=== PATIENT | female | born 1940 | race Caucasian/White ===

== ENCOUNTER → 2016-07-05 | Outpatient (CLI) | payer MEDICARE, BC ==
--- NOTE | 2016-07-05 22:22 | US ---
EXAMINATION TYPE: US thyroid st tissue head/neck DATE OF EXAM: 07/05/2016 3:34 PM COMPARISON: US 2016 CLINICAL HISTORY: 76-year-old female E04.1 Thyroid Nodule. TECHNIQUE: Multiple sonographic images of the thyroid gland are obtained. FINDINGS: Right Lobe: 4.2 x 1.3 x 1.7 cm Left Lobe: 4.2 x 1.4 x 1.7 cm Isthmus Thickness: 0.3 cm There is homogeneous glandular parenchyma. In the left lobe, there is a mixed nodule with well-defined margins in the lower pole measuring 11 x 6 x 6 mm. This previously measured 12 x 7 x 9 mm. In addition, a couple tiny 1 to 2 mm colloid cysts are noted in the left lobe. No additional nodules. Bilateral neck scanned, no evidence of lymphadenopathy. IMPRESSION: Redemonstrated mixed nodule in the left lower pole. This measures 11 x 6 mm versus 12 x 9 mm, previou sly, not significantly changed to slightly smaller.
== END | disposition home or self-care (01) ==
LOC: RADUSWWP 14:58
PROVIDERS: ATTEND Family Medicine
DX: E04.1 Nontoxic single thyroid nodule (principal)
CPT/HCPCS: 76536

== ENCOUNTER → 2017-01-07 | Outpatient (CLI) | payer MEDICARE, BC ==
--- NOTE | 2017-01-07 14:15 | US ---
EXAMINATION TYPE: US kidneys/renal and bladder DATE OF EXAM: 01/07/2017 COMPARISON: NONE CLINICAL HISTORY: [id number] HEMATURIA; Microscopic hematuria per patient. EXAM MEASUREMENTS: Right Kidney: 9.9 x 4.5 x 3.9 cm Left Kidney: 9.4 x 5.0 x 4.9 cm Post Void Residual Volume: 13.0 mL Right Kidney: No hydronephrosis or masses seen Left Kidney: No hydronephrosis or masses seen Bladder: wnl Bilateral Jets seen: Yes Normal Post Void Residual: Yes There is no evidence for hydronephrosis at this point in time. No nephrolithiasis is seen. No natalia s are identified. The urinary bladder is anechoic. Bilateral ureteral jets are seen. IMPRESSION: Negative study.
--- NOTE | 2017-01-07 16:07 | US ---
EXAMINATION TYPE: US thyroid st tissue head/neck DATE OF EXAM: 01/07/2017 COMPARISON: 07/05/2016 CLINICAL HISTORY: 76-year-old female E04.1 SINGLE THYROID NODULE. TECHNIQUE: Multiple sonographic images of the thyroid gland are obtained. FINDINGS: GLAND SIZE: Right Lobe: 4.5 x 1.5 x 1.5 cm Overall Parenchyma: homogenous Left Lobe: 4.0 x 1.5 x 1.7 cm Overall Parenchyma: homogeneous Isthmus Thickness: 0.2 cm NODULES RIGHT: # of nodules measured on right: 1 1. 0.2 X 0.1 x 0.1 cm nodule that is too small to characterize but with the punctate calcification at the lower pole. There is no intranodular vascularity. Not previously seen. LEFT: # of nodules measured on left: 2 1. 1.1 X 0.6 x 0.7 cm hypoechoic mixed nodule at the lower pole with well-defined margins. This no dule is taller than wide and shows no intranodular vascularity. Prior size: 1.1 x 0.6 x 0.6 cm 2. 0.2 X 0.2 x 0.1 cm hypoechoic solid nodule at the upper pole with margins. This nodule is wider than tall and shows no intranodular vascularity. Prior size: approximately .01 to 0.2cm ISTHMUS: # of nodules measured in the isthmus: 0 Bilateral neck scanned, no evidence of lymphadenopathy. IMPRESSION: Essentially stable 1.1 x 0.7 cm mixed nodule in the left lower pole (versus 1.1 x 0.6 cm, previously) .
== END | disposition home or self-care (01) ==
LOC: RADUSWWP 12:27
PROVIDERS: ATTEND Family Medicine
DX: E04.1 Nontoxic single thyroid nodule (principal); R31.21 Asymptomatic microscopic hematuria
CPT/HCPCS: 76536; 76770

== ENCOUNTER 2017-06-03 08:35 | Inpatient (IN) | payer MEDICARE, BC ==
[2017-06-03] MEDS ORDERED: IPRATROPIUM 0.5 MG/2.5 ML NEBU INHALATION STA (08:59)
[2017-06-03] MEDS ORDERED: ALBUTEROL NEBULIZED 2.5 MG/3 ML INHALATION STA ×2 (08:59→11:24)
[2017-06-03] MEDS ORDERED: DEXAMETHASONE SOD PHOSPHATE 10 MG/ML 1 ML VIAL IV STA (08:59)
--- NOTE | 2017-06-03 09:02 | ED ---
General Adult HPI - General Chief complaint: Upper Respiratory Infection Stated complaint: lethargic Time Seen by Provider: 06/03/17 08:47 Source: patient, RN notes reviewed Mode of arrival: wheelchair Limitations: no limitations - History of Present Illness Initial comments: 77 yo female presenting with cough, rhinorrhea, fever and lethargy. Patient states she has had these symptoms for approximately 4-5 days. Denies significant dyspnea, denies chest pain. Patient does have a remote history of tobacco use, no formal diagnosis of asthma or COPD. She's had some nausea, no significant vomiting or diarrhea. No abdominal pain. She does complain of myalgias. - Related Data Home Medications Medication Instructions Recorded Confirmed Ca/D3/Mag/Zinc/Jayesh/David/Mgbor 1 tab PO DAILY 10/15/14 06/03/17 [Caltrate 600+D3+Min Chew Tab] Aspirin 81 mg PO DAILY 06/03/17 06/03/17 Lisinopril [Zestril] 20 mg PO DAILY 06/03/17 06/03/17 Multivit-Min/Iron/Folic/Lutein 1 tab PO DAILY 06/03/17 06/03/17 [Centrum Silver Women Tablet] Allergies Allergy/AdvReac Type Severity Reaction Status Date / Time No Known Allergies Allergy Verified 06/03/17 09:12 Review of Systems ROS Statement: Those systems with pertinent positive or pertinent negative responses have been documented in the HPI. ROS Other: All systems not noted in ROS Statement are negative. Past Medical History Past Medical History: Hypertension History of Any Multi-Drug Resistant Organisms: None Reported Past Surgical History: Hernia Repair Past Anesthesia/Blood Transfusion Reactions: No Reported Reaction Past Psychological History: No Psychological Hx Reported Smoking Status: Former smoker Past Alcohol Use History: None Reported Past Drug Use History: None Reported - Past Family History Sister(s) Family Medical History: Thyroid Disorder Additional Family Medical History / Comment(s): hypothyroidism General Exam Limitations: no limitations General appearance: alert, in no apparent distress Head exam: Present: atraumatic, normocephalic Eye exam: Present: normal appearance, PERRL Neck exam: Present: normal inspection, full ROM. Absent: tenderness, meningismus Respiratory exam: Present: respiratory distress, wheezes, accessory muscle use, decreased breath sounds, prolonged expiratory Cardiovascular Exam: Present: regular rate, normal rhythm GI/Abdominal exam: Present: soft. Absent: distended, tenderness Extremities exam: Present: normal inspection, normal capillary refill. Absent: pedal edema Neurological exam: Present: alert, oriented X3, CN II-XII intact. Absent: motor sensory deficit Psychiatric exam: Present: normal affect, normal mood Skin exam: Present: warm, dry, intact. Absent: cyanosis, diaphoretic Course Vital Signs 06/03/17 06/03/17 06/03/17 08:36 09:29 09:44 Temperature 100.2 F H Pulse Rate 99 92 90 Respiratory 20 18 26 H Rate Blood Pressure 148/68 153/68 O2 Sat by Pulse 95 99 Oximetry 06/03/17 06/03/17 06/03/17 09:45 09:56 11:22 Temperature 100.6 F H Pulse Rate 100 87 Respiratory 24 24 Rate Blood Pressure 121/53 O2 Sat by Pulse 89 L Oximetry EKG Findings - EKG Comments: EKG Findings:: EKG, normal sinus rhythm, right atrial enlargement, left bundle branch block, ventricular rate 93, TX interval 142, QRS duration 134, QTC 455. No old for comparison Medical Decision Making - Medical Decision Making 77 yofemale presenting with dyspnea and flulike symptoms. Patient is influenza positive. Chest x-ray shows hyperinflation, possible right upper lobe mass and patchy atelectasis. Blood cell count, stable hemoglobin, CO2 is 34 which is consistent with chronic CO2 retention. Troponin 0.026. EKG is left bundle with no old for comparison. Patient does not have any chest pain. She was given aspirin in the emergency department and troponin level will be trended. Presentation is consistent with COPD exacerbation. Patient will be admitted for further treatment. She is started on Tamiflu as well. Case discussed with Dr. Peck who will accept admission. - Lab Data Result diagrams: 06/03/17 09:00 06/03/17 09:00 Lab Results 06/03/17 06/03/17 06/03/17 Range/Units 09:00 09:00 09:00 WBC 7.6 (3.8-10.6) k/uL RBC 4.39 (3.80-5.40) m/uL Hgb 13.2 (11.4-16.0) gm/dL Hct 38.8 (34.0-46.0) % MCV 88.2 (80.0-100.0) fL MCH 29.9 (25.0-35.0) pg MCHC 33.9 (31.0-37.0) g/dL RDW 13.1 (11.5-15.5) % Plt Count 231 (150-450) k/uL Neutrophils % 84 % Lymphocytes % 8 % Monocytes % 7 % Eosinophils % 0 % Basophils % 0 % Neutrophils # 6.4 (1.3-7.7) k/uL Lymphocytes # 0.6 L (1.0-4.8) k/uL Monocytes # 0.5 (0-1.0) k/uL Eosinophils # 0.0 (0-0.7) k/uL Basophils # 0.0 (0-0.2) k/uL PT (9.0-12.0) sec INR (<1.2) APTT (22.0-30.0) sec Sodium 137 (137-145) mmol/L Potassium 4.3 (3.5-5.1) mmol/L Chloride 94 L (98-107) mmol/L Carbon Dioxide 34 H (22-30) mmol/L Anion Gap 9 mmol/L BUN 24 H (7-17) mg/dL Creatinine 0.69 (0.52-1.04) mg/dL Est GFR (CKD-EPI)AfAm >90 (>60 ml/min/1.73 sqM) Est GFR (CKD-EPI)NonAf 85 (>60 ml/min/1.73 sqM) Glucose 112 H (74-99) mg/dL Plasma Lactic Acid Daniel (0.7-2.0) mmol/L Calcium 9.1 (8.4-10.2) mg/dL Magnesium 1.7 (1.6-2.3) mg/dL Total Bilirubin 0.3 (0.2-1.3) mg/dL AST 34 (14-36) U/L ALT 38 (9-52) U/L Alkaline Phosphatase 69 (38-126) U/L Total Creatine Kinase 83 (30-135) U/L CK-MB (CK-2) 1.9 (0.0-2.4) ng/mL CK-MB (CK-2) Rel Index 2.3 Troponin I 0.026 (0.000-0.034) ng/mL NT-Pro-B Natriuret Pep pg/mL Total Protein 6.3 (6.3-8.2) g/dL Albumin 3.3 L (3.5-5.0) g/dL Influenza Type A RNA (Not Detectd) Influenza Type B (PCR) (Not Detectd) 06/03/17 06/03/17 06/03/17 Range/Units 09:00 09:00 09:00 WBC (3.8-10.6) k/uL RBC (3.80-5.40) m/uL Hgb (11.4-16.0) gm/dL Hct (34.0-46.0) % MCV (80.0-100.0) fL MCH (25.0-35.0) pg MCHC (31.0-37.0) g/dL RDW (11.5-15.5) % Plt Count (150-450) k/uL Neutrophils % % Lymphocytes % % Monocytes % % Eosinophils % % Basophils % % Neutrophils # (1.3-7.7) k/uL Lymphocytes # (1.0-4.8) k/uL Monocytes # (0-1.0) k/uL Eosinophils # (0-0.7) k/uL Basophils # (0-0.2) k/uL PT (9.0-12.0) sec INR (<1.2) APTT (22.0-30.0) sec Sodium (137-145) mmol/L Potassium (3.5-5.1) mmol/L Chloride (98-107) mmol/L Carbon Dioxide (22-30) mmol/L Anion Gap mmol/L BUN (7-17) mg/dL Creatinine (0.52-1.04) mg/dL Est GFR (CKD-EPI)AfAm (>60 ml/min/1.73 sqM) Est GFR (CKD-EPI)NonAf (>60 ml/min/1.73 sqM) Glucose (74-99) mg/dL Plasma Lactic Acid Daniel 1.1 (0.7-2.0) mmol/L Calcium (8.4-10.2) mg/dL Magnesium (1.6-2.3) mg/dL Total Bilirubin (0.2-1.3) mg/dL AST (14-36) U/L ALT (9-52) U/L Alkaline Phosphatase (38-126) U/L Total Creatine Kinase (30-135) U/L CK-MB (CK-2) (0.0-2.4) ng/mL CK-MB (CK-2) Rel Index Troponin I (0.000-0.034) ng/mL NT-Pro-B Natriuret Pep 525 pg/mL Total Protein (6.3-8.2) g/dL Albumin (3.5-5.0) g/dL Influenza Type A RNA Not Detected (Not Detectd) Influenza Type B (PCR) Detected H (Not Detectd) 06/03/17 Range/Units 09:00 WBC (3.8-10.6) k/uL RBC (3.80-5.40) m/uL Hgb (11.4-16.0) gm/dL Hct (34.0-46.0) % MCV (80.0-100.0) fL MCH (25.0-35.0) pg MCHC (31.0-37.0) g/dL RDW (11.5-15.5) % Plt Count (150-450) k/uL Neutrophils % % Lymphocytes % % Monocytes % % Eosinophils % % Basophils % % Neutrophils # (1.3-7.7) k/uL Lymphocytes # (1.0-4.8) k/uL Monocytes # (0-1.0) k/uL Eosinophils # (0-0.7) k/uL Basophils # (0-0.2) k/uL PT 10.0 (9.0-12.0) sec INR 1.0 (<1.2) APTT 24.3 (22.0-30.0) sec Sodium (137-145) mmol/L Potassium (3.5-5.1) mmol/L Chloride (98-107) mmol/L Carbon Dioxide (22-30) mmol/L Anion Gap mmol/L BUN (7-17) mg/dL Creatinine (0.52-1.04) mg/dL Est GFR (CKD-EPI)AfAm (>60 ml/min/1.73 sqM) Est GFR (CKD-EPI)NonAf (>60 ml/min/1.73 sqM) Glucose (74-99) mg/dL Plasma Lactic Acid Daniel (0.7-2.0) mmol/L Calcium (8.4-10.2) mg/dL Magnesium (1.6-2.3) mg/dL Total Bilirubin (0.2-1.3) mg/dL AST (14-36) U/L ALT (9-52) U/L Alkaline Phosphatase (38-126) U/L Total Creatine Kinase (30-135) U/L CK-MB (CK-2) (0.0-2.4) ng/mL CK-MB (CK-2) Rel Index Troponin I (0.000-0.034) ng/mL NT-Pro-B Natriuret Pep pg/mL Total Protein (6.3-8.2) g/dL Albumin (3.5-5.0) g/dL Influenza Type A RNA (Not Detectd) Influenza Type B (PCR) (Not Detectd) Critical Care Time Critical Care Time: Yes Total Critical Care Time: 35 Disposition Clinical Impression: COPD exacerbation Disposition: ADMITTED IP TO THIS [facility] Condition: Stable Is patient prescribed a controlled substance at discharge?: No Referrals: Tiago Rojo DO [Primary Care Provider] - 1-2 days Decision to Admit Reason: Admit from EC Decision Date: 06/03/17 Decision Time: 11:32
[2017-06-03 09:31] LABS: Basophils % (A) 0 %; Eosinophils % (A) 0 %; HCT 38.8 % (34.0-46.0); HGB 13.2 gm/dL (11.4-16.0); Lymphocytes # (A) 0.6 k/uL (1.0-4.8); Lymphocytes % (A) 8 %; MCH 29.9 pg (25.0-35.0); MCHC 33.9 g/dL (31.0-37.0); MCV 88.2 fL (80.0-100.0); Mean Platelet Volume 6.8; Monocytes # (A) 0.5 k/uL (0-1.0); Monocytes % (A) 7 %; Neutrophils # (A) 6.4 k/uL (1.3-7.7); Neutrophils % (A) 84 %; Platelet Count 231 k/uL (150-450); RBC 4.39 m/uL (3.80-5.40); RDW 13.1 % (11.5-15.5); WBC 7.6 k/uL (3.8-10.6)
[2017-06-03 09:43] LABS: ALT 38 U/L (9-52); AST 34 U/L (14-36); Albumin 3.3 g/dL (3.5-5.0); Alkaline Phosphatase 69 U/L (38-126); Anion Gap 9 mmol/L; Blood Urea Nitrogen 24 mg/dL (7-17); Calcium 9.1 mg/dL (8.4-10.2); Carbon Dioxide 34 mmol/L (22-30); Chloride 94 mmol/L (98-107); Glucose 112 mg/dL (74-99); Magnesium 1.7 mg/dL (1.6-2.3); Partial Thromboplastin Time 24.3 sec (22.0-30.0); Potassium 4.3 mmol/L (3.5-5.1); Sodium 137 mmol/L (137-145); Total Bilirubin 0.3 mg/dL (0.2-1.3); Total Protein 6.3 g/dL (6.3-8.2)
--- NOTE | 2017-06-03 09:48 | XR ---
EXAMINATION TYPE: XR chest 2V DATE OF EXAM: 06/03/2017 COMPARISON: None HISTORY: 77-year-old female cough, difficulty breathing TECHNIQUE: AP and lateral views FINDINGS: Heart upper limits of normal in size. There is atherosclerotic arch calcifications. Large appearance to the main right and left pulmonary arteries on the lateral view. Hyperinflation. No focal density in the right upper lobe possibly posteriorly on the lateral view. Some patchy posterior basilar densi ty also seen on the lateral view. IMPRESSION: 1. COPD. Pulmonary arterial hypertension. 2. Possible mass in the right upper lobe. Further cross-sectional evaluation recommended. 3. Patchy posterior basilar atelectasis or infiltrate seen on the lateral view.
[2017-06-03 09:59] LABS: Creatine Kinase MB 1.9 ng/mL (0.0-2.4); Troponin I 0.026 ng/mL (0.000-0.034)
[2017-06-03] MEDS ORDERED: OSELTAMIVIR 75 MG CAP PO STA (11:21)
[2017-06-03] MEDS ORDERED: IPRATROPIUM-ALBUTEROL 3 ML NEB INHALATION PRN (11:23)
[2017-06-03] MEDS ORDERED: ALBUTEROL NEBULIZED 2.5 MG/3 ML INHALATION PRN (11:24)
[2017-06-03] MEDS ORDERED: ASPIRIN 325 MG TAB PO STA (11:25)
[2017-06-03] MEDS ORDERED: IPRATROPIUM-ALBUTEROL 3 ML NEB INHALATION SCH (12:00)
[2017-06-03] MEDS ORDERED: TEMAZEPAM 15 MG CAP PO PRN (12:28)
[2017-06-03] MEDS ORDERED: ONDANSETRON 4 MG/2 ML VIAL IVP PRN (12:28)
[2017-06-03] MEDS ORDERED: MELATONIN 3 MG TABLET PO PRN (12:28)
[2017-06-03] MEDS ORDERED: ACETAMINOPHEN TAB 325 MG TAB PO PRN (12:28)
[2017-06-03] MEDS ORDERED: ALPRAZolam 0.25 MG TAB PO PRN (12:28)
[2017-06-03] MEDS ORDERED: CALCIUM CARBONATE 500 MG CHEWABLE PO PRN (12:28)
[2017-06-03] MEDS ORDERED: NALOXONE 0.4 MG/ML 1 ML VIAL IV PRN (12:28)
[2017-06-03] MEDS ORDERED: methylPREDNISolone SOD SUCCI 125 MG/2 ML VIAL IV SCH (13:00)
[2017-06-03] MEDS: LEVOFLOXACIN 500 MG TAB PO SCH (14:03)
[2017-06-03] MEDS: ENOXAPARIN 40 MG/0.4 ML SYRINGE SQ SCH (14:03)
[2017-06-03] MEDS: IPRATROPIUM-ALBUTEROL 3 ML NEB INHALATION SCH ×3 (16:06→20:20)
[2017-06-03 16:07] LABS: Creatine Kinase MB 2.1 ng/mL (0.0-2.4); Troponin I 0.014 ng/mL (0.000-0.034)
[2017-06-03] MEDS: methylPREDNISolone SOD SUCCI 40 MG/ML 1 ML VIAL IV SCH (16:34)
[2017-06-03 17:05] LABS: Glucose,Whole Blood 173 mg/dL (75-99)
[2017-06-03 20:39] LABS: Glucose,Whole Blood 130 mg/dL (75-99)
[2017-06-03] MEDS: INSULIN ASPART 100 UNIT/ML 1 ML 10 ML VIAL SQ SCH (20:46)
[2017-06-03] MEDS: OSELTAMIVIR 75 MG CAP PO SCH (22:02)
[2017-06-03 23:08] LABS: Creatine Kinase 64 U/L (30-135)
[2017-06-03 23:20] LABS: Creatine Kinase MB 1.9 ng/mL (0.0-2.4); Troponin I <0.012 ng/mL (0.000-0.034)
[2017-06-03] MEDS ORDERED: RX INFO: IV CONTRAST WAS GIVEN 1 EACH MISC MISCELLANE PRN (23:57)
--- NOTE | 2017-06-04 00:43 | HP ---
HISTORY AND PHYSICAL DATE OF SERVICE: 06/03/2017. PRESENT COMPLAINT: Short of breath, congested. HISTORY OF PRESENTING COMPLAINT: This is a 77-year-old patient I saw on the morning of 06/03/2017. The patient follows with Dr. Rojo. The patient is here with daughter who gives most of the history. For 4 days patient had been getting increasingly congested, cough, short of breath, not able to bring up much sputum, tired run down. Does not think she has a fever. Patient is slow to answer questions as he is feeling tired and run down. Decreased activity. The patient was found to have positive influenza A in the ER, being admitted for the same. REVIEW OF SYSTEMS: CONSTITUTIONAL: Weak and tired. HEENT: Decreased hearing. RESPIRATORY: Some wheezing and cough. CARDIOVASCULAR: None. GASTROINTESTINAL: Heartburn. GENITOURINARY: None. MUSCULOSKELETAL: None. DERMATOLOGIC: None. HEMATOLOGIC: None. LYMPHATIC: None. PSYCHIATRY: Slightly forgetful. NEUROLOGICAL: None. PAST MEDICAL HISTORY: Hypertension, thyroid nodule, GERD. PAST SURGICAL HISTORY: Bilateral inguinal hernia repair, colonoscopy. SOCIAL HISTORY: Lives alone. The patient smoked for 22 years, stopped in 1987. No alcohol. FAMILY HISTORY: Thyroid disorder, hypothyroidism. HOME MEDICATIONS: 1. Centrum Silver I tab p.o. daily. 2. Zestril 20 mg p.o. daily. 3. Calcium 600. 4. Vitamin D3, 1 tab p.o. daily. 5. Aspirin 81 mg p.o. daily. ALLERGIES: None. PHYSICAL EXAMINATION: Vital signs on presentation, temperature 100.9, pulse 83, respirations 16, blood pressure 102/54, pulse ox 95% on room air. GENERAL APPEARANCE: Thin built, sitting up, tired appearing. EYES: Pupils are equal. Conjunctivae normal. HEENT: External appearance of nose and ears normal. Oral cavity normal. NECK: JVD not raised. Mass not palpable. Respiratory effort increased. LUNGS: Diminished breath sounds. Minimal wheezing. CARDIOVASCULAR: 1st and 2nd heart sounds. No edema. ABDOMEN: Soft, nontender. Liver and spleen not palpable. LYMPHATIC: No lymph node palpable in neck or axillae. PSYCHIATRY: Alert, oriented x3. Mood and affect normal. NEUROLOGIC: Pupils equal. Cranial nerves grossly intact. Power and sensation grossly intact. MUSCULOSKELETAL: Evidence of osteoarthritis especially in the hands and knees. INVESTIGATIONS: White count 7.6, potassium 4.3, BUN 24, creatinine 0.69. Influenza B positive. EKG shows left bundle branch block, slight atrial enlargement. Chest x-ray shows hyperinflation, questionable mass in the right upper lobe, patchy infiltrate on the left side. ASSESSMENT: 1. Acute influenza B with pneumonitis. Doubt bacterial infection. 2. Acute chronic obstructive pulmonary disease exacerbation in an ex-smoker. 3. Prominent pulmonary arteries on the chest x-ray, suspect secondary pulmonary hypertension. 4. Possible mass in the right upper lobe. PLAN: Patient is started on Tamiflu, IV fluids, bronchodilators, IV Solu-Medrol. Will do CT scan with contrast in the morning. Care was discussed with the patient's daughter at the bedside. Questions were answered. MMODL / IJN: [id number] /
[2017-06-04] MEDS: methylPREDNISolone SOD SUCCI 40 MG/ML 1 ML VIAL IV SCH ×3 (01:20→16:50)
[2017-06-04] MEDS: LACTATED RINGERS 1,000 ML IV SCH ×2 (01:22→14:42)
[2017-06-04 07:25] LABS: Glucose,Whole Blood 114 mg/dL (75-99)
[2017-06-04] MEDS: BUDESONIDE 1 MG/2 ML NEBU INHALATION SCH ×2 (07:25→19:53)
[2017-06-04] MEDS: IPRATROPIUM-ALBUTEROL 3 ML NEB INHALATION SCH ×4 (07:25→19:53)
[2017-06-04] MEDS: INSULIN ASPART 100 UNIT/ML 1 ML 10 ML VIAL SQ SCH ×4 (07:26→20:33)
[2017-06-04] MEDS: LISINOPRIL 20 MG TAB PO SCH (08:14)
[2017-06-04] MEDS: ENOXAPARIN 40 MG/0.4 ML SYRINGE SQ SCH (08:14)
[2017-06-04] MEDS: ASPIRIN 81 MG PO SCH (08:14)
[2017-06-04] MEDS: OSELTAMIVIR 75 MG CAP PO SCH ×2 (08:14→21:36)
[2017-06-04] MEDS ORDERED: RX INFO: IV CONTRAST WAS GIVEN 1 EACH MISC MISCELLANE PRN (09:21)
[2017-06-04 12:22] LABS: Glucose,Whole Blood 120 mg/dL (75-99)
--- NOTE | 2017-06-04 12:39 | CT ---
EXAMINATION TYPE: CT chest w con DATE OF EXAM: 06/04/2017 COMPARISON: 06/03/2018 HISTORY: Abnormal CXR CT DLP: 122.6 mGycm. Automated Exposure Control for Dose Reduction was Utilized. TECHNIQUE: CT scan of the thorax is performed following with IV Contrast, patient injected with 100 mL of Isovue 300. FINDINGS: LUNGS: There is mild to moderate centrilobular pulmonary emphysema. Groundglass opacity within the ri ght lung apex on series 4 image 12 measures 1.6 x 1.7 cm. Corresponding to the finding on the chest r adiograph there is a multilobulated and peripherally spiculated centrally hypoattenuated heterogenous pulmonary nodule measuring 1.8 x 2.4 cm. This is seen in the superior segment of the right lower lob e with adjacent pleural thickening and series 3 image 22 and pleural tethering. Tiny satellite pulmon obdulia nodule on series 4 image 22 measures 5 mm. At the inferior aspect of this mass there is traction bronchiectasis. Mild cylindrical bronchiectasis is seen of the right middle lobe such as on series 4 image 43 and 44. Right middle lobe pleural-based nodule measures 1.0 cm. Within the left lower lobe there is a heterogenous consolidation with areas of decreased attenuation and decreased enhancement most compatible with pneumonia and surrounding atelectasis. MEDIASTINUM: Closely associated with the azygos vein there is a prominent 9 mm right paratracheal lym ph node and additional prominent right hilar 9 mm lymph node. Mild coronary artery calcifications are seen. [id number] atherosclerosis of the thoracic aorta is also present. No pericardial effusio n is seen. OTHER: There is a mid thoracic compression deformity at approximately T8. No retropulsion. Vertebral body height loss is approximately 50%. Multilevel mild degenerative changes of the thoracic spine are noted as well as an exaggerated thoracic kyphosis. IMPRESSION: 1. Highly suspicious right lower lobe superior segment pulmonary nodule measuring 1.8 x 2.4 cm with a djacent 4 mm satellite pulmonary nodule and additional right apical groundglass opacity measuring up to 1.7 cm. Findings are concerning for neoplasm. There is adjacent traction bronchiectasis. Further e valuation with bronchoscopy, percutaneous sampling, or PET/CT should be considered. 2. Two mediastinal lymph nodes are upper limits of normal size measuring 9 mm and could be further as sessed with PET CT. 3. Midthoracic age indeterminant compression deformity of T8. This does not appear pathologic. 4. Left lower lobe pneumonia and atelectasis. 5. Pleural-based 1.0 cm right middle lobe pulmonary nodule. 6. Mild to moderate background centrilobular pulmonary emphysema.
[2017-06-04 13:26] LABS: Hemoglobin A1C 5.7 % (4.0-6.0)
[2017-06-04 14:01] VITALS: BMI 18.9
[2017-06-04] MEDS: MULTIVITAMINS, THERA 1 EACH TAB PO SCH (14:42)
[2017-06-04] MEDS: LEVOFLOXACIN 500 MG TAB PO SCH (14:42)
--- NOTE | 2017-06-04 15:26 | PN ---
PROGRESS NOTE DATE OF SERVICE: 06/04/2017 PRESENTING COMPLAINT: Short of breath, congested. INTERVAL HISTORY: Patient admitted with acute pneumonitis from Tamiflu and COPD exacerbation. Breathing is better. Tolerating a diet. Daughter is at the bedside. CT scan of the chest was done because of abnormal chest x-ray for possible nodules. REVIEW OF SYSTEMS: Done for constitutional, cardiovascular, GI, pulmonary; relevant findings as above. CURRENT MEDICATIONS: Include DuoNeb, Solu-Medrol, Tamiflu, Levaquin. PHYSICAL EXAMINATION: Temperature 96.4, pulse 77, respirations 18, blood pressure 132/67, pulse ox 90% on 2 L. GENERAL APPEARANCE: Sitting up on a bed, more comfortable today. EYES: Pupil equal, conjunctivae normal. HEENT: External appearance of nose and ears normal, oral cavity normal. NECK: JVD not raised. Mass not palpable. Respiratory effort increased. LUNGS: Diminished breath sounds. Improved air entry. CARDIOVASCULAR: First and second sounds are normal. No edema. ABDOMEN: Soft, nontender. Liver and spleen not palpable. PSYCHIATRY: Alert and oriented x3. Mood and affect normal. INVESTIGATIONS: Accu-Cheks are noted. CT scan of the chest showing some nodules. ASSESSMENT: 1. Acute influenza B with pneumonitis, empirically being covered for any bacterial infection. Clinically doing better. 2. Acute chronic obstructive pulmonary disease exacerbation in an ex-smoker. 3. Prominent pulmonary arteries in the chest, suspect secondary pulmonary hypertension. 4. Abnormal CT scan showing nodules. PLAN: Care was discussed with the patient's daughter. Continue current medication and treatment plan. Await input from Pulmonary. Clinically patient is doing better. MMODL / IJN: [id number] /
[2017-06-04 17:17] LABS: Glucose,Whole Blood 144 mg/dL (75-99)
--- NOTE | 2017-06-04 18:36 | P.CNPUL ---
History of Present Illness Consult date: 06/04/17 Reason for consult: dyspnea, cough, pulmonary hypertension, lung mass Chief complaint: Cough shortness of breath and not feeling well for the last 1 week History of present illness: 77-year-old female who lives by herself family brought her into the hospital as she was not doing very well her symptoms started about a week ago with increased upper respiratory type of infectious process cough congestion shortness of breath and was very congested brought into the hospital for further evaluation and intervention and treatment as per son was present bedside patient is a long-standing history of the respiratory issues and get short of breath on activity and exertion. Patient however lives by herself take care of usual routines with family present around nearby. Further workup and evaluation revealed nasopharyngeal swab is positive for influenza B pneumonia, computed tomography scan of the chest abnormal with left lower lobe infiltrate suggestive of the secondary bacterial pneumonia. CAT scan also revealed extensive degree emphysema prominent pulmonary vasculature suggestive of pulmonary hypertension as well as multiple nodules on the right side the right upper lobe nodule is groundglass appearance right middle lobe nodule was close to thoracic wall a larger over 2 cm nodule is noted in the right lower lobe as well there are appearance overall suggestive of the neoplastic processes but however infectious process cannot be excluded Review of Systems All systems: negative Past Medical History Past Medical History: Hypertension, Thyroid Disorder Additional Past Medical History / Comment(s): Thyroid nodules being monitored. History of Any Multi-Drug Resistant Organisms: None Reported Past Surgical History: Hernia Repair Additional Past Surgical History / Comment(s): Bilateral inguinal hernia repairs , colonoscopies with benign polypectomies. Past Anesthesia/Blood Transfusion Reactions: No Reported Reaction Smoking Status: Former smoker - Past Family History Mother Family Medical History: Dementia Additional Family Medical History / Comment(s): Mother at age 83 yrs. Father Family Medical History: CVA/TIA Additional Family Medical History / Comment(s): Father had a CVA. He at the age of 83 yrs. Sister(s) Family Medical History: Thyroid Disorder Additional Family Medical History / Comment(s): hypothyroidism Medications and Allergies Home Medications Medication Instructions Recorded Confirmed Type Ca/D3/Mag/Zinc/Jayesh/David/Mgbor 1 tab PO DAILY 10/15/14 06/03/17 History [Caltrate 600+D3+Min Chew Tab] Aspirin 81 mg PO DAILY 06/03/17 06/03/17 History Lisinopril [Zestril] 20 mg PO DAILY 06/03/17 06/03/17 History Multivit-Min/Iron/Folic/Lutein 1 tab PO DAILY 06/03/17 06/03/17 History [Centrum Silver Women Tablet] Allergies Allergy/AdvReac Type Severity Reaction Status Date / Time No Known Allergies Allergy Verified 06/03/17 09:12 Physical Exam Vitals: Vital Signs Temp Pulse Pulse Resp BP Pulse Ox 06/04/17 16:30 82 06/04/17 16:20 80 06/04/17 15:00 97.1 F L 82 16 133/61 95 06/04/17 11:45 80 06/04/17 11:30 84 06/04/17 07:48 88 06/04/17 07:25 80 06/04/17 07:00 96.4 F L 77 18 132/67 90 L 06/03/17 23:00 97.4 F L 79 18 124/63 96 06/03/17 20:30 84 06/03/17 20:20 84 Intake and Output 06/04/17 06/04/17 06/04/17 06:59 14:59 22:59 Intake Total 525 600 Balance 525 600 Intake: Intake, IV Titration 525 600 Amount Lactated Ringers 1,000 ml 525 600 @ 75 mls/hr IV .[id number] [facility] Rx#:[id number] Other: Voiding Method Toilet Weight 48.534 kg Limitations: no limitations General appearance: alert, in mild respiratory distress Head exam: Present: atraumatic, normocephalic Eye exam: Present: normal appearance, PERRL Neck exam: Present: normal inspection, full ROM. Absent: tenderness, meningismus Respiratory exam: noted to have mild to moderate respiratory distress, wheezes , accessory muscle use, decreased breath sounds, prolonged expiratory effort Cardiovascular Exam: Present: regular rate, normal rhythm GI/Abdominal exam: Present: soft. Absent: distended, tenderness Extremities exam: Present: normal inspection, normal capillary refill. Absent: pedal edema Neurological exam: Present: alert, oriented X3, CN II-XII intact. Absent: motor sensory deficit Psychiatric exam: Present: normal affect, normal mood Skin exam: Present: warm, dry, intact. Absent: cyanosis, diaphoretic Results - Laboratory Findings CBC and BMP: 06/03/17 09:00 04/16/18 09:00 PT/INR, D-dimer PT 10.0 sec (9.0-12.0) 06/03/17 09:00 INR 1.0 (<1.2) 06/03/17 09:00 Abnormal lab findings: Abnormal Labs 06/03/17 06/03/17 06/03/17 09:00 09:00 09:00 Lymphocytes # 0.6 L Chloride 94 L Carbon Dioxide 34 H BUN 24 H Glucose 112 H POC Glucose (mg/dL) Albumin 3.3 L Influenza Type B (PCR) Detected H 06/03/17 06/03/17 06/04/17 16:57 20:35 07:18 Lymphocytes # Chloride Carbon Dioxide BUN Glucose POC Glucose (mg/dL) 173 H 130 H 114 H Albumin Influenza Type B (PCR) 06/04/17 06/04/17 11:55 17:15 Lymphocytes # Chloride Carbon Dioxide BUN Glucose POC Glucose (mg/dL) 120 H 144 H Albumin Influenza Type B (PCR) - Diagnostic Findings Chest x-ray: report reviewed, image reviewed CT scan - chest: report reviewed, image reviewed (Findings as noted above) Assessment and Plan Assessment: Left lower lobe secondary bacterial pneumonia Influenza B pneumonia Right-sided multiple pulmonary nodules suggestive of neoplastic process however associated infectious process cannot be excluded related to pneumonia Severe COPD emphysema Acute hypoxic respirator failure Pulmonary hypertension likely related to cor pulmonale and severe COPD Plan: Broad-spectrum antibiotics Breathing treatments and steroids Continue gentle hydration Optimize her respiratory therapy Would recommend a PET scan on outpatient basis Echocardiogram Patient however is that the risk of developing complications of biopsy including bleeding as well as pneumothorax as well as respiratory failure will hold on doing the biopsy for now, however once she stabilized scan be considered for outpatient setting after PET scan Time with Patient: Greater than 30
[2017-06-04 20:32] LABS: Glucose,Whole Blood 125 mg/dL (75-99)
[2017-06-05] MEDS ORDERED: methylPREDNISolone SOD SUCCI 40 MG/ML 1 ML VIAL ONE
[2017-06-05 07:16] LABS: Glucose,Whole Blood 134 mg/dL (75-99)
[2017-06-05] MEDS: methylPREDNISolone SOD SUCCI 40 MG/ML 1 ML VIAL IV SCH ×3 (08:30→17:40)
[2017-06-05] MEDS: LACTATED RINGERS 1,000 ML IV SCH ×2 (08:30→17:40)
[2017-06-05] MEDS: ENOXAPARIN 40 MG/0.4 ML SYRINGE SQ SCH (08:34)
[2017-06-05] MEDS: LISINOPRIL 20 MG TAB PO SCH (08:35)
[2017-06-05] MEDS: INSULIN ASPART 100 UNIT/ML 1 ML 10 ML VIAL SQ SCH ×4 (08:35→20:28)
[2017-06-05] MEDS: ASPIRIN 81 MG PO SCH (08:35)
[2017-06-05] MEDS: OSELTAMIVIR 75 MG CAP PO SCH ×2 (08:35→20:30)
[2017-06-05] MEDS: BUDESONIDE 1 MG/2 ML NEBU INHALATION SCH ×2 (09:00→19:42)
[2017-06-05] MEDS: IPRATROPIUM-ALBUTEROL 3 ML NEB INHALATION SCH ×4 (09:00→19:42)
[2017-06-05 11:54] LABS: Glucose,Whole Blood 100 mg/dL (75-99)
[2017-06-05] MEDS: MULTIVITAMINS, THERA 1 EACH TAB PO SCH (12:01)
[2017-06-05] MEDS: LEVOFLOXACIN 500 MG TAB PO SCH (12:02)
--- NOTE | 2017-06-05 12:30 | P.PN ---
Subjective Progress Note Date: 06/05/17 Principal diagnosis: Left lower lobe pneumonia, influenza B pneumonia, multiple lung nodules on the right side, acute on chronic hypoxic respiratory failure, severe COPD and emphysema, pulmonary hypertension likely cor pulmonale 06/05/2017, patient seen eval examined during the rounds from respiratory standpoint is still short of breath has cough is dry and nonproductive she gets short of breath on activity and exertion she remains on supplemental oxygen broad-spectrum antibiotics IV steroids computed tomography scan of the chest reviewed and findings discussed with the daughter present at bedside and patient at length, blood cultures no growth so far, laboratory data reviewed medications reviewed 77-year-old female who lives by herself family brought her into the hospital as she was not doing very well her symptoms started about a week ago with increased upper respiratory type of infectious process cough congestion shortness of breath and was very congested brought into the hospital for further evaluation and intervention and treatment as per son was present bedside patient is a long-standing history of the respiratory issues and get short of breath on activity and exertion. Patient however lives by herself take care of usual routines with family present around nearby. Further workup and evaluation revealed nasopharyngeal swab is positive for influenza B pneumonia, computed tomography scan of the chest abnormal with left lower lobe infiltrate suggestive of the secondary bacterial pneumonia. CAT scan also revealed extensive degree emphysema prominent pulmonary vasculature suggestive of pulmonary hypertension as well as multiple nodules on the right side the right upper lobe nodule is groundglass appearance right middle lobe nodule was close to thoracic wall a larger over 2 cm nodule is noted in the right lower lobe as well there are appearance overall suggestive of the neoplastic processes but however infectious process cannot be excluded Objective - Vital Signs Vital signs: Vital Signs Temp 97.1 F L 06/05/17 06:25 Pulse 76 06/05/17 12:17 Resp 12 06/05/17 06:25 BP 152/78 06/05/17 06:25 Pulse Ox 97 06/05/17 06:25 Intake & Output 06/04/17 06/05/17 06/05/17 18:59 06:59 18:59 Intake Total 600 600 Balance 600 600 Weight 48.534 kg Intake: Intake, IV Titration 600 600 Amount Lactated Ringers 1,000 ml 600 600 @ 75 mls/hr IV .[id number] [facility] Rx#:[id number] Other: Voiding Method Toilet # Voids 1 1 - Exam Limitations: no limitations General appearance: alert, in mild respiratory distress Head exam: Present: atraumatic, normocephalic Eye exam: Present: normal appearance, PERRL Neck exam: Present: normal inspection, full ROM. Absent: tenderness, meningismus Respiratory exam: noted to have mild to moderate respiratory distress, wheezes , accessory muscle use, decreased breath sounds, prolonged expiratory effort Cardiovascular Exam: Present: regular rate, normal rhythm GI/Abdominal exam: Present: soft. Absent: distended, tenderness Extremities exam: Present: normal inspection, normal capillary refill. Absent: pedal edema Neurological exam: Present: alert, oriented X3, CN II-XII intact. Absent: motor sensory deficit Psychiatric exam: Present: normal affect, normal mood Skin exam: Present: warm, dry, intact. Absent: cyanosis, diaphoretic - Labs CBC & Chem 7: 06/03/17 09:00 06/03/17 09:00 Labs: Abnormal Lab Results - Last 24 Hours (Table) 06/04/17 06/04/17 06/05/17 Range/Units 17:15 20:31 07:13 POC Glucose (mg/dL) 144 H 125 H 134 H (75-99) mg/dL 06/05/17 Range/Units 11:49 POC Glucose (mg/dL) 100 H (75-99) mg/dL Microbiology - Last 24 Hours (Table) 06/03/17 09:00 Blood Culture - Preliminary Blood No Growth after 48 hours Assessment and Plan Assessment: Left lower lobe secondary bacterial pneumonia Influenza B pneumonia Right-sided multiple pulmonary nodules suggestive of neoplastic process however associated infectious process cannot be excluded related to pneumonia Severe COPD emphysema Acute hypoxic respiratorY failure Pulmonary hypertension likely related to cor pulmonale and severe COPD Generalized weakness and medical debility Protein calorie malnourishment Plan: Broad-spectrum antibiotics Breathing treatments and steroids Continue gentle hydration Optimize her respiratory therapy Would recommend a PET scan on outpatient basis Echocardiogram Patient however is that the risk of developing complications of biopsy including bleeding as well as pneumothorax as well as respiratory failure will hold on doing the biopsy for now, however once she stabilized scan be considered for outpatient setting after PET scan Her plan discussed with the patient and daughter and son at length Time with Patient: Greater than 30
[2017-06-05 16:56] LABS: Glucose,Whole Blood 109 mg/dL (75-99)
[2017-06-05 20:18] LABS: Glucose,Whole Blood 123 mg/dL (75-99)
--- NOTE | 2017-06-05 20:30 | PN ---
PROGRESS NOTE DATE OF SERVICE: 06/05/17 PRESENTING COMPLAINT: Short of breath, congested. INTERVAL HISTORY: The patient presented with acute pneumonia and influenza B and COPD exacerbation. Breathing continues to improve. Diet is improving. The patient was out of bed. REVIEW OF SYSTEMS: Done for constitutional, cardiovascular, GI, pulmonary and relevant findings as above. CURRENT MEDICATIONS: Reviewed and include DuoNeb, Levaquin, IV Solu-Medrol, Tamiflu. PHYSICAL EXAMINATION: Temperature 97.1, pulse 54, respiratory 18, blood pressure 152/86, pulse ox 95% on 2 L. General appearance: Sitting up, more awake. Eyes pupils are equal. Conjunctivae normal. HEENT external appearance of nose and ears normal. Oral cavity normal. Neck JVD not raised. Mass not palpable. Respiratory effort increased. Lungs decreased breath sounds. Cardiovascular 1st and 2nd sounds normal. No edema. ABDOMEN: Soft, nontender. Liver and spleen not palpable. Psychiatry: Alert and oriented x3. Mood and affect normal. INVESTIGATIONS: Accu-Cheks are noted. ASSESSMENT: 1. Acute influenza B with pneumonitis. Empirically also be covered for bacterial infection. 2. Acute chronic obstructive pulmonary disease exacerbation in an ex-smoker improving. 3. Suspect secondary pulmonary hypertension. 4. Abnormal CT scan showing nodule. Further workup as an outpatient. PLAN: Care was discussed with the patient and daughter at the bedside. Continue current medication and treatment plan. Oral intake is improved. Will DC the IV fluids. MMJENNIFERL / ESCOBARN: [id number] /
[2017-06-06] MEDS: methylPREDNISolone SOD SUCCI 40 MG/ML 1 ML VIAL IV SCH ×3 (00:23→15:17)
[2017-06-06 07:27] LABS: Glucose,Whole Blood 107 mg/dL (75-99)
[2017-06-06] MEDS: IPRATROPIUM-ALBUTEROL 3 ML NEB INHALATION SCH ×4 (09:06→19:37)
[2017-06-06] MEDS: BUDESONIDE 1 MG/2 ML NEBU INHALATION SCH ×2 (09:06→19:37)
[2017-06-06] MEDS: INSULIN ASPART 100 UNIT/ML 1 ML 10 ML VIAL SQ SCH ×4 (09:16→21:38)
[2017-06-06] MEDS: LISINOPRIL 20 MG TAB PO SCH (09:16)
[2017-06-06] MEDS: ASPIRIN 81 MG PO SCH (09:16)
[2017-06-06] MEDS: OSELTAMIVIR 75 MG CAP PO SCH ×2 (09:16→21:39)
[2017-06-06] MEDS: ENOXAPARIN 40 MG/0.4 ML SYRINGE SQ SCH (09:16)
[2017-06-06 12:41] LABS: Glucose,Whole Blood 107 mg/dL (75-99)
[2017-06-06] MEDS: LEVOFLOXACIN 500 MG TAB PO SCH (13:21)
[2017-06-06] MEDS: MULTIVITAMINS, THERA 1 EACH TAB PO SCH (13:22)
[2017-06-06 15:56] VITALS: RESP 18
[2017-06-06 17:10] LABS: Glucose,Whole Blood 103 mg/dL (75-99)
[2017-06-06 21:31] LABS: Glucose,Whole Blood 109 mg/dL (75-99)
--- NOTE | 2017-06-06 23:04 | PN ---
PROGRESS NOTE DATE OF SERVICE: 06/06/2017 PRESENTING COMPLAINT: Short of breath. INTERVAL HISTORY: Patient admitted with pneumonia, influenza B and COPD exacerbation. Continues to get better. Diet is improving. Overall feeling better. Patient will have a further workup as an outpatient for abnormalities on CT scan. Daughter at the bedside. REVIEW OF SYSTEMS: Done for constitutional, cardiovascular, GI, pulmonary; relevant findings as above. CURRENT MEDICATIONS: Reviewed. They include: 1. DuoNeb. 2. Levaquin. 3. Solu-Medrol. 4. Tamiflu. PHYSICAL EXAMINATION: Temperature 97.6, pulse 84, respiration 16, blood pressure 148/76, pulse ox 92% on room air. GENERAL APPEARANCE: Sitting up in the bed. Awake. EYES: Pupils equal. Conjunctivae normal. HEENT: External appearance of nose and ears normal. Oral cavity normal. NECK: JVD not raised. Mass not palpable. RESPIRATORY: Effort increased. LUNGS: Decreased breath sounds. CARDIOVASCULAR: First and second sounds normal. No edema. ABDOMEN: Soft, nontender. Liver and spleen not palpable. PSYCHIATRY: Alert and oriented x3. Mood and affect normal. INVESTIGATIONS: Accu-Cheks are noted. ASSESSMENT: 1. Acute influenza B with pneumonitis with empirical coverage also for bacterial component. 2. Acute chronic obstructive pulmonary disease exacerbation in an ex-smoker, improving. 3. Suspect secondary pulmonary hypertension. 4. Abnormal CT scan showing nodule, for further outpatient workup. PLAN: Care was discussed with the patient. Overall doing much better. Switch to p.o. prednisone in the morning. Hopefully can be discharged tomorrow. MMODL / IJN: [id number] /
[2017-06-07 07:13] LABS: Glucose,Whole Blood 77 mg/dL (75-99)
[2017-06-07] MEDS: BUDESONIDE 1 MG/2 ML NEBU INHALATION SCH (07:13)
[2017-06-07] MEDS: IPRATROPIUM-ALBUTEROL 3 ML NEB INHALATION SCH ×2 (07:13→10:56)
[2017-06-07 07:50] VITALS: BP 169/78; TEMP 97.5
[2017-06-07] MEDS: INSULIN ASPART 100 UNIT/ML 1 ML 10 ML VIAL SQ SCH ×2 (08:50→12:52)
[2017-06-07] MEDS ORDERED: predniSONE 20 MG TAB PO SCH (09:00)
[2017-06-07] MEDS: LISINOPRIL 20 MG TAB PO SCH (09:08)
[2017-06-07] MEDS: ASPIRIN 81 MG PO SCH (09:09)
[2017-06-07] MEDS: OSELTAMIVIR 75 MG CAP PO SCH (09:09)
[2017-06-07] MEDS: ENOXAPARIN 40 MG/0.4 ML SYRINGE SQ SCH (09:09)
[2017-06-07 11:06] VITALS: PULSE 84
[2017-06-07 12:28] LABS: Glucose,Whole Blood 89 mg/dL (75-99)
[2017-06-07] MEDS: MULTIVITAMINS, THERA 1 EACH TAB PO SCH (12:53)
[2017-06-07] MEDS: LEVOFLOXACIN 500 MG TAB PO SCH (12:53)
--- NOTE | 2017-06-07 13:49 | P.PN ---
Subjective Progress Note Date: 06/07/17 Principal diagnosis: Left lower lobe pneumonia, influenza B pneumonia, multiple lung nodules on the right side, acute on chronic hypoxic respiratory failure, severe COPD and emphysema, pulmonary hypertension likely cor pulmonale 06/07/2017, patient seen nabeel examined during the rounds she is sitting upright on the bed sinus present bedside patient has been on supplemental oxygen labs reviewed medications reviewed, blood cultures no growth so far my patient is off of IV steroids has been oral antibiotics and breathing treatments I have discussed with staff would recommend to check room air oxygen saturation overall if the continued do well can be discharged home on oral antibiotics, breathing treatments and tapering steroids with follow-up on outpatient setting 06/06/2017, patient seen nabeel examined during the rounds she is still short of breath however severity of breathing difficulty has improved she denies any cough or sputum production denies any chest pain she patient remains on antibiotics breathing treatments laboratory data radiographic studies reviewed medications reviewed 06/05/2017, patient seen nabeel examined during the rounds from respiratory standpoint is still short of breath has cough is dry and nonproductive she gets short of breath on activity and exertion she remains on supplemental oxygen broad-spectrum antibiotics IV steroids computed tomography scan of the chest reviewed and findings discussed with the daughter present at bedside and patient at length, blood cultures no growth so far, laboratory data reviewed medications reviewed 77-year-old female who lives by herself family brought her into the hospital as she was not doing very well her symptoms started about a week ago with increased upper respiratory type of infectious process cough congestion shortness of breath and was very congested brought into the hospital for further evaluation and intervention and treatment as per son was present bedside patient is a long-standing history of the respiratory issues and get short of breath on activity and exertion. Patient however lives by herself take care of usual routines with family present around nearby. Further workup and evaluation revealed nasopharyngeal swab is positive for influenza B pneumonia, computed tomography scan of the chest abnormal with left lower lobe infiltrate suggestive of the secondary bacterial pneumonia. CAT scan also revealed extensive degree emphysema prominent pulmonary vasculature suggestive of pulmonary hypertension as well as multiple nodules on the right side the right upper lobe nodule is groundglass appearance right middle lobe nodule was close to thoracic wall a larger over 2 cm nodule is noted in the right lower lobe as well there are appearance overall suggestive of the neoplastic processes but however infectious process cannot be excluded Objective - Vital Signs Vital signs: Vital Signs Temp 97.5 F L 04/20/18 07:00 Pulse 84 06/07/17 11:06 Resp 18 06/07/17 11:06 BP 169/78 06/07/17 07:00 Pulse Ox 92 L 06/07/17 09:33 Intake & Output 06/06/17 06/07/17 06/07/17 18:59 06:59 18:59 Intake Total 1200 Balance 1200 Intake: Oral 1200 Other: # Voids 3 3 - Exam Limitations: no limitations General appearance: alert, in mild respiratory distress Head exam: Present: atraumatic, normocephalic Eye exam: Present: normal appearance, PERRL Neck exam: Present: normal inspection, full ROM. Absent: tenderness, meningismus Respiratory exam: noted to have mild to moderate respiratory distress, wheezes , accessory muscle use, decreased breath sounds, prolonged expiratory effort Cardiovascular Exam: Present: regular rate, normal rhythm GI/Abdominal exam: Present: soft. Absent: distended, tenderness Extremities exam: Present: normal inspection, normal capillary refill. Absent: pedal edema Neurological exam: Present: alert, oriented X3, CN II-XII intact. Absent: motor sensory deficit Psychiatric exam: Present: normal affect, normal mood Skin exam: Present: warm, dry, intact. Absent: cyanosis, diaphoretic - Labs CBC & Chem 7: 06/03/17 09:00 06/03/17 09:00 Labs: Abnormal Lab Results - Last 24 Hours (Table) 06/06/17 06/06/17 Range/Units 17:06 21:17 POC Glucose (mg/dL) 103 H 109 H (75-99) mg/dL Microbiology - Last 24 Hours (Table) 06/03/17 09:00 Blood Culture - Preliminary Blood No Growth after 96 hours Assessment and Plan Assessment: Left lower lobe secondary bacterial pneumonia Influenza B pneumonia Right-sided multiple pulmonary nodules suggestive of neoplastic process however associated infectious process cannot be excluded related to pneumonia Severe COPD emphysema Acute hypoxic respiratorY failure Pulmonary hypertension likely related to cor pulmonale and severe COPD Generalized weakness and medical debility Protein calorie malnourishment Plan: Broad-spectrum antibiotics Breathing treatments and steroids Continue gentle hydration Optimize her respiratory therapy Would recommend a PET scan on outpatient basis Echocardiogram Patient however is that the risk of developing complications of biopsy including bleeding as well as pneumothorax as well as respiratory failure will hold on doing the biopsy for now, however once she stabilized scan be considered for outpatient setting after PET scan Her plan discussed with the patient and daughter and son at length, will follow Time with Patient: Greater than 30
--- NOTE | 2017-06-07 20:53 | DS ---
DISCHARGE SUMMARY DATE OF ADMISSION: 06/03/2017. DATE OF DISCHARGE: 06/07/2017 FINAL DIAGNOSES: 1. Acute influenza B with pneumonitis. 2. Acute chronic obstructive pulmonary disease exacerbation in an ex-smoker. 3. Possibly secondary pulmonary hypertension from chronic obstructive pulmonary disease. 4. Lung nodules, to be further worked up as an outpatient. 5. Acute hypoxic respiratory failure from pneumonia. HOSPITAL COURSE: This patient, an ex-smoker, presented very congested, not feeling well, felt to have acute influenza with pneumonitis; could be a bacterial component. Treated both with Levaquin and . Doing much better at the time of discharge. CT scan did show some lung shadows suspicious for malignancy. This will be further worked up as an outpatient. Patient will be requiring oxygen. She did drop down to 84% on room air. Doing better now. PHYSICAL EXAMINATION: LUNGS: Decreased breath sounds. CARDIOVASCULAR: First and second sounds normal. CONSULTATION: Dr. Roberto Garcia from Pulmonary. DISCHARGE MEDICATIONS: 1. Caltrate 600 with D3 one tablet p.o. daily. 2. Aspirin 81 mg p.o. daily. 3. Zestril 20 mg p.o. daily. 4. Centrum Silver 1 tablet p.o. daily. 5. DuoNeb q.i.d. 6. Levaquin 500 mg p.o. daily for 5 tablets. 7. Prednisone taper. 8. Home oxygen 2 L. FOLLOWUP: 1. Follow up with Dr. Rojo on July 18, 2017. 2. Follow up with Dr. Roberto Garcia on June 18, 2017. Discussion and discharge planning more than 35 minutes. Care was discussed with the patient's son at the bedside. MMODL / IJN: [id number] /
== END 2017-06-07 15:46 | disposition home or self-care (01) | DRG 193 ==
LOC: EC 08:35 → 4MS4W 11:23
PROVIDERS: ADMIT Hospitalist; ATTEND Hospitalist
DX: J10.08 Influenza due to other identified influenza virus with other specified pneumonia (principal); J96.21 Acute and chronic respiratory failure with hypoxia; E46 Unspecified protein-calorie malnutrition; E87.2 Acidosis; Z68.1 Body mass index [BMI] 19.9 or less, adult; I27.81 Cor pulmonale (chronic); J43.9 Emphysema, unspecified; J15.9 Unspecified bacterial pneumonia; K21.9 Gastro-esophageal reflux disease without esophagitis; E04.2 Nontoxic multinodular goiter; I27.29 Other secondary pulmonary hypertension; J10.01 Influenza due to other identified influenza virus with the same other identified influenza virus pneumonia; M79.1 Myalgia; I44.7 Left bundle-branch block, unspecified; I10 Essential (primary) hypertension; M19.042 Primary osteoarthritis, left hand; M19.041 Primary osteoarthritis, right hand; M17.0 Bilateral primary osteoarthritis of knee; R91.8 Other nonspecific abnormal finding of lung field; Z79.82 Long term (current) use of aspirin; Z79.899 Other long term (current) drug therapy; Z87.891 Personal history of nicotine dependence; Z83.49 Family history of other endocrine, nutritional and metabolic diseases; Z82.3 Family history of stroke
CPT/HCPCS: 36415; 71046; 71260; 80053; 82550; 82553; 83036; 83605; 83735; 83880; 84484; 85025; 85610; 85730; 87040; 87502; 93005; 94640; 94760; 96374; 99285

== ENCOUNTER → 2017-07-04 | Outpatient (CLI) | payer MEDICARE, BC ==
--- NOTE | 2017-07-04 16:13 | US ---
EXAMINATION TYPE: US thyroid st tissue head/neck DATE OF EXAM: 07/04/2017 COMPARISON: US CLINICAL HISTORY: E04.1 Nontoxic single thyroid nodule. F/U GLAND SIZE: Right Lobe: 3.7 x 1.7 x 1.6 cm Overall Parenchyma: homogenous Left Lobe: 3.8 x 1.8 x 1.2 cm Overall Parenchyma: homogeneous Isthmus Thickness: 0.3 cm NODULES LEFT: # of nodules measured on left: 1 1. 0.9 X 0.7 x 0.7 cm hypoechoic mixed nodule at the lower pole with well-defined margins; This no dule is wider than tall and shows intranodular vascularity. Prior size: 1.1 x 0.6 x 0.7 cm Bilateral neck scanned, no evidence of lymphadenopathy. Stable left thyroid nodule. IMPRESSION: Similar size of the solitary left thyroid nodule in comparison to the prior ultrasounds dated 017 and 07/05/2016.
== END | disposition home or self-care (01) ==
LOC: RADUSWWP 15:25
PROVIDERS: ATTEND Family Medicine
DX: E04.1 Nontoxic single thyroid nodule (principal)
CPT/HCPCS: 76536

== ENCOUNTER → 2017-07-13 | Outpatient (CLI) | payer MEDICARE, BC ==
--- NOTE | 2017-07-15 09:49 | PE ---
EXAMINATION TYPE: PET CT fusion skull to thigh DATE OF EXAM: 07/13/2017 COMPARISON: 06/04/2017 HISTORY: Right lower lobe superior segment pulmonary nodule. Initial staging. TECHNIQUE: Following the intravenous administration of 12.8 mCi of F-18 FDG, whole body images are p erformed from the skull base to the midthigh. Images are reviewed on the computer in the coronal, ax ial, and sagittal planes. Reconstructed rotating images are created on independent workstation and r eviewed on the computer. A localization and attenuation correction CT is performed in conjunction w ith the PET scan. SCAN: Initial FINDINGS: Mediastinal background: 1.6. Abdominal background: 2.22. SKULL BASE AND NECK: Multiple small right supraclavicular lymph nodes on series 3 image 50 are diffi cult to measure as they are intimately associated but appears subcentimeter and do not demonstrate hy permetabolic activity with a maximum SUV of 1.17. CHEST, MEDIASTINUM, AND HILAR REGION: Lungs: The highly suspicious superior segment right lower lobe spiculated pulmonary nodule retracting the fissure with surrounding traction bronchiectasis measures approximately 1.8 x 2.9 cm (previously 1.8 x 2.4) on series 3 image 65 and is hypermetabolic demonstrating maximum SUV of 6.2 compatible wi th neoplasm. Adjacent 5 mm solid pulmonary nodules below the threshold of CT. Groundglass opacity within the right lung apex on series 3 image 53 demonstrates a maximum SUV of 1.2 1 and is equivocal. This could relate to pneumonitis or early metastasis. Right middle lobe 1.0 cm pleural-based nodule appears to be is focal pleural thickening and is not hy permetabolic measuring a maximum SUV of 0.62. This is seen on series 3 image 111 and is unchanged in size. Lymph Nodes: There is a pretracheal lymph node on series 3 image 59 measuring 8 mm in short axis with a maximum SUV of 1.87. There is a right paratracheal lymph node seen on series 3 image 67 measuring 1.0 cm in short axis with a maximum SUV of 5.14. There is a right perihilar lymph node on series 3 im age 73 measuring 1.1 cm in short axis with a maximum SUV of 5.29. No suspicious left hilar lymph node s are noted. ABDOMEN AND PELVIS: No suspicious hypermetabolic uptake. OSSEOUS STRUCTURES: Focal radiotracer uptake within the midthoracic vertebral body compression deform ity has a maximum SUV of 4.25 and is nonspecific in the likely acuity. Vertebral body height loss is again approximately 50%. Throughout the remainder of the osseous structures there is diffuse slight h ypermetabolic activity with a maximum SUV up to 2.29 and thoracic spine, 1.95 within the cervical spi ne, and 1.99 within the lumbar spine. This is only slightly above mediastinal background and below ab dominal background of the cervical and lumbar spine. OTHER CT: There is mild to moderate centrilobular pulmonary emphysema. The previously seen left lower lobe area of consolidation and atelectasis has resolved in the interim. Mild coronary artery calcif ications are again seen. No cardiomegaly or pericardial effusion. There is suboptimal evaluation the bowel due to lack of contrast and close apposition of bowel loops due to lack of intra-abdominal fat. The unenhanced liver, spleen, pancreas, and kidneys are grossly unremarkable in morphology. Severe c alcific atheromatous changes are seen of the abdominal aorta and its branches although the abdominal aorta is of normal course and caliber. Evaluation is limited of adenopathy within the abdomen and pel vis again due to lack of intra-abdominal fat and lack of oral contrast. No hypermetabolic lymph nodes are appreciated. IMPRESSION: Findings compatible with primary lung carcinoma and mediastinal metastasis. Percutaneous biopsy could be performed for tissue diagnosis. Findings currently relate to staging of [id number]. However, there i s diffuse mild uptake throughout the entirety of the spine and acute appearing compression deformity of approximately T8. MRI of the spine could be performed to evaluate for infiltrative bone marrow rep lacing process such as diffuse metastasis. No convincing lesion is seen on CT and therefore uptake co uld be degenerative. Lastly probable glass opacity in the right lung apex is equivocal for pneumoniti s versus early ipsilateral pulmonary metastasis.
== END | disposition home or self-care (01) ==
LOC: RADPETMAIN 07:45
PROVIDERS: ATTEND Internal Medicine Sleep Medicine
DX: M43.9 Deforming dorsopathy, unspecified (principal); R91.1 Solitary pulmonary nodule
CPT/HCPCS: 78815; A9552

== ENCOUNTER → 2017-07-25 | Day surgery (SDC) | payer MEDICARE, BC ==
[~2017-07-25] MED LIST: ALPRAZolam 0.25 MG TAB PO ONE; HYDROmorphone 2 MG TAB PO STA
[2017-07-25 10:29] LABS: Mean Platelet Volume 6.1; Platelet Count 345 k/uL (150-450)
[2017-07-25 10:34] VITALS: RESP 16
[2017-07-25 10:37] LABS: Prothrombin Time 9.8 sec (9.0-12.0)
--- NOTE | 2017-07-25 13:05 | XR ---
EXAMINATION TYPE: XR chest 1V portable DATE OF EXAM: 07/25/2017 COMPARISON: Prior chest x-ray 06/03/2017 HISTORY: Pneumothorax post lung biopsy TECHNIQUE: Single frontal view of the chest is obtained. FINDINGS: Small right apical pneumothorax is present. No pleural effusion. No significant interval c hange. IMPRESSION: Small right apical pneumothorax status post lung biopsy.
[2017-07-25 13:16] VITALS: TEMP 97.4
--- NOTE | 2017-07-25 13:16 | CT ---
EXAMINATION TYPE: CT core biopsy lung RT DATE OF EXAM: 07/25/2017 HISTORY: Right lung mass COMPARISON: NONE Maximal barrier technique was utilized. The skin overlying a suitable path to the lesion in the righ t lower lobe was localized using CT and the overlying skin was prepped and draped. Lidocaine used fo r local anesthesia. A skin jennifer made with a scalpel. Using CT guidance, access was gained to the le geronimo with [id number] guide needle, coaxial placement of an 18-gauge core needle performed. Core specim en submitted to cytology. 1 passes were performed in all. Following the procedure small pneumothora x was noted. The patient is discharged in stable condition for observation. Hemostasis achieved. IMPRESSION: SUCCESSFUL CT GUIDED CORE LUNG BIOPSY. PATHOLOGY PENDING. THIS PROCEDURE WAS PERFORMED BY THE UNDER SIGNED.
[2017-07-25 14:55] VITALS: BP 151/65; PULSE 81
--- NOTE | 2017-07-25 15:07 | XR ---
EXAMINATION TYPE: XR chest 1V portable DATE OF EXAM: 07/25/2017 COMPARISON: Prior chest x-ray same date earlier time HISTORY: Pneumothorax status post lung biopsy TECHNIQUE: Single frontal view of the chest is obtained. FINDINGS: Minimal right apical pneumothorax is suspected similar to prior exam. No evident effusion. IMPRESSION: Minimal apical right pneumothorax.
== END ==
LOC: RADPROMAIN 09:51
PROVIDERS: ATTEND Internal Medicine Sleep Medicine
DX: C34.11 Malignant neoplasm of upper lobe, right bronchus or lung (principal); J95.811 Postprocedural pneumothorax
CPT/HCPCS: 71045; 77012; 85049; 85610; 88305; 88341; 88342

== ENCOUNTER → 2017-07-26 | Outpatient (CLI) | payer MEDICARE, BC ==
--- NOTE | 2017-07-26 08:24 | XR ---
EXAMINATION TYPE: XR chest 2V DATE OF EXAM: 07/26/2017 COMPARISON: 07/25/2017 INDICATION: Pneumothorax TECHNIQUE: Frontal and lateral views of the chest are obtained. FINDINGS: The heart size is normal. The pulmonary vasculature is normal. There is a 2.5 cm nodule within the right suprahilar region. Minimal right apical pneumothorax remain s present estimated at less than 5%, similar to prior study.. IMPRESSION: 1. Minimal right apical pneumothorax, stable. 2. Right suprahilar lung nodule
== END | disposition home or self-care (01) ==
LOC: RADXRMAIN 07:53
PROVIDERS: ATTEND Radiology Diagnostic Radiology
DX: J93.9 Pneumothorax, unspecified (principal); R91.1 Solitary pulmonary nodule
CPT/HCPCS: 71046

== ENCOUNTER → 2017-08-09 | Outpatient (CLI) | payer MEDICARE, BC ==
--- NOTE | 2017-08-10 03:09 | MR ---
EXAMINATION TYPE: MR thoracic spine wo con DATE OF EXAM: 08/09/2017 COMPARISON: NONE HISTORY: Compression fx, recent diagnosis lung ca Standard multiplanar, multisequence MRI departmental protocol Multiplanar, multisequence images of the thoracic spine were acquired. FINDINGS: There is anterior wedging of T8 and T9 vertebra with up to 65% loss of height of T9 and 50% loss of height of T8. There is on the T1 images abnormal decreased signal in the T8 vertebral body t hat suggests some edema. This compression is fairly symmetric and I do not see asymmetric signal to s uggest metastatic disease. This more likely relates to insufficiency fracture at both T8 and T9. The thoracic spinal cord has normal signal pattern without evidence of edema. There is no spinal stenosis . There is slight decreased signal in the pedicles of T9 on the T1 images consistent with some reacti ve edema. There is no thoracic paraspinal mass. T8 vertebra has more normal signal pattern suggestive of an old fracture. IMPRESSION: There are compression fractures of T8 and T9. T8 appears old and unchanged compared to chest CT scan of 06/04/2017. T9 fracture appears acute and has signal pattern consistent with insufficiency fracture I do not suspect metastatic disease in the thoracic spine. No spinal stenosis.
== END | disposition home or self-care (01) ==
LOC: RADMRIMAIN 14:36
PROVIDERS: ATTEND Internal Medicine Sleep Medicine
DX: S22.069A Unspecified fracture of T7-T8 vertebra, initial encounter for closed fracture (principal); S22.079A Unspecified fracture of T9-T10 vertebra, initial encounter for closed fracture
CPT/HCPCS: 72146

== ENCOUNTER → 2017-08-15 | Outpatient (CLI) | payer MEDICARE, BC ==
--- NOTE | 2017-08-15 09:51 | CT ---
EXAMINATION TYPE: CT brain wo/w con DATE OF EXAM: 08/15/2017 COMPARISON: NONE HISTORY: Lung Cancer CT DLP: 2351mGycm CONTRAST: CT scan of the head is performed without and with IV Contrast, patient injected with 100 ml mL of Iso giovanni 300. Unenhanced followed by contrast enhanced CT of the brain is submitted for evaluation. The ventricles are midline. There is no evidence for intracranial hemorrhage or extra-axial collection. No mass e ffects are identified. Visualized bony calvarium is intact. Contrast is administered and no enhanci ng lesions are detected. No pathologic enhancement is identified. If symptoms persist consider MRI. IMPRESSION: 1. No enhancing lesion identified. Ventricles are midline.
== END | disposition home or self-care (01) ==
LOC: RADCTMAIN 08:27
PROVIDERS: ATTEND Internal Medicine Hematology & Oncology
DX: C34.31 Malignant neoplasm of lower lobe, right bronchus or lung (principal)
CPT/HCPCS: 70470; Q9967

== ENCOUNTER 2018-07-06 07:59 | Emergency (ER) | payer MEDICARE, BC ==
[2018-07-06 08:11] VITALS: TEMP 98.2
[2018-07-06] MEDS ORDERED: KETOROLAC 30 MG/ML 1 ML VIAL IVP STA (08:28)
--- NOTE | 2018-07-06 08:37 | ED ---
SOB HPI - General Chief Complaint: Shortness of Breath Stated Complaint: chest pain, abdominal bloating Time Seen by Provider: 07/06/18 08:10 Source: patient, family, RN notes reviewed Mode of arrival: ambulatory Limitations: no limitations - History of Present Illness Initial Comments: This is a 78-year-old female history of lung cancer who is had chemo and is currently on immunotherapy with the last therapy 3 days ago who presents with complaints of sharp left-sided chest pain below her left breast she states it gets worse with deep breathing and movements is currently 3/10 severity she has a cough that is chronic with clear phlegm no fevers chills sweats no overt trauma no other complaints at this time they were concerned because this is wher e her lung cancer who presented a year ago. MD Complaint: shortness of breath, chest pain - Related Data Home Medications Medication Instructions Recorded Confirmed Ca/D3/Mag/Zinc/Jayesh/David/Mgbor 1 tab PO DAILY 10/15/14 07/06/18 [Caltrate 600-D3-Min Chew Tab] Aspirin 81 mg PO DAILY 06/03/17 07/06/18 Lisinopril [Zestril] 20 mg PO DAILY 06/03/17 07/06/18 Multivit-Min/Iron/Folic/Lutein 1 tab PO DAILY 06/03/17 07/06/18 [Centrum Silver Women Tablet] Ipratropium-Albuterol Nebulize 3 ml INHALATION RT-QID 07/19/17 07/06/18 [Duoneb 0.5 mg-3 mg/3 ml Soln] Folic Acid 1 mg PO DAILY 07/06/18 07/06/18 Previous Rx's Medication Instructions Recorded Ketorolac [Toradol] 10 mg PO Q6HR #20 tab 07/06/18 Allergies Allergy/AdvReac Type Severity Reaction Status Date / Time No Known Allergies Allergy Verified 07/06/18 09:23 Review of Systems ROS Statement: Those systems with pertinent positive or pertinent negative responses have been documented in the HPI. ROS Other: All systems not noted in ROS Statement are negative. Past Medical History Past Medical History: Cancer, GERD/Reflux, Hypertension, Pneumonia, Thyroid Disorder Additional Past Medical History / Comment(s): Thyroid nodules being monitored. Emphysema History of Any Multi-Drug Resistant Organisms: None Reported Past Surgical History: Hernia Repair Additional Past Surgical History / Comment(s): Bilateral inguinal hernia repairs, colonoscopies with benign polypectomies. Past Anesthesia/Blood Transfusion Reactions: No Reported Reaction Past Psychological History: No Psychological Hx Reported Smoking Status: Former smoker Past Alcohol Use History: None Reported Past Drug Use History: None Reported - Past Family History Mother Family Medical History: Dementia Additional Family Medical History / Comment(s): Mother at age 83 yrs. Father Family Medical History: CVA/TIA Additional Family Medical History / Comment(s): Father had a CVA. He at the age of 83 yrs. Sister(s) Family Medical History: Thyroid Disorder Additional Family Medical History / Comment(s): hypothyroidism General Exam - General Exam Comments Initial Comments: This is a well-developed asthenic awake alert oriented 3 female Limitations: no limitations General appearance: alert, in no apparent distress Head exam: Present: atraumatic, normocephalic, normal inspection Eye exam: Present: normal appearance, PERRL, EOMI. Absent: scleral icterus, conjunctival injection, periorbital swelling ENT exam: Present: normal exam, mucous membranes moist Neck exam: Present: normal inspection, full ROM, other (No stridor JVD or bruits). Absent: tenderness, meningismus, lymphadenopathy Respiratory exam: Present: normal lung sounds bilaterally, chest wall tenderness (Reproducible tenderness palpation of left costochondral costal sternal margins no step-off or crepitation). Absent: respiratory distress, wheezes, rales, rhonchi, stridor Cardiovascular Exam: Present: regular rate, normal rhythm, normal heart sounds. Absent: systolic murmur, diastolic murmur, rubs, gallop, clicks GI/Abdominal exam: Present: soft, normal bowel sounds. Absent: distended, tenderness, guarding, rebound, rigid Extremities exam: Present: normal inspection, full ROM, normal capillary refill. Absent: tenderness, pedal edema, joint swelling, calf tenderness Back exam: Present: normal inspection Neurological exam: Present: alert, oriented X3, CN II-XII intact Psychiatric exam: Present: normal affect, normal mood Skin exam: Present: warm, dry, intact, normal color. Absent: rash Course Vital Signs 07/06/18 07/06/18 08:03 09:50 Temperature 98.2 F Pulse Rate 70 Respiratory 18 20 Rate Blood Pressure 180/65 O2 Sat by Pulse 97 Oximetry Medical Decision Making - Medical Decision Making Patient initially much improved this time no further workup is indicated lab work was reviewed with the patient as well as x-ray results. Also her daughter was present. Patient will be discharged presentation is consistent with chest wall pain she will follow-up with her doctor and return as needed - Lab Data Result diagrams: 07/06/18 09:40 07/06/18 09:40 Lab Results 07/06/18 07/06/18 07/06/18 Range/Units 09:40 09:40 09:40 WBC 4.4 (3.8-10.6) k/uL RBC 4.26 (3.80-5.40) m/uL Hgb 12.6 (11.4-16.0) gm/dL Hct 38.6 (34.0-46.0) % MCV 90.6 (80.0-100.0) fL MCH 29.6 (25.0-35.0) pg MCHC 32.6 (31.0-37.0) g/dL RDW 13.4 (11.5-15.5) % Plt Count 296 (150-450) k/uL Neutrophils % 77 % Lymphocytes % 12 % Monocytes % 7 % Eosinophils % 2 % Basophils % 1 % Neutrophils # 3.4 (1.3-7.7) k/uL Lymphocytes # 0.5 L (1.0-4.8) k/uL Monocytes # 0.3 (0-1.0) k/uL Eosinophils # 0.1 (0-0.7) k/uL Basophils # 0.0 (0-0.2) k/uL PT (9.0-12.0) sec INR (<1.2) APTT (22.0-30.0) sec Sodium 140 (137-145) mmol/L Potassium 4.2 (3.5-5.1) mmol/L Chloride 104 (98-107) mmol/L Carbon Dioxide 28 (22-30) mmol/L Anion Gap 8 mmol/L BUN 14 (7-17) mg/dL Creatinine 0.55 (0.52-1.04) mg/dL Est GFR (CKD-EPI)AfAm >90 (>60 ml/min/1.73 sqM) Est GFR (CKD-EPI)NonAf >90 (>60 ml/min/1.73 sqM) Glucose 89 (74-99) mg/dL Calcium 10.0 (8.4-10.2) mg/dL Magnesium 1.8 (1.6-2.3) mg/dL Total Bilirubin 0.4 (0.2-1.3) mg/dL AST 22 (14-36) U/L ALT 22 (9-52) U/L Alkaline Phosphatase 90 (38-126) U/L Troponin I (0.000-0.034) ng/mL NT-Pro-B Natriuret Pep 403 pg/mL Total Protein 6.9 (6.3-8.2) g/dL Albumin 4.2 (3.5-5.0) g/dL 07/06/18 07/06/18 Range/Units 09:40 09:40 WBC (3.8-10.6) k/uL RBC (3.80-5.40) m/uL Hgb (11.4-16.0) gm/dL Hct (34.0-46.0) % MCV (80.0-100.0) fL MCH (25.0-35.0) pg MCHC (31.0-37.0) g/dL RDW (11.5-15.5) % Plt Count (150-450) k/uL Neutrophils % % Lymphocytes % % Monocytes % % Eosinophils % % Basophils % % Neutrophils # (1.3-7.7) k/uL Lymphocytes # (1.0-4.8) k/uL Monocytes # (0-1.0) k/uL Eosinophils # (0-0.7) k/uL Basophils # (0-0.2) k/uL PT 9.9 (9.0-12.0) sec INR 0.9 (<1.2) APTT 22.9 (22.0-30.0) sec Sodium (137-145) mmol/L Potassium (3.5-5.1) mmol/L Chloride (98-107) mmol/L Carbon Dioxide (22-30) mmol/L Anion Gap mmol/L BUN (7-17) mg/dL Creatinine (0.52-1.04) mg/dL Est GFR (CKD-EPI)AfAm (>60 ml/min/1.73 sqM) Est GFR (CKD-EPI)NonAf (>60 ml/min/1.73 sqM) Glucose (74-99) mg/dL Calcium (8.4-10.2) mg/dL Magnesium (1.6-2.3) mg/dL Total Bilirubin (0.2-1.3) mg/dL AST (14-36) U/L ALT (9-52) U/L Alkaline Phosphatase (38-126) U/L Troponin I <0.012 (0.000-0.034) ng/mL NT-Pro-B Natriuret Pep pg/mL Total Protein (6.3-8.2) g/dL Albumin (3.5-5.0) g/dL - Radiology Data Radiology results: report reviewed (I did review the imaging and report no acute findings.), image reviewed Disposition Clinical Impression: Costochondritis, acute, Chest wall pain, History of lung cancer Disposition: HOME SELF-CARE Condition: Good Instructions (If sedation given, give patient instructions): Costochondritis (ED) Prescriptions: Ketorolac [Toradol] 10 mg PO Q6HR #20 tab Is patient prescribed a controlled substance at d/c from ED?: No Referrals: Tiago Rojo DO [Primary Care Provider] - 1-2 days
[2018-07-06 09:53] LABS: Basophils % (A) 1 %; Eosinophils # (A) 0.1 k/uL (0-0.7); Eosinophils % (A) 2 %; HCT 38.6 % (34.0-46.0); HGB 12.6 gm/dL (11.4-16.0); Lymphocytes # (A) 0.5 k/uL (1.0-4.8); Lymphocytes % (A) 12 %; MCH 29.6 pg (25.0-35.0); MCHC 32.6 g/dL (31.0-37.0); MCV 90.6 fL (80.0-100.0); Mean Platelet Volume 6.2; Monocytes # (A) 0.3 k/uL (0-1.0); Monocytes % (A) 7 %; Neutrophils # (A) 3.4 k/uL (1.3-7.7); Neutrophils % (A) 77 %; Platelet Count 296 k/uL (150-450); RBC 4.26 m/uL (3.80-5.40); RDW 13.4 % (11.5-15.5); WBC 4.4 k/uL (3.8-10.6)
--- NOTE | 2018-07-06 09:55 | XR ---
EXAMINATION TYPE: XR chest 2V DATE OF EXAM: 07/06/2018 HISTORY: difficulty breathing. REFERENCE: Previous study dated 07/26/2017. FINDINGS: The lungs are overinflated. The heart is mildly enlarged. The lungs are clear. Pleural spac es are clear. The pulmonary arteries are mildly prominent. Right suprahilar nodule is less clearly vi sualized on this examination. IMPRESSION: 1. COPD. 2. CARDIOMEGALY. 3. I'M SUSPICIOUS THAT THERE IS PULMONARY ARTERY HYPERTENSION. 4. RIGHT SUPRAHILAR NODULE IS NOT EXCLUDED VISUALIZED ON THIS EXAMINATION
[2018-07-06 10:01] LABS: INR 0.9 (<1.2); Partial Thromboplastin Time 22.9 sec (22.0-30.0); Prothrombin Time 9.9 sec (9.0-12.0)
[2018-07-06 10:03] LABS: ALT 22 U/L (9-52); AST 22 U/L (14-36); Albumin 4.2 g/dL (3.5-5.0); Alkaline Phosphatase 90 U/L (38-126); Anion Gap 8 mmol/L; Blood Urea Nitrogen 14 mg/dL (7-17); Carbon Dioxide 28 mmol/L (22-30); Chloride 104 mmol/L (98-107); Glucose 89 mg/dL (74-99); Magnesium 1.8 mg/dL (1.6-2.3); Potassium 4.2 mmol/L (3.5-5.1); Sodium 140 mmol/L (137-145); Total Bilirubin 0.4 mg/dL (0.2-1.3); Total Protein 6.9 g/dL (6.3-8.2)
[2018-07-06 10:40] VITALS: RESP 20
[2018-07-06 11:25] VITALS: BP 158/73; PULSE 74
== END 2018-07-06 11:30 | disposition home or self-care (01) ==
LOC: EC 07:59
DX: M94.0 Chondrocostal junction syndrome [Tietze] (principal); Z85.118 Personal history of other malignant neoplasm of bronchus and lung; R05 Cough; R06.02 Shortness of breath; I10 Essential (primary) hypertension; J43.9 Emphysema, unspecified; Z87.891 Personal history of nicotine dependence; Z79.82 Long term (current) use of aspirin; Z79.899 Other long term (current) drug therapy; Z87.01 Personal history of pneumonia (recurrent); Z92.21 Personal history of antineoplastic chemotherapy; Z92.25 Personal history of immunosuppression therapy
CPT/HCPCS: 36415; 93005; 83880; 80053; 83735; 84484; 85025; 85610; 85730; 71046; 99285; 96374; J1885

== ENCOUNTER → 2018-07-18 | Outpatient (CLI) | payer MEDICARE, BC ==
--- NOTE | 2018-07-18 15:35 | US ---
EXAMINATION TYPE: US thyroid st tissue head/neck DATE OF EXAM: 07/18/2018 COMPARISON: US 07/04/2018 CLINICAL HISTORY: E04.1 SINGLE THYROID NODULE. GLAND SIZE: Right Lobe: 3.9 x 1.4 x 1.5 cm Overall Parenchyma: homogenous Left Lobe: 3.6 x 1.9 x 1.3 cm Overall Parenchyma: homogeneous Isthmus Thickness: 0.3 cm NODULES RIGHT: # of nodules measured on right: 0 LEFT: # of nodules measured on left: 1 1. 0.7 X 0.5 x 0.7 cm hypoechoic mixed nodule at the lower pole with well-defined margins; . This nodule is wider than tall and shows intranodular vascularity. Prior size: 0.9 x 0.7 x 0.7 cm ISTHMUS: # of nodules measured in the isthmus: 0 Bilateral neck scanned, no evidence of lymphadenopathy. Homogeneous small-sized thyroid is redemonstrated with stable left-sided subcentimeter mixed nodule. No new nodules are evident. IMPRESSION: As above
== END | disposition home or self-care (01) ==
LOC: RADUSWWP 15:11
PROVIDERS: ATTEND Family Medicine
DX: E04.1 Nontoxic single thyroid nodule (principal)
CPT/HCPCS: 76536

== ENCOUNTER → 2018-09-11 | Outpatient (CLI) | payer MEDICARE, BC ==
--- NOTE | 2018-09-11 09:51 | BD ---
EXAMINATION TYPE: Axial Bone Density DATE OF EXAM: 09/11/2018 COMPARISON: NONE CLINICAL HISTORY: 78 YR OLD FEMALE...IN A WHEELCHAIR...ICD-10 CODE: M81.0 AGE RELATED OSTEOPOROSIS Height: 59 Weight: 100 FRAX RISK QUESTIONS: Family History (Parent hip fracture): YES Glucocorticoids (More than 3mos): YES (Ex: prednisone, prednisolone, methylprednisolone, dexamethasone, and hydrocortisone). History of Fracture in Adulthood: YES Secondary Osteoporosis: Current Tobacco Use: QUIT ABOUT 30 YRS AGO RISK FACTORS HISTORY OF: Hip Fracture RT HIP FX....JULY 2018 Spine Fracture: Surgery to RT HIP....REPLACEMENT AFTER FRACTURE Family History of Osteoporosis: YES, WITH HIP FXS Active: NO IN A WHEELCHAIR, CANNOT WALK Postmenopausal woman: AT 53 [place] Lost more than 2 inches in height since high school: YES, CURVED BACK Frequent falls: AT RISK FOR FALLS, UNSTEADY, HAS GAIT BELT ON Poor Health: FRAIL, USING O2 MEDICATIONS: Prednisone or other steroids: YES, FOR COPD AND EMPHYSEMA FOR MANY YRS Additional Medications: BP MEDS, SYMBACORT, BREATHING TREATMENTS, ALBUTEROL, LUNG CANCER RADIATION AN D CHEMO, MEDICATION FOR CANCER REMISSION, VITAMINS, CALCIUM AND VIT D, REFLUX MEDS PRN, Additional History: PT FRAIL, IN WHEELCHAIR WITH GAIT BELT AND O2, HX OF LUNG CANCER AND BROKEN RT HI P EXAM MEASUREMENTS: Bone mineral densitometry was performed using the frooly System. Bone mineral density as measured about the Lumbar spine is: ----- L1-L4(G/cm2): 0.650 T Score Values are as follows: ----- L1: -5.4 ----- L2: -4.7 ----- L3: -4.1 ----- L4: -3.8 ----- L1-L4: -4.4 Bone mineral density THIS IS HER FIRST DEXA SCAN, STATES PATIENT Bone mineral density about the L hip (g/cm2): 0.528 T Score values are as follows: -----L Neck: -3.5 -----L Total: -3.8 Bone mineral density FIRST DEXA SCAN FRAX%s: THERE IS 73.4% CHANCE FOR A MAJOR OSTEOPOROTIC FX AND A 66.5% FOR HIP....PROBABILITY FOR FX IN 10 YRS TIME IMPRESSION: Osteoporosis (T Score less than -2.5). There is increased fracture risk and therapy is usually indicated based on age. Re-Screen 1-2 years. NOTE: T-SCORE=SD OF THE YOUNG ADULT MEAN.
== END | disposition home or self-care (01) ==
LOC: RADBDWWP 08:28
PROVIDERS: ATTEND Internal Medicine Hematology & Oncology
DX: M81.0 Age-related osteoporosis without current pathological fracture (principal)
CPT/HCPCS: 77080

== ENCOUNTER 2018-10-05 05:08 | Inpatient (IN) | payer MEDICARE, BC ==
[2018-10-05] MEDS ORDERED: IPRATROPIUM-ALBUTEROL 3 ML NEB INHALATION STA (05:28)
[2018-10-05] MEDS ORDERED: methylPREDNISolone SOD SUCCI 125 MG/2 ML VIAL IV STA (05:32)
[2018-10-05] MEDS: SODIUM CHLORIDE 0.9% 500 ML 500 ML IV SCH ×2 (05:44→06:48)
[2018-10-05 05:50] LABS: Partial Thromboplastin Time 25.2 sec (22.0-30.0); Prothrombin Time 10.4 sec (9.0-12.0)
[2018-10-05 05:52] LABS: ALT 28 U/L (9-52); AST 30 U/L (14-36); African American GFR (CKD) >90 (>60 ml/min/1.73 sqM); Albumin 3.5 g/dL (3.5-5.0); Alkaline Phosphatase 95 U/L (38-126); Anion Gap 7 mmol/L; Blood Urea Nitrogen 13 mg/dL (7-17); Calcium 9.7 mg/dL (8.4-10.2); Carbon Dioxide 35 mmol/L (22-30); Chloride 99 mmol/L (98-107); Glucose 126 mg/dL (74-99); Potassium 4.1 mmol/L (3.5-5.1); Sodium 141 mmol/L (137-145); Total Bilirubin 0.4 mg/dL (0.2-1.3); Total Protein 6.1 g/dL (6.3-8.2)
[2018-10-05 05:53] LABS: Basophils % (A) 0 %; Eosinophils # (A) 0.1 k/uL (0-0.7); Eosinophils % (A) 2 %; HCT 33.6 % (34.0-46.0); HGB 10.9 gm/dL (11.4-16.0); Hypochromasia Slight; Lymphocytes # (A) 0.3 k/uL (1.0-4.8); Lymphocytes % (A) 5 %; MCH 28.9 pg (25.0-35.0); MCHC 32.4 g/dL (31.0-37.0); MCV 89.3 fL (80.0-100.0); Mean Platelet Volume 6.6; Monocytes # (A) 0.5 k/uL (0-1.0); Monocytes % (A) 8 %; Neutrophils # (A) 5.2 k/uL (1.3-7.7); Neutrophils % (A) 84 %; Platelet Count 343 k/uL (150-450); RBC 3.76 m/uL (3.80-5.40); RDW 15.4 % (11.5-15.5); WBC 6.2 k/uL (3.8-10.6)
[2018-10-05] MEDS ORDERED: guaiFENesin-Coden 100-10MG/5ML 10 ML CUP PO PRN (05:58)
--- NOTE | 2018-10-05 06:25 | ED ---
SOB HPI - General Chief Complaint: Shortness of Breath Stated Complaint: SOB Source: patient, family Mode of arrival: ambulatory Limitations: no limitations - History of Present Illness Initial Comments: Mary Jo is a pleasant 78-year-old female with a known history of COPD who presents the emergency department today for evaluation of shortness of breath consistent with previous COPD exacerbations or bronchitis. Patient reports that for the past few mornings she's felt more short of breath than usual, she's had a minimally productive cough no fever. She states that she woke this morning and despite wearing her oxygen overnight she felt very short of breath, her son checked on her and noted that she seemed to be working to breathe he used his portable pulse ox which noted her oxygen saturation was only in the 60s, he turned up her oxygen and transported her to the hospital for further evaluation. Upon arrival the hospital patient was noted to be tachycardic and tachypneic with an oxygen saturation in the low 80s despite using her supplemental oxygen. - Related Data Home Medications Medication Instructions Recorded Confirmed RX: Ca/D3/Mag/Zinc/Jayesh/David/Mgbor 1 tab PO DAILY 10/15/14 08/08/18 [Caltrate 600-D3-Min Chew Tab] RX: Lisinopril [Zestril] 20 mg PO DAILY 06/03/17 08/08/18 RX: Multivit-Min/Iron/Folic/Lutein 1 tab PO DAILY 06/03/17 08/08/18 [Centrum Silver Women Tablet] RX: Ipratropium-Albuterol Nebulize 3 ml INHALATION RT-QID 07/19/17 08/08/18 [Duoneb 0.5 mg-3 mg/3 ml Soln] RX: Folic Acid 1 mg PO DAILY 07/06/18 08/08/18 RX: Meloxicam [Mobic] 7.5 mg PO DAILY 08/08/18 08/08/18 Previous Rx's Medication Instructions Recorded HYDROcodone/APAP 5-325MG [[place] 5] 1 each PO Q6HR PRN #28 tab 08/12/18 RX: Aspirin 325 mg PO DAILY #30 tab 08/12/18 RX: Budesonide [Pulmicort] 1 mg INHALATION RT-BID nebu 08/12/18 RX: Doxycycline [Vibramycin] 100 mg PO BID #6 cap 06/25/19 RX: predniSONE 10 mg PO DAILY #30 tab 08/12/18 Allergies Allergy/AdvReac Type Severity Reaction Status Date / Time No Known Allergies Allergy Verified 10/05/18 05:23 Review of Systems ROS Statement: Those systems with pertinent positive or pertinent negative responses have been documented in the HPI. ROS Other: All systems not noted in ROS Statement are negative. Past Medical History Past Medical History: Cancer, GERD/Reflux, Hypertension, Pneumonia, Thyroid Disorder Additional Past Medical History / Comment(s): Thyroid nodules being monitored. Emphysema, lung cancer History of Any Multi-Drug Resistant Organisms: None Reported Past Surgical History: Hernia Repair, Tubal Ligation Additional Past Surgical History / Comment(s): Bilateral inguinal hernia repairs, colonoscopies with benign polypectomies. Past Anesthesia/Blood Transfusion Reactions: No Reported Reaction Past Psychological History: No Psychological Hx Reported Smoking Status: Former smoker Past Alcohol Use History: None Reported Past Drug Use History: None Reported - Past Family History Mother Family Medical History: Dementia Additional Family Medical History / Comment(s): Mother at age 83 yrs. Father Family Medical History: CVA/TIA Additional Family Medical History / Comment(s): Father had a CVA. He at the age of 83 yrs. Sister(s) Family Medical History: Thyroid Disorder Additional Family Medical History / Comment(s): hypothyroidism General Exam - General Exam Comments Initial Comments: Physical Exam GENERAL: Chronically ill-appearing, frail, underweight, moderate respiratory distress HENT: Normocephalic, Atraumatic. EYES: PERRL, EOMI PULMONARY: Tachypnea, wheezing in all lung olmos CARDIOVASCULAR: There is a regular rate and rhythm without any murmurs gallops or rubs. ABDOMEN: Soft and nontender with normal bowel sounds. SKIN: Skin is clear with no lesions or rashes and otherwise unremarkable. : Deferred NEUROLOGIC: Patient is alert and oriented x3. Moving all extremities spontaneously MUSCULOSKELETAL: Decreased strength in right lower extremity consistent with recent fracture and surgical repair PSYCHIATRIC: Normal psychiatric evaluation. Limitations: no limitations Course Vital Signs 10/05/18 10/05/18 10/05/18 05:20 05:29 05:31 Temperature 98.5 F Pulse Rate 103 H 97 Respiratory 28 H 28 H Rate Blood Pressure 145/74 O2 Sat by Pulse 82 L Oximetry 10/05/18 10/05/18 10/05/18 05:50 05:51 06:46 Temperature Pulse Rate 102 H 105 H 104 H Respiratory 24 24 Rate Blood Pressure 147/67 148/63 O2 Sat by Pulse 98 99 Oximetry Medical Decision Making - Medical Decision Making The patient was seen and evaluated immediately upon arrival to the emergency department Patient was started on additional supplemental oxygen and respiratory was consulted for treatment Labs and imaging were ordered Labs the patient's baseline Respiratory distress resolved after breathing treatments she is resting much more comfortably now, still mildly tachycardic but this is likely related to the multiple breathing treatments she received. No longer hypoxic on 2 L supplemental oxygen Given the patient's history and presentation with respiratory distress recommended admission to the hospital for [id number] breathing treatments and evaluation by pulmonology. Patient and son are agreeable to this. Patient admission orders were placed, consult pulmonology was placed. Patient sent confirm that the patient has previously made it clear that she would like to be DO NOT RESUSCITATE would not want any resuscitation efforts or intubation. DO NOT RESUSCITATE orders were placed. - Lab Data Result diagrams: 10/05/18 05:33 10/05/18 05:33 Lab Results 10/05/18 10/05/18 10/05/18 Range/Units 05:33 05:33 05:33 WBC 6.2 (3.8-10.6) k/uL RBC 3.76 L (3.80-5.40) m/uL Hgb 10.9 L (11.4-16.0) gm/dL Hct 33.6 L (34.0-46.0) % MCV 89.3 (80.0-100.0) fL MCH 28.9 (25.0-35.0) pg MCHC 32.4 (31.0-37.0) g/dL RDW 15.4 (11.5-15.5) % Plt Count 343 (150-450) k/uL Neutrophils % 84 % Lymphocytes % 5 % Monocytes % 8 % Eosinophils % 2 % Basophils % 0 % Neutrophils # 5.2 (1.3-7.7) k/uL Lymphocytes # 0.3 L (1.0-4.8) k/uL Monocytes # 0.5 (0-1.0) k/uL Eosinophils # 0.1 (0-0.7) k/uL Basophils # 0.0 (0-0.2) k/uL Hypochromasia Slight PT (9.0-12.0) sec INR (<1.2) APTT (22.0-30.0) sec Sodium 141 (137-145) mmol/L Potassium 4.1 (3.5-5.1) mmol/L Chloride 99 (98-107) mmol/L Carbon Dioxide 35 H (22-30) mmol/L Anion Gap 7 mmol/L BUN 13 (7-17) mg/dL Creatinine 0.38 L (0.52-1.04) mg/dL Est GFR (CKD-EPI)AfAm >90 (>60 ml/min/1.73 sqM) Est GFR (CKD-EPI)NonAf >90 (>60 ml/min/1.73 sqM) Glucose 126 H (74-99) mg/dL Plasma Lactic Acid Daniel 0.8 (0.7-2.0) mmol/L Calcium 9.7 (8.4-10.2) mg/dL Total Bilirubin 0.4 (0.2-1.3) mg/dL AST 30 (14-36) U/L ALT 28 (9-52) U/L Alkaline Phosphatase 95 (38-126) U/L Troponin I (0.000-0.034) ng/mL Total Protein 6.1 L (6.3-8.2) g/dL Albumin 3.5 (3.5-5.0) g/dL 10/05/18 10/05/18 Range/Units 05:33 05:33 WBC (3.8-10.6) k/uL RBC (3.80-5.40) m/uL Hgb (11.4-16.0) gm/dL Hct (34.0-46.0) % MCV (80.0-100.0) fL MCH (25.0-35.0) pg MCHC (31.0-37.0) g/dL RDW (11.5-15.5) % Plt Count (150-450) k/uL Neutrophils % % Lymphocytes % % Monocytes % % Eosinophils % % Basophils % % Neutrophils # (1.3-7.7) k/uL Lymphocytes # (1.0-4.8) k/uL Monocytes # (0-1.0) k/uL Eosinophils # (0-0.7) k/uL Basophils # (0-0.2) k/uL Hypochromasia PT 10.4 (9.0-12.0) sec INR 1.0 (<1.2) APTT 25.2 (22.0-30.0) sec Sodium (137-145) mmol/L Potassium (3.5-5.1) mmol/L Chloride (98-107) mmol/L Carbon Dioxide (22-30) mmol/L Anion Gap mmol/L BUN (7-17) mg/dL Creatinine (0.52-1.04) mg/dL Est GFR (CKD-EPI)AfAm (>60 ml/min/1.73 sqM) Est GFR (CKD-EPI)NonAf (>60 ml/min/1.73 sqM) Glucose (74-99) mg/dL Plasma Lactic Acid Daniel (0.7-2.0) mmol/L Calcium (8.4-10.2) mg/dL Total Bilirubin (0.2-1.3) mg/dL AST (14-36) U/L ALT (9-52) U/L Alkaline Phosphatase (38-126) U/L Troponin I <0.012 (0.000-0.034) ng/mL Total Protein (6.3-8.2) g/dL Albumin (3.5-5.0) g/dL Critical Care Time Critical Care Time: Yes Total Critical Care Time: 30 Disposition Clinical Impression: COPD exacerbation, Dyspnea Disposition: ADMITTED IP TO THIS [facility] Condition: Stable
--- NOTE | 2018-10-05 06:52 | XR ---
EXAM: XR Chest, 2 Views CLINICAL HISTORY: Fever TECHNIQUE: Frontal and lateral views of the chest. COMPARISON: 08/08/2018 FINDINGS: Lungs: Relative hyperexpansion with increase in the AP diameter and flattening of the hemidiaphragms remains. Stable irregular scarring involving the right upper lung zone and posteriorly in the right mid- upper lung zone remain. The hilar structures are stable in appearance from the previous examination. Mild interstitial prominence is slightly increased from the previous exam. Pleural space: Previously questioned right pleural effusion is not suggested on this exam. No pneumothorax. Heart: Unremarkable. No cardiomegaly. Mediastinum: Prominent hilar structures remain stable appearance. The trachea is midline. Bones/joints: No significant interval change. IMPRESSION: Subsegmental linear changes in the right upper lung zone are presumed atelectasis or scarring. Stable hyperexpansion suggesting COPD. Mild interstitial prominence may represent mild pulmonary vascular congestion or atypical interstitial infection. No lobar consolidation. No pleural effusion or pneumothorax identified.
[2018-10-05 08:42] VITALS: BMI 17.6
[2018-10-05] MEDS ORDERED: AZITHROMYCIN 500 MG TAB PO SCH (09:00)
[2018-10-05 11:09] LABS: Appearance,Urine Clear (Clear); Bilirubin,Urine Negative (Negative); Blood,Urine Negative (Negative); Color,Urine Yellow; Glucose,Urine (UA) Negative (Negative); Ketones,Urine Negative (Negative); Leukocyte Esterase,Urine Trace (Negative); Mucus,Urine Rare /hpf; Nitrite,Urine Negative (Negative); PH, Urine 6.5 (5.0-8.0); Protein,Urine Trace (Negative); RBC,Urine 1 /hpf (0-5); Specific Gravity,Urine 1.014 (1.001-1.035); Squamous Epithelial Cell,Urine <1 /hpf (0-4); Urobilinogen,Urine <2.0 mg/dL (<2.0); WBC,Urine 1 /hpf (0-5)
[2018-10-05] MEDS: methylPREDNISolone SOD SUCCI 125 MG/2 ML VIAL IV SCH ×3 (12:55→20:55)
[2018-10-05] MEDS ORDERED: HYDROcodone/APAP 5-325MG 1 EACH TAB PO PRN (14:41)
--- NOTE | 2018-10-05 15:31 | P.HPIM ---
History of Present Illness H&P Date: 10/05/18 Chief Complaint: Shortness of breath Ms. West is a 78-year-old female with a past medical history of lung cancer, GERD, hypertension, thyroid disorder, emphysema coming into the hospital with a chief complaint of difficulty in breathing. Patient has a known history of COPD and also lung cancer in remission. She follows with Dr. Petersen and Dr. Garcia. Her primary care physician is Dr. Rojo. Patient states that for the past couple of days she's more short of breath in usual. She only reports minimal coughing. Patient denies having any fevers chills or rigors. At baseline patient is on 2 L of home oxygen, in spite of keeping her oxygen she felt very short of breath. She lives with her son at home. Her son noticed that she was having difficulty in breathing and when her oxygen saturations were checked they were only in 60s and so the patient was brought into the hospital for further evaluation. In the emergency department patient was found to have tachycardia and tachypnea with low oxygen saturations in the low 80s and so she had a chest x-ray done showing stable hyperexpansion suggestive of COPD with subsegmental linear changes in the right upper lung zone. She was started on breathing treatments and IV steroids and admitted to the floor. Patient denies having any fevers chills or rigors. No sick contacts. Last admission was couple of months back for COPD exacerbation. Patient denies having any chest pain or palpitations. No abdominal pain, nausea vomiting or diarrhea. No dysuria or hematuria. No headaches blurring of vision or loss of consciousness. No weakness of her extremities. She complains of fatigue. No recent weight loss. Review of Systems Review of systems: GEN.: Tired EYES: None HEENT: None NECK: None RESPIRATORY: As above CARDIOVASCULAR: No chest pain or palpitations. GASTROINTESTINAL: Abdominal pain, nausea or vomiting. GENITOURINARY: No dysuria or hematuria. MUSCULOSKELETAL: Some pain in the joints LYMPHATICS: None HEMATOLOGICAL: None PSYCHIATRY: A bit forgetful NEUROLOGICAL: None All 13 review of systems systems are negative except for ones mentioned above. Past Medical History Past Medical History: Cancer, GERD/Reflux, Hypertension, Pneumonia, Thyroid Disorder Additional Past Medical History / Comment(s): Thyroid nodules being monitored. Emphysema, lung cancer History of Any Multi-Drug Resistant Organisms: None Reported Past Surgical History: Hernia Repair, Orthopedic Surgery, Tubal Ligation Additional Past Surgical History / Comment(s): Bilateral inguinal hernia repairs, colonoscopies with benign polypectomies, right hip sx after fallJuly 2018 Past Anesthesia/Blood Transfusion Reactions: No Reported Reaction Past Psychological History: No Psychological Hx Reported Additional Psychological History / Comment(s): Pt resides alone. She is indpendent. She drives. Smoking Status: Former smoker Past Alcohol Use History: None Reported Additional Past Alcohol Use History / Comment(s): Pt started smoking in 1961 and quit about 1987. Past Drug Use History: None Reported - Past Family History Mother Family Medical History: Dementia Additional Family Medical History / Comment(s): Mother at age 83 yrs. Father Family Medical History: CVA/TIA Additional Family Medical History / Comment(s): Father had a CVA. He at the age of 83 yrs. Sister(s) Family Medical History: Thyroid Disorder Additional Family Medical History / Comment(s): hypothyroidism Medications and Allergies Home Medications Medication Instructions Recorded Confirmed Type Ca/D3/Mag/Zinc/Jayesh/David/Mgbor 1 tab PO DAILY 10/15/14 10/05/18 History [Caltrate 600-D3-Min Chew Tab] Lisinopril [Zestril] 20 mg PO DAILY 06/03/17 10/05/18 History Multivit-Min/Iron/Folic/Lutein 1 tab PO DAILY 06/03/17 10/05/18 History [Centrum Silver Women Tablet] Ipratropium-Albuterol Nebulize 3 ml INHALATION RT-QID 07/19/17 10/05/18 History [Duoneb 0.5 mg-3 mg/3 ml Soln] Folic Acid 1 mg PO DAILY 07/06/18 10/05/18 History Aspirin 325 mg PO DAILY #30 tab 08/12/18 10/05/18 Rx Budesonide [Pulmicort] 1 mg INHALATION RT-BID nebu 08/12/18 10/05/18 Rx Docusate [Colace] 100 mg PO BID 10/05/18 10/05/18 History HYDROcodone/APAP 5-325MG [[place] 5] 1 tab PO BID PRN 10/05/18 10/05/18 History Polyethylene Glycol 3350 [Miralax] 17 gm PO DAILY 10/05/18 10/05/18 History guaiFENesin [Mucinex] 600 mg PO BID PRN 10/05/18 10/05/18 History Allergies Allergy/AdvReac Type Severity Reaction Status Date / Time No Known Allergies Allergy Verified 10/05/18 07:28 Physical Exam Vitals: Vital Signs Temp Pulse Pulse Resp BP BP Pulse Ox 10/05/18 11:46 98.1 F 85 20 142/73 94 L 10/05/18 08:23 97.8 F 105 H 22 166/83 93 L 10/05/18 08:22 98.5 F 104 H 24 148/63 94 L 10/05/18 08:00 102 H 22 10/05/18 06:46 104 H 24 148/63 99 10/05/18 05:51 105 H 10/05/18 05:50 102 H 24 147/67 98 10/05/18 05:31 97 10/05/18 05:29 28 H 10/05/18 05:20 98.5 F 103 H 28 H 145/74 82 L Intake and Output 10/04/18 10/05/18 10/05/18 22:59 06:59 14:59 Intake Total 150 Balance 150 Intake: Oral 150 Other: Voiding Method Bedside Commode Weight 45.359 kg 45.359 kg GENERAL: Mild shortness of breath. Emaciated EYES: Pupils equal. Conjunctiva normal. HEENT: External appearance of nose and ears normal, oral cavity grossly normal. NECK: JVD not raised; masses not palpable. HEART: First and second heart sounds are normal; mild edema. LUNGS: Barrel-shaped chest. Respiratory rate increased, decreased breath sounds prolonged expiration and wheezing. ABDOMEN: Soft, nontender, liver spleen not palpable, no masses palpable. PSYCH: Able to also questions, but takes some time. NEUROLOGICAL: Cranial nerves grossly intact; no facial asymmetry, power and sensation grossly intact MUSCULAR skeletal: Evidence of OA especially in the hands Results CBC & Chem 7: 10/05/18 05:33 10/05/18 05:33 Labs: Abnormal Lab Results - Last 24 Hours (Table) 10/05/18 10/05/18 10/05/18 Range/Units 05:33 05:33 10:50 RBC 3.76 L (3.80-5.40) m/uL Hgb 10.9 L (11.4-16.0) gm/dL Hct 33.6 L (34.0-46.0) % Lymphocytes # 0.3 L (1.0-4.8) k/uL Carbon Dioxide 35 H (22-30) mmol/L Creatinine 0.38 L (0.52-1.04) mg/dL Glucose 126 H (74-99) mg/dL Total Protein 6.1 L (6.3-8.2) g/dL Urine Protein Trace H (Negative) Ur Leukocyte Esterase Trace H (Negative) Urine Mucus Rare H (None) /hpf Thrombosis Risk Factor Assmnt - Choose All That Apply Any of the Below Risk Factors Present?: Yes Each Factor Represents 1 point: Abnormal pulmonary function (COPD) Each Risk Factor Represents 3 Points: Age 75 years or older Other congenital or acquired thrombophilia - If yes, enter type in comment: Yes Thrombosis Risk Factor Assessment Total Risk Factor Score: 4 Thrombosis Risk Factor Assessment Level: Moderate Risk Assessment and Plan Assessment: ASSESSMENT Acute on chronic hypoxic respiratory failure Acute COPD exacerbation Lung cancer status post chemo and radiation therapy - currently in remission- on immunotherapy Mild cognitive impairment Essential hypertension GERD Multiple joint osteoarthritis Low BMI and 17.7 PLAN: Patient is being treated for COPD exacerbation. She is on breathing treatments, azithromycin and Solu-Medrol. As the patient is tachycardic tachypneic and hypoxic with a known history of lung cancer, will get a CTA of the chest to rule out pulmonary embolism. Patient has been restarted on all her home medications. Overall prognosis is poor. Further recommendations to follow depending on the progress of the patient. Patient is a DO NOT RESUSCITATE.
--- NOTE | 2018-10-05 15:55 | CT ---
EXAMINATION TYPE: CT chest angio for PE DATE OF EXAM: 10/05/2018 COMPARISON: 07/13/2017 HISTORY: SOB. Pt hx emphysema, lung ca CT DLP: 123.20 mGycm Automated exposure control for dose reduction was used. CONTRAST: CT Chest for pulmonary embolism performed with with IV Contrast, patient injected with 100 mL of Isov ue 370. FINDINGS: There are 3-D post processed images. There are bilateral mild pleural effusions. There is pulmonary hyperinflation and flattening of the d iaphragm. There is 1.7 cm stellate infiltrate in the superior segment right lower lobe. There is a 2 cm irregular infiltrate in the subpleural lateral right upper lobe adjacent to the major fissure. Tho racic aorta is atheromatous. There are no hilar masses. I see no mediastinal adenopathy. Thoracic aor ta is atheromatous. There is no aneurysm or dissection. There is some patchy atelectasis and infiltrate at the left posterior lung base. There is normal contrast opacification of the pulmonary arteries. I see no filling defects. There is anterior wedging of multiple thoracic vertebra with kyphotic deformity. IMPRESSION: No evidence of pulmonary embolism. Right lower lobe mass unchanged compared to CT scan of 07/13/2017. There is a new infiltrate in the lateral right upper lobe compared to old exam. There are new bilateral pleural effusions. There is new infiltrate and atelectasis left posterior carlos g base.
[2018-10-05] MEDS: ASPIRIN 325 MG TAB PO SCH (15:57)
[2018-10-05] MEDS: FOLIC ACID 1 MG TAB PO SCH (15:58)
[2018-10-05] MEDS: LISINOPRIL 20 MG TAB PO SCH (15:58)
[2018-10-05] MEDS: DOCUSATE 100 MG CAP PO SCH (15:59)
[2018-10-05] MEDS: POLYETHYLENE GLYCOL 3350 17 GM POWD.PACK PO SCH (16:03)
[2018-10-05] MEDS: IPRATROPIUM-ALBUTEROL 3 ML NEB INHALATION PRN ×2 (16:09→20:22)
[2018-10-05] MEDS: guaiFENesin 600 MG TABLET.ER PO PRN (20:55)
[2018-10-05] MEDS: PIPERACILLIN-TAZOBACTAM 3.375 GM in SODIUM CHLORIDE 0.9% 100 ML IVPB SCH (23:02)
[2018-10-05] MEDS: ENOXAPARIN 40 MG/0.4 ML SYRINGE SQ SCH (23:03)
[2018-10-05] MEDS: LEVOFLOXACIN 750 MG TAB PO SCH (23:10)
[2018-10-06] MEDS: PIPERACILLIN-TAZOBACTAM 3.375 GM in SODIUM CHLORIDE 0.9% 100 ML IVPB SCH ×3 (05:46→21:46)
[2018-10-06] MEDS: methylPREDNISolone SOD SUCCI 125 MG/2 ML VIAL IV SCH ×4 (05:47→23:31)
[2018-10-06] MEDS: IPRATROPIUM-ALBUTEROL 3 ML NEB INHALATION SCH ×4 (07:49→18:57)
[2018-10-06 07:52] LABS: Basophils % (A) 0 %; Eosinophils % (A) 0 %; HGB 10.1 gm/dL (11.4-16.0); Hypochromasia Slight; Lymphocytes # (A) 0.3 k/uL (1.0-4.8); Lymphocytes % (A) 5 %; MCH 28.5 pg (25.0-35.0); MCHC 31.7 g/dL (31.0-37.0); MCV 89.9 fL (80.0-100.0); Mean Platelet Volume 6.5; Monocytes # (A) 0.3 k/uL (0-1.0); Monocytes % (A) 5 %; Neutrophils # (A) 5.1 k/uL (1.3-7.7); Neutrophils % (A) 89 %; Platelet Count 327 k/uL (150-450); RBC 3.56 m/uL (3.80-5.40); RDW 15.4 % (11.5-15.5); WBC 5.7 k/uL (3.8-10.6)
[2018-10-06 08:02] LABS: African American GFR (CKD) >90 (>60 ml/min/1.73 sqM); Anion Gap 4 mmol/L; Blood Urea Nitrogen 13 mg/dL (7-17); Calcium 9.5 mg/dL (8.4-10.2); Carbon Dioxide 35 mmol/L (22-30); Chloride 103 mmol/L (98-107); Glucose 103 mg/dL (74-99); Potassium 4.4 mmol/L (3.5-5.1); Sodium 142 mmol/L (137-145)
[2018-10-06] MEDS: ASPIRIN 325 MG TAB PO SCH (08:17)
[2018-10-06] MEDS: LISINOPRIL 20 MG TAB PO SCH (08:17)
[2018-10-06] MEDS: guaiFENesin 600 MG TABLET.ER PO PRN (08:17)
[2018-10-06] MEDS: DOCUSATE 100 MG CAP PO SCH ×2 (08:17→21:45)
[2018-10-06] MEDS: POLYETHYLENE GLYCOL 3350 17 GM POWD.PACK PO SCH (08:18)
[2018-10-06] MEDS: FOLIC ACID 1 MG TAB PO SCH (08:18)
[2018-10-06] MEDS: ENOXAPARIN 40 MG/0.4 ML SYRINGE SQ SCH (08:18)
--- NOTE | 2018-10-06 11:28 | P.PN ---
Subjective Progress Note Date: 10/06/18 Principal diagnosis: Acute on chronic hypoxic respiratory failure Ms. West is a 78-year-old female with a past medical history of lung cancer, GERD, hypertension, thyroid disorder, emphysema coming into the hospital with a chief complaint of difficulty in breathing. Patient has a known history of COPD and also lung cancer in remission. She follows with Dr. Petersen and Dr. Garcia. Her primary care physician is Dr. Rojo. Patient states that for the past couple of days she's more short of breath in usual. She only reports minimal coughing. Patient denies having any fevers chills or rigors. At baseline patient is on 2 L of home oxygen, in spite of keeping her oxygen she felt very short of breath. She lives with her son at home. Her son noticed that she was having difficulty in breathing and when her oxygen saturations were checked they were only in 60s and so the patient was brought into the hospital for further evaluation. In the emergency department patient was found to have tachycardia and tachypnea with low oxygen saturations in the low 80s and so she had a chest x-ray done showing stable hyperexpansion suggestive of COPD with subsegmental linear changes in the right upper lung zone. She was started on breathing treatments and IV steroids and admitted to the floor. On 10/06/2018 - patient had a CTA of the chest yesterday that was negative for PE. But there are bilateral mild pleural effusions along with right lower lobe mass that is unchanged, with a new infiltrate in the lateral right upper lobe. Depending upon the CAT scan findings patient's antibiotic have been changed from azithromycin to he Zosyn and Levaquin.She is still requiring 4 lt of oxygen and saturating around low 90s. She reports her breathing is much better compared to yesterday. Patient denies having any chest pain or palpitations. No abdominal pain nausea vomiting or diarrhea. No swelling of her lower extremities. She complains of generalized weakness. No weakness of her extremities. Active Medications Hydrocodone Bitart/Acetaminophen ([place] 5-325) 1 each PO BID PRN PRN Reason: Pain Albuterol/Ipratropium (Duoneb 0.5 Mg-3 Mg/3 Ml Soln) 3 ml INHALATION RT-Q4H PRN PRN Reason: Shortness Of Breath Or Wheezing Last Admin: 10/05/18 20:22 Dose: 3 ml Documented by: Albuterol/Ipratropium (Duoneb 0.5 Mg-3 Mg/3 Ml Soln) 3 ml INHALATION RT-QID [facility] Last Admin: 10/06/18 07:49 Dose: 3 ml Documented by: Aspirin (Aspirin) 325 mg PO DAILY [facility] Last Admin: 10/06/18 08:17 Dose: 325 mg Documented by: Docusate Sodium (Colace) 100 mg PO BID [facility] Last Admin: 10/06/18 08:17 Dose: 100 mg Documented by: Enoxaparin Sodium (Lovenox) 40 mg SQ DAILY [facility] Last Admin: 10/06/18 08:18 Dose: 40 mg Documented by: Folic Acid (Folic Acid) 1 mg PO DAILY [facility] Last Admin: 10/06/18 08:18 Dose: 1 mg Documented by: Guaifenesin (Mucinex) 600 mg PO BID PRN PRN Reason: Congestion Last Admin: 10/06/18 08:17 Dose: 600 mg Documented by: Guaifenesin/Codeine Phosphate (Robitussin Ac) 10 ml PO Q6H PRN PRN Reason: Cough Piperacillin Sod/Tazobactam (Sod 3.375 gm/ Sodium Chloride) 100 mls @ 25 mls/hr IVPB Q8H [facility] Last Admin: 10/06/18 05:46 Dose: 25 mls/hr Documented by: Levofloxacin (Levaquin) 750 mg PO Q24H [facility] Last Admin: 10/05/18 23:10 Dose: 750 mg Documented by: Lisinopril (Zestril) 20 mg PO DAILY [facility] Last Admin: 10/06/18 08:17 Dose: 20 mg Documented by: Methylprednisolone Sodium Succinate (Solu-Medrol) 60 mg IV Q6HR [facility] Last Admin: 10/06/18 05:47 Dose: 60 mg Documented by: Polyethylene Glycol (Miralax) 17 gm PO DAILY [facility] Last Admin: 10/06/18 08:18 Dose: Not Given Documented by: Objective - Vital Signs Vital signs: Vital Signs Temp 97.3 F L 10/06/18 05:00 Pulse 101 H 10/06/18 08:00 Resp 24 10/06/18 08:00 BP 129/73 10/06/18 05:00 Pulse Ox 98 10/06/18 05:00 Intake & Output 10/05/18 10/06/18 10/06/18 18:59 06:59 18:59 Intake Total 900 1180 Balance 900 1180 Weight 45.359 kg Intake: Oral 900 1180 Other: Voiding Method Bedside Commode Bedside Commode Bedside Commode # Voids 3 2 # Bowel Movements 1 - Exam GENERAL: Mild shortness of breath. Emaciated EYES: Pupils equal. Conjunctiva normal. HEENT: External appearance of nose and ears normal, oral cavity grossly normal. NECK: JVD not raised; masses not palpable. HEART: First and second heart sounds are normal; mild edema. LUNGS: Barrel-shaped chest. Respiratory rate increased, decreased breath sounds prolonged expiration and wheezing. ABDOMEN: Soft, nontender, liver spleen not palpable, no masses palpable. PSYCH: Able to also questions, but takes some time. NEUROLOGICAL: Cranial nerves grossly intact; no facial asymmetry, power and sensation grossly intact MUSCULAR skeletal: Evidence of OA especially in the hands - Labs CBC & Chem 7: 10/06/18 06:58 10/06/18 06:58 Labs: Abnormal Lab Results - Last 24 Hours (Table) 10/06/18 10/06/18 Range/Units 06:58 06:58 RBC 3.56 L (3.80-5.40) m/uL Hgb 10.1 L (11.4-16.0) gm/dL Hct 32.0 L (34.0-46.0) % Lymphocytes # 0.3 L (1.0-4.8) k/uL Carbon Dioxide 35 H (22-30) mmol/L Creatinine 0.45 L (0.52-1.04) mg/dL Glucose 103 H (74-99) mg/dL Microbiology - Last 24 Hours (Table) 10/05/18 05:41 Blood Culture - Preliminary Blood No Growth after 24 hours 10/05/18 10:50 Urine Culture - Preliminary Urine,Voided Assessment and Plan Assessment: ASSESSMENT Acute on chronic hypoxic respiratory failure Acute COPD exacerbation Lung cancer status post chemo and radiation therapy - currently in remission- on immunotherapy Mild cognitive impairment Essential hypertension GERD Multiple joint osteoarthritis Low BMI and 17.7 PLAN: Depending on the results of the CAT scan, the patient's antibiotic has been changed from Zithromax to levofloxacin and Zosyn. Patient is still requiring 4 L of oxygen and saturating in the low 90s. Continue with the rest of her current medication regimen. GI DVT prophylaxis. Overall prognosis is poor. Further recommendations to follow depending on the progress of the pa tient. Patient is a DO NOT RESUSCITATE.
--- NOTE | 2018-10-06 14:25 | P.CNPUL ---
History of Present Illness Consult date: 10/06/18 Chief complaint: Shortness of breath History of present illness: This is a 78-year-old female well-known to me from the office this patient is a home oxygen dependent and nebulizer dependent she uses 2 L nasal cannula 24 7 she has a history of lung cancer status post treatment with radiation and chemotherapy is in remission for the last 2 days has not been feeling well with increased shortness of breath on minimal activity and exertion on the day of admission she was noted to have oxygen saturation of 60% and was brought into emergency department was subsequently evaluated and admitted into the hospital she does have a possible developing early pneumonia and right upper lobe her saturation on arrival was 80%, she denies any fever or chills does have on his going shortness of breath and cough which is basically nonproductive Review of Systems All systems: negative Past Medical History Past Medical History: Cancer, GERD/Reflux, Hypertension, Pneumonia, Thyroid Disorder Additional Past Medical History / Comment(s): Thyroid nodules being monitored. Emphysema, lung cancer History of Any Multi-Drug Resistant Organisms: None Reported Past Surgical History: Hernia Repair, Orthopedic Surgery, Tubal Ligation Additional Past Surgical History / Comment(s): Bilateral inguinal hernia repairs, colonoscopies with benign polypectomies, right hip sx after fallJuly 2018 Past Anesthesia/Blood Transfusion Reactions: No Reported Reaction Past Psychological History: No Psychological Hx Reported Additional Psychological History / Comment(s): Pt resides alone. She is indpendent. She drives. Smoking Status: Former smoker Past Alcohol Use History: None Reported Additional Past Alcohol Use History / Comment(s): Pt started smoking in 3 and quit about 1987. Past Drug Use History: None Reported - Past Family History Mother Family Medical History: Dementia Additional Family Medical History / Comment(s): Mother at age 83 yrs. Father Family Medical History: CVA/TIA Additional Family Medical History / Comment(s): Father had a CVA. He at the age of 83 yrs. Sister(s) Family Medical History: Thyroid Disorder Additional Family Medical History / Comment(s): hypothyroidism Medications and Allergies Home Medications Medication Instructions Recorded Confirmed Type Ca/D3/Mag/Zinc/Jayesh/David/Mgbor 1 tab PO DAILY 10/15/14 10/05/18 History [Caltrate 600-D3-Min Chew Tab] Lisinopril [Zestril] 20 mg PO DAILY 06/03/17 10/05/18 History Multivit-Min/Iron/Folic/Lutein 1 tab PO DAILY 06/03/17 10/05/18 History [Centrum Silver Women Tablet] Ipratropium-Albuterol Nebulize 3 ml INHALATION RT-QID 07/19/17 10/05/18 History [Duoneb 0.5 mg-3 mg/3 ml Soln] Folic Acid 1 mg PO DAILY 07/06/18 10/05/18 History Aspirin 325 mg PO DAILY #30 tab 08/12/18 10/05/18 Rx Budesonide [Pulmicort] 1 mg INHALATION RT-BID nebu 08/12/18 10/05/18 Rx Docusate [Colace] 100 mg PO BID 10/05/18 10/05/18 History HYDROcodone/APAP 5-325MG [[place] 5] 1 tab PO BID PRN 10/05/18 10/05/18 History Polyethylene Glycol 3350 [Miralax] 17 gm PO DAILY 10/05/18 10/05/18 History guaiFENesin [Mucinex] 600 mg PO BID PRN 10/05/18 10/05/18 History Allergies Allergy/AdvReac Type Severity Reaction Status Date / Time No Known Allergies Allergy Verified 10/05/18 07:28 Physical Exam Vitals: Vital Signs Temp Pulse Pulse Resp BP Pulse Ox 10/06/18 12:29 97.8 F 89 20 150/72 100 10/06/18 11:52 84 10/06/18 11:39 79 10/06/18 08:00 101 H 24 10/06/18 07:59 78 10/06/18 07:49 76 10/06/18 05:00 97.3 F L 86 16 129/73 98 10/06/18 00:00 92 16 10/05/18 21:00 98.7 F 92 16 150/70 96 10/05/18 20:32 84 10/05/18 20:22 80 10/05/18 16:21 94 10/05/18 16:09 92 Intake and Output 10/05/18 10/06/18 10/06/18 22:59 06:59 14:59 Intake Total 944 926 2620 Balance 962 706 0405 Intake: Intake, IV Titration 100 Amount Piperacillin-Tazobactam 3 100 .375 gm In Sodium Chloride 0.9% 100 ml @ 25 mls/hr IVPB Q8H [facility] Rx#: [id number] Oral 440 [id number] Other: Voiding Method Bedside Commode Bedside Commode # Voids 1 2 3 # Bowel Movements 2 - Constitutional General appearance: average body habitus, disheveled, mild distress - EENT Eyes: EOMI, PERRLA, poor dentition, normal appearance ENT: normal oropharynx Ears: bilateral: normal - Neck Neck: normal ROM Carotids: bilateral: upstroke normal, bruit absent Thyroid: bilateral: normal size - Respiratory Respiratory: bilateral: diminished, wheezing (Fine expiratory), prolonged expiration, negative: dullness, rales, rhonchi - Cardiovascular Rhythm: regular Heart sounds: normal: S1, S2 - Gastrointestinal General gastrointestinal: normal bowel sounds, soft - Integumentary Integumentary: normal, normal turgor - Neurologic Neurologic: CNII-XII intact - Musculoskeletal Musculoskeletal: gait normal, generalized weakness, strength equal bilaterally - Psychiatric Psychiatric: A&O x's 3, appropriate affect, intact judgment & insight Results - Laboratory Findings CBC and BMP: 10/06/18 06:58 10/06/18 06:58 PT/INR, D-dimer PT 10.4 sec (9.0-12.0) 10/05/18 05:33 INR 1.0 (<1.2) 10/05/18 05:33 Abnormal lab findings: Abnormal Labs 10/05/18 10/05/18 10/05/18 05:33 05:33 10:50 RBC 3.76 L Hgb 10.9 L Hct 33.6 L Lymphocytes # 0.3 L Carbon Dioxide 35 H Creatinine 0.38 L Glucose 126 H Total Protein 6.1 L Urine Protein Trace H Ur Leukocyte Esterase Trace H Urine Mucus Rare H 10/06/18 10/06/18 06:58 06:58 RBC 3.56 L Hgb 10.1 L Hct 32.0 L Lymphocytes # 0.3 L Carbon Dioxide 35 H Creatinine 0.45 L Glucose 103 H Total Protein Urine Protein Ur Leukocyte Esterase Urine Mucus - Diagnostic Findings Chest x-ray: report reviewed, image reviewed (Finding as noted above) CT scan - chest: report reviewed, image reviewed (Computed tomography scan of the chest revealed small bilateral pleural effusion along with extensive emphysema there is 1.7 cm infiltrate in right lower lobe, 2 cm infiltrate in the right upper lobe, no hilar masses are seen) Assessment and Plan Assessment: Right upper lobe pneumonia and right lower lobe pneumonia Bilateral small pleural effusion History of lung cancer Compression fracture of thoracic vertebra Acute on chronic hypoxic respiratory failure 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
[2018-10-06] MEDS: LEVOFLOXACIN 750 MG TAB PO SCH (21:45)
[2018-10-07] MEDS: methylPREDNISolone SOD SUCCI 125 MG/2 ML VIAL IV SCH ×4 (05:34→23:38)
[2018-10-07] MEDS: PIPERACILLIN-TAZOBACTAM 3.375 GM in SODIUM CHLORIDE 0.9% 100 ML IVPB SCH ×3 (05:35→21:34)
[2018-10-07 07:38] LABS: Anisocytosis Slight; Basophils % (A) 0 %; Eosinophils % (A) 0 %; HCT 31.9 % (34.0-46.0); HGB 10.1 gm/dL (11.4-16.0); Hypochromasia Slight; Lymphocytes # (A) 0.2 k/uL (1.0-4.8); Lymphocytes % (A) 2 %; MCH 28.5 pg (25.0-35.0); MCHC 31.7 g/dL (31.0-37.0); MCV 90.1 fL (80.0-100.0); Mean Platelet Volume 6.8; Monocytes # (A) 0.2 k/uL (0-1.0); Monocytes % (A) 2 %; Neutrophils # (A) 7.7 k/uL (1.3-7.7); Neutrophils % (A) 95 %; Platelet Count 369 k/uL (150-450); RBC 3.54 m/uL (3.80-5.40); RDW 16.1 % (11.5-15.5); WBC 8.1 k/uL (3.8-10.6)
[2018-10-07] MEDS: IPRATROPIUM-ALBUTEROL 3 ML NEB INHALATION SCH ×4 (07:53→20:18)
[2018-10-07 07:55] LABS: African American GFR (CKD) >90 (>60 ml/min/1.73 sqM); Anion Gap 5 mmol/L; Blood Urea Nitrogen 16 mg/dL (7-17); Calcium 9.3 mg/dL (8.4-10.2); Carbon Dioxide 34 mmol/L (22-30); Chloride 101 mmol/L (98-107); Glucose 105 mg/dL (74-99); Potassium 4.5 mmol/L (3.5-5.1); Sodium 140 mmol/L (137-145)
[2018-10-07] MEDS: FOLIC ACID 1 MG TAB PO SCH (08:25)
[2018-10-07] MEDS: ENOXAPARIN 40 MG/0.4 ML SYRINGE SQ SCH (08:25)
[2018-10-07] MEDS: LISINOPRIL 20 MG TAB PO SCH (08:25)
[2018-10-07] MEDS: POLYETHYLENE GLYCOL 3350 17 GM POWD.PACK PO SCH (08:25)
[2018-10-07] MEDS: DOCUSATE 100 MG CAP PO SCH ×2 (08:25→21:34)
[2018-10-07] MEDS: ASPIRIN 325 MG TAB PO SCH (08:25)
--- NOTE | 2018-10-07 12:45 | P.PN ---
Subjective Progress Note Date: 10/07/18 Principal diagnosis: Acute on chronic hypoxic respiratory failure Ms. West is a 78-year-old female with a past medical history of lung cancer, GERD, hypertension, thyroid disorder, emphysema coming into the hospital with a chief complaint of difficulty in breathing. Patient has a known history of COPD and also lung cancer in remission. She follows with Dr. Petersen and Dr. Garcia. Her primary care physician is Dr. Rojo. Patient states that for the past couple of days she's more short of breath in usual. She only reports minimal coughing. Patient denies having any fevers chills or rigors. At baseline patient is on 2 L of home oxygen, in spite of keeping her oxygen she felt very short of breath. She lives with her son at home. Her son noticed that she was having difficulty in breathing and when her oxygen saturations were checked they were only in 60s and so the patient was brought into the hospital for further evaluation. In the emergency department patient was found to have tachycardia and tachypnea with low oxygen saturations in the low 80s and so she had a chest x-ray done showing stable hyperexpansion suggestive of COPD with subsegmental linear changes in the right upper lung zone. She was started on breathing treatments and IV steroids and admitted to the floor. On 10/06/2018 - patient had a CTA of the chest yesterday that was negative for PE. But there are bilateral mild pleural effusions along with right lower lobe mass that is unchanged, with a new infiltrate in the lateral right upper lobe. Depending upon the CAT scan findings patient's antibiotic have been changed from azithromycin to he Zosyn and Levaquin.She is still requiring 4 lt of oxygen and saturating around low 90s. She reports her breathing is much better compared to yesterday. Patient denies having any chest pain or palpitations. No abdominal pain nausea vomiting or diarrhea. No swelling of her lower extremities. She complains of generalized weakness. No weakness of her extremities. 10/07/2018 Patient is sitting up in bed just finishing breakfast in no acute distress. Patient is currently still on IV antibiotic therapy. Patient is currently still on 4 L of oxygen via nasal cannula. Discussed with the nursing staff about weaning the oxygen down to 2 L as she normally uses but per the nursing staff she becomes extremely winded with any type of exertion even sitting up at the site of the bed and standing up and has to be put on 4 L of oxygen. Will continue to monitor. Patient denies any chest pain or palpitations at this time. When conversing with the patient she becomes slightly winded and has to rest. Patient denies any nausea or vomiting at this time. Patient is afebrile. Guarded prognosis. Objective - Vital Signs Vital signs: Vital Signs Temp 98.1 F 10/07/18 05:00 Pulse 74 10/07/18 11:55 Resp 20 10/07/18 08:45 BP 147/75 10/07/18 05:00 Pulse Ox 99 10/07/18 05:00 Intake & Output 10/06/18 10/07/18 10/07/18 18:59 06:59 18:59 Intake Total 1250 100 Balance 1250 100 Intake: Intake, IV Titration 100 100 Amount Piperacillin-Tazobactam 3 100 100 .375 gm In Sodium Chloride 0.9% 100 ml @ 25 mls/hr IVPB Q8H [facility] Rx#: [id number] Oral 1150 Other: Voiding Method Bedside Commode Bedside Commode Bedside Commode # Voids 1 1 # Bowel Movements 1 - Exam Gen: This is a 78-year-old female sitting up in bed in no acute distress. Temp is 98.1F, blood pressure is 147/75, respirations are 20, pulse is 86, oxygen saturation is 99% on 4 L. HEENT: Head is atraumatic, normocephalic. Pupils equal, round. Sclerae is anicte gema. NECK: Supple. Mild JVD with no distention. No lymphadenopathy. No thyromegaly. LUNGS: Diminished breath sounds with expiratory wheezing noted. A few scattered rhonchi. No intercostal retractions. HEART: Regular rate and rhythm. No murmur. ABDOMEN: Soft. Bowel sounds are present. No masses. No tenderness. EXTREMITIES: No pedal edema. No calf tenderness. NEUROLOGICAL: Patient is awake, alert and oriented x3. Cranial nerves 2 through 12 are grossly intact. - Labs CBC & Chem 7: 10/07/18 07:10 10/07/18 07:10 Labs: Abnormal Lab Results - Last 24 Hours (Table) 10/07/18 10/07/18 Range/Units 07:10 07:10 RBC 3.54 L (3.80-5.40) m/uL Hgb 10.1 L (11.4-16.0) gm/dL Hct 31.9 L (34.0-46.0) % RDW 16.1 H (11.5-15.5) % Lymphocytes # 0.2 L (1.0-4.8) k/uL Carbon Dioxide 34 H (22-30) mmol/L Glucose 105 H (74-99) mg/dL Microbiology - Last 24 Hours (Table) 10/05/18 05:41 Blood Culture - Preliminary Blood No Growth after 48 hours 10/05/18 10:50 Urine Culture - Final Urine,Voided Assessment and Plan Assessment: Acute on chronic hypoxic respiratory failure Acute COPD exacerbation Lung cancer status post chemo and radiation therapy - currently in remission- on immunotherapy Mild cognitive impairment Essential hypertension GERD Multiple joint osteoarthritis Low BMI and 17.7 CODE STATUS: DO NOT RESUSCITATE Recommendations and discussion: Continue current medications, management, and symptomatically treatment. Continue with IV antibiotic therapy of Zosyn as well as oral Levaquin. Continue with bronchodilators as well as IV steroids. Pulmonary is following. Patient is normally on 2 L oxygen via nasal cannula at home and still requiring 4 L at this time. medical staff assistant is attempting to wean oxygen needs, the patient becomes extremely short of breath and desats into the low mid 80s. Will continue to monitor. Guarded prognosis. Further recommendations to follow.
--- NOTE | 2018-10-07 17:15 | P.PN ---
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 emphysema 10/07/2018, patient seen and evaluated examined during the rounds patient remains on supplemental oxygen with the regular bronchodilator therapy cough congestion is improved denies any sputum production labs reviewed medications reviewed care plan discussed with the patient and her daughter at length get short of breath on activity and exertion due to severe COPD patient continued to require IV antibiotics and IV steroids with continuation of supplemental oxygen This is a 78-year-old female well-known to me from the office this patient is a home oxygen dependent and nebulizer dependent she uses 2 L nasal cannula 24 7 she has a history of lung cancer status post treatment with radiation and chemotherapy is in remission for the last 2 days has not been feeling well with increased shortness of breath on minimal activity and exertion on the day of admission she was noted to have oxygen saturation of 60% and was brought into emergency department was subsequently evaluated and admitted into the hospital she does have a possible developing early pneumonia and right upper lobe her saturation on arrival was 80%, she denies any fever or chills does have on his going shortness of breath and cough which is basically nonproductive Objective - Vital Signs Vital signs: Vital Signs Temp 97.9 F 10/07/18 12:37 Pulse 88 10/07/18 16:07 Resp 20 10/07/18 14:42 BP 145/68 10/07/18 12:37 Pulse Ox 98 10/07/18 12:37 Intake & Output 10/06/18 10/07/18 10/07/18 18:59 06:59 18:59 Intake Total 1250 100 360 Balance 1250 100 360 Intake: Intake, IV Titration 100 100 Amount Piperacillin-Tazobactam 3 100 100 .375 gm In Sodium Chloride 0.9% 100 ml @ 25 mls/hr IVPB Q8H [facility] Rx#: [id number] Oral 1150 360 Other: Voiding Method Bedside Commode Bedside Commode Bedside Commode # Voids 1 1 1 # Bowel Movements 1 - Exam - Constitutional General appearance: average body habitus, disheveled, mild distress - EENT Eyes: EOMI, PERRLA, poor dentition, normal appearance ENT: normal oropharynx Ears: bilateral: normal - Neck Neck: normal ROM Carotids: bilateral: upstroke normal, bruit absent Thyroid: bilateral: normal size - Respiratory Respiratory: bilateral: diminished, wheezing (Fine expiratory), prolonged expiration, negative: dullness, rales, rhonchi - Cardiovascular Rhythm: regular Heart sounds: normal: S1, S2 - Gastrointestinal General gastrointestinal: normal bowel sounds, soft - Integumentary Integumentary: normal, normal turgor - Neurologic Neurologic: CNII-XII intact - Musculoskeletal Musculoskeletal: gait normal, generalized weakness, strength equal bilaterally - Psychiatric Psychiatric: A&O x's 3, appropriate affect, intact judgment & insight - Labs CBC & Chem 7: 10/07/18 07:10 10/07/18 07:10 Labs: Abnormal Lab Results - Last 24 Hours (Table) 10/07/18 10/07/18 Range/Units 07:10 07:10 RBC 3.54 L (3.80-5.40) m/uL Hgb 10.1 L (11.4-16.0) gm/dL Hct 31.9 L (34.0-46.0) % RDW 16.1 H (11.5-15.5) % Lymphocytes # 0.2 L (1.0-4.8) k/uL Carbon Dioxide 34 H (22-30) mmol/L Glucose 105 H (74-99) mg/dL Microbiology - Last 24 Hours (Table) 10/05/18 05:41 Blood Culture - Preliminary Blood No Growth after 48 hours Assessment and Plan Assessment: Right upper lobe pneumonia and right lower lobe pneumonia Bilateral small pleural effusion History of lung cancer Compression fracture of thoracic vertebra Right lower lobe lung mass remains unchanged from June 2017, status post radiation and chemotherapy Acute on chronic hypoxic respiratory failure 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
[2018-10-07] MEDS: LEVOFLOXACIN 750 MG TAB PO SCH (21:34)
[2018-10-08] MEDS: IPRATROPIUM-ALBUTEROL 3 ML NEB INHALATION PRN (00:09)
[2018-10-08] MEDS: methylPREDNISolone SOD SUCCI 125 MG/2 ML VIAL IV SCH (06:23)
[2018-10-08] MEDS: PIPERACILLIN-TAZOBACTAM 3.375 GM in SODIUM CHLORIDE 0.9% 100 ML IVPB SCH ×3 (06:24→21:44)
[2018-10-08] MEDS: ASPIRIN 325 MG TAB PO SCH (07:51)
[2018-10-08] MEDS: FOLIC ACID 1 MG TAB PO SCH (07:51)
[2018-10-08] MEDS: POLYETHYLENE GLYCOL 3350 17 GM POWD.PACK PO SCH (07:51)
[2018-10-08] MEDS: ENOXAPARIN 40 MG/0.4 ML SYRINGE SQ SCH (07:51)
[2018-10-08] MEDS: LISINOPRIL 20 MG TAB PO SCH (07:51)
[2018-10-08] MEDS: DOCUSATE 100 MG CAP PO SCH ×2 (07:51→21:44)
[2018-10-08] MEDS: IPRATROPIUM-ALBUTEROL 3 ML NEB INHALATION SCH ×4 (08:10→19:35)
--- NOTE | 2018-10-08 12:16 | CDI ---
Documentation Clarification Form Date: 10/08/2018 12:04:00 PM From: Sally ReevesAvilaPAUL mojica, CCDS Admit Date: 10/05/2018 5:58:00 AM Patient Name: Mary Jo West Visit Number: [id number] Discharge Date: ATTENTION: The Clinical Documentation Specialists (CDI) and [facility] Coding Staff appreciate your assistance in clarifying documentation. Please respond to the clarification below the line at the bottom and electronically sign. The CDI & [facility] Coding staff will review the response and follow-up if needed. Please note: Queries are made part of the Legal Health Record. If you have any questions, please contact the author of this message via ITS. Dr. Antonina Lowe: Per the ED note documentation: "Chronically ill-appearing, frail, underweight, moderate respiratory distress." History/Risk Factors: Lung CA in remission, Hypertension, Emphysema on home O2 2Lnc, GERD, Thyroid Nodules being monitored, Pneumonia & former smoker. Clinical Indicators: Presented with SOB, cough on home O2. PO low 80s & CXR: stable hyperexpansion suggestive of COPD with subsegmental linear changes in right upper long. Diagnosed with right upper & lower lobe pneumonia. Labs: Hgb 10.9*, Total Protein 6.1*, Albumin (3.5). Current BMI: 17.7* Nutritional Assessment: Poor nutritional intake, consumed 0 - 25% on regular diet, difficulty chewing, has dentures, poor appetite, on steroids (nutrition related), Glucose 126. Underweight. Added Ensure clear: Magic Cups TID. Acute severe malnutrition. 13% involuntary weight loss of UBW in 2 months. Visible fat & muscle loss: severe depletion of temporal muscle & buccal fat pads, protruding clavical. Treatment: Ensure TID, INH Albuterol, IV Solumedrol, IV fluid rate 1000, IV Zosyn. In your professional opinion, can you please clarify if these findings signify one of the following conditions? Mild Protein-Calorie Malnutrition Moderate Protein-Calorie Malnutrition Severe Protein-Calorie Malnutrition Other condition, please specify Unable to determine (Last Revision: August 2018) not by patient MTDD
[2018-10-08] MEDS: predniSONE 20 MG TAB PO SCH (12:36)
--- NOTE | 2018-10-08 16:42 | P.PN ---
Subjective Progress Note Date: 10/08/18 Principal diagnosis: Acute on chronic hypoxic respiratory failure Ms. West is a 78-year-old female with a past medical history of lung cancer, GERD, hypertension, thyroid disorder, emphysema coming into the hospital with a chief complaint of difficulty in breathing. Patient has a known history of COPD and also lung cancer in remission. She follows with Dr. Petersen and Dr. Garcia. Her primary care physician is Dr. Rojo. Patient states that for the past couple of days she's more short of breath in usual. She only reports minimal coughing. Patient denies having any fevers chills or rigors. At baseline patient is on 2 L of home oxygen, in spite of keeping her oxygen she felt very short of breath. She lives with her son at home. Her son noticed that she was having difficulty in breathing and when her oxygen saturations were checked they were only in 60s and so the patient was brought into the hospital for further evaluation. In the emergency department patient was found to have tachycardia and tachypnea with low oxygen saturations in the low 80s and so she had a chest x-ray done showing stable hyperexpansion suggestive of COPD with subsegmental linear changes in the right upper lung zone. She was started on breathing treatments and IV steroids and admitted to the floor. On 10/06/2018 - patient had a CTA of the chest yesterday that was negative for PE. But there are bilateral mild pleural effusions along with right lower lobe mass that is unchanged, with a new infiltrate in the lateral right upper lobe. Depending upon the CAT scan findings patient's antibiotic have been changed from azithromycin to he Zosyn and Levaquin.She is still requiring 4 lt of oxygen and saturating around low 90s. She reports her breathing is much better compared to yesterday. Patient denies having any chest pain or palpitations. No abdominal pain nausea vomiting or diarrhea. No swelling of her lower extremities. She complains of generalized weakness. No weakness of her extremities. 10/07/2018 Patient is sitting up in bed just finishing breakfast in no acute distress. Patient is currently still on IV antibiotic therapy. Patient is currently still on 4 L of oxygen via nasal cannula. Discussed with the nursing staff about weaning the oxygen down to 2 L as she normally uses but per the nursing staff she becomes extremely winded with any type of exertion even sitting up at the site of the bed and standing up and has to be put on 4 L of oxygen. Will continue to monitor. Patient denies any chest pain or palpitations at this time. When conversing with the patient she becomes slightly winded and has to rest. Patient denies any nausea or vomiting at this time. Patient is afebrile. Guarded prognosis. 10/08/2018 Patient is sitting up in the bed in no acute distress. Patient is currently on 3 L of oxygen via nasal cannula and nursing staff is slowly weaning patient back down as tolerated to her baseline of 2 L via nasal cannula 24 7 at home. Patient is still having some shortness of breath but states has improved from yesterday. Patient denies any chest pain or palpitations at this time. Patient is afebrile. Patient is able to get up to the side of the bed into the bedside commode and continue to talk without getting exerted. Patient was transitioned to oral steroids from IV. Will continue to monitor closely. Guarded prognosis. Objective - Vital Signs Vital signs: Vital Signs Temp 98.1 F 10/08/18 12:02 Pulse 89 10/08/18 15:52 Resp 17 10/08/18 15:52 BP 127/73 10/08/18 12:02 Pulse Ox 99 10/08/18 12:02 Intake & Output 10/07/18 10/08/18 10/08/18 18:59 06:59 18:59 Intake Total 360 75 360 Balance 360 75 360 Intake: Intake, IV Titration 75 Amount Piperacillin-Tazobactam 3 75 .375 gm In Sodium Chloride 0.9% 100 ml @ 25 mls/hr IVPB Q8H [facility] Rx#: [id number] Oral 360 360 Other: Voiding Method Bedside Commode Bedside Commode Bedside Commode # Voids 1 3 3 - Exam Gen: This is a 78-year-old female sitting up in bed in no acute distress. Temp is 98.1F, blood pressure is 127/73, respirations are 17, pulse is 89, oxygen saturation is 99% on 3 L via nasal cannula. HEENT: Head is atraumatic, normocephalic. Pupils equal, round. Sclerae is anicteric. NECK: Supple. Mild JVD with no distention. No lymphadenopathy. No thyromegaly. LUNGS: Diminished breath sounds with mild expiratory wheezing noted. A few scattered rhonchi. No intercostal retractions. HEART: Regular rate and rhythm. No murmur. ABDOMEN: Soft. Bowel sounds are present. No masses. No tenderness. EXTREMITIES: No pedal edema. No calf tenderness. NEUROLOGICAL: Patient is awake, alert and oriented x3. Cranial nerves 2 through 12 are grossly intact. - Labs CBC & Chem 7: 10/07/18 07:10 10/07/18 07:10 Labs: Microbiology - Last 24 Hours (Table) 10/05/18 05:41 Blood Culture - Preliminary Blood No Growth after 72 hours Assessment and Plan Assessment: Acute on chronic hypoxic respiratory failure Acute COPD exacerbation Lung cancer status post chemo and radiation therapy - currently in remission- on immunotherapy Mild cognitive impairment Essential hypertension GERD Multiple joint osteoarthritis Low BMI and 17.7 CODE STATUS: DO NOT RESUSCITATE Recommendations and discussion: Continue current medications, management, and symptomatically treatment. Continue with IV antibiotic therapy of Zosyn as well as oral Levaquin. Continue with bronchodilators and was transitioned to oral steroids today. Pulmonary is following. Patient is normally on 2 L oxygen via nasal cannula at home and still requiring 3 L at this time. staffing recruiter is attempting to wean oxygen needs. Will continue to monitor. Guarded prognosis. Further recommendations to follow. Probable discharge in 24 hours.
[2018-10-08] MEDS: LEVOFLOXACIN 750 MG TAB PO SCH (21:44)
[2018-10-09] MEDS: IPRATROPIUM-ALBUTEROL 3 ML NEB INHALATION PRN (02:12)
[2018-10-09] MEDS: PIPERACILLIN-TAZOBACTAM 3.375 GM in SODIUM CHLORIDE 0.9% 100 ML IVPB SCH (05:48)
[2018-10-09] MEDS: IPRATROPIUM-ALBUTEROL 3 ML NEB INHALATION SCH ×2 (07:08→11:09)
[2018-10-09] MEDS: ENOXAPARIN 40 MG/0.4 ML SYRINGE SQ SCH (07:54)
[2018-10-09] MEDS: DOCUSATE 100 MG CAP PO SCH (07:56)
[2018-10-09] MEDS: FOLIC ACID 1 MG TAB PO SCH (07:56)
[2018-10-09] MEDS: ASPIRIN 325 MG TAB PO SCH (07:56)
[2018-10-09] MEDS: LISINOPRIL 20 MG TAB PO SCH (07:56)
[2018-10-09] MEDS: predniSONE 20 MG TAB PO SCH (07:56)
[2018-10-09] MEDS: POLYETHYLENE GLYCOL 3350 17 GM POWD.PACK PO SCH (07:56)
--- NOTE | 2018-10-09 08:22 | CDI ---
Documentation Clarification Form Date: 10/08/2018 12:04:00 PM From: Sally Avila, PAUL, CCDS Admit Date: 10/05/2018 5:58:00 AM Patient Name: Mary Jo West Visit Number: [id number] Discharge Date: ATTENTION: The Clinical Documentation Specialists (CDI) and [facility] Coding Staff appreciate your assistance in clarifying documentation. Please respond to the clarification below the line at the bottom and electronically sign. The CDI & [facility] Coding staff will review the response and follow-up if needed. Please note: Queries are made part of the Legal Health Record. If you have any questions, please contact the author of this message via ITS. Dr. Fabricio Schneider: Per the ED note documentation: "Chronically ill-appearing, frail, underweight, moderate respiratory distress." History/Risk Factors: Lung CA in remission, Hypertension, Emphysema on home O2 2Lnc, GERD, Thyroid Nodules being monitored, Pneumonia & former smoker. Clinical Indicators: Presented with SOB, cough on home O2. PO low 80s & CXR: stable hyperexpansion suggestive of COPD with subsegmental linear changes in right upper long. Diagnosed with right upper & lower lobe pneumonia. Labs: Hgb 10.9*, Total Protein 6.1*, Albumin (3.5). Current BMI: 17.7* Nutritional Assessment: Poor nutritional intake, consumed 0 - 25% on regular diet, difficulty chewing, has dentures, poor appetite, on steroids (nutrition related), Glucose 126. Underweight. Added Ensure clear: Magic Cups TID. Acute severe malnutrition. 13% involuntary weight loss of UBW in 2 months. Visible fat & muscle loss: severe depletion of temporal muscle & buccal fat pads, protruding clavical. Treatment: Ensure TID, INH Albuterol, IV Solumedrol, IV fluid rate 1000, IV Zosyn. In your professional opinion, can you please clarify if these findings signify one of the following conditions? Mild Protein-Calorie Malnutrition Moderate Protein-Calorie Malnutrition Severe Protein-Calorie Malnutrition Other condition, please specify Unable to determine (Last Revision: August 2018) Mild Protein-Calorie Malnutrition MTDD
[2018-10-09 12:20] VITALS: BP 150/79; PULSE 97; RESP 17; TEMP 98
--- NOTE | 2018-10-10 14:20 | CDI ---
Documentation Clarification Form Date: 10/10/2018 2:17:00 PM From: Joan Winchester Phone: If questions call Luiza Elliott @ [phone], Hours-8:30 am & 5 pm M- Zhao Admit Date: 10/05/2018 5:58:00 AM Patient Name: Mary Jo West Visit Number: [id number] Discharge Date: 10/09/2018 3:51:00 PM ATTENTION: The Clinical Documentation Specialists (CDI) and [facility] Coding Staff appreciate your assistance in clarifying documentation. Please respond to the clarification below the line at the bottom and electronically sign. The CDI & [facility] Coding staff will review the response and follow-up if needed. Please note: Queries are made part of the Legal Health Record. If you have any questions, please contact the author of this message via ITS. Dr. Mike Schneider The diagnosis of lower lobe pneumonia was documented in the 10/[address] Mejia, but is not consistently noted in subsequent documentation. History/Risk Factors: acute/chronic hypoxic resp failure, emphysema/COPD Clinical Indicators: CT scan- new infiltrate in the lateral right upper lobe and new infiltrate and atelectasis left posterior lung base. Treatment: broad spectrum antibiotics, IV steroids Please clarify if the pneumonia was the cause of the acute on chronic hypoxic respiratory failure: Present/active/treated this admission Ruled out Other, please specify Clinically unable to determine Acute on chronic hypoxic respiratory failure likely due to pneumonia MTDD
--- NOTE | 2018-10-10 23:53 | P.DS ---
Providers Date of admission: 10/05/18 05:58 Expected date of discharge: 10/09/18 Attending physician: Chung Weiner Consults: 10/05/18 06:01 Consult Physician Stat Consulting Provider: Roberto Garcia Reason/Comments: COPD exacerbation Do you want consulting provider notified?: Yes, Notify in am [facility] care physician: [facility] Course: Final Diagnosis Acute on chronic hypoxic respiratory failure Acute COPD exacerbation Lung cancer status post chemo and radiation therapy Mild cognitive impairment GERD Multiple joint osteoarthritis low BMI of 17.7 Discharge disposition This patient is being discharged in a stable condition with guarded prognosis to home and will have home care visits. Patient is to follow up with pulmonary Dr. Garcia in one week in the outpatient setting. Patient will continue a course of antibiotics as well as an oral prednisone taper. History of present illness This is a 78 year old female that was recently admitted for COPD exacerbation and shortness of breath and was being monitored closely. Patient was receiving bronchodilator treatment with IV steroids and also antibiotics. Patient was quite winded requiring more oxygen than her normal 2 L via NC at home. Patient denies any chest pain, palpitations, and states that her breathing has slightly improved. Patient remains afebrile. Patient denies any nausea or vomiting and has been tolerating diet although her intake is relatively small. Patient was encouraged to drink ensure for protein. patient is currently stable with much improvement. On exam vital signs are stable. BP is 147/84, pulse is 89, temp is 98.1 F, resp are 20, and oxygen saturation is 95% on 2L. Cardio S1 and S2 are muffled. Respiratory system shows diminished in the bases bilaterally with mild expirat ory wheezing. Abdomen is thin, soft, and non-tender. Nervous system shows no focal deficits with mild weakness. Please refer to the medication reconciliation sheet for a list of medications. Patient Condition at Discharge: Stable Plan - Discharge Summary New Discharge Prescriptions: New Levofloxacin [Levaquin] 750 mg PO Q24H 5 Days tab predniSONE 10 mg PO DIRECTED #30 tab Continue Ca/D3/Mag/Zinc/Jayesh/David/Mgbor [Caltrate 600-D3-Min Chew Tab] 1 tab PO DAILY Lisinopril [Zestril] 20 mg PO DAILY Multivit-Min/Iron/Folic/Lutein [Centrum Silver Women Tablet] 1 tab PO DAILY Ipratropium-Albuterol Nebulize [Duoneb 0.5 mg-3 mg/3 ml Soln] 3 ml INHALATION RT-QID Folic Acid 1 mg PO DAILY Aspirin 325 mg PO DAILY #30 tab Budesonide [Pulmicort] 1 mg INHALATION RT-BID nebu HYDROcodone/APAP 5-325MG [Palmer 5-325] 1 tab PO BID PRN PRN Reason: Pain guaiFENesin [Mucinex] 600 mg PO BID PRN PRN Reason: Congestion Polyethylene Glycol 3350 [Miralax] 17 gm PO DAILY Docusate [Colace] 100 mg PO BID Discharge Medication List Ca/D3/Mag/Zinc/Jayesh/David/Mgbor [Caltrate 600-D3-Min Chew Tab] 1 tab PO DAILY 10/15/14 [History] Lisinopril [Zestril] 20 mg PO DAILY 06/03/17 [History] Multivit-Min/Iron/Folic/Lutein [Centrum Silver Women Tablet] 1 tab PO DAILY 06/03/17 [History] Ipratropium-Albuterol Nebulize [Duoneb 0.5 mg-3 mg/3 ml Soln] 3 ml INHALATION RT-QID 07/19/17 [History] Folic Acid 1 mg PO DAILY 07/06/18 [History] Aspirin 325 mg PO DAILY #30 tab 08/12/18 [Rx] Budesonide [Pulmicort] 1 mg INHALATION RT-BID nebu 08/12/18 [Rx] Docusate [Colace] 100 mg PO BID 10/05/18 [History] HYDROcodone/APAP 5-325MG [Palmer 5-325] 1 tab PO BID PRN 10/05/18 [History] Polyethylene Glycol 3350 [Miralax] 17 gm PO DAILY 10/05/18 [History] guaiFENesin [Mucinex] 600 mg PO BID PRN 10/05/18 [History] Levofloxacin [Levaquin] 750 mg PO Q24H 5 Days tab 10/09/18 [Rx] predniSONE 10 mg PO DIRECTED #30 tab 10/09/18 [Rx] Follow up Appointment(s)/Referral(s): Tiago Rojo DO [Primary Care Provider] - 10/15/18 4:[address] [facility], [NON-STAFF] - Roberto Garcia MD [STAFF PHYSICIAN] - 10/30/18 12:30 pm Patient Instructions/Handouts: Prednisone (By mouth), Levofloxacin (By mouth), COPD (Chronic Obstructive Pulmonary Disease) (DC), Dyspnea (DC) Activity/Diet/Wound Care/Special Instructions: Activity limited until follow-up continue current diet keep follow up appointments continue medications until complete. Discharge Disposition: HOME WITH HOME HEALTH SERVICES
== END 2018-10-09 15:51 | disposition home health service (06) | DRG 193 ==
LOC: EC 05:08 → 3NMEDONC 05:58
PROVIDERS: ADMIT Hospitalist; ATTEND Hospitalist
DX: J18.1 Lobar pneumonia, unspecified organism (principal); J96.21 Acute and chronic respiratory failure with hypoxia; C34.90 Malignant neoplasm of unspecified part of unspecified bronchus or lung; M48.54XA Collapsed vertebra, not elsewhere classified, thoracic region, initial encounter for fracture; J90 Pleural effusion, not elsewhere classified; E44.1 Mild protein-calorie malnutrition; Z68.1 Body mass index [BMI] 19.9 or less, adult; J43.9 Emphysema, unspecified; I44.7 Left bundle-branch block, unspecified; Z66 Do not resuscitate; I10 Essential (primary) hypertension; K21.9 Gastro-esophageal reflux disease without esophagitis; G31.84 Mild cognitive impairment of uncertain or unknown etiology; M19.90 Unspecified osteoarthritis, unspecified site; Z99.81 Dependence on supplemental oxygen; Z79.82 Long term (current) use of aspirin; Z79.51 Long term (current) use of inhaled steroids; Z79.899 Other long term (current) drug therapy; Z87.891 Personal history of nicotine dependence; Z87.01 Personal history of pneumonia (recurrent); Z98.890 Other specified postprocedural states; E04.2 Nontoxic multinodular goiter; Z98.51 Tubal ligation status; Z92.3 Personal history of irradiation; Z86.010 Personal history of colon polyps; Z87.81 Personal history of (healed) traumatic fracture; Z92.21 Personal history of antineoplastic chemotherapy; Z82.3 Family history of stroke; Z83.49 Family history of other endocrine, nutritional and metabolic diseases; Z81.8 Family history of other mental and behavioral disorders
CPT/HCPCS: 36415; 71046; 71275; 80048; 80053; 81001; 83605; 84484; 85025; 85610; 85730; 87040; 87086; 93005; 94640; 94760; 96361; 96374; 99291

== ENCOUNTER 2018-10-19 10:01 | Observation (INO) | payer MEDICARE, BC ==
[2018-10-19] MEDS ORDERED: methylPREDNISolone SOD SUCCI 125 MG/2 ML VIAL IV STA (10:21)
[2018-10-19] MEDS ORDERED: IPRATROPIUM-ALBUTEROL 3 ML NEB INHALATION STA (10:21)
--- NOTE | 2018-10-19 10:29 | ED ---
General Adult HPI - General Chief complaint: Shortness of Breath Stated complaint: low oxygen Time Seen by Provider: 10/19/18 10:04 Source: patient, family, RN notes reviewed, old records reviewed (Previous visit as well as computed tomography scan of the chest) Mode of arrival: wheelchair Limitations: no limitations - History of Present Illness Initial comments: Patient is a pleasant 78-year-old female presenting to the emergency Department with shortness of breath. Onset of symptoms was this morning. Patient does have history of similar symptoms previously associated with COPD. Patient was discharged from the hospital within the past week or so. Patient does have occasional cough. Oxygen was 88% while on 2 L still. Dyspnea does worsen with exertion. Patient does have some mild leg swelling however this is chronic and unchanged. No calf pain. - Related Data Home Medications Medication Instructions Recorded Confirmed Ca/D3/Mag/Zinc/Jayesh/David/Mgbor 1 tab PO DAILY 10/15/14 10/19/18 [Caltrate 600-D3-Min Chew Tab] Lisinopril [Zestril] 20 mg PO DAILY 06/03/17 10/19/18 Ipratropium-Albuterol Nebulize 3 ml INHALATION RT-QID 07/19/17 10/19/18 [Duoneb 0.5 mg-3 mg/3 ml Soln] Folic Acid 1 mg PO DAILY 07/06/18 10/19/18 Docusate [Colace] 100 mg PO BID 10/05/18 10/19/18 HYDROcodone/APAP 5-325MG [Milton 1 tab PO BID PRN 10/05/18 10/19/18 5-325] Polyethylene Glycol 3350 [Miralax] 17 gm PO DAILY 10/05/18 10/19/18 Previous Rx's Medication Instructions Recorded Aspirin 325 mg PO DAILY #30 tab 08/12/18 Budesonide [Pulmicort] 1 mg INHALATION RT-BID nebu 08/12/18 Allergies Allergy/AdvReac Type Severity Reaction Status Date / Time No Known Allergies Allergy Verified 10/19/18 10:16 Review of Systems ROS Statement: Those systems with pertinent positive or pertinent negative responses have been documented in the HPI. ROS Other: All systems not noted in ROS Statement are negative. Constitutional: Denies: fever Eyes: Denies: eye pain ENT: Denies: ear pain Respiratory: Reports: cough, dyspnea Cardiovascular: Denies: chest pain Endocrine: Reports: fatigue Gastrointestinal: Denies: abdominal pain Genitourinary: Denies: dysuria Musculoskeletal: Denies: back pain Skin: Denies: rash Neurological: Denies: weakness Past Medical History Past Medical History: Cancer, GERD/Reflux, Hypertension, Pneumonia, Thyroid Disorder Additional Past Medical History / Comment(s): Thyroid nodules being monitored. Emphysema, lung cancer History of Any Multi-Drug Resistant Organisms: None Reported Past Surgical History: Hernia Repair, Orthopedic Surgery, Tubal Ligation Additional Past Surgical History / Comment(s): Bilateral inguinal hernia repairs, colonoscopies with benign polypectomies, right hip sx after fallJuly 2018 Past Anesthesia/Blood Transfusion Reactions: No Reported Reaction Past Psychological History: No Psychological Hx Reported Smoking Status: Former smoker Past Alcohol Use History: None Reported Past Drug Use History: None Reported - Past Family History Mother Family Medical History: Dementia Additional Family Medical History / Comment(s): Mother at age 83 yrs. Father Family Medical History: CVA/TIA Additional Family Medical History / Comment(s): Father had a CVA. He at the age of 83 yrs. Sister(s) Family Medical History: Thyroid Disorder Additional Family Medical History / Comment(s): hypothyroidism General Exam Limitations: no limitations General appearance: alert Head exam: Present: atraumatic Eye exam: Present: normal appearance, PERRL ENT exam: Present: normal oropharynx Neck exam: Present: normal inspection Respiratory exam: Present: accessory muscle use, decreased breath sounds Cardiovascular Exam: Present: regular rate, normal rhythm GI/Abdominal exam: Present: soft. Absent: tenderness Extremities exam: Present: pedal edema (+1 bilateral). Absent: calf tenderness Neurological exam: Present: alert Psychiatric exam: Present: normal affect, normal mood Skin exam: Present: normal color Course Vital Signs 10/19/18 10/19/18 10/19/18 10:03 11:14 11:25 Temperature 98 F Pulse Rate 98 88 90 Respiratory 22 Rate Blood Pressure 127/77 O2 Sat by Pulse 71 L Oximetry EKG Findings - EKG Comments: EKG Findings:: Normal sinus rhythm 87. ND 140. QRS 140. QT 374. QTC 450. Normal axis. Left bundle branch block. ST changes consistent with branch block. Medical Decision Making - Medical Decision Making Patient reevaluated and somewhat improved. Patient still has some accessory muscle uses. Patient and family updated on results and plan. Case discussed with Dr. Peck, who will admit covering for Dr. Rojo. - Lab Data Result diagrams: 10/19/18 10:20 10/19/18 10:20 Lab Results 10/19/18 10/19/18 10/19/18 Range/Units 10:20 10:20 10:20 WBC 6.4 (3.8-10.6) k/uL RBC 4.12 (3.80-5.40) m/uL Hgb 11.7 (11.4-16.0) gm/dL Hct 36.7 (34.0-46.0) % MCV 89.0 (80.0-100.0) fL MCH 28.4 (25.0-35.0) pg MCHC 31.9 (31.0-37.0) g/dL RDW 16.1 H (11.5-15.5) % Plt Count 273 (150-450) k/uL Neutrophils % 89 % Lymphocytes % 4 % Monocytes % 5 % Eosinophils % 1 % Basophils % 0 % Neutrophils # 5.7 (1.3-7.7) k/uL Lymphocytes # 0.2 L (1.0-4.8) k/uL Monocytes # 0.3 (0-1.0) k/uL Eosinophils # 0.1 (0-0.7) k/uL Basophils # 0.0 (0-0.2) k/uL Hypochromasia Slight Anisocytosis Slight PT (9.0-12.0) sec INR (<1.2) APTT (22.0-30.0) sec Sodium 139 (137-145) mmol/L Potassium 3.9 (3.5-5.1) mmol/L Chloride 98 (98-107) mmol/L Carbon Dioxide 37 H (22-30) mmol/L Anion Gap 4 mmol/L BUN 14 (7-17) mg/dL Creatinine 0.47 L (0.52-1.04) mg/dL Est GFR (CKD-EPI)AfAm >90 (>60 ml/min/1.73 sqM) Est GFR (CKD-EPI)NonAf >90 (>60 ml/min/1.73 sqM) Glucose 116 H (74-99) mg/dL Calcium 9.7 (8.4-10.2) mg/dL Total Bilirubin 0.6 (0.2-1.3) mg/dL AST 36 (14-36) U/L ALT 33 (9-52) U/L Alkaline Phosphatase 74 (38-126) U/L Troponin I (0.000-0.034) ng/mL NT-Pro-B Natriuret Pep 851 pg/mL Total Protein 6.4 (6.3-8.2) g/dL Albumin 3.7 (3.5-5.0) g/dL 10/19/18 10/19/18 Range/Units 10:20 10:20 WBC (3.8-10.6) k/uL RBC (3.80-5.40) m/uL Hgb (11.4-16.0) gm/dL Hct (34.0-46.0) % MCV (80.0-100.0) fL MCH (25.0-35.0) pg MCHC (31.0-37.0) g/dL RDW (11.5-15.5) % Plt Count (150-450) k/uL Neutrophils % % Lymphocytes % % Monocytes % % Eosinophils % % Basophils % % Neutrophils # (1.3-7.7) k/uL Lymphocytes # (1.0-4.8) k/uL Monocytes # (0-1.0) k/uL Eosinophils # (0-0.7) k/uL Basophils # (0-0.2) k/uL Hypochromasia Anisocytosis PT 10.1 (9.0-12.0) sec INR 0.9 (<1.2) APTT 22.5 (22.0-30.0) sec Sodium (137-145) mmol/L Potassium (3.5-5.1) mmol/L Chloride (98-107) mmol/L Carbon Dioxide (22-30) mmol/L Anion Gap mmol/L BUN (7-17) mg/dL Creatinine (0.52-1.04) mg/dL Est GFR (CKD-EPI)AfAm (>60 ml/min/1.73 sqM) Est GFR (CKD-EPI)NonAf (>60 ml/min/1.73 sqM) Glucose (74-99) mg/dL Calcium (8.4-10.2) mg/dL Total Bilirubin (0.2-1.3) mg/dL AST (14-36) U/L ALT (9-52) U/L Alkaline Phosphatase (38-126) U/L Troponin I <0.012 (0.000-0.034) ng/mL NT-Pro-B Natriuret Pep pg/mL Total Protein (6.3-8.2) g/dL Albumin (3.5-5.0) g/dL - Radiology Data Radiology results: image reviewed (Chest x-ray shows atelectasis-like changes right upper lung. Emphysematous changes.) Disposition Clinical Impression: COPD exacerbation Disposition: ADMITTED IP TO THIS HOSP Is patient prescribed a controlled substance at d/c from ED?: No Referrals: Tiago Rojo DO [Primary Care Provider] - 1-2 days Decision Time: 12:06
[2018-10-19 11:13] LABS: Anisocytosis Slight; Basophils % (A) 0 %; Eosinophils # (A) 0.1 k/uL (0-0.7); Eosinophils % (A) 1 %; HCT 36.7 % (34.0-46.0); HGB 11.7 gm/dL (11.4-16.0); Hypochromasia Slight; Lymphocytes # (A) 0.2 k/uL (1.0-4.8); Lymphocytes % (A) 4 %; MCH 28.4 pg (25.0-35.0); MCHC 31.9 g/dL (31.0-37.0); Mean Platelet Volume 6.7; Monocytes # (A) 0.3 k/uL (0-1.0); Monocytes % (A) 5 %; Neutrophils # (A) 5.7 k/uL (1.3-7.7); Neutrophils % (A) 89 %; Platelet Count 273 k/uL (150-450); RBC 4.12 m/uL (3.80-5.40); RDW 16.1 % (11.5-15.5); WBC 6.4 k/uL (3.8-10.6)
[2018-10-19 11:21] LABS: ALT 33 U/L (9-52); AST 36 U/L (14-36); African American GFR (CKD) >90 (>60 ml/min/1.73 sqM); Albumin 3.7 g/dL (3.5-5.0); Alkaline Phosphatase 74 U/L (38-126); Anion Gap 4 mmol/L; Blood Urea Nitrogen 14 mg/dL (7-17); Calcium 9.7 mg/dL (8.4-10.2); Carbon Dioxide 37 mmol/L (22-30); Chloride 98 mmol/L (98-107); Glucose 116 mg/dL (74-99); INR 0.9 (<1.2); Partial Thromboplastin Time 22.5 sec (22.0-30.0); Potassium 3.9 mmol/L (3.5-5.1); Prothrombin Time 10.1 sec (9.0-12.0); Sodium 139 mmol/L (137-145); Total Bilirubin 0.6 mg/dL (0.2-1.3); Total Protein 6.4 g/dL (6.3-8.2)
--- NOTE | 2018-10-19 11:21 | XR ---
EXAMINATION TYPE: XR chest 2V DATE OF EXAM: 10/19/2018 COMPARISON: Chest radiograph 10/05/2018 HISTORY: Shortness of breath and hypoxemia. TECHNIQUE: Frontal and lateral views of the chest are obtained. FINDINGS: There is increased AP diameter of the chest with chronic interstitial prominence, likely on the basis of underlying emphysematous change. Cardiac silhouette is prominent in size, stable. Atherosclerotic calcifications of the aorta. More conspicuous right upper lung streak-like opacities. Right lower ania ng mass is not well demonstrated radiographically. Left lung is grossly clear. No pneumothorax. There is diffuse osseous demineralization. Exaggerated thoracic kyphosis with several wedge compressi on fractures of thoracic vertebral bodies similar in radiographic appearance from comparison study. IMPRESSION: 1. More conspicuous streak-like right upper lung opacity has the appearance of subsegmental atelectas is. 2. Hyperinflated lungs with emphysematous change.
[2018-10-19] MEDS ORDERED: IPRATROPIUM-ALBUTEROL 3 ML NEB INHALATION PRN (12:06)
[2018-10-19] MEDS ORDERED: HYDROcodone/APAP 5-325MG 1 EACH TAB PO PRN (14:53)
[2018-10-19] MEDS: IPRATROPIUM-ALBUTEROL 3 ML NEB INHALATION SCH ×3 (15:11→23:44)
[2018-10-19] MEDS ORDERED: IPRATROPIUM-ALBUTEROL 3 ML NEB INHALATION SCH (16:00)
[2018-10-19] MEDS: INSULIN ASPART (NovoLOG) 100 UNIT/ML VIAL SQ SCH ×2 (17:37→20:44)
[2018-10-19] MEDS: methylPREDNISolone SOD SUCCI 125 MG/2 ML VIAL IV SCH (17:38)
[2018-10-19 18:02] LABS: Glucose,Whole Blood 124 mg/dL (75-99)
[2018-10-19] MEDS: BUDESONIDE 1 MG/2 ML NEBU INHALATION SCH (19:55)
[2018-10-19 20:34] LABS: Glucose,Whole Blood 163 mg/dL (75-99)
--- NOTE | 2018-10-19 22:33 | P.HPIM ---
History of Present Illness H&P Date: 10/19/18 Chief Complaint: Short of breath History of presenting complaint: This is a pleasant 78-year-old patient who follows with Dr. Rojo. 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 Patient was diagnosed with lung cancer and was treated with chemotherapy and radiation treatment by Dr. Petersen. Patient presents with increased shortness of breath and wheezing for last few days. Slight cough. Minimal sputum. No fever no chills. Tired rundown. Appetite is gone down. Feels weak admitted for the same. Review of systems: GEN.: Tired EYES: None HEENT: None NECK: None RESPIRATORY: As above CARDIOVASCULAR: None GASTROINTESTINAL: None GENITOURINARY: None MUSCULOSKELETAL: Some pain in the joints] LYMPHATICS: None HEMATOLOGICAL: None PSYCHIATRY: A bit forgetful NEUROLOGICAL: None Past medical history: COPD, lung cancer, hypertension, GERD, thyroid nodule being followed, Social history: Lives with her daughter Smoked for 26 years stopped in 1987. No alcohol. Family history: Hypothyroidism Physical examination: VITAL SIGNS: 98.4, 80, 18, 163/68, 87% on 2 L GENERAL: Laying in bed, tired short of breath. EYES: Pupils equal. Conjunctiva pale. HEENT: External appearance of nose and ears normal, oral cavity grossly normal. NECK: JVD not raised; masses not palpable. HEART: First and second heart sounds are normal; mild edema. LUNGS: Respiratory rate increased, decreased breath sounds prolonged expiration and wheezing. ABDOMEN: Soft, nontender, liver spleen not palpable, no masses palpable. LYMPHATICS: No lymph nodes palpable in the axilla and neck. PSYCH: Able to answer questions slowly. NEUROLOGICAL: Cranial nerves grossly intact; no facial asymmetry, power and sensation grossly intact MUSCULAR skeletal: Evidence of OA especially in the hands Investigations reviewed in the clinical context: White count 6.4 hemoglobin 11.7 potassium 3.9 creatinine 0.47 EKG tracing personally reviewed by me-left bundle branch block, sinus rhythm -Chest x-ray film personally reviewed by me-shows hyperinflation and some stranding in the right upper lobe Assessment: -Acute severe COPD exacerbation in an ex-smoker probably from acute bronchitis -Lung cancer status post chemo and radiation treatment. In remission -Mild cognitive impairment -Essential hypertension -GERD -Primary osteoarthritis Plan: Patient is put on bronchodilators IV steroids. And inhaled steroids. Care was discussed the patient. Home medications resumed. Oxygen being supplemented. Dr. Garcia will be consulted. Past Medical History Past Medical History: Cancer, GERD/Reflux, Hypertension, Pneumonia, Thyroid Disorder Additional Past Medical History / Comment(s): Thyroid nodules being monitored. Emphysema, lung cancer History of Any Multi-Drug Resistant Organisms: None Reported Past Surgical History: Hernia Repair, Orthopedic Surgery, Tubal Ligation Additional Past Surgical History / Comment(s): Bilateral inguinal hernia repairs, colonoscopies with benign polypectomies, right hip sx after fall July 2018 Past Anesthesia/Blood Transfusion Reactions: No Reported Reaction Past Psychological History: No Psychological Hx Reported Additional Psychological History / Comment(s): Pt resides alone. She is indpendent. She hasnt driven since hip fracture 08/06 Smoking Status: Former smoker Past Alcohol Use History: None Reported Additional Past Alcohol Use History / Comment(s): Pt started smoking in 1961 and quit about 1987. Past Drug Use History: None Reported - Past Family History Mother Family Medical History: Dementia Additional Family Medical History / Comment(s): Mother at age 83 yrs. Father Family Medical History: CVA/TIA Additional Family Medical History / Comment(s): Father had a CVA. He at the age of 83 yrs. Sister(s) Family Medical History: Thyroid Disorder Additional Family Medical History / Comment(s): hypothyroidism Medications and Allergies Home Medications Medication Instructions Recorded Confirmed Type Ca/D3/Mag/Zinc/Jayesh/David/Mgbor 1 tab PO DAILY 10/15/14 10/19/18 History [Caltrate 600-D3-Min Chew Tab] Lisinopril [Zestril] 20 mg PO DAILY 06/03/17 10/19/18 History Ipratropium-Albuterol Nebulize 3 ml INHALATION RT-QID 07/19/17 10/19/18 History [Duoneb 0.5 mg-3 mg/3 ml Soln] Folic Acid 1 mg PO DAILY 07/06/18 10/19/18 History Aspirin 325 mg PO DAILY #30 tab 08/12/18 10/19/18 Rx Budesonide [Pulmicort] 1 mg INHALATION RT-BID nebu 08/12/18 10/19/18 Rx Docusate [Colace] 100 mg PO BID 10/05/18 10/19/18 History HYDROcodone/APAP 5-325MG [[place] 1 tab PO BID PRN 10/05/18 10/19/18 History 5-325] Polyethylene Glycol 3350 [Miralax] 17 gm PO DAILY 10/05/18 10/19/18 History Allergies Allergy/AdvReac Type Severity Reaction Status Date / Time No Known Allergies Allergy Verified 10/19/18 10:16 Physical Exam Vitals: Vital Signs Temp Pulse Pulse Resp BP BP Pulse Ox 10/19/18 20:11 88 10/19/18 19:57 87 98 10/19/18 15:22 88 10/19/18 15:15 92 10/19/18 13:55 98.4 F 80 18 163/68 97 10/19/18 13:02 78 18 147/63 98 10/19/18 12:56 22 10/19/18 12:00 88 35 H 153/86 98 10/19/18 11:30 87 31 H 150/79 100 10/19/18 11:25 90 10/19/18 11:14 88 10/19/18 11:00 90 20 152/81 96 10/19/18 10:36 41 H 98 10/19/18 10:03 98 F 98 22 127/77 71 L Intake and Output 10/19/18 10/19/18 10/19/18 06:59 14:59 22:59 Intake Total 540 Balance 540 Intake: Oral 540 Other: # Voids 0 # Bowel Movements 0 Weight 45.813 kg Results CBC & Chem 7: 10/19/18 10:20 10/19/18 10:20 Labs: Abnormal Lab Results - Last 24 Hours (Table) 10/19/18 10/19/18 10/19/18 Range/Units 10:20 10:20 17:32 RDW 16.1 H (11.5-15.5) % Lymphocytes # 0.2 L (1.0-4.8) k/uL Carbon Dioxide 37 H (22-30) mmol/L Creatinine 0.47 L (0.52-1.04) mg/dL Glucose 116 H (74-99) mg/dL POC Glucose (mg/dL) 124 H (75-99) mg/dL 10/19/18 Range/Units 20:31 RDW (11.5-15.5) % Lymphocytes # (1.0-4.8) k/uL Carbon Dioxide (22-30) mmol/L Creatinine (0.52-1.04) mg/dL Glucose (74-99) mg/dL POC Glucose (mg/dL) 163 H (75-99) mg/dL Thrombosis Risk Factor Assmnt - Choose All That Apply Each Factor Represents 1 point: Abnormal pulmonary function (COPD) Each Risk Factor Represents 3 Points: Age 75 years or older Thrombosis Risk Factor Assessment Total Risk Factor Score: 4 Thrombosis Risk Factor Assessment Level: Moderate Risk
[2018-10-20] MEDS: methylPREDNISolone SOD SUCCI 125 MG/2 ML VIAL IV SCH ×2 (00:34→06:23)
[2018-10-20] MEDS: IPRATROPIUM-ALBUTEROL 3 ML NEB INHALATION SCH ×4 (03:42→15:14)
[2018-10-20 07:11] LABS: Glucose,Whole Blood 120 mg/dL (75-99)
[2018-10-20] MEDS: INSULIN ASPART (NovoLOG) 100 UNIT/ML VIAL SQ SCH ×3 (07:29→17:49)
[2018-10-20] MEDS: BUDESONIDE 1 MG/2 ML NEBU INHALATION SCH (08:41)
[2018-10-20] MEDS ORDERED: POLYETHYLENE GLYCOL 3350 17 GM POWD.PACK PO SCH (09:00)
[2018-10-20] MEDS ORDERED: ENOXAPARIN 40 MG/0.4 ML SYRINGE SQ SCH (09:00)
[2018-10-20] MEDS ORDERED: FOLIC ACID 1 MG TAB PO SCH (09:00)
[2018-10-20] MEDS ORDERED: LISINOPRIL 20 MG TAB PO SCH (09:00)
[2018-10-20] MEDS ORDERED: ASPIRIN 325 MG TAB PO SCH (09:00)
[2018-10-20 10:16] VITALS: BMI 18.4
[2018-10-20 12:01] LABS: Glucose,Whole Blood 105 mg/dL (75-99)
[2018-10-20 14:47] VITALS: BP 125/78; RESP 18; TEMP 97.8
[2018-10-20 15:28] VITALS: PULSE 88
--- NOTE | 2018-10-20 15:57 | P.PN ---
Progress Note - Text Progress Note Date: 10/20/18 Chief Complaint: Short of breath History of presenting complaint: This is a pleasant 78-year-old patient who follows with Dr. Rojo. 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 Patient was diagnosed with lung cancer and was treated with chemotherapy and radiation treatment by Dr. Petersen. Patient presents with increased shortness of breath and wheezing for last few days. Slight cough. Minimal sputum. No fever no chills. Tired rundown. Appetite is gone down. Feels weak admitted for the same. Admitted with COPD exacerbation. Today-feeling better. A bit tired. Less wheezing. Did tolerate her diet. Daughter the bedside. Review of systems: Was done for constitutional, cardiovascular, GI, pulmonary. relevant finding as above Active Medications Hydrocodone Bitart/Acetaminophen ([place] 5-325) 1 each PO BID PRN PRN Reason: Pain Albuterol/Ipratropium (Duoneb 0.5 Mg-3 Mg/3 Ml Soln) 3 ml INHALATION RT-Q4H PRN PRN Reason: Shortness Of Breath Or Wheezing Albuterol/Ipratropium (Duoneb 0.5 Mg-3 Mg/3 Ml Soln) 3 ml INHALATION RT-Q4H [facility] Last Admin: 10/20/18 15:14 Dose: 3 ml Documented by: Aspirin (Aspirin) 325 mg PO DAILY [facility] Last Admin: 10/20/18 07:44 Dose: 325 mg Documented by: Budesonide (Pulmicort) 1 mg INHALATION RT-BID [facility] Last Admin: 10/20/18 08:41 Dose: Not Given Documented by: Enoxaparin Sodium (Lovenox) 40 mg SQ DAILY [facility] Last Admin: 10/20/18 07:44 Dose: 40 mg Documented by: Famotidine (Pepcid) 20 mg PO BID [facility] Folic Acid (Folic Acid) 1 mg PO DAILY [facility] Last Admin: 10/20/18 07:44 Dose: 1 mg Documented by: Insulin Aspart (Novolog) 0 unit SQ [facility]; Protocol Last Admin: 10/20/18 12:00 Dose: Not Given Documented by: Lisinopril (Zestril) 20 mg PO DAILY [facility] Last Admin: 10/20/18 07:44 Dose: 20 mg Documented by: Polyethylene Glycol (Miralax) 17 gm PO DAILY [facility] Last Admin: 10/20/18 07:45 Dose: 17 gm Documented by: Prednisone () 60 mg PO DAILY JESS Sodium Chloride (Saline Flush) 10 ml IV BID [facility] Last Admin: 10/20/18 07:46 Dose: 10 ml Documented by: Physical examination: VITAL SIGNS: 97.8, 86, 18, 125 / 78, 97% on 2 L GENERAL: Sitting at the edge of the bed, more comfortable EYES: Pupils equal. Conjunctiva pale. HEENT: External appearance of nose and ears normal, oral cavity grossly normal. NECK: JVD not raised; masses not palpable. HEART: First and second heart sounds are normal; mild edema. LUNGS: Respiratory rate increased, decreased breath sounds prolonged expiration ABDOMEN: Soft, nontender, liver spleen not palpable, no masses palpable. LYMPHATICS: No lymph nodes palpable in the axilla and neck. PSYCH: Able to answer simple questions MUSCULAR skeletal: Evidence of OA especially in the hands Investigations reviewed in the clinical context: Accu-Cheks noted Admission testing: White count 6.4 hemoglobin 11.7 potassium 3.9 creatinine 0.47 EKG tracing personally reviewed by me-left bundle branch block, sinus rhythm -Chest x-ray film personally reviewed by me-shows hyperinflation and some stranding in the right upper lobe Assessment: -Acute severe COPD exacerbation in an ex-smoker probably from acute bronchitis, improving -Lung cancer status post chemo and radiation treatment. In remission -Mild cognitive impairment -Essential hypertension -GERD -Primary osteoarthritis Plan: Continue current medication treatment plan. Switched over to oral steroids. Talked to the daughter at the bedside. If remains stable. DC home tomorrow..
[2018-10-20] MEDS ORDERED: predniSONE 20 MG TAB PO SCH (16:00)
--- NOTE | 2018-10-20 16:04 | P.DS ---
Providers Date of admission: 10/19/18 12:06 Expected date of discharge: 10/20/18 Attending physician: [facility] Consults: 10/19/18 12:06 Consult Physician Routine Consulting Provider: Roberto Garcia Consult Reason/Comments: copd Do you want consulting provider notified?: Yes Primary care physician: Tiago [facility] Hospital Course: Chief Complaint: Short of breath Hospital course: This is a pleasant 78-year-old patient who follows with Dr. Rojo. 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 Patient was diagnosed with lung cancer and was treated with chemotherapy and radiation treatment by Dr. Petersen. Patient presents with increased shortness of breath and wheezing for last few days. Slight cough. Minimal sputum. No fever no chills. Tired rundown. Appetite is gone down. Feels weak admitted for the same. Admitted with COPD exacerbation. Patient responded well to bronchodilators and steroids. Seen by Dr. Zandra rodríguez earlier today. Switched to oral steroids.. Patient doing well. Stable to [place] home Review of systems: Was done for constitutional, cardiovascular, GI, pulmonary. relevant finding as above Consultation: Dr. Zandra Rodríguez-pulmonary Physical examination: VITAL SIGNS: 97.8, 86, 18, 125/78, 97% on 2 L GENERAL: Sitting at the edge of the bed, comfortable EYES: Pupils equal. Conjunctiva pale. HEENT: External appearance of nose and ears normal, oral cavity grossly normal. NECK: JVD not raised; masses not palpable. HEART: First and second heart sounds are normal; mild edema. LUNGS: Respiratory rate increased, decreased breath sounds prolonged expiration ABDOMEN: Soft, nontender, liver spleen not palpable, no masses palpable. LYMPHATICS: No lymph nodes palpable in the axilla and neck. PSYCH: Able to answer simple questions MUSCULAR skeletal: Evidence of OA especially in the hands Investigations reviewed in the clinical context: Accu-Cheks noted Admission testing: White count 6.4 hemoglobin 11.7 potassium 3.9 creatinine 0.47 EKG tracing personally reviewed by me-left bundle branch block, sinus rhythm -Chest x-ray film personally reviewed by me-shows hyperinflation and some stranding in the right upper lobe Discharge diagnoses: -Acute severe COPD exacerbation in an ex-smoker probably from acute bronchitis -Lung cancer status post chemo and radiation treatment. In remission -Mild cognitive impairment -Essential hypertension -GERD -Primary osteoarthritis Disposition: Home Patient Condition at Discharge: Stable Plan - Discharge Summary Discharge Rx Participant: No New Discharge Prescriptions: New predniSONE 10 mg PO DAILY #30 tab Continue Ca/D3/Mag/Zinc/Jayesh/David/Mgbor [Caltrate 600-D3-Min Chew Tab] 1 tab PO DAILY Lisinopril [Zestril] 20 mg PO DAILY Ipratropium-Albuterol Nebulize [Duoneb 0.5 mg-3 mg/3 ml Soln] 3 ml INHALATION RT-QID Folic Acid 1 mg PO DAILY Aspirin 325 mg PO DAILY #30 tab Budesonide [Pulmicort] 1 mg INHALATION RT-BID nebu HYDROcodone/APAP 5-325MG [[place] 5-325] 1 tab PO BID PRN PRN Reason: Pain Polyethylene Glycol 3350 [Miralax] 17 gm PO DAILY Docusate [Colace] 100 mg PO BID Discharge Medication List Ca/D3/Mag/Zinc/Jayesh/David/Mgbor [Caltrate 600-D3-Min Chew Tab] 1 tab PO DAILY 10/15/14 [History] Lisinopril [Zestril] 20 mg PO DAILY 06/03/17 [History] Ipratropium-Albuterol Nebulize [Duoneb 0.5 mg-3 mg/3 ml Soln] 3 ml INHALATION RT-QID 07/19/17 [History] Folic Acid 1 mg PO DAILY 07/06/18 [History] Aspirin 325 mg PO DAILY #30 tab 08/12/18 [Rx] Budesonide [Pulmicort] 1 mg INHALATION RT-BID nebu 08/12/18 [Rx] Docusate [Colace] 100 mg PO BID 10/05/18 [History] HYDROcodone/APAP 5-325MG [[place] 5-325] 1 tab PO BID PRN 10/05/18 [History] Polyethylene Glycol 3350 [Miralax] 17 gm PO DAILY 10/05/18 [History] predniSONE 10 mg PO DAILY #30 tab 10/20/18 [Rx] Follow up Appointment(s)/Referral(s): Tiago Rojo DO [Primary Care Provider] - 1-2 days Roberto Garcia MD [STAFF PHYSICIAN] - 3 Days
[2018-10-20 17:21] LABS: Glucose,Whole Blood 119 mg/dL (75-99)
[2018-10-20] MEDS ORDERED: FAMOTIDINE 20 MG TAB PO SCH (21:00)
--- NOTE | 2018-10-20 22:47 | CONS ---
CONSULTATION Mary Jo West is a 78-year-old female who presented to the ED with increasing shortness of breath of about one day's duration. She called her daughter and was short of breath. She had some wheezing but no clear fever or chills. She was admitted for further evaluation. She only had an oxygen saturation of 88% while she was on supplemental oxygen at 2 L/minute. PAST MEDICAL HISTORY: Positive for lung cancer in the right upper zone which she had undergone chemotherapy and radiation and is on maintenance treatment at this time. History of COPD, possible asthma, history of a thyroid nodule, history of previous hernia repair, history of recent right hip fracture in July of 2018. FAMILY HISTORY: Mother of dementia at age 83. Father had a CVA and at age 83. MEDICATIONS: Prior to admission were MiraLAX, Zestril, DuoNeb, [place], folic acid, Colace, Caltrate, Pulmicort, and aspirin. REVIEW OF SYSTEMS: Noncontributory. PHYSICAL EXAMINATION: Her blood pressure is 146/77, respiratory rate of 22, pulse rate 95, temperature 98.3, O2 saturation on 2 L by nasal cannula is 94%. HEENT reveals pupils are equal. Chest reveals decreased breath sounds. Prolonged exhalation. Faint expiratory wheeze. Cardiovascular system with an S1, S2. Abdomen is soft. There is no pedal edema. Patient is cachectic with a BMI of only 18.5 kg/m4. Chest x-ray showed streak like opacity in the right upper zone with hyperinflated lungs with emphysematous changes. IMPRESSION: 1. Chronic obstructive pulmonary disease with acute exacerbation. 2. Lung cancer in remission. 3. Protein calorie malnutrition. 4. Medical debility. At this point in time, keep her on systemic steroids but switch her IV to oral steroids. Continue her on inhaled steroids and bronchodilators. Keep her on GI and DVT prophylaxis. Depending on how she does we should make further changes to her care. I would like to thank you for allowing the privilege of participating in her care. MMODL / IJN: [id number] /
== END 2018-10-20 18:21 | disposition home or self-care (01) ==
LOC: EC 10:01 → 4MS4W 12:06
PROVIDERS: ADMIT Hospitalist; ATTEND Hospitalist
DX: J43.9 Emphysema, unspecified (principal); K21.9 Gastro-esophageal reflux disease without esophagitis; I10 Essential (primary) hypertension; E04.2 Nontoxic multinodular goiter; I44.7 Left bundle-branch block, unspecified; E46 Unspecified protein-calorie malnutrition; M19.042 Primary osteoarthritis, left hand; M19.041 Primary osteoarthritis, right hand; G31.84 Mild cognitive impairment of uncertain or unknown etiology; R22.40 Localized swelling, mass and lump, unspecified lower limb; R53.81 Other malaise; Z79.51 Long term (current) use of inhaled steroids; Z79.82 Long term (current) use of aspirin; Z79.899 Other long term (current) drug therapy; Z87.01 Personal history of pneumonia (recurrent); Z85.118 Personal history of other malignant neoplasm of bronchus and lung; Z86.010 Personal history of colon polyps; Z92.21 Personal history of antineoplastic chemotherapy; Z92.3 Personal history of irradiation; Z87.81 Personal history of (healed) traumatic fracture; Z98.51 Tubal ligation status; Z87.891 Personal history of nicotine dependence; Z82.3 Family history of stroke; Z83.49 Family history of other endocrine, nutritional and metabolic diseases; Z81.8 Family history of other mental and behavioral disorders
CPT/HCPCS: 96376 ×2; 96372; 96374; 99285; 36415; 94640 ×4; 94760; 93005; 83880; 80053; 84484; 85025; 85610; 85730; 71046; G0378 ×2; J2930 ×2; J1650; J7512

== ENCOUNTER → 2019-02-06 | Outpatient (CLI) | payer MEDICARE, BC ==
--- NOTE | 2019-02-06 10:50 | US ---
EXAMINATION TYPE: US thyroid st tissue head/neck DATE OF EXAM: 02/06/2019 COMPARISON: US 07/18/2018 CLINICAL HISTORY: E04.1 nontoxic single thyroid nodule. Very difficult exam due to patient body habit us GLAND SIZE: Right Lobe: 3.4 x 1.6 x 1.4 cm Overall Parenchyma: homogenous Left Lobe: 3.4 x 2.1 x 1.5 cm Overall Parenchyma: homogeneous Isthmus Thickness: 0.4 cm NODULES RIGHT: # of nodules measured on right: 0 LEFT: # of nodules measured on left: 1- very difficult to visualize 1. 0.5 X 0.3 x 0.4 cm hypoechoic solid nodule at the mid pole with poorly defined margins; . This nodule is wider than tall and shows intranodular vascularity. Prior size: 0.7 X 0.5 x 0.7 ISTHMUS: # of nodules measured in the isthmus: 0 Bilateral neck scanned, no evidence of lymphadenopathy. IMPRESSION: 1. Subcentimeter nodule left lobe thyroid, diminished in size from comparison.
== END | disposition home or self-care (01) ==
LOC: RADUSWWP 09:33
PROVIDERS: ATTEND Family Medicine
DX: E04.1 Nontoxic single thyroid nodule (principal)
CPT/HCPCS: 76536

== ENCOUNTER → 2019-05-22 | Outpatient (CLI) | payer MEDICARE, BC ==
--- NOTE | 2019-05-25 09:35 | PE ---
EXAMINATION TYPE: PET CT fusion skull to thigh DATE OF EXAM: 05/22/2019 COMPARISON: CTA chest 10/05/2018 Prior PET/CT: 07/13/2017 HISTORY: Lung cancer TECHNIQUE: Following the intravenous administration of 12.8 mCi of F-18 FDG, whole body images are p erformed from the skull base to the midthigh. Images are reviewed on the computer in the coronal, ax ial, and sagittal planes. Reconstructed rotating images are created on independent workstation and r eviewed on the computer. A localization and attenuation correction CT is performed in conjunction w ith the PET scan. DLP: 210.26 mGycm SCAN: Subsequent, follow-up Blood glucose: 97 mg/dL Average Mediastinum SUV: 1.16 Average Liver SUV: 1.48 FINDINGS: NECK: There is some increased signal along the anterior right vocal cord level with an SUV value 2.7 1 cm may be related to phonation. Consider direct visualization. THORAX: Nodule at the right apex. Image 54, SUV value 1.81 Nodule within the major fissure on the right posterior apex, PET image 63, SUV value 0.56. ABDOMEN: No abnormal uptake PELVIS: No abnormal uptake OSSEOUS STRUCTURES: No abnormal uptake LOCALIZATION CT: There is a more solid-appearing mass in the right apex measuring 1.6 x 2.1 cm. This is larger than the comparison of 1.6 x 1.1 cm. There is a oval density with micro spiculation within the major fissure in the posterior right apex m easuring 1.1 x 2.0 cm versus previous measurement of 1.2 x [address] examination. This is smaller and less intense than on the comparison PET/CT. Peribronchial thickening and right hilar increased density is present. This is narrowing the right mi ddle lobe bronchus. This appears more patent on the current exam. Coronary artery calcification is present. Abundant fecal debris is within the colon. COMPARISON: Previous marked uptake within the right upper lobe is not evident. Previous mediastinal u ptake is not evident. Previous uptake within the midthoracic vertebral body is not evident IMPRESSION: 1. Diminished radiotracer accumulation within the right apical mass. The mass is more solid-appearing although radiotracer is diminished. 2. Oval density within the posterior right apical major fissure has low SUV value. Structure is small er from comparison.
== END | disposition home or self-care (01) ==
LOC: RADPETMAIN 08:05
PROVIDERS: ATTEND Internal Medicine Hematology & Oncology
DX: C34.31 Malignant neoplasm of lower lobe, right bronchus or lung (principal)
CPT/HCPCS: 78815; A9552

== ENCOUNTER 2019-07-01 04:51 | Inpatient (IN) | payer MEDICARE, BC ==
--- NOTE | 2019-07-01 05:34 | ED ---
SOB HPI - General Chief Complaint: Shortness of Breath Stated Complaint: PRIMO Time Seen by Provider: 07/01/19 05:09 Source: patient, family Mode of arrival: wheelchair Limitations: no limitations - History of Present Illness Initial Comments: This patient is a 79-year-old woman who has history of COPD and lung cancer which is reportedly in remission. Patient is in for evaluation of dyspnea going on for past few days. Patient is poor historian, not able to fully care tries her complaints. She is able to state she is having cough which is slightly w orse than her usual cough and some yellowish sputum. No hemoptysis. She denies chest pain. No leg pain or swelling. No change in urination or bowel movements. MD Complaint: shortness of breath, cough -: days(s) Consistency: constant Improves With: nothing Worsens With: nothing Known History Of: COPD Associated Symptoms: cough, sputum production - Related Data Home Medications Medication Instructions Recorded Confirmed Lisinopril [Zestril] 20 mg PO DAILY 06/03/17 07/01/19 Ipratropium-Albuterol Nebulize 3 ml INHALATION RT-QID 07/19/17 07/01/19 [Duoneb 0.5 mg-3 mg/3 ml Soln] Folic Acid 1 mg PO HS 07/06/18 07/01/19 Polyethylene Glycol 3350 [Miralax] 17 gm PO DAILY 10/05/18 07/01/19 Alendronate Sodium [Fosamax] 70 mg PO GARG 07/01/19 07/01/19 Aspirin EC [Ecotrin Low Dose] 81 mg PO HS 07/01/19 07/01/19 Calcium Carbonate/Vitamin D3 1 tab PO HS 07/01/19 07/01/19 [Caltrate 600 Plus D3 Tablet] Previous Rx's Medication Instructions Recorded Budesonide [Pulmicort] 1 mg INHALATION RT-BID nebu 08/12/18 Acyclovir 800 mg PO TID #30 tablet 07/03/19 Azithromycin [Zithromax] 500 mg PO DAILY #3 tab 07/03/19 guaiFENesin [Mucinex] 1,200 mg PO Q12HR #30 tablet.er 07/03/19 predniSONE 10 mg PO DAILY #30 tab 07/03/19 Allergies Allergy/AdvReac Type Severity Reaction Status Date / Time No Known Allergies Allergy Verified 07/01/19 08:35 Review of Systems ROS Statement: Those systems with pertinent positive or pertinent negative responses have been documented in the HPI. ROS Other: All systems not noted in ROS Statement are negative. Constitutional: Reports: weakness (Generalized). Denies: fever, chills Respiratory: Reports: cough, dyspnea, wheezes. Denies: hemoptysis Cardiovascular: Denies: chest pain, palpitations, orthopnea, edema, syncope Gastrointestinal: Denies: abdominal pain, vomiting, diarrhea Genitourinary: Denies: dysuria, hematuria Musculoskeletal: Denies: back pain Skin: Denies: rash Neurological: Denies: headache Past Medical History Past Medical History: Cancer, COPD, GERD/Reflux, Hypertension, Pneumonia, Thyroid Disorder Additional Past Medical History / Comment(s): Thyroid nodules being monitored. Emphysema, lung cancer History of Any Multi-Drug Resistant Organisms: None Reported Past Surgical History: Hernia Repair, Orthopedic Surgery, Tubal Ligation Additional Past Surgical History / Comment(s): Bilateral inguinal hernia repairs, colonoscopies with benign polypectomies, right hip sx after fallJuly 2018 Past Anesthesia/Blood Transfusion Reactions: No Reported Reaction Past Psychological History: No Psychological Hx Reported Smoking Status: Former smoker Past Alcohol Use History: None Reported Past Drug Use History: None Reported - Past Family History Mother Family Medical History: Dementia Additional Family Medical History / Comment(s): Mother at age 83 yrs. Father Family Medical History: CVA/TIA Additional Family Medical History / Comment(s): Father had a CVA. He at the age of 83 yrs. Sister(s) Family Medical History: Thyroid Disorder Additional Family Medical History / Comment(s): hypothyroidism General Exam Limitations: no limitations General appearance: alert, in no apparent distress Head exam: Present: atraumatic, normocephalic Eye exam: Present: normal appearance Respiratory exam: Present: wheezes, rales, rhonchi. Absent: respiratory distress, stridor, accessory muscle use Cardiovascular Exam: Present: regular rate, normal rhythm, normal heart sounds. Absent: systolic murmur, diastolic murmur, rubs, gallop GI/Abdominal exam: Present: soft. Absent: distended, tenderness, guarding, rebound, rigid Extremities exam: Present: normal inspection, normal capillary refill. Absent: pedal edema, calf tenderness Neurological exam: Present: alert Skin exam: Present: warm, dry, intact, normal color. Absent: rash Course Vital Signs 07/01/19 07/01/19 07/01/19 04:56 06:30 07:43 Temperature 97.8 F Pulse Rate 90 80 96 Respiratory 18 21 Rate Blood Pressure 133/84 136/81 O2 Sat by Pulse 91 L 97 Oximetry 07/01/19 07/01/19 07/01/19 07:50 08:02 09:30 Temperature Pulse Rate 92 95 90 Respiratory 16 16 Rate Blood Pressure 145/79 140/87 O2 Sat by Pulse 100 100 Oximetry 07/01/19 07/01/19 07/01/19 11:15 11:26 14:05 Temperature 98.9 F Pulse Rate 84 86 90 Respiratory 20 Rate Blood Pressure 148/82 O2 Sat by Pulse 100 Oximetry Medical Decision Making - Lab Data Result diagrams: 07/02/19 08:21 07/02/19 08:21 Lab Results 07/01/19 07/01/19 07/01/19 Range/Units 05:15 05:15 05:15 WBC 4.1 (3.8-10.6) k/uL RBC 4.13 (3.80-5.40) m/uL Hgb 11.7 (11.4-16.0) gm/dL Hct 35.9 (34.0-46.0) % MCV 86.8 (80.0-100.0) fL MCH 28.4 (25.0-35.0) pg MCHC 32.7 (31.0-37.0) g/dL RDW 14.1 (11.5-15.5) % Plt Count 250 (150-450) k/uL Neutrophils % 79 % Lymphocytes % 8 % Monocytes % 9 % Eosinophils % 1 % Basophils % 0 % Neutrophils # 3.2 (1.3-7.7) k/uL Lymphocytes # 0.3 L (1.0-4.8) k/uL Monocytes # 0.4 (0-1.0) k/uL Eosinophils # 0.0 (0-0.7) k/uL Basophils # 0.0 (0-0.2) k/uL PT 9.7 (9.0-12.0) sec INR 0.9 (<1.2) APTT 18.5 L (22.0-30.0) sec D-Dimer 1.26 H (<0.60) mg/L FEU Sodium 132 L (137-145) mmol/L Potassium 6.0 H (3.5-5.1) mmol/L Chloride 96 L (98-107) mmol/L Carbon Dioxide 27 (22-30) mmol/L Anion Gap 9 mmol/L BUN 35 H (7-17) mg/dL Creatinine 0.64 (0.52-1.04) mg/dL Est GFR (CKD-EPI)AfAm >90 (>60 ml/min/1.73 sqM) Est GFR (CKD-EPI)NonAf 86 (>60 ml/min/1.73 sqM) Glucose 136 H (74-99) mg/dL Plasma Lactic Acid Daniel (0.7-2.0) mmol/L Calcium 9.7 (8.4-10.2) mg/dL Total Bilirubin 0.8 (0.2-1.3) mg/dL AST 44 H (14-36) U/L ALT 24 (4-34) U/L Alkaline Phosphatase 64 (38-126) U/L Troponin I (0.000-0.034) ng/mL NT-Pro-B Natriuret Pep pg/mL Total Protein 7.9 (6.3-8.2) g/dL Albumin 4.5 (3.5-5.0) g/dL Coronavirus (PCR) (Not Detected) 07/01/19 07/01/19 07/01/19 Range/Units 05:15 05:15 05:15 WBC (3.8-10.6) k/uL RBC (3.80-5.40) m/uL Hgb (11.4-16.0) gm/dL Hct (34.0-46.0) % MCV (80.0-100.0) fL MCH (25.0-35.0) pg MCHC (31.0-37.0) g/dL RDW (11.5-15.5) % Plt Count (150-450) k/uL Neutrophils % % Lymphocytes % % Monocytes % % Eosinophils % % Basophils % % Neutrophils # (1.3-7.7) k/uL Lymphocytes # (1.0-4.8) k/uL Monocytes # (0-1.0) k/uL Eosinophils # (0-0.7) k/uL Basophils # (0-0.2) k/uL PT (9.0-12.0) sec INR (<1.2) APTT (22.0-30.0) sec D-Dimer (<0.60) mg/L FEU Sodium (137-145) mmol/L Potassium (3.5-5.1) mmol/L Chloride (98-107) mmol/L Carbon Dioxide (22-30) mmol/L Anion Gap mmol/L BUN (7-17) mg/dL Creatinine (0.52-1.04) mg/dL Est GFR (CKD-EPI)AfAm (>60 ml/min/1.73 sqM) Est GFR (CKD-EPI)NonAf (>60 ml/min/1.73 sqM) Glucose (74-99) mg/dL Plasma Lactic Acid Daniel 1.0 (0.7-2.0) mmol/L Calcium (8.4-10.2) mg/dL Total Bilirubin (0.2-1.3) mg/dL AST (14-36) U/L ALT (4-34) U/L Alkaline Phosphatase (38-126) U/L Troponin I <0.012 (0.000-0.034) ng/mL NT-Pro-B Natriuret Pep 1290 pg/mL Total Protein (6.3-8.2) g/dL Albumin (3.5-5.0) g/dL Coronavirus (PCR) (Not Detected) 07/01/19 07/01/19 07/02/19 Range/Units 05:50 07:15 08:21 WBC 3.5 L (3.8-10.6) k/uL RBC 3.99 (3.80-5.40) m/uL Hgb 11.6 (11.4-16.0) gm/dL Hct 34.8 (34.0-46.0) % MCV 87.3 (80.0-100.0) fL MCH 29.1 (25.0-35.0) pg MCHC 33.3 (31.0-37.0) g/dL RDW 14.0 (11.5-15.5) % Plt Count 233 (150-450) k/uL Neutrophils % 75 % Lymphocytes % 10 % Monocytes % 10 % Eosinophils % 1 % Basophils % 0 % Neutrophils # 2.6 (1.3-7.7) k/uL Lymphocytes # 0.4 L (1.0-4.8) k/uL Monocytes # 0.4 (0-1.0) k/uL Eosinophils # 0.0 (0-0.7) k/uL Basophils # 0.0 (0-0.2) k/uL PT (9.0-12.0) sec INR (<1.2) APTT (22.0-30.0) sec D-Dimer (<0.60) mg/L FEU Sodium 133 L (137-145) mmol/L Potassium 4.7 (3.5-5.1) mmol/L Chloride 97 L (98-107) mmol/L Carbon Dioxide 29 (22-30) mmol/L Anion Gap 7 mmol/L BUN 34 H (7-17) mg/dL Creatinine 0.66 (0.52-1.04) mg/dL Est GFR (CKD-EPI)AfAm >90 (>60 ml/min/1.73 sqM) Est GFR (CKD-EPI)NonAf 85 (>60 ml/min/1.73 sqM) Glucose 118 H (74-99) mg/dL Plasma Lactic Acid Daniel (0.7-2.0) mmol/L Calcium 9.4 (8.4-10.2) mg/dL Total Bilirubin (0.2-1.3) mg/dL AST (14-36) U/L ALT (4-34) U/L Alkaline Phosphatase (38-126) U/L Troponin I (0.000-0.034) ng/mL NT-Pro-B Natriuret Pep pg/mL Total Protein (6.3-8.2) g/dL Albumin (3.5-5.0) g/dL Coronavirus (PCR) Not Detected (Not Detected) 07/02/19 Range/Units 08:21 WBC (3.8-10.6) k/uL RBC (3.80-5.40) m/uL Hgb (11.4-16.0) gm/dL Hct (34.0-46.0) % MCV (80.0-100.0) fL MCH (25.0-35.0) pg MCHC (31.0-37.0) g/dL RDW (11.5-15.5) % Plt Count (150-450) k/uL Neutrophils % % Lymphocytes % % Monocytes % % Eosinophils % % Basophils % % Neutrophils # (1.3-7.7) k/uL Lymphocytes # (1.0-4.8) k/uL Monocytes # (0-1.0) k/uL Eosinophils # (0-0.7) k/uL Basophils # (0-0.2) k/uL PT (9.0-12.0) sec INR (<1.2) APTT (22.0-30.0) sec D-Dimer (<0.60) mg/L FEU Sodium 133 L (137-145) mmol/L Potassium 4.4 (3.5-5.1) mmol/L Chloride 96 L (98-107) mmol/L Carbon Dioxide 29 (22-30) mmol/L Anion Gap 8 mmol/L BUN 24 H (7-17) mg/dL Creatinine 0.54 (0.52-1.04) mg/dL Est GFR (CKD-EPI)AfAm >90 (>60 ml/min/1.73 sqM) Est GFR (CKD-EPI)NonAf >90 (>60 ml/min/1.73 sqM) Glucose 120 H (74-99) mg/dL Plasma Lactic Acid Daniel (0.7-2.0) mmol/L Calcium 9.1 (8.4-10.2) mg/dL Total Bilirubin (0.2-1.3) mg/dL AST (14-36) U/L ALT (4-34) U/L Alkaline Phosphatase (38-126) U/L Troponin I (0.000-0.034) ng/mL NT-Pro-B Natriuret Pep pg/mL Total Protein (6.3-8.2) g/dL Albumin (3.5-5.0) g/dL Coronavirus (PCR) (Not Detected) - EKG Data -: EKG Interpreted by Al EKG shows normal: sinus rhythm, axis (Normal), intervals (WA interval 148 ms, QTC 491 ms, both normal. QRS duration 156 ms prolonged consistent with the left bundle-branch block.), QRS complexes (Bundle-branch block) Rate: normal (Rate 89 bpm) Interpretation: other (The left bundle-branch block present on previous ECG.) Disposition Clinical Impression: COPD exacerbation, History of lung cancer Disposition: ADMITTED IP TO THIS HOSP Condition: Stable
[2019-07-01 05:46] LABS: Basophils % (A) 0 %; Eosinophils % (A) 1 %; HCT 35.9 % (34.0-46.0); HGB 11.7 gm/dL (11.4-16.0); Lymphocytes # (A) 0.3 k/uL (1.0-4.8); Lymphocytes % (A) 8 %; MCH 28.4 pg (25.0-35.0); MCHC 32.7 g/dL (31.0-37.0); MCV 86.8 fL (80.0-100.0); Mean Platelet Volume 7.5; Monocytes # (A) 0.4 k/uL (0-1.0); Monocytes % (A) 9 %; Neutrophils # (A) 3.2 k/uL (1.3-7.7); Neutrophils % (A) 79 %; Platelet Count 250 k/uL (150-450); RBC 4.13 m/uL (3.80-5.40); RDW 14.1 % (11.5-15.5); WBC 4.1 k/uL (3.8-10.6)
[2019-07-01 05:56] LABS: ALT 24 U/L (4-34); AST 44 U/L (14-36); African American GFR (CKD) >90 (>60 ml/min/1.73 sqM); Albumin 4.5 g/dL (3.5-5.0); Alkaline Phosphatase 64 U/L (38-126); Anion Gap 9 mmol/L; Blood Urea Nitrogen 35 mg/dL (7-17); Calcium 9.7 mg/dL (8.4-10.2); Carbon Dioxide 27 mmol/L (22-30); Chloride 96 mmol/L (98-107); Glucose 136 mg/dL (74-99); Non-African American GFR(CKD) 86 (>60 ml/min/1.73 sqM); Sodium 132 mmol/L (137-145); Total Bilirubin 0.8 mg/dL (0.2-1.3); Total Protein 7.9 g/dL (6.3-8.2)
[2019-07-01 06:08] LABS: INR 0.9 (<1.2); Prothrombin Time 9.7 sec (9.0-12.0)
[2019-07-01 06:10] LABS: Partial Thromboplastin Time 18.5 sec (22.0-30.0)
[2019-07-01 06:13] LABS: D-Dimer 1.26 mg/L FEU (<0.60)
--- NOTE | 2019-07-01 06:59 | XR ---
EXAM: XR Chest, 1 View CLINICAL HISTORY: ITS.REASON XR Reason: dyspnea TECHNIQUE: Frontal view of the chest. COMPARISON: 10/19/2018 FINDINGS: Lungs: Subsegmental changes at the right lung base appear to be new. Changes the right apex appear to be stable. The left lung is well- aerated. Prominence of the hilar structures is thought to be similar, accounting for oblique kyphotic technique. The pulmonary vasculature demonstrates no significant radiographic abnormality. Pleural space: Unremarkable. No pneumothorax. No large pleural effusion. Heart: Unremarkable. No cardiomegaly. Mediastinum: Atherosclerotic calcification of the aortic arch is noted. The trachea is midline, accounting for obliquity. Bones/joints: Unremarkable. IMPRESSION: Subsegmental changes at the right lung base appear to be new and may represent subsegmental atelectasis or subtle infection. Changes the right apex appear to be stable. No large pleural effusion or pneumothorax. Prominent presumed vascular hilar structures are similar to the previous examination.
[2019-07-01] MEDS ORDERED: HYDROcodone/APAP 5-325MG 1 EACH TAB PO PRN (07:14)
[2019-07-01] MEDS: IPRATROPIUM-ALBUTEROL 3 ML NEB INHALATION SCH ×4 (07:42→20:59)
[2019-07-01] MEDS: BUDESONIDE 1 MG/2 ML NEBU INHALATION SCH ×2 (07:42→21:00)
[2019-07-01 07:51] LABS: African American GFR (CKD) >90 (>60 ml/min/1.73 sqM); Anion Gap 7 mmol/L; Blood Urea Nitrogen 34 mg/dL (7-17); Calcium 9.4 mg/dL (8.4-10.2); Carbon Dioxide 29 mmol/L (22-30); Chloride 97 mmol/L (98-107); Glucose 118 mg/dL (74-99); Non-African American GFR(CKD) 85 (>60 ml/min/1.73 sqM); Potassium 4.7 mmol/L (3.5-5.1); Sodium 133 mmol/L (137-145)
--- NOTE | 2019-07-01 08:01 | CT ---
EXAMINATION TYPE: CT chest angio for PE DATE OF EXAM: 07/01/2019 COMPARISON: PET/CT 05/22/2019 HISTORY: elevated d dimer, known lung CA CT DLP: 159 mGycm CONTRAST: CT chest with contrast and 3D reconstruction with MIP imaging is performed with IV Contrast, patient injected with 72 mL of Isovue 370. Contrast-enhanced CT of the chest was performed through the course of the pulmonary arteries with carlos g and mediastinal window settings submitted. 3D reconstruction with MIP imaging was also performed. PULMONARY ARTERIES: The pulmonary arteries and their major tributaries are patent. I do not see javid dence for sizable filling defect to suggest pulmonary embolic process. LUNGS: Stable spiculated nodule right upper lobe. Mass superior segment right lower lobe is slightly larger in size and measures 2.2 x 1.3 cm versus 2.0 x 1.1 cm previously. There is right perihilar inf iltrate. All right pleural effusion. MEDIASTINUM: Ectasia of the thoracic aorta without evidence for aneurysm. Subcarinal adenopathy measu ring 1.8 cm. Tracheobronchial adenopathy on the right measuring up to 1.4 cm. Correlate clinically . The heart is not enlarged. No evidence for mediastinal mass. No mediastinal lymph nodes greater marysol n 1cm. HILAR STRUCTURES: No evidence for mass. No hilar lymph nodes greater than 1 cm. UPPER ABDOMEN: No significant abnormality is seen. loss of vertebral body height at multiple levels. Exaggerated thoracic kyphosis. IMPRESSION: 1. No evidence for Pulmonary embolism at this time. 2. Pulmonary findings compatible with patient's history of malignancy.
[2019-07-01] MEDS: ASPIRIN 325 MG TAB PO SCH (09:26)
[2019-07-01] MEDS: predniSONE 20 MG TAB PO SCH (09:26)
[2019-07-01] MEDS: guaiFENesin 600 MG TABLET.ER PO SCH ×2 (09:27→22:22)
[2019-07-01] MEDS: LISINOPRIL 20 MG TAB PO SCH (09:27)
[2019-07-01] MEDS: AZITHROMYCIN 500 MG TAB PO SCH (09:27)
[2019-07-01] MEDS: FOLIC ACID 1 MG TAB PO SCH (09:28)
[2019-07-01] MEDS: POLYETHYLENE GLYCOL 3350 17 GM POWD.PACK PO SCH (09:28)
[2019-07-01] MEDS: DOCUSATE 100 MG CAP PO SCH ×2 (09:28→22:22)
--- NOTE | 2019-07-01 21:22 | P.HPIM ---
History of Present Illness H&P Date: 07/01/19 Chief Complaint: SOB Patient is a 79-year-old female with a known history of hypertension, COPD on home oxygen, history of lung cancer currently intermission, GERD and previous history of of smoking came to ER with the complaints of worsening shortness of breath for the past 3 to 4 days. Patient also states that she has been having cough with whitish marshmallow colored sputum. No complaints of chest pain. No leg swelling. No nausea vomiting or abdominal pain or diarrhea. Denies any dysuria or hematuria. No fever no chills. Patient is a poor historian otherwise. Patient has been febrile on admission. Chest x-ray showed subsegmental or changes in the right lung base appears to be new and may represent subsegmental atelectasis or subtle infection. Changes the right apex appears to be stable. No large pleural effusion or pneumothorax. Prominent presumed vascular hilar structures are similar to the previous examination. CT angiogram of the chest showed no evidence of pulmonary embolism at this time. Pulmonary findings compatible with patient's history of malignancy. Laboratory data showed d-dimer 1.26, potassium 6.0, sodium 132, chloride 96, BUN 35 and creatinine 0.64 Troponin less than 0.012 BNP 1290 COVID-19 virus infection negative. Review of Systems Complete review of systems could not be obtained from the patient except as per HPI. Past Medical History Past Medical History: Cancer, COPD, GERD/Reflux, Hypertension, Pneumonia, Thyroid Disorder Additional Past Medical History / Comment(s): Thyroid nodules being monitored. Emphysema, lung cancer History of Any Multi-Drug Resistant Organisms: None Reported Past Surgical History: Hernia Repair, Orthopedic Surgery, Tubal Ligation Additional Past Surgical History / Comment(s): Bilateral inguinal hernia repairs, colonoscopies with benign polypectomies, right hip sx after fallJuly 2018 Past Anesthesia/Blood Transfusion Reactions: No Reported Reaction Past Psychological History: No Psychological Hx Reported Smoking Status: Former smoker Past Alcohol Use History: None Reported Past Drug Use History: None Reported - Past Family History Mother Family Medical History: Dementia Additional Family Medical History / Comment(s): Mother at age 83 yrs. Father Family Medical History: CVA/TIA Additional Family Medical History / Comment(s): Father had a CVA. He at the age of 83 yrs. Sister(s) Family Medical History: Thyroid Disorder Additional Family Medical History / Comment(s): hypothyroidism Medications and Allergies Home Medications Medication Instructions Recorded Confirmed Type Lisinopril [Zestril] 20 mg PO DAILY 06/03/17 07/01/19 History Ipratropium-Albuterol Nebulize 3 ml INHALATION RT-QID 07/19/17 07/01/19 History [Duoneb 0.5 mg-3 mg/3 ml Soln] Folic Acid 1 mg PO HS 07/06/18 07/01/19 History Budesonide [Pulmicort] 1 mg INHALATION RT-BID nebu 08/12/18 07/01/19 Rx Docusate [Colace] 100 mg PO DAILY 10/05/18 07/01/19 History Polyethylene Glycol 3350 [Miralax] 17 gm PO DAILY 10/05/18 07/01/19 History Alendronate Sodium [Fosamax] 70 mg PO GARG 07/01/19 07/01/19 History Aspirin EC [Ecotrin Low Dose] 81 mg PO HS 07/01/19 07/01/19 History Calcium Carbonate/Vitamin D3 1 tab PO HS 07/01/19 07/01/19 History [Caltrate 600 Plus D3 Tablet] Allergies Allergy/AdvReac Type Severity Reaction Status Date / Time No Known Allergies Allergy Verified 07/01/19 08:35 Physical Exam Vitals: Vital Signs Temp Pulse Resp BP Pulse Ox 07/01/19 09:30 90 16 140/87 100 07/01/19 08:02 95 16 145/79 100 07/01/19 07:50 92 07/01/19 07:43 96 07/01/19 06:30 80 21 136/81 97 07/01/19 04:56 97.8 F 90 18 133/84 91 L Intake and Output 06/30/19 07/01/19 07/01/19 22:59 06:59 14:59 Other: Weight 47.627 kg PHYSICAL EXAMINATION: Patient is lying in the bed comfortably, no acute distress, awake alert and oriented.Poor historian. HEENT: Normocephalic. Neck is supple. Pupils reactive. Nostrils clear. Oral cavity is moist. Ears reveal no drainage. Neck reveals no JVD, carotid bruits, or thyromegaly. CHEST EXAMINATION: Trachea is central. Symmetrical expansion. Bilateral diffuse wheezing and scattered rhonchi. Nonlabored breathing.. CARDIAC: Normal S1, S2 with no gallops. No murmurs ABDOMEN: Soft. Bowel sounds normal. No organomegaly. No abdominal bruits. Extremities: reveal no edema. No clubbing or cyanosis Neurologically awake, alert, oriented x3 with well-coordinated movements. No focal deficits noted Skin: No rash or skin lesions. Psychiatric: Coperative. Nonsuicidal Musculoskeletal: No joint swelling or deformity. Normal range of motion. Results CBC & Chem 7: 07/01/19 05:15 07/01/19 07:15 Labs: Abnormal Lab Results - Last 24 Hours (Table) 07/01/19 07/01/19 07/01/19 Range/Units 05:15 05:15 05:15 Lymphocytes # 0.3 L (1.0-4.8) k/uL APTT 18.5 L (22.0-30.0) sec D-Dimer 1.26 H (<0.60) mg/L FEU Sodium 132 L (137-145) mmol/L Potassium 6.0 H (3.5-5.1) mmol/L Chloride 96 L (98-107) mmol/L BUN 35 H (7-17) mg/dL Glucose 136 H (74-99) mg/dL AST 44 H (14-36) U/L 07/01/19 Range/Units 07:15 Lymphocytes # (1.0-4.8) k/uL APTT (22.0-30.0) sec D-Dimer (<0.60) mg/L FEU Sodium 133 L (137-145) mmol/L Potassium (3.5-5.1) mmol/L Chloride 97 L (98-107) mmol/L BUN 34 H (7-17) mg/dL Glucose 118 H (74-99) mg/dL AST (14-36) U/L Thrombosis Risk Factor Assmnt - DVT/VTE Prophylaxis DVT/VTE Prophylaxis: Pharmacologic Prophylaxis ordered Assessment and Plan Assessment: Shortness of breath secondary to acute COPD exacerbation Acute tracheobronchitis Elevated d-dimer level. CT angiogram is negative for any PE Chronic hypoxic respiratory failure on home oxygen History of lung cancer status post surgery currently in remission Hypothyroidism Hypertension GERD Previous history of smoking DVT prophylaxis with heparin subcu. Plan: Patient will be continued on oxygen therapy. Continue with the duo nebs and prednisone 40 mg daily. Continue with Pulmicort. Can with home medications and follow-up closely. Further recommendations based on clinical course. y Time with Patient: Greater than 30
[2019-07-02] MEDS: IPRATROPIUM-ALBUTEROL 3 ML NEB INHALATION SCH ×4 (06:51→19:03)
[2019-07-02] MEDS: BUDESONIDE 1 MG/2 ML NEBU INHALATION SCH ×2 (06:51→19:03)
[2019-07-02] MEDS: predniSONE 20 MG TAB PO SCH (09:08)
[2019-07-02] MEDS: ASPIRIN 325 MG TAB PO SCH (09:09)
[2019-07-02] MEDS: AZITHROMYCIN 500 MG TAB PO SCH (09:09)
[2019-07-02] MEDS: LISINOPRIL 20 MG TAB PO SCH (09:09)
[2019-07-02] MEDS: guaiFENesin 600 MG TABLET.ER PO SCH ×2 (09:09→21:30)
[2019-07-02] MEDS: HEPARIN SODIUM,PORCINE 5,000 UNIT/ML 1 ML VIAL SQ SCH ×2 (09:09→21:30)
[2019-07-02] MEDS: FOLIC ACID 1 MG TAB PO SCH (09:09)
[2019-07-02] MEDS: DOCUSATE 100 MG CAP PO SCH ×2 (09:09→21:30)
[2019-07-02] MEDS: POLYETHYLENE GLYCOL 3350 17 GM POWD.PACK PO SCH (09:10)
[2019-07-02 09:25] LABS: African American GFR (CKD) >90 (>60 ml/min/1.73 sqM); Anion Gap 8 mmol/L; Basophils % (A) 0 %; Blood Urea Nitrogen 24 mg/dL (7-17); Calcium 9.1 mg/dL (8.4-10.2); Carbon Dioxide 29 mmol/L (22-30); Chloride 96 mmol/L (98-107); Eosinophils % (A) 1 %; Glucose 120 mg/dL (74-99); HCT 34.8 % (34.0-46.0); HGB 11.6 gm/dL (11.4-16.0); Lymphocytes # (A) 0.4 k/uL (1.0-4.8); Lymphocytes % (A) 10 %; MCH 29.1 pg (25.0-35.0); MCHC 33.3 g/dL (31.0-37.0); MCV 87.3 fL (80.0-100.0); Mean Platelet Volume 7.1; Monocytes # (A) 0.4 k/uL (0-1.0); Monocytes % (A) 10 %; Neutrophils # (A) 2.6 k/uL (1.3-7.7); Neutrophils % (A) 75 %; Non-African American GFR(CKD) >90 (>60 ml/min/1.73 sqM); Platelet Count 233 k/uL (150-450); Potassium 4.4 mmol/L (3.5-5.1); RBC 3.99 m/uL (3.80-5.40); Sodium 133 mmol/L (137-145); WBC 3.5 k/uL (3.8-10.6)
[2019-07-02 10:39] VITALS: BMI 18.6
--- NOTE | 2019-07-02 18:17 | P.PN ---
Progress Note - Text Progress Note Date: 07/02/19 Presenting complaint: Shortness of breath History of presenting complaint: Patient is a 79-year-old female with a known history of hypertension, COPD on home oxygen, history of lung cancer currently intermission, GERD and previous history of of smoking came to ER with the complaints of worsening shortness of breath for the past 3 to 4 days. Patient also states that she has been having cough with whitish marshmallow colored sputum. No complaints of chest pain. No leg swelling. No nausea vomiting or abdominal pain or diarrhea. Denies any dysuria or hematuria. No fever no chills. Patient is a poor historian otherwise. Patient has been febrile on admission. Admitted with a diagnosis of-acute COPD exacerbation and acute tracheobronchitis. PE was ruled out. Today-breathing a bit better. Some shortness of breath. Some cough. Eating anywhere from 25-50%. Review of systems: Was done for constitutional, cardiovascular, GI, pulmonary. relevant finding as above Active Medications Hydrocodone Bitart/Acetaminophen ([place] 5-325) 1 each PO BID PRN PRN Reason: Pain Albuterol/Ipratropium (Duoneb 0.5 Mg-3 Mg/3 Ml Soln) 3 ml INHALATION RT-QID [facility] Last Admin: 07/02/19 15:22 Dose: 3 ml Documented by: Aspirin (Aspirin) 325 mg PO DAILY [facility] Last Admin: 07/02/19 09:09 Dose: 325 mg Documented by: Azithromycin (Zithromax) 500 mg PO DAILY [facility] Last Admin: 07/02/19 09:09 Dose: 500 mg Documented by: Budesonide (Pulmicort) 1 mg INHALATION RT-BID [facility] Last Admin: 07/02/19 06:51 Dose: 1 mg Documented by: Docusate Sodium (Colace) 100 mg PO BID [facility] Last Admin: 07/02/19 09:09 Dose: 100 mg Documented by: Folic Acid (Folic Acid) 1 mg PO DAILY [facility] Last Admin: 07/02/19 09:09 Dose: 1 mg Documented by: Guaifenesin (Mucinex) 1,200 mg PO Q12HR [facility] Last Admin: 07/02/19 09:09 Dose: 1,200 mg Documented by: Heparin Sodium (Porcine) (Heparin) 5,000 unit SQ Q12HR [facility] Last Admin: 07/02/19 09:09 Dose: 5,000 unit Documented by: Lisinopril (Zestril) 20 mg PO DAILY [facility] Last Admin: 07/02/19 09:09 Dose: 20 mg Documented by: Polyethylene Glycol (Miralax) 17 gm PO DAILY [facility] Last Admin: 07/02/19 09:10 Dose: 17 gm Documented by: Prednisone () 40 mg PO DAILY [facility] Last Admin: 07/02/19 09:08 Dose: 40 mg Documented by: On examination: VITAL SIGNS: 98.3, 93, 18, 108/72, 98% on 2 L GENERAL APPEARANCE: Sitting up, slightly tired. HEENT: Normal external appearance of nose and ear. Oral cavity normal EYES: Pupils equal. Conjunctiva normal. NECK: JVD not raised. Mass not palpable. RESPIRATORY: Respiratory effort increased. Lungs-decreased breath sound prolonged expiration CARDIOVASCULAR: First and second sounds normal. No edema. ABDOMEN: Soft. Liver and spleen not palpable. No tenderness. No mass palpable. PSYCHIATRY: Alert and oriented x3. Mood and affect normal. INVESTIGATIONS, reviewed in the clinical context: White count 3.5 hemoglobin 11.6 potassium 4.4 creatinine 0.54 Previous testing: COVID-19 PCR-not detected Chest CTA-negative for PE Assessment: -Acute severe COPD exacerbation in an ex-smoker probably from acute tracheobronchitis -Lung cancer status post chemo and radiation treatment. In remission -Mild cognitive impairment -Essential hypertension -GERD -Primary osteoarthritis Plan: Continue with bronchodilators, steroids, Zithromax. Inhaled steroids. Encouraged to ambulate.
[2019-07-03] MEDS: IPRATROPIUM-ALBUTEROL 3 ML NEB INHALATION SCH ×2 (08:08→11:38)
[2019-07-03] MEDS: BUDESONIDE 1 MG/2 ML NEBU INHALATION SCH (08:08)
[2019-07-03 08:09] VITALS: BP 98/64; RESP 18; TEMP 97.8
[2019-07-03] MEDS: LISINOPRIL 20 MG TAB PO SCH (08:37)
[2019-07-03] MEDS: AZITHROMYCIN 500 MG TAB PO SCH (08:42)
[2019-07-03] MEDS: HEPARIN SODIUM,PORCINE 5,000 UNIT/ML 1 ML VIAL SQ SCH (08:42)
[2019-07-03] MEDS: ASPIRIN 325 MG TAB PO SCH (08:42)
[2019-07-03] MEDS: predniSONE 20 MG TAB PO SCH (08:42)
[2019-07-03] MEDS: guaiFENesin 600 MG TABLET.ER PO SCH (08:43)
[2019-07-03] MEDS: POLYETHYLENE GLYCOL 3350 17 GM POWD.PACK PO SCH (08:43)
[2019-07-03] MEDS: DOCUSATE 100 MG CAP PO SCH (08:43)
[2019-07-03] MEDS: FOLIC ACID 1 MG TAB PO SCH (08:44)
[2019-07-03 11:40] VITALS: PULSE 92
[2019-07-03] MEDS ORDERED: ACYCLOVIR 800 MG TAB PO SCH (12:30)
--- NOTE | 2019-07-03 12:38 | CDI ---
Documentation Clarification Form Date: 07/03/2019 12:36:02 PM From: Abi Esparza RN, CCDS Admit Date: 07/03/2019 07:52:00 AM Patient Name: Mary Jo West Visit Number: [id number] ATTENTION: The Clinical Documentation Specialists (CDI) and [facility] Coding Staff appreciate your assistance in clarifying documentation. Please respond to the clarification below the line at the bottom and electronically sign. The CDI & [facility] Coding staff will review the response and follow-up if needed. Please note: Queries are made part of the Legal Health Record. If you have any questions, please contact the author of this message via ITS. Dr. Fabricio Schneider Patient has been described as "underweight" in the dietary consult and noted to have a BMI of 18.6. Please provide clinical significance. History/Risk Factors: COPD, Lung cancer, chronic hypoxic respiratory failure, GERD, Hypothyroidism Clinical Indicators: Patients weight is 47.6 kg Patients height is 63 in Calculated BMI is 18.6 Muscle wastin/13 ED review of systems: Reports: generalized weakness Treatments: Patient declined nutritional supplements Dietary Consult Completed 07/02/2019 Folic Acid 1mg PO QD In order to capture the severity of condition associated with patient BMI of 18.6, a clinical diagnosis needs to be documented by the physician. Please clarify: Moderate Protein Calorie Malnutrition Severe Protein Calorie Malnutrition Other Unable to determine (Last Revision: May 2017) Moderate Protein Calorie Malnutrition MTDD
--- NOTE | 2019-07-03 22:46 | P.DS ---
Providers Date of admission: 07/03/19 07:52 Expected date of discharge: 07/03/19 Attending physician: [facility] Peck Primary care physician: Ti[facility] Course: Presenting complaint: Shortness of breath History of presenting complaint: Patient is a 79-year-old female with a known history of hypertension, COPD on home oxygen, history of lung cancer currently intermission, GERD and previous history of of smoking came to ER with the complaints of worsening shortness of breath for the past 3 to 4 days. Patient also states that she has been having cough with whitish marshmallow colored sputum. No complaints of chest pain. No leg swelling. No nausea vomiting or abdominal pain or diarrhea. Denies any dysuria or hematuria. No fever no chills. Patient is a poor historian otherwise. Patient has been febrile on admission. Admitted with a diagnosis of-acute COPD exacerbation and acute tracheobronchitis. PE was ruled out. Treated with bronchodilators, Zithromax. Today-Feeling better. Looking forward to go home. On examination: VITAL SIGNS: 97.8, 77, 18, 98/64, 97% on 2 L GENERAL APPEARANCE: Sitting up, slightly tired. HEENT: Normal external appearance of nose and ear. Oral cavity normal EYES: Pupils equal. Conjunctiva normal. NECK: JVD not raised. Mass not palpable. RESPIRATORY: Respiratory effort normal Lungs-decreased breath sound CARDIOVASCULAR: First and second sounds normal. No edema. ABDOMEN: Soft. Liver and spleen not palpable. No tenderness. No mass palpable. PSYCHIATRY: Alert and oriented x3. Mood and affect normal. INVESTIGATIONS, reviewed in the clinical context: White count 3.5 hemoglobin 11.6 potassium 4.4 creatinine 0.54 Previous testing: COVID-19 PCR-not detected Chest CTA-negative for PE Assessment: -Acute severe COPD exacerbation in an ex-smoker probably from acute tracheobronchitis -Lung cancer status post chemo and radiation treatment. In remission -Mild cognitive impairment -Essential hypertension -GERD -Primary osteoarthritis Disposition: Home Patient Condition at Discharge: Stable Plan - Discharge Summary Discharge Rx Participant: No New Discharge Prescriptions: New Acyclovir 800 mg PO TID #30 tablet guaiFENesin [Mucinex] 1,200 mg PO Q12HR #30 tablet.er predniSONE 10 mg PO DAILY #30 tab Azithromycin [Zithromax] 500 mg PO DAILY #3 tab Continue Lisinopril [Zestril] 20 mg PO DAILY Ipratropium-Albuterol Nebulize [Duoneb 0.5 mg-3 mg/3 ml Soln] 3 ml INHALATION RT-QID Folic Acid 1 mg PO HS Budesonide [Pulmicort] 1 mg INHALATION RT-BID nebu Polyethylene Glycol 3350 [Miralax] 17 gm PO DAILY Alendronate Sodium [Fosamax] 70 mg PO GARG Calcium Carbonate/Vitamin D3 [Caltrate 600 Plus D3 Tablet] 1 tab PO HS Aspirin EC [Ecotrin Low Dose] 81 mg PO HS Discontinued Docusate [Colace] 100 mg PO DAILY Discharge Medication List Lisinopril [Zestril] 20 mg PO DAILY 06/03/17 [History] Ipratropium-Albuterol Nebulize [Duoneb 0.5 mg-3 mg/3 ml Soln] 3 ml INHALATION RT-QID 07/19/17 [History] Folic Acid 1 mg PO HS 07/06/18 [History] Budesonide [Pulmicort] 1 mg INHALATION RT-BID nebu 08/12/18 [Rx] Polyethylene Glycol 3350 [Miralax] 17 gm PO DAILY 10/05/18 [History] Alendronate Sodium [Fosamax] 70 mg PO GARG 07/01/19 [History] Aspirin EC [Ecotrin Low Dose] 81 mg PO HS 07/01/19 [History] Calcium Carbonate/Vitamin D3 [Caltrate 600 Plus D3 Tablet] 1 tab PO HS 07/01/19 [History] Acyclovir 800 mg PO TID #30 tablet 07/03/19 [Rx] Azithromycin [Zithromax] 500 mg PO DAILY #3 tab 07/03/19 [Rx] guaiFENesin [Mucinex] 1,200 mg PO Q12HR #30 tablet.er 07/03/19 [Rx] predniSONE 10 mg PO DAILY #30 tab 07/03/19 [Rx] Follow up Appointment(s)/Referral(s): iTago Rojo DO [Primary Care Provider] - 07/21/19 4:20 pm Patient Instructions/Handouts: Shingles (DC), COPD (Chronic Obstructive Pulmona ry Disease) (DC)
== END 2019-07-03 14:00 | disposition home or self-care (01) | DRG 191 ==
LOC: EC 04:51 → 4SSUR 07:13 → OBSVTOIN 07-03 07:52
PROVIDERS: ADMIT Hospitalist; ATTEND Hospitalist
DX: J44.1 Chronic obstructive pulmonary disease with (acute) exacerbation (principal); E44.0 Moderate protein-calorie malnutrition; Z68.1 Body mass index [BMI] 19.9 or less, adult; J96.11 Chronic respiratory failure with hypoxia; J44.0 Chronic obstructive pulmonary disease with (acute) lower respiratory infection; J20.9 Acute bronchitis, unspecified; Z20.828 Contact with and (suspected) exposure to other viral communicable diseases; G31.84 Mild cognitive impairment of uncertain or unknown etiology; I10 Essential (primary) hypertension; K21.9 Gastro-esophageal reflux disease without esophagitis; M19.91 Primary osteoarthritis, unspecified site; Z79.83 Long term (current) use of bisphosphonates; Z79.899 Other long term (current) drug therapy; Z79.51 Long term (current) use of inhaled steroids; Z85.118 Personal history of other malignant neoplasm of bronchus and lung; Z87.891 Personal history of nicotine dependence; Z82.3 Family history of stroke; Z92.21 Personal history of antineoplastic chemotherapy; Z92.3 Personal history of irradiation; Z99.81 Dependence on supplemental oxygen; Z86.010 Personal history of colon polyps; Z98.51 Tubal ligation status; E04.1 Nontoxic single thyroid nodule; Z87.01 Personal history of pneumonia (recurrent); R79.1 Abnormal coagulation profile; Z83.49 Family history of other endocrine, nutritional and metabolic diseases
CPT/HCPCS: 36415; 71045; 71275; 80048; 80053; 83605; 83880; 84484; 85025; 85379; 85610; 85730; 87040; 87635; 93005; 94640; 99285

== ENCOUNTER 2019-07-21 09:41 | Observation (INO) | payer MEDICARE, BC ==
[2019-07-21] MEDS ORDERED: SODIUM CHLORIDE 0.9% 500 ML 500 ML IV ONE (10:06)
--- NOTE | 2019-07-21 10:10 | ED ---
General Adult HPI - General Chief complaint: Altered Mental Status Stated complaint: disoriented Time Seen by Provider: 07/21/19 09:45 Source: patient, family, RN notes reviewed, old records reviewed Mode of arrival: wheelchair Limitations: no limitations - History of Present Illness Initial comments: This is a 79-year-old female who presents to the emergency department with her daughter. Patient has a history of COPD and recently shingles. Patient comes in today because the daughter states over the last day she has had some altered mental status. Patient was unable to follow her basic instructions at home to take her own pills to take her breathing treatments and that is something she does normally on a daily basis. Patient denies any fever or chills patient denies any nausea vomiting or diarrhea. Patient denies any dysuria hematuria urinary frequency. Patient denies any areas of pain. Patient denies headache patient denies chest pain or any abdominal pain. - Related Data Home Medications Medication Instructions Recorded Confirmed Lisinopril [Zestril] 20 mg PO DAILY 06/03/17 07/21/19 Folic Acid 1 mg PO HS 07/06/18 07/21/19 Polyethylene Glycol 3350 [Miralax] 17 gm PO DAILY 10/05/18 07/21/19 Alendronate Sodium [Fosamax] 70 mg PO GARG 07/01/19 07/21/19 Calcium Carbonate/Vitamin D3 1 tab PO HS 07/01/19 07/21/19 [Caltrate 600 Plus D3 Tablet] Aspirin 325 mg PO DAILY@1700 07/21/19 07/21/19 Docusate [Colace] 100 mg PO BID 07/21/19 07/21/19 Ipratropium-Albuterol Nebulize 3 ml INHALATION RT-QID 07/21/19 07/21/19 [Duoneb 0.5 mg-3 mg/3 ml Soln] Previous Rx's Medication Instructions Recorded Budesonide [Pulmicort] 1 mg INHALATION RT-BID nebu 08/12/18 Allergies Allergy/AdvReac Type Severity Reaction Status Date / Time No Known Allergies Allergy Verified 07/21/19 11:16 Review of Systems ROS Statement: Those systems with pertinent positive or pertinent negative responses have been documented in the HPI. ROS Other: All systems not noted in ROS Statement are negative. Past Medical History Past Medical History: Cancer, COPD, GERD/Reflux, Hypertension, Pneumonia, Thyroid Disorder Additional Past Medical History / Comment(s): Thyroid nodules being monitored. Emphysema, lung cancer History of Any Multi-Drug Resistant Organisms: None Reported Past Surgical History: Hernia Repair, Orthopedic Surgery, Tubal Ligation Additional Past Surgical History / Comment(s): Bilateral inguinal hernia re pairs, colonoscopies with benign polypectomies, right hip sx after fall July 2018 Past Anesthesia/Blood Transfusion Reactions: No Reported Reaction Past Psychological History: No Psychological Hx Reported Smoking Status: Former smoker Past Alcohol Use History: None Reported Past Drug Use History: None Reported - Past Family History Mother Family Medical History: Dementia Additional Family Medical History / Comment(s): Mother at age 83 yrs. Father Family Medical History: CVA/TIA Additional Family Medical History / Comment(s): Father had a CVA. He at the age of 83 yrs. Sister(s) Family Medical History: Thyroid Disorder Additional Family Medical History / Comment(s): hypothyroidism General Exam - General Exam Comments Initial Comments: GENERAL: Patient is well-developed and well-nourished. Patient is nontoxic and well- hydrated and is in no acute distress. ENT: Neck is soft and supple. No significant lymphadenopathy is noted. Oropharynx is clear. Moist mucous membranes. Neck has full range of motion without eliciting any pain. EYES: The sclera were anicteric and conjunctiva were pink and moist. Extraocular movements were intact and pupils were equal round and reactive to light. Eyelids were unremarkable. PULMONARY: Unlabored respirations. Good breath sounds bilaterally. No audible rales rhonchi or wheezing was noted. CARDIOVASCULAR: There is a regular rate and rhythm without any murmurs gallops or rubs. ABDOMEN: Soft and nontender with normal bowel sounds. SKIN: Skin is clear with no lesions or rashes and otherwise unremarkable. NEUROLOGIC: Patient is alert and oriented 2. Cranial nerves II through XII are grossly intact. Motor and sensory are also intact. Normal speech, volume and content. Symmetrical smile. MUSCULOSKELETAL: Normal extremities with adequate strength and full range of motion. LYMPHATICS: No significant lymphadenopathy is noted PSYCHIATRIC: Normal psychiatric evaluation. Limitations: no limitations Course Vital Signs 07/21/19 07/21/19 07/21/19 09:47 12:46 13:35 Temperature 97.4 F L Pulse Rate 73 72 71 Respiratory 18 18 Rate Blood Pressure 101/67 139/77 O2 Sat by Pulse 100 98 Oximetry 07/21/19 13:46 Temperature Pulse Rate 69 Respiratory Rate Blood Pressure O2 Sat by Pulse Oximetry Medical Decision Making - Medical Decision Making EKG shows normal sinus rhythm at 69 bpm TX interval 260 QRS on a 50 QT interval 426 QTC is 456. Patient's EKG shows no ST segment elevation or depression. Patient's EKG shows a left bundle branch block. Chest x-ray shows no acute abnormality. CT of the brain shows no abnormality. One taken and reevaluated the patient daughter stated the patient was still altered. - Lab Data Result diagrams: 07/21/19 10:34 07/21/19 10:34 Lab Results 07/21/19 07/21/19 07/21/19 Range/Units 10:31 10:34 10:34 WBC 4.0 (3.8-10.6) k/uL RBC 3.95 (3.80-5.40) m/uL Hgb 11.1 L (11.4-16.0) gm/dL Hct 34.7 (34.0-46.0) % MCV 87.9 (80.0-100.0) fL MCH 28.2 (25.0-35.0) pg MCHC 32.1 (31.0-37.0) g/dL RDW 14.1 (11.5-15.5) % Plt Count 200 (150-450) k/uL Neutrophils % 78 % Lymphocytes % 12 % Monocytes % 7 % Eosinophils % 2 % Basophils % 0 % Neutrophils # 3.1 (1.3-7.7) k/uL Lymphocytes # 0.5 L (1.0-4.8) k/uL Monocytes # 0.3 (0-1.0) k/uL Eosinophils # 0.1 (0-0.7) k/uL Basophils # 0.0 (0-0.2) k/uL PT 9.6 (9.0-12.0) sec INR 0.9 (<1.2) APTT 20.3 L (22.0-30.0) sec Sodium (137-145) mmol/L Potassium (3.5-5.1) mmol/L Chloride (98-107) mmol/L Carbon Dioxide (22-30) mmol/L Anion Gap mmol/L BUN (7-17) mg/dL Creatinine (0.52-1.04) mg/dL Est GFR (CKD-EPI)AfAm (>60 ml/min/1.73 sqM) Est GFR (CKD-EPI)NonAf (>60 ml/min/1.73 sqM) Glucose (74-99) mg/dL POC Glucose (mg/dL) 87 (75-99) mg/dL POC Glu [employer] ID Johanna Wolfe Calcium (8.4-10.2) mg/dL Total Bilirubin (0.2-1.3) mg/dL AST (14-36) U/L ALT (4-34) U/L Alkaline Phosphatase (38-126) U/L Troponin I (0.000-0.034) ng/mL Total Protein (6.3-8.2) g/dL Albumin (3.5-5.0) g/dL Urine Color Urine Appearance (Clear) Urine pH (5.0-8.0) Ur Specific Henderson (1.001-1.035) Urine Protein (Negative) Urine Glucose (UA) (Negative) Urine Ketones (Negative) Urine Blood (Negative) Urine Nitrite (Negative) Urine Bilirubin (Negative) Urine Urobilinogen (<2.0) mg/dL Ur Leukocyte Esterase (Negative) Urine Opiates Screen (NotDetected) Ur Oxycodone Screen (NotDetected) Urine Methadone Screen (NotDetected) Ur Propoxyphene Screen (NotDetected) Ur Barbiturates Screen (NotDetected) U Tricyclic Antidepress (NotDetected) Ur Phencyclidine Scrn (NotDetected) Ur Amphetamines Screen (NotDetected) U Methamphetamines Scrn (NotDetected) U Benzodiazepines Scrn (NotDetected) Urine Cocaine Screen (NotDetected) U Marijuana (THC) Screen (NotDetected) 07/21/19 07/21/19 07/21/19 Range/Units 10:34 10:34 10:34 WBC (3.8-10.6) k/uL RBC (3.80-5.40) m/uL Hgb (11.4-16.0) gm/dL Hct (34.0-46.0) % MCV (80.0-100.0) fL MCH (25.0-35.0) pg MCHC (31.0-37.0) g/dL RDW (11.5-15.5) % Plt Count (150-450) k/uL Neutrophils % % Lymphocytes % % Monocytes % % Eosinophils % % Basophils % % Neutrophils # (1.3-7.7) k/uL Lymphocytes # (1.0-4.8) k/uL Monocytes # (0-1.0) k/uL Eosinophils # (0-0.7) k/uL Basophils # (0-0.2) k/uL PT (9.0-12.0) sec INR (<1.2) APTT (22.0-30.0) sec Sodium 132 L (137-145) mmol/L Potassium 4.7 (3.5-5.1) mmol/L Chloride 97 L (98-107) mmol/L Carbon Dioxide 28 (22-30) mmol/L Anion Gap 7 mmol/L BUN 47 H (7-17) mg/dL Creatinine 0.87 (0.52-1.04) mg/dL Est GFR (CKD-EPI)AfAm 74 (>60 ml/min/1.73 sqM) Est GFR (CKD-EPI)NonAf 64 (>60 ml/min/1.73 sqM) Glucose 89 (74-99) mg/dL POC Glucose (mg/dL) (75-99) mg/dL POC Glu [employer] ID Calcium 9.8 (8.4-10.2) mg/dL Total Bilirubin 0.4 (0.2-1.3) mg/dL AST 26 (14-36) U/L ALT 20 (4-34) U/L Alkaline Phosphatase 59 (38-126) U/L Troponin I <0.012 (0.000-0.034) ng/mL Total Protein 6.5 (6.3-8.2) g/dL Albumin 3.7 (3.5-5.0) g/dL Urine Color Light Yellow Urine Appearance Clear (Clear) Urine pH 5.0 (5.0-8.0) Ur Specific Henderson 1.016 (1.001-1.035) Urine Protein Negative (Negative) Urine Glucose (UA) Negative (Negative) Urine Ketones Negative (Negative) Urine Blood Negative (Negative) Urine Nitrite Negative (Negative) Urine Bilirubin Negative (Negative) Urine Urobilinogen <2.0 (<2.0) mg/dL Ur Leukocyte Esterase Negative (Negative) Urine Opiates Screen Not Detected (NotDetected) Ur Oxycodone Screen Not Detected (NotDetected) Urine Methadone Screen Not Detected (NotDetected) Ur Propoxyphene Screen Not Detected (NotDetected) Ur Barbiturates Screen Not Detected (NotDetected) U Tricyclic Antidepress Not Detected (NotDetected) Ur Phencyclidine Scrn Not Detected (NotDetected) Ur Amphetamines Screen Not Detected (NotDetected) U Methamphetamines Scrn Not Detected (NotDetected) U Benzodiazepines Scrn Not Detected (NotDetected) Urine Cocaine Screen Not Detected (NotDetected) U Marijuana (THC) Screen Not Detected (NotDetected) Disposition Clinical Impression: Altered mental status Disposition: ADMITTED IP TO THIS HOSP Referrals: Tiago Rojo DO [Primary Care Provider] - 1-2 days Time of Disposition: 14:40
[2019-07-21 10:33] LABS: Glucose,Whole Blood 87 mg/dL (75-99)
[2019-07-21 10:54] LABS: Basophils % (A) 0 %; Eosinophils # (A) 0.1 k/uL (0-0.7); Eosinophils % (A) 2 %; HCT 34.7 % (34.0-46.0); HGB 11.1 gm/dL (11.4-16.0); Lymphocytes # (A) 0.5 k/uL (1.0-4.8); Lymphocytes % (A) 12 %; MCH 28.2 pg (25.0-35.0); MCHC 32.1 g/dL (31.0-37.0); MCV 87.9 fL (80.0-100.0); Mean Platelet Volume 7.5; Monocytes # (A) 0.3 k/uL (0-1.0); Monocytes % (A) 7 %; Neutrophils # (A) 3.1 k/uL (1.3-7.7); Neutrophils % (A) 78 %; Platelet Count 200 k/uL (150-450); RBC 3.95 m/uL (3.80-5.40); RDW 14.1 % (11.5-15.5)
--- NOTE | 2019-07-21 11:03 | XR ---
EXAMINATION TYPE: XR chest 2V DATE OF EXAM: 07/21/2019 COMPARISON: 07/01/2019 chest x-ray and CT HISTORY: Confusion and altered mental status TECHNIQUE: Frontal and lateral views of the chest are obtained. FINDINGS: Prominence and spiculated right apical nodule relate to the patient's known right-sided ania ng cancer. Emphysematous changes are seen of the lungs. No new focal consolidation, pleural effusion or pneumothorax. Cardia mediastinal silhouette is stable. Diffuse osseous demineralization, multiple known compression deformities and exaggerated thoracic kyphosis again noted. IMPRESSION: No acute cardiopulmonary process. Redemonstration of sequela of the patient's known righ t-sided lung cancer and underlying COPD.
[2019-07-21 11:06] LABS: INR 0.9 (<1.2); Prothrombin Time 9.6 sec (9.0-12.0)
[2019-07-21 11:17] LABS: Partial Thromboplastin Time 20.3 sec (22.0-30.0)
[2019-07-21 11:20] LABS: Albumin 3.7 g/dL (3.5-5.0); Calcium 9.8 mg/dL (8.4-10.2); Potassium 4.7 mmol/L (3.5-5.1); Total Bilirubin 0.4 mg/dL (0.2-1.3); Total Protein 6.5 g/dL (6.3-8.2)
[2019-07-21 12:42] LABS: Appearance,Urine Clear (Clear); Bilirubin,Urine Negative (Negative); Blood,Urine Negative (Negative); Color,Urine Light Yellow; Glucose,Urine (UA) Negative (Negative); Ketones,Urine Negative (Negative); Leukocyte Esterase,Urine Negative (Negative); Nitrite,Urine Negative (Negative); Protein,Urine Negative (Negative); Specific Gravity,Urine 1.016 (1.001-1.035); Urobilinogen,Urine <2.0 mg/dL (<2.0)
[2019-07-21] MEDS ORDERED: ALBUTEROL NEBULIZED 2.5 MG/3 ML INHALATION STA (12:53)
[2019-07-21 12:54] LABS: Amphetamine Screen,Urine Not Detected (NotDetected); Barbiturate Screen,Urine Not Detected (NotDetected); Benzodiazepines Screen,Urine Not Detected (NotDetected); Cocaine Screen,Urine Not Detected (NotDetected); Methadone Screen, Urine Not Detected (NotDetected); Opiate Screen,Urine Not Detected (NotDetected); Oxycodone Screen, Urine Not Detected (NotDetected); Phencyclidine Screen,Urine Not Detected (NotDetected); Tricyclic Antidepressant,Urine Not Detected (NotDetected); Urn Cannabinoid Scrn Not Detected (NotDetected)
--- NOTE | 2019-07-21 13:42 | CT ---
EXAMINATION TYPE: CT brain wo con DATE OF EXAM: 07/21/2019 COMPARISON: 08/09/2018 HISTORY: AMS CT DLP: 1095.4 mGycm Automated exposure control for dose reduction was used. FINDINGS: Calcifications in the basal ganglia noted. Moderate generalized degenerative change with a slightly g reater central component. Low-attenuation faintly noted in the white matter bilaterally is nonspecifi c but most typical of remote microvascular ischemia. No acute hemorrhage or mass effect. No midline shift. Calvarium intact. Craniocervical junction maint ained. Prominent cisterna magna or small arachnoid cyst suspected. A partially empty sella turcica. IMPRESSION: DEGENERATIVE AND NONSPECIFIC WHITE MATTER CHANGES MOST TYPICAL OF REMOTE ISCHEMIA WITH NO EVIDENCE OF ACUTE HEMORRHAGE OR MASS EFFECT.
[2019-07-21] MEDS ORDERED: SODIUM CHLORIDE 0.9% 1,000 ML IV ONE (14:41)
[2019-07-21] MEDS: NYSTATIN 100,000 UNIT/ML SUSP 500,000 UNIT/5 ML CUP PO SCH ×2 (18:01→22:07)
[2019-07-21] MEDS: IPRATROPIUM-ALBUTEROL 3 ML NEB INHALATION SCH (19:18)
[2019-07-21] MEDS: BUDESONIDE 1 MG/2 ML NEBU INHALATION SCH (19:18)
--- NOTE | 2019-07-21 19:30 | P.CNNES ---
History of Present Illness Consult date: 07/21/19 Requesting physician: Olaf Shelton Reason for Consult: Altered mental status History of Present Illness: Patient is a 79-year-old female, with history of COPD, recent shingles, came to the hospital because of some altered mental status. Patient was unable to follow her basic instructions at home to take her own pills, to take her breathing treatments, that is something she does normally on a daily basis. She was confused who her daughter is, and what she is supposed to be doing. This has been going on particularly for the last 4-5 days. No history of fever or chills, nausea vomiting or diarrhea. No history of dysuria, hematuria, or urinary frequency. Denies headache chest pain or abdominal pain. Patient was recently admitted to the hospital for COPD exacerbation on 07/01/2019. She was slightly forgetful, but not as bad. With that admission she also had shingles under her right breast and thoracic region, that was treated with antivirals. At present it is crusting, scabbing. I spoke to patient's daughter, who concurred with the above. Patient does have some mild memory disturbance which is worse lately. Patient's mother was diagnosed with dementia at later age. Chest x-ray showed no acute cardio program process. Redemonstration of sequela of patient's known right-sided lung cancer and underlying COPD. CT head showed degenerative and nonspecific white matter changes, most typical of remote ischemia with no evidence of acute hemorrhage or mass effect. On my review, there is evidence of definite prominence of the fourth third and lateral ventricles more than amount of cortical atrophy. EKG shows normal sinus rhythm with left bundle branch block. Patient's blood test shows sodium 132 potassium 4.7, BUN 47 and is normal creatinine 0.87. Patient's baseline BUN is 29-30. He moglobin A1c 5.7 previously on 06/03/2017. CBC is normal with WBC 4.0 and hemoglobin 11.1. Liver panel normal. Thyroid functions normal. Urine drug screen negative. Patient's previous MRI of the thoracic spine from 08/10/2017 showed compression fractures of T8 and T9. No spinal stenosis. I spoke to patient's daughter on the phone, who concurred with the above. Patient does have mild memory disturbance, which is worse lately the last few days. Patient's mother was diagnosed with dementia in her later age. Patient does use depends, just to be on safe side but she does not have any problem with leaking or incontinence. She can hold urine well. Patient walks somewhat slow related to her COPD, use of oxygen and aging factor, but does not have any abnormalities in the gait otherwise. Review of Systems Patient denies headache. Denies problems with vision. Denies hoarseness or sore throat dysphagia. Denies back or neck pain. All other review of systems unremarkable except for HPI. Patient denies chest pain, does have cough and shortness of breath related to COPD. She uses oxygen all the time. No fever or chills. Past Medical History Past Medical History: Cancer, COPD, GERD/Reflux, Hypertension, Pneumonia, Thyroid Disorder Additional Past Medical History / Comment(s): Thyroid nodules being monitored. Emphysema, lung cancer History of Any Multi-Drug Resistant Organisms: None Reported Past Surgical History: Hernia Repair, Orthopedic Surgery, Tubal Ligation Additional Past Surgical History / Comment(s): Bilateral inguinal hernia repairs, colonoscopies with benign polypectomies, right hip sx after fall July 2018 Past Anesthesia/Blood Transfusion Reactions: No Reported Reaction Past Psychological History: No Psychological Hx Reported Additional Psychological History / Comment(s): Pt resides alone. She is indpendent. She hasnt driven since hip fracture 08/06 Smoking Status: Never smoker Past Alcohol Use History: None Reported Additional Past Alcohol Use History / Comment(s): Pt started smoking in 1961 and quit about 1987. Past Drug Use History: None Reported - Past Family History Mother Family Medical History: Dementia Additional Family Medical History / Comment(s): Mother at age 83 yrs. Father Family Medical History: CVA/TIA Additional Family Medical History / Comment(s): Father had a CVA. He at the age of 83 yrs. Sister(s) Family Medical History: Thyroid Disorder Additional Family Medical History / Comment(s): hypothyroidism Medications and Allergies Home Medications Medication Instructions Recorded Confirmed Type Lisinopril [Zestril] 20 mg PO DAILY 06/03/17 07/21/19 History Folic Acid 1 mg PO HS 07/06/18 07/21/19 History Budesonide [Pulmicort] 1 mg INHALATION RT-BID nebu 08/12/18 07/21/19 Rx Polyethylene Glycol 3350 [Miralax] 17 gm PO DAILY 10/05/18 07/21/19 History Alendronate Sodium [Fosamax] 70 mg PO GARG 07/01/19 07/21/19 History Calcium Carbonate/Vitamin D3 1 tab PO HS 07/01/19 07/21/19 History [Caltrate 600 Plus D3 Tablet] Aspirin 325 mg PO DAILY@1700 07/21/19 07/21/19 History Docusate [Colace] 100 mg PO BID 07/21/19 07/21/19 History Ipratropium-Albuterol Nebulize 3 ml INHALATION RT-QID 07/21/19 07/21/19 History [Duoneb 0.5 mg-3 mg/3 ml Soln] Allergies Allergy/AdvReac Type Severity Reaction Status Date / Time No Known Allergies Allergy Verified 07/21/19 11:16 Physical Examination - Vital Signs Vital Signs: Vital Signs Temp Pulse Pulse Resp BP BP Pulse Ox 07/21/19 16:02 100 07/21/19 15:44 97.9 F 77 18 139/74 98 07/21/19 13:58 97.7 F 76 16 129/79 100 07/21/19 13:46 69 07/21/19 13:35 71 07/21/19 12:46 72 18 139/77 98 07/21/19 09:47 97.4 F L 73 18 101/67 100 Intake and Output 07/21/19 07/21/19 07/21/19 06:59 14:59 22:59 Other: Weight 43.998 kg 43.998 kg On examination patient is an elderly female, laying comfortably in the bed. She is alert and awake fully oriented. Patient knows that it is 07/21/2019, that she is in [facility] in [facility] and name of the current president. Speech and language functions are normal. She speaks slowly, mildly hoarse voice, but no aphasia or dysarthria. On cranial exam showed pupils are round and reacting to light, visual olmos are full, extraocular muscles are intact with no nystagmus. Face is symmetric, tongue protrudes to the midline. Palatal elevation sensation normal. On muscle streng th testing there is no pronator drift and the strength is normal in arms and legs distally and proximally. Reflexes are 1+ in the upper limbs, 2+ in the lower limbs, and plantars are possibly upgoing bilaterally. Sensory touch is equal. No ataxia for zdateo-vd-note testing. Tone and bulk of muscles normal. Patient walks, slow, slightly wide-based, does have slightly off balance. No obvious bruit, although I could not hear any obvious sounds. S1 and S2 audible. No peripheral edema. Abdomen soft nontender. Patient does have some rhonchi, cough. Results - Laboratory Findings CBC and BMP: 07/21/19 10:34 07/21/19 10:34 Abnormal Lab Findings: Abnormal Labs 07/21/19 07/21/19 07/21/19 10:34 10:34 10:34 Hgb 11.1 L Lymphocytes # 0.5 L APTT 20.3 L Sodium 132 L Chloride 97 L BUN 47 H Assessment and Plan Assessment: * 79-year-old female, with 4-5 days history of mental confusion, slight disorientation. Patient probably has mild delirium from recent COPD exacerbation, possible dehydration, possible oxygen CO2 mismatch. Examination is nonfocal. Patient recently had suffered from shingles, therefore viral me ningitis is a concern, although low probability, as patient has no headache, is afebrile, and has normal white cells. * Computed tomography scan of head showed prominence of ventricles, rule out normal pressure hydrocephalus. Patient does not have significant gait apraxia or bladder issues. * COPD * History of lung cancer, currently in remission * History of compression fractures * X tobacco use Plan: * I discussed with patient about an MRI of the brain and lumbar puncture to elevate for above possibilities. Patient declined. She wants to talk to her family and her physicians before considering these testing. * I will check B12, folate. TSH is normal. * We will follow with you.
--- NOTE | 2019-07-21 22:03 | P.HPIM ---
History of Present Illness H&P Date: 07/21/19 Chief Complaint: Altered mental status History of presenting complaint: This is a pleasant 79-year-old patient who follows with Dr. Rojo. 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 Patient was diagnosed with lung cancer and was treated with chemotherapy and radiation treatment by Dr. Petersen. Patient presented to the ER with the daughter. Patient recently had herpes zoster. Patient presents with one-day of altered mental status. Unable to follow basic instructions at home. For example not taking her own pills and renal breathing treatment that she normally does on a daily basis. Today no fever or chills. No urinary symptoms. I know the patient from previous admissions. Patient is definitely slowed down. The patient is known to have underlying cognitive impairment. Denies any nausea vomiting. No headaches. Review of systems: GEN.: Tired EYES: None HEENT: Decreased hearing NECK: None RESPIRATORY: Occasional cough CARDIOVASCULAR: None GASTROINTESTINAL: None GENITOURINARY: None MUSCULOSKELETAL: Some pain in the joints] LYMPHATICS: None HEMATOLOGICAL: None PSYCHIATRY: Forgetful NEUROLOGICAL: None Past medical history: COPD, lung cancer, hypertension, GERD, thyroid nodule being followed, Social history: Lives with her daughter Smoked for 26 years stopped in 1987. No alcohol. Family history: Hypothyroidism Physical examination: VITAL SIGNS: 97.9, 77, 18, 139/74, 98% on 3 L GENERAL: Propped up in bed, awake, and watching television appears a bit distant EYES: Pupils equal. Conjunctiva pale. HEENT: External appearance of nose and ears normal, oral cavity grossly normal. NECK: JVD not raised; masses not palpable. HEART: First and second heart sounds are normal; mild edema. LUNGS: Respiratory rate increased, decreased breath sounds ABDOMEN: Soft, nontender, liver spleen not palpable, no masses palpable. LYMPHATICS: No lymph nodes palpable in the axilla and neck. PSYCH: Patient slow to answer questions. She no seasonal hospital. Take some time to see respiratory 20. NEUROLOGICAL: Cranial nerves grossly intact; no facial asymmetry, power and sensation grossly intact MUSCULAR skeletal: Evidence of OA especially in the hands Investigations reviewed in the clinical context: White count 4 hemoglobin 11.1 platelets 200 potassium 4.7 creatinine 0.87 Urine drug screen negative UA negative EKG tracing personally reviewed by me-left bundle branch block Chest x-ray film personally reviewed by me-shows some chronic changes. Hy perinflation. Demineralization. Kyphosis. Assessment: -This is a patient with known cognitive impairment closed used to be a bit more so than usual. Has no nausea vomiting. No headache. No change in vision. No fever or chills reported. Most likely this is progression of her underlying dementia. -Lung cancer status post chemo and radiation treatment. In remission -Essential hypertension -GERD -Primary osteoarthritis -COPD in an ex-smoker Plan: Neurology is being consulted. I did osseous change in sensorium. The speech therapist to do a full dementia evaluation. In the morning will check patient's TSH and B12. Lovenox for DVT prophylaxis. Clinically highly unlikely herpes simplex encephalitis. Past Medical History Past Medical History: Cancer, COPD, GERD/Reflux, Hypertension, Pneumonia, Thyroid Disorder Additional Past Medical History / Comment(s): Thyroid nodules being monitored. Emphysema, lung cancer History of Any Multi-Drug Resistant Organisms: None Reported Past Surgical History: Hernia Repair, Orthopedic Surgery, Tubal Ligation Additional Past Surgical History / Comment(s): Bilateral inguinal hernia repairs, colonoscopies with benign polypectomies, right hip sx after fall July 2018 Past Anesthesia/Blood Transfusion Reactions: No Reported Reaction Past Psychological History: No Psychological Hx Reported Additional Psychological History / Comment(s): Pt resides alone. She is indpendent. She hasnt driven since hip fracture 08/06 Smoking Status: Never smoker Past Alcohol Use History: None Reported Additional Past Alcohol Use History / Comment(s): Pt started smoking in 1961 and quit about 1987. Past Drug Use History: None Reported - Past Family History Mother Family Medical History: Dementia Additional Family Medical History / Comment(s): Mother at age 83 yrs. Father Family Medical History: CVA/TIA Additional Family Medical History / Comment(s): Father had a CVA. He at the age of 83 yrs. Sister(s) Family Medical History: Thyroid Disorder Additional Family Medical History / Comment(s): hypothyroidism Medications and Allergies Home Medications Medication Instructions Recorded Confirmed Type Lisinopril [Zestril] 20 mg PO DAILY 06/03/17 07/21/19 History Folic Acid 1 mg PO HS 07/06/18 07/21/19 History Budesonide [Pulmicort] 1 mg INHALATION RT-BID nebu 08/12/18 07/21/19 Rx Polyethylene Glycol 3350 [Miralax] 17 gm PO DAILY 10/05/18 07/21/19 History Alendronate Sodium [Fosamax] 70 mg PO GARG 07/01/19 07/21/19 History Calcium Carbonate/Vitamin D3 1 tab PO HS 07/01/19 07/21/19 History [Caltrate 600 Plus D3 Tablet] Aspirin 325 mg PO DAILY@1700 07/21/19 07/21/19 History Docusate [Colace] 100 mg PO BID 07/21/19 07/21/19 History Ipratropium-Albuterol Nebulize 3 ml INHALATION RT-QID 07/21/19 07/21/19 History [Duoneb 0.5 mg-3 mg/3 ml Soln] Allergies Allergy/AdvReac Type Severity Reaction Status Date / Time No Known Allergies Allergy Verified 07/21/19 11:16 Physical Exam Vitals: Vital Signs Temp Pulse Pulse Resp BP BP Pulse Ox 07/21/19 19:56 97.9 F 80 15 112/66 100 07/21/19 19:36 88 18 07/21/19 19:16 87 18 07/21/19 16:02 100 07/21/19 15:44 97.9 F 77 18 139/74 98 07/21/19 13:58 97.7 F 76 16 129/79 100 07/21/19 13:46 69 07/21/19 13:35 71 07/21/19 12:46 72 18 139/77 98 07/21/19 09:47 97.4 F L 73 18 101/67 100 Intake and Output 07/21/19 07/21/19 07/21/19 06:59 14:59 22:59 Other: # Voids 1 Weight 43.998 kg 43.998 kg Results CBC & Chem 7: 07/21/19 10:34 07/21/19 18:59 Labs: Abnormal Lab Results - Last 24 Hours (Table) 07/21/19 07/21/19 07/21/19 Range/Units 10:34 10:34 10:34 Hgb 11.1 L (11.4-16.0) gm/dL Lymphocytes # 0.5 L (1.0-4.8) k/uL APTT 20.3 L (22.0-30.0) sec Sodium 132 L (137-145) mmol/L Chloride 97 L (98-107) mmol/L BUN 47 H (7-17) mg/dL Thrombosis Risk Factor Assmnt - Choose All That Apply Each Risk Factor Represents 3 Points: Age 75 years or older Thrombosis Risk Factor Assessment Total Risk Factor Score: 3 Thrombosis Risk Factor Assessment Level: Moderate Risk
[2019-07-21] MEDS: FOLIC ACID 1 MG TAB PO SCH (22:07)
[2019-07-22] MEDS: IPRATROPIUM-ALBUTEROL 3 ML NEB INHALATION SCH ×4 (07:34→20:30)
[2019-07-22] MEDS: BUDESONIDE 1 MG/2 ML NEBU INHALATION SCH ×2 (07:34→20:30)
[2019-07-22] MEDS: ENOXAPARIN 40 MG/0.4 ML SYRINGE SQ SCH (10:09)
[2019-07-22] MEDS: LISINOPRIL 20 MG TAB PO SCH (10:10)
[2019-07-22] MEDS: ASPIRIN 81 MG PO SCH (10:10)
[2019-07-22] MEDS: POLYETHYLENE GLYCOL 3350 17 GM POWD.PACK PO SCH (10:10)
[2019-07-22] MEDS: NYSTATIN 100,000 UNIT/ML SUSP 500,000 UNIT/5 ML CUP PO SCH ×4 (10:10→22:30)
[2019-07-22 12:51] LABS: Folate, Serum >24.0 ng/mL
--- NOTE | 2019-07-22 13:37 | MR ---
EXAMINATION TYPE: MR brain wo con DATE OF EXAM: 07/22/2019 COMPARISON: CT brain from [address] August 15, 2017 HISTORY: Confusion TECHNIQUE: Multiplanar, multisequence imaging of the brain and brainstem is performed without IV cont rast. FINDINGS: Diffusion weighted images demonstrate no evidence of a recent infarct or other diffusion abnormality. There is no worrisome extra-axial fluid collection. There is diffuse ventricular and sulcal prominenc e. Degree of ventricular dilatation not significantly changed from 2018 CT. There are scattered foci of T2 hyperintensity seen throughout the white matter bilaterally greatest at the periventricular lev els. Midline structures redemonstrates somewhat empty sella morphology. The craniocervical junction appea rs within normal limits. Normal vascular flow voids are present. Persistent small mucous retention cy st or polyp in the right sphenoid sinus otherwise the paranasal sinuses are clear. Globes are intact bilaterally. IMPRESSION: Redemonstration of moderate diffuse cerebral atrophy and chronic small vessel ischemic ch elías. No MRI evidence for recent infarct.
[2019-07-22 16:30] VITALS: BMI 17.4
--- NOTE | 2019-07-22 16:53 | P.PN ---
Subjective Progress Note Date: 07/22/19 Patient is sitting in the chair. Patient completely denies any headache. Denies problem with the vision. Denies any new numbness tingling focal weakness. Objective - Vital Signs Vital signs: Vital Signs Temp 98.3 F 07/22/19 15:00 Pulse 70 07/22/19 15:19 Resp 16 07/22/19 15:19 BP 98/70 07/22/19 15:00 Pulse Ox 98 07/22/19 15:00 Intake & Output 07/21/19 07/22/19 07/22/19 18:59 06:59 18:59 Intake Total 540 Balance 540 Weight 43.998 kg 44.5 kg Intake: Oral 540 Other: Voiding Method Bedside Commode # Voids 1 3 2 - Exam Patient's mentation is stable. Patient had MOCA performed by speech therapy, and she scored 8-10/30. Patient does have positive palmomental reflex on the left side. Mild visuospatial apraxia. Examination otherwise nonfocal. - Labs CBC & Chem 7: 07/21/19 10:34 07/21/19 18:59 Assessment and Plan Assessment: * 79-year-old female, with 4-5 days history of mental confusion, slight disorientation. Patient probably has mild delirium from recent COPD exacerbation, possible dehydration, possible oxygen CO2 mismatch. Examination is nonfocal. * Computed tomography scan of head showed prominence of ventricles, rule out normal pressure hydrocephalus. Patient does not have significant gait apraxia or bladder issues. * COPD * History of lung cancer, currently in remission * History of compression fractures * X tobacco use Plan: * Patient underwent MRI of the brain. It revealed redemonstration of moderate diffuse cerebral atrophy and chronic small vessel ischemic change. There is diffuse ventricular and sulcal prominence. On my review, there is definite some prominence of central atrophy slightly more prominent as compared to the amount of cortical atrophy. Patient does not have any gait issues or bladder issues, therefore no clinical evidence of NPH. Patient probably has senile dementia. * No indication for lumbar puncture at this time, as patient does not have any clinical clinical evidence of meningitis. She has no headache. She has no clinical feature of NPH. * B12 512, folate > 24. TSH is normal. * Neurologically clear for discharge. Patient to follow up with neurologist as outpatient for further evaluation of cognitive impairment. Patient may be a candidate for cognitive enhancing medication. Patient has been prescribed Seroquel 25 mg for confusion which happens during the day.
--- NOTE | 2019-07-22 20:18 | P.PN ---
Progress Note - Text Progress Note Date: 07/22/19 Chief Complaint: Altered mental status History of presenting complaint: This is a pleasant 79-year-old patient who follows with Dr. Rojo. 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 Patient was diagnosed with lung cancer and was treated with chemotherapy and radiation treatment by Dr. Petersen. Patient presented to the ER with the daughter. Patient recently had herpes zoster. Patient presents with one-day of altered mental status. Unable to follow basic instructions at h ome. For example not taking her own pills and renal breathing treatment that she normally does on a daily basis. no fever or chills. No urinary symptoms. I know the patient from previous admissions. Patient is definitely slowed down. The patient is known to have underlying cognitive impairment. Denies any nausea vomiting. No headaches. Admitted with-possibly progression of cognitive impairment. Today-sitting up. Confused at times. Tolerating diet. Denies any headache fever or chills. Review of systems: Was done for constitutional, cardiovascular, GI, pulmonary. relevant finding as above Active Medications Albuterol/Ipratropium (Duoneb 0.5 Mg-3 Mg/3 Ml Soln) 3 ml INHALATION RT-QID FOR[facility]LY [facility], 1928[facility]1983 Last Admin: 07/22/19 15:09 Dose: 3 ml Documented by: Aspirin (Aspirin) 81 mg PO DAILY [facility]LY [facility], [facility]1983 Last Admin: 07/22/19 10:10 Dose: 81 mg Documented by: Budesonide (Pulmicort) 1 mg INHALATION RT-BID [facility], [facility]–1983 Last Admin: 07/22/19 07:34 Dose: 1 mg Documented by: Enoxaparin Sodium (Lovenox) 40 mg SQ DAILY [facility], [facility]1983 Last Admin: 07/22/19 10:09 Dose: 40 mg Documented by: Folic Acid (Folic Acid) 1 mg PO HS [facility], [facility]1983 Last Admin: 07/21/19 22:07 Dose: 1 mg Documented by: Lisinopril (Zestril) 20 mg PO DAILY [facility]1983 Last Admin: 07/22/19 10:10 Dose: 20 mg Documented by: Nystatin (Mycostatin Oral Susp) 500,000 unit PO QID [facility], 1928–1983 Last Admin: 07/22/19 18:23 Dose: 500,000 unit Documented by: Polyethylene Glycol (Miralax) 17 gm PO DAILY [facility], [facility] Last Admin: 07/22/19 10:10 Dose: 17 gm Documented by: Quetiapine Fumarate (Seroquel) 25 mg PO HS JESS Physical examination: VITAL SIGNS: 98.3, 78, 19, 90-70, 98% on room air GENERAL: Propped up in bed, awake, comfortable EYES: Pupils equal. Conjunctiva pale. HEENT: External appearance of nose and ears normal, oral cavity grossly normal. NECK: JVD not raised; masses not palpable. HEART: First and second heart sounds are normal; mild edema. LUNGS: Respiratory rate increased, decreased breath sounds ABDOMEN: Soft, nontender, liver spleen not palpable, no masses palpable. LYMPHATICS: No lymph nodes palpable in the axilla and neck. PSYCH: Able to answer simple questions. Investigations reviewed in the clinical context: B12 normal, folate 124 TSH 0.924 MRI of the brain-moderate diffuse cerebral atrophy. Chronic small vessel ischemic changes. Previous testing White count 4 hemoglobin 11.1 platelets 200 potassium 4.7 creatinine 0.87 Urine drug screen negative UA negative EKG tracing personally reviewed by me-left bundle branch block Chest x-ray film personally reviewed by me-shows some chronic changes. Hyperinflation. Demineralization. Kyphosis. Assessment: -Major cognitive impairment possibly from late onset Alzheimer's dementia. [facility] cognitive assessment motion 8.1 patient's score 9 out of 30. No score being 26 or above. -Lung cancer status post chemo and radiation treatment. In remission -Essential hypertension -GERD -Primary osteoarthritis -COPD in an ex-smoker Plan: Discussed with Dr. Urbina from neurology. Most likely underlying dementia. Hopefully patient given discharge. Admitted to Dr. Urbina spoke to the daughter and MRI has been ordered. Reversible causes of dementia looked into. And currently the blood work is unremarkable. We'll start the patient on Seroquel tonight and watch overnight.
[2019-07-22] MEDS ORDERED: QUEtiapine 25 MG TAB PO SCH (21:00)
[2019-07-22] MEDS: FOLIC ACID 1 MG TAB PO SCH (22:30)
[2019-07-23 07:49] VITALS: BP 137/75; RESP 16; TEMP 97.8
[2019-07-23] MEDS: BUDESONIDE 1 MG/2 ML NEBU INHALATION SCH (07:52)
[2019-07-23] MEDS: IPRATROPIUM-ALBUTEROL 3 ML NEB INHALATION SCH ×2 (07:52→11:24)
[2019-07-23] MEDS: LISINOPRIL 20 MG TAB PO SCH (08:06)
[2019-07-23] MEDS: ASPIRIN 81 MG PO SCH (08:06)
[2019-07-23] MEDS: ENOXAPARIN 40 MG/0.4 ML SYRINGE SQ SCH (08:06)
[2019-07-23] MEDS: NYSTATIN 100,000 UNIT/ML SUSP 500,000 UNIT/5 ML CUP PO SCH ×2 (08:06→12:07)
[2019-07-23] MEDS: POLYETHYLENE GLYCOL 3350 17 GM POWD.PACK PO SCH (08:07)
[2019-07-23 11:29] VITALS: PULSE 72
--- NOTE | 2019-07-23 22:44 | P.DS ---
Providers Date of admission: 07/21/19 14:41 Expected date of discharge: 07/23/19 Attending physician: [facility] Peck Consults: 07/21/19 14:51 Consult Physician Stat Consulting Provider: Woody Denny Consult Reason/Comments: Altered mental status Do you want consulting provider notified?: Yes Primary care physician: [facility] Hospital Course: Chief Complaint: Altered mental status History of presenting complaint: This is a pleasant 79-year-old patient who follows with Dr. Rojo. 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 Patient was diagnosed with lung cancer and was treated with chemotherapy and radiation treatment by Dr. Petersen. Patient presented to the ER with the daughter. Patient recently had herpes zoster. Patient presents with one-day of altered mental status. Unable to follow basic instructions at home. For example not taking her own pills and renal breathing treatment that she normally does on a daily basis. no fever or chills. No urinary symptoms. I know the patient from previous admissions. Patient is definitely slowed down. The patient is known to have underlying cognitive impairment. Denies any nausea vomiting. No headaches. Admitted with-possibly progression of cognitive impairment. MRI of the brain showed chronic changes. Patient underwent a Montral cognitive impairment test. Scored poorly. Patient has significant dementia. Patient sometimes has been talking irrelevant stuff. Did better with Seroquel that was started last night Today-sitting up. Comfortable. Discussed with Dr. Urbina. Okay to discharge Consultation: Dr. Urbina from neurology Physical examination: VITAL SIGNS: 97.8, 75, 16, 137/75, GENERAL: Propped up in bed, awake, comfortable EYES: Pupils equal. Conjunctiva pale. HEENT: External appearance of nose and ears normal, oral cavity grossly normal. NECK: JVD not raised; masses not palpable. HEART: First and second heart sounds are normal; mild edema. LUNGS: Respiratory rate increased, decreased breath sounds ABDOMEN: Soft, nontender, liver spleen not palpable, no masses palpable. LYMPHATICS: No lymph nodes palpable in the axilla and neck. PSYCH: Able to answer simple questions. Investigations reviewed in the clinical context: B12 normal, folate 124 TSH 0.924 Previous testing White count 4 hemoglobin 11.1 platelets 200 potassium 4.7 creatinine 0.87 Urine drug screen negative UA negative EKG tracing personally reviewed by me-left bundle branch block Chest x-ray film personally reviewed by me-shows some chronic changes. Hyperinflation. Demineralization. Kyphosis. MRI of the brain-moderate diffuse cerebral atrophy. Chronic small vessel ischemic changes. Assessment: -Major cognitive impairment possibly from late onset Alzheimer's dementia. Mo ntral cognitive assessment motion 8.1 patient's score 9 out of 30. Normal score being 26 or above. -Lung cancer status post chemo and radiation treatment. In remission -Essential hypertension -GERD -Primary osteoarthritis -COPD in an ex-smoker Disposition: Home with daughter Patient Condition at Discharge: Stable Plan - Discharge Summary Discharge Rx Participant: No New Discharge Prescriptions: New Aspirin 81 mg PO DAILY chew Sennosides-Docusate Sodium [Senokot-S] 1 tab PO HS #30 tablet QUEtiapine [SEROquel] 25 mg PO HS #30 tab Continue Lisinopril [Zestril] 20 mg PO DAILY Folic Acid 1 mg PO HS Budesonide [Pulmicort] 1 mg INHALATION RT-BID nebu Polyethylene Glycol 3350 [Miralax] 17 gm PO DAILY Alendronate Sodium [Fosamax] 70 mg PO GARG Calcium Carbonate/Vitamin D3 [Caltrate 600 Plus D3 Tablet] 1 tab PO HS Ipratropium-Albuterol Nebulize [Duoneb 0.5 mg-3 mg/3 ml Soln] 3 ml INHALATION RT-QID Discontinued Docusate [Colace] 100 mg PO BID Aspirin 325 mg PO DAILY@1700 Discharge Medication List Lisinopril [Zestril] 20 mg PO DAILY 06/03/17 [History] Folic Acid 1 mg PO HS 07/06/18 [History] Budesonide [Pulmicort] 1 mg INHALATION RT-BID nebu 08/12/18 [Rx] Polyethylene Glycol 3350 [Miralax] 17 gm PO DAILY 10/05/18 [History] Alendronate Sodium [Fosamax] 70 mg PO GARG 07/01/19 [History] Calcium Carbonate/Vitamin D3 [Caltrate 600 Plus D3 Tablet] 1 tab PO HS 07/01/19 [History] Ipratropium-Albuterol Nebulize [Duoneb 0.5 mg-3 mg/3 ml Soln] 3 ml INHALATION RT-QID 07/21/19 [History] Aspirin 81 mg PO DAILY chew 06/03/20 [Rx] QUEtiapine [SEROquel] 25 mg PO HS #30 tab 07/22/19 [Rx] Sennosides-Docusate Sodium [Senokot-S] 1 tab PO HS #30 tablet 07/22/19 [Rx] Follow up Appointment(s)/Referral(s): Tiago Rojo DO [Primary Care Provider] - 1-2 days (office will be in contact after discharge to schedule follow-up appointment) [facility], [NON-STAFF] - As Needed Juancarlos Brooks DO [STAFF PHYSICIAN] - 1 Week (office closed at time of discharge, please call to make follow-up appointment.) Patient Instructions/Handouts: Altered Mental Status (GEN)
== END 2019-07-23 13:48 | disposition home health service (06) ==
LOC: EC 09:41 → 4SSUR 14:41
PROVIDERS: ADMIT Hospitalist; ATTEND Hospitalist
DX: F03.90 Unspecified dementia, unspecified severity, without behavioral disturbance, psychotic disturbance, mood disturbance, and anxiety (principal); G31.9 Degenerative disease of nervous system, unspecified; R41.89 Other symptoms and signs involving cognitive functions and awareness; Z92.21 Personal history of antineoplastic chemotherapy; Z92.3 Personal history of irradiation; I10 Essential (primary) hypertension; K21.9 Gastro-esophageal reflux disease without esophagitis; M19.91 Primary osteoarthritis, unspecified site; Z87.891 Personal history of nicotine dependence; Z85.118 Personal history of other malignant neoplasm of bronchus and lung; Z91.14 Patient's other noncompliance with medication regimen; E04.2 Nontoxic multinodular goiter; I44.7 Left bundle-branch block, unspecified; M19.042 Primary osteoarthritis, left hand; M19.041 Primary osteoarthritis, right hand; Z87.01 Personal history of pneumonia (recurrent); J43.9 Emphysema, unspecified; Z86.010 Personal history of colon polyps; Z11.59 Encounter for screening for other viral diseases; Z83.49 Family history of other endocrine, nutritional and metabolic diseases; Z82.3 Family history of stroke; Z79.82 Long term (current) use of aspirin; Z79.51 Long term (current) use of inhaled steroids; Z79.899 Other long term (current) drug therapy; Z79.83 Long term (current) use of bisphosphonates; Z87.898 Personal history of other specified conditions; Z87.311 Personal history of (healed) other pathological fracture
CPT/HCPCS: 96361 ×3; 96372 ×2; 96360; 99285; 36415; 94640 ×6; 93005; 92523; 97129; 97130; 83921; 80053; 84443; 82607; 82746; 82374; 84484; 85025; 85610; 85730; 81003; 80306; 71046; 70450; 70551; G0378 ×3; U0003; J1650 ×2

== ENCOUNTER 2019-07-30 11:12 | Inpatient (IN) | payer MEDICARE, BC ==
[2019-07-30] MEDS ORDERED: SODIUM CHLORIDE 0.9% 500 ML 500 ML IV STA (11:31)
--- NOTE | 2019-07-30 11:47 | ED ---
General Adult HPI - General Chief complaint: Fall Stated complaint: fall Time Seen by Provider: 07/30/19 11:19 Source: patient, RN notes reviewed, old records reviewed Mode of arrival: wheelchair Limitations: no limitations - History of Present Illness Initial comments: 79 yo female presenting with increased confusion, multiple falls, concern for the patient's ability to remain at home alone. Patient has been admitted twice in the past month. According to her son who is at bedside she's had multiple falls. No reported injury, no pain complaints. She has been more confused over the past several months and there is concern for progressive dementia. They contacted the primary care office today and recommended they present to the emergency department for evaluation and possible placement. No reported fever, patient has been eating and drinking well. No vomiting or diarrhea. - Related Data Home Medications Medication Instructions Recorded Confirmed Lisinopril [Zestril] 20 mg PO DAILY 06/03/17 07/30/19 Folic Acid 1 mg PO HS 07/06/18 07/30/19 Polyethylene Glycol 3350 [Miralax] 17 gm PO DAILY 10/05/18 07/30/19 Alendronate Sodium [Fosamax] 70 mg PO GARG 07/01/19 07/30/19 Calcium Carbonate/Vitamin D3 1 tab PO HS 07/01/19 07/30/19 [Caltrate 600 Plus D3 Tablet] Ipratropium-Albuterol Nebulize 3 ml INHALATION RT-Q4H 07/21/19 07/30/19 [Duoneb 0.5 mg-3 mg/3 ml Soln] Budesonide [Pulmicort] 1 mg INHALATION RT-DAILY 07/30/19 07/30/19 Previous Rx's Medication Instructions Recorded Aspirin 81 mg PO DAILY chew 07/22/19 QUEtiapine [SEROquel] 25 mg PO HS #30 tab 07/22/19 Sennosides-Docusate Sodium 1 tab PO HS #30 tablet 07/22/19 [Senokot-S] Allergies Allergy/AdvReac Type Severity Reaction Status Date / Time No Known Allergies Allergy Verified 07/30/19 12:44 Review of Systems ROS Statement: Those systems with pertinent positive or pertinent negative responses have been documented in the HPI. ROS Other: All systems not noted in ROS Statement are negative. Past Medical History Past Medical History: Cancer, COPD, GERD/Reflux, Hypertension, Pneumonia, Thyroid Disorder Additional Past Medical History / Comment(s): Thyroid nodules being monitored. Emphysema, lung cancer History of Any Multi-Drug Resistant Organisms: None Reported Past Surgical History: Hernia Repair, Orthopedic Surgery, Tubal Ligation Additional Past Surgical History / Comment(s): Bilateral inguinal hernia repairs, colonoscopies with benign polypectomies, right hip sx after fall July 2018 Past Anesthesia/Blood Transfusion Reactions: No Reported Reaction Past Psychological History: No Psychological Hx Reported Smoking Status: Never smoker Past Alcohol Use History: None Reported Past Drug Use History: None Reported - Past Family History Mother Family Medical History: Dementia Additional Family Medical History / Comment(s): Mother at age 83 yrs. Father Family Medical History: CVA/TIA Additional Family Medical History / Comment(s): Father had a CVA. He at the age of 83 yrs. Sister(s) Family Medical History: Thyroid Disorder Additional Family Medical History / Comment(s): hypothyroidism General Exam Limitations: no limitations General appearance: alert, in no apparent distress Head exam: Present: atraumatic, normocephalic Eye exam: Present: normal appearance, PERRL ENT exam: Present: mucous membranes dry Neck exam: Present: normal inspection. Absent: tenderness, meningismus Respiratory exam: Present: normal lung sounds bilaterally. Absent: respiratory distress, wheezes Cardiovascular Exam: Present: regular rate, normal rhythm GI/Abdominal exam: Present: soft. Absent: distended, tenderness, guarding, rebound Extremities exam: Present: normal inspection, normal capillary refill. Absent: pedal edema Neurological exam: Present: alert, CN II-XII intact. Absent: oriented X3 (2), motor sensory deficit Psychiatric exam: Present: normal affect, normal mood Skin exam: Present: warm, dry, intact. Absent: cyanosis, diaphoretic Course Vital Signs 07/30/19 07/30/19 07/30/19 11:14 11:54 12:00 Temperature 98.1 F Pulse Rate 80 Respiratory 18 Rate Blood Pressure 124/74 120/67 O2 Sat by Pulse 97 94 L 96 Oximetry 07/30/19 12:30 Temperature Pulse Rate Respiratory Rate Blood Pressure 131/73 O2 Sat by Pulse 96 Oximetry EKG Findings - EKG Comments: EKG Findings:: EKG: Normal sinus rhythm, left bundle branch block, rate of 75, [place] interval 162, QRS duration 156, QTC 457, no significant change compared to prior. Medical Decision Making - Medical Decision Making 79-year-old female presenting for multiple falls, confusion, inability to care for herself at home. Patient's family requesting placement. She has a CBC sh owing mild anemia hemoglobin of 11, normal electrolytes, urinalysis is pending, chest x-ray negative for focal pneumonia. Patient will be admitted with social media marketing manager on consult. Case is discussed with Dr. Peck who will accept admission. - Lab Data Result diagrams: 07/30/19 11:52 07/30/19 11:52 Lab Results 07/30/19 07/30/19 07/30/19 Range/Units 11:52 11:52 11:52 WBC 4.1 (3.8-10.6) k/uL RBC 3.81 (3.80-5.40) m/uL Hgb 11.0 L (11.4-16.0) gm/dL Hct 33.9 L (34.0-46.0) % MCV 88.9 (80.0-100.0) fL MCH 28.8 (25.0-35.0) pg MCHC 32.5 (31.0-37.0) g/dL RDW 14.8 (11.5-15.5) % Plt Count 225 (150-450) k/uL Neutrophils % 80 % Lymphocytes % 11 % Monocytes % 6 % Eosinophils % 1 % Basophils % 0 % Neutrophils # 3.3 (1.3-7.7) k/uL Lymphocytes # 0.4 L (1.0-4.8) k/uL Monocytes # 0.3 (0-1.0) k/uL Eosinophils # 0.1 (0-0.7) k/uL Basophils # 0.0 (0-0.2) k/uL PT 9.9 (9.0-12.0) sec INR 1.0 (<1.2) APTT 22.7 (22.0-30.0) sec Sodium 134 L (137-145) mmol/L Potassium 4.0 (3.5-5.1) mmol/L Chloride 100 (98-107) mmol/L Carbon Dioxide 29 (22-30) mmol/L Anion Gap 5 mmol/L BUN 26 H (7-17) mg/dL Creatinine 0.61 (0.52-1.04) mg/dL Est GFR (CKD-EPI)AfAm >90 (>60 ml/min/1.73 sqM) Est GFR (CKD-EPI)NonAf 87 (>60 ml/min/1.73 sqM) Glucose 86 (74-99) mg/dL Plasma Lactic Acid Daniel (0.7-2.0) mmol/L Calcium 9.2 (8.4-10.2) mg/dL Magnesium 1.8 (1.6-2.3) mg/dL Total Bilirubin 0.4 (0.2-1.3) mg/dL AST 22 (14-36) U/L ALT 15 (4-34) U/L Alkaline Phosphatase 52 (38-126) U/L Troponin I (0.000-0.034) ng/mL Total Protein 6.3 (6.3-8.2) g/dL Albumin 3.6 (3.5-5.0) g/dL 07/30/19 07/30/19 Range/Units 11:52 11:52 WBC (3.8-10.6) k/uL RBC (3.80-5.40) m/uL Hgb (11.4-16.0) gm/dL Hct (34.0-46.0) % MCV (80.0-100.0) fL MCH (25.0-35.0) pg MCHC (31.0-37.0) g/dL RDW (11.5-15.5) % Plt Count (150-450) k/uL Neutrophils % % Lymphocytes % % Monocytes % % Eosinophils % % Basophils % % Neutrophils # (1.3-7.7) k/uL Lymphocytes # (1.0-4.8) k/uL Monocytes # (0-1.0) k/uL Eosinophils # (0-0.7) k/uL Basophils # (0-0.2) k/uL PT (9.0-12.0) sec INR (<1.2) APTT (22.0-30.0) sec Sodium (137-145) mmol/L Potassium (3.5-5.1) mmol/L Chloride (98-107) mmol/L Carbon Dioxide (22-30) mmol/L Anion Gap mmol/L BUN (7-17) mg/dL Creatinine (0.52-1.04) mg/dL Est GFR (CKD-EPI)AfAm (>60 ml/min/1.73 sqM) Est GFR (CKD-EPI)NonAf (>60 ml/min/1.73 sqM) Glucose (74-99) mg/dL Plasma Lactic Acid Daniel 0.9 (0.7-2.0) mmol/L Calcium (8.4-10.2) mg/dL Magnesium (1.6-2.3) mg/dL Total Bilirubin (0.2-1.3) mg/dL AST (14-36) U/L ALT (4-34) U/L Alkaline Phosphatase (38-126) U/L Troponin I <0.012 (0.000-0.034) ng/mL Total Protein (6.3-8.2) g/dL Albumin (3.5-5.0) g/dL Disposition Clinical Impression: Status post fall, Altered mental status Disposition: ADMITTED IP TO [facility] Condition: Stable Is patient prescribed a controlled substance at d/c from ED?: No Referrals: Tiago Rojo DO [Primary Care Provider] - 1-2 days Decision to Admit Reason: Admit from EC Decision Date: 07/30/19 Decision Time: 13:26
[2019-07-30 12:08] LABS: Basophils % (A) 0 %; Eosinophils # (A) 0.1 k/uL (0-0.7); Eosinophils % (A) 1 %; HCT 33.9 % (34.0-46.0); Lymphocytes # (A) 0.4 k/uL (1.0-4.8); Lymphocytes % (A) 11 %; MCH 28.8 pg (25.0-35.0); MCHC 32.5 g/dL (31.0-37.0); MCV 88.9 fL (80.0-100.0); Mean Platelet Volume 6.7; Monocytes # (A) 0.3 k/uL (0-1.0); Monocytes % (A) 6 %; Neutrophils # (A) 3.3 k/uL (1.3-7.7); Neutrophils % (A) 80 %; Platelet Count 225 k/uL (150-450); RBC 3.81 m/uL (3.80-5.40); RDW 14.8 % (11.5-15.5); WBC 4.1 k/uL (3.8-10.6)
[2019-07-30 12:18] LABS: ALT 15 U/L (4-34); AST 22 U/L (14-36); African American GFR (CKD) >90 (>60 ml/min/1.73 sqM); Albumin 3.6 g/dL (3.5-5.0); Alkaline Phosphatase 52 U/L (38-126); Anion Gap 5 mmol/L; Blood Urea Nitrogen 26 mg/dL (7-17); Calcium 9.2 mg/dL (8.4-10.2); Carbon Dioxide 29 mmol/L (22-30); Chloride 100 mmol/L (98-107); Glucose 86 mg/dL (74-99); Magnesium 1.8 mg/dL (1.6-2.3); Non-African American GFR(CKD) 87 (>60 ml/min/1.73 sqM); Sodium 134 mmol/L (137-145); Total Bilirubin 0.4 mg/dL (0.2-1.3); Total Protein 6.3 g/dL (6.3-8.2)
[2019-07-30 12:23] LABS: Partial Thromboplastin Time 22.7 sec (22.0-30.0); Prothrombin Time 9.9 sec (9.0-12.0)
--- NOTE | 2019-07-30 12:27 | XR ---
EXAMINATION TYPE: XR chest 2V DATE OF EXAM: 07/30/2019 COMPARISON: 07/21/2019 TECHNIQUE: PA and lateral views submitted. HISTORY: Weakness FINDINGS: The lungs are clear and there is no pneumothorax, pleural effusion, or focal pneumonia. Hyperinflat ion. Atherosclerotic change aorta. Diffuse osteopenia with numerous compression deformities which shae ear to be chronic within the thoracic spine result in a kyphosis. Diffuse osteopenia. Biapical pleura l thickening. Atherosclerotic change of the aorta. No acute consolidation. There are persistent a rig ht apical density stable from the prior exam. IMPRESSION: 1. COPD with stable right apical spiculated mass unchanged from prior exam. Correlate for history of malignancy.
[2019-07-30] MEDS ORDERED: NALOXONE 0.4 MG/ML 1 ML VIAL IV PRN (13:23)
[2019-07-30] MEDS ORDERED: MELATONIN 3 MG TABLET PO PRN (13:30)
[2019-07-30] MEDS ORDERED: MAG HYDROX/AL HYDROX/SIMETH 30 ML CUP PO PRN (13:30)
[2019-07-30] MEDS ORDERED: ONDANSETRON 4 MG/2 ML VIAL IVP PRN (13:30)
[2019-07-30] MEDS ORDERED: MAGNESIUM HYDROXIDE 2,400 MG/10 ML CUP PO PRN (13:30)
[2019-07-30] MEDS ORDERED: LACTULOSE 20 GM/30 ML CUP PO PRN (13:30)
[2019-07-30] MEDS ORDERED: CALCIUM CARBONATE 500 MG CHEWABLE PO PRN (13:30)
[2019-07-30] MEDS ORDERED: ACETAMINOPHEN TAB 325 MG TAB PO PRN (13:30)
[2019-07-30 13:38] LABS: Appearance,Urine Clear (Clear); Bilirubin,Urine Negative (Negative); Blood,Urine Trace (Negative); Color,Urine Yellow; Glucose,Urine (UA) Trace (Negative); Ketones,Urine Trace (Negative); Leukocyte Esterase,Urine Negative (Negative); Mucus,Urine Rare /hpf; Nitrite,Urine Negative (Negative); Protein,Urine Negative (Negative); RBC,Urine 3 /hpf (0-5); Specific Gravity,Urine 1.023 (1.001-1.035); Squamous Epithelial Cell,Urine <1 /hpf (0-4); Urobilinogen,Urine <2.0 mg/dL (<2.0); WBC,Urine 1 /hpf (0-5)
[2019-07-30] MEDS: IPRATROPIUM-ALBUTEROL 3 ML NEB INHALATION SCH ×2 (15:15→19:07)
--- NOTE | 2019-07-30 18:14 | P.HPIM ---
History of Present Illness H&P Date: 07/30/19 Chief Complaint: Follow History of presenting complaint: This is a pleasant 79-year-old patient who follows with Dr. Rojo. Seen by me in the ER today. Patient's repairer pump Dr. 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 Patient was diagnosed with lung cancer and was treated with chemotherapy and radiation treatment by Dr. Petersen. Patient recently had herpes zoster. Recently the hospital from July 20 thr ough July 22.Admitted with-possibly progression of cognitive impairment. MRI of the brain showed chronic changes. Patient underwent a Montral cognitive impairment test. Scored poorly. Patient has significant dementia. Was seen by neurology. Patient now presents to the ER accompanied by her son. Has been feeling weak. Forgetful. No fever no chills. Breathing is okay. Patient took a fall one day ago. Occasionally feels dizzy. No chest pain no palpitation. Patient's son would like to have placement done as has but does sister.. Review of systems: GEN.: Tired EYES: None HEENT: Decreased hearing NECK: None RESPIRATORY: Occasional cough CARDIOVASCULAR: None GASTROINTESTINAL: None GENITOURINARY: None MUSCULOSKELETAL: Some pain in the joints] LYMPHATICS: None HEMATOLOGICAL: None PSYCHIATRY: Forgetful NEUROLOGICAL: None Past medical history: COPD, lung cancer, hypertension, GERD, thyroid nodule being followed, cognitive impairment with dementia Social history: Lives with her daughter Smoked for 26 years stopped in 1987. No alcohol. Family history: Hypothyroidism Physical examination: VITAL SIGNS: 98.1, 80, 18, 124/74, 97% on room air GENERAL: BMI 17.2 Propped up in bed, awake, a bit tired EYES: Pupils equal. Conjunctiva pale. HEENT: External appearance of nose and ears normal, oral cavity grossly normal. NECK: JVD not raised; masses not palpable. HEART: First and second heart sounds are normal; mild edema. LUNGS: Respiratory rate increased, decreased breath sounds ABDOMEN: Soft, nontender, liver spleen not palpable, no masses palpable. LYMPHATICS: No lymph nodes palpable in the axilla and neck. PSYCH: Able to answer simple questions though slow. NEUROLOGICAL: Cranial nerves grossly intact; no facial asymmetry, power and sensation grossly intact MUSCULAR skeletal: Evidence of OA especially in the hands, loss of muscle mass Investigations reviewed in the clinical context: White count 4.1 hemoglobin 11 platelets 225 potassium 4 bun 26 creatinine 0.61 EKG tracing personally reviewed by me-sinus rhythm with left bundle branch block Chest x-ray film personally reviewed by me-severe kyphosis, demineralization, some chronic changes Recent Montral testing for cognitive impairment-patient's scored poorly Recent TSH and B12 normal Assessment: -Recurrent falls from medical debility -Clinical myopathy -Moderate protein calorie malnutrition from decreased oral intake. Patient has bony prominences loss of fatty tissue and loss of muscle mass -Lung cancer status post chemo and radiation treatment. In remission -Essential hypertension -GERD -Primary osteoarthritis -COPD in an ex-smoker Plan: Spoke to patient's out of the bedside. The looking for long-term placement. PTOT has been consulted. environmental health safety manager and geriatric social work professor consulted. Home medications resumed. Lovenox. Fall precautions. Add ensure supplements Past Medical History Past Medical History: Cancer, COPD, GERD/Reflux, Hypertension, Pneumonia, Thyroid Disorder Additional Past Medical History / Comment(s): Thyroid nodules being monitored. Emphysema, lung cancer History of Any Multi-Drug Resistant Organisms: None Reported Past Surgical History: Hernia Repair, Orthopedic Surgery, Tubal Ligation Additional Past Surgical History / Comment(s): Bilateral inguinal hernia repairs, colonoscopies with benign polypectomies, right hip sx after fall July 2018 Past Anesthesia/Blood Transfusion Reactions: No Reported Reaction Past Psychological History: No Psychological Hx Reported Smoking Status: Never smoker Past Alcohol Use History: None Reported Past Drug Use History: None Reported - Past Family History Mother Family Medical History: Dementia Additional Family Medical History / Comment(s): Mother at age 83 yrs. Father Family Medical History: CVA/TIA Additional Family Medical History / Comment(s): Father had a CVA. He at the age of 83 yrs. Sister(s) Family Medical History: Thyroid Disorder Additional Family Medical History / Comment(s): hypothyroidism Medications and Allergies Home Medications Medication Instructions Recorded Confirmed Type Lisinopril [Zestril] 20 mg PO DAILY 06/03/17 07/30/19 History Folic Acid 1 mg PO 07/06/18 07/30/19 History Polyethylene Glycol 3350 [Miralax] 17 gm PO DAILY 10/05/18 07/30/19 History Alendronate Sodium [Fosamax] 70 mg PO GARG 07/01/19 07/30/19 History Calcium Carbonate/Vitamin D3 1 tab PO 07/01/19 07/30/19 History [Caltrate 600 Plus D3 Tablet] Ipratropium-Albuterol Nebulize 3 ml INHALATION RT-Q4H 07/21/19 07/30/19 History [Duoneb 0.5 mg-3 mg/3 ml Soln] Aspirin 81 mg PO DAILY chew 07/22/19 07/30/19 Rx QUEtiapine [SEROquel] 25 mg PO HS #30 tab 07/22/19 07/30/19 Rx Sennosides-Docusate Sodium 1 tab PO HS #30 tablet 07/22/19 07/30/19 Rx [Senokot-S] Budesonide [Pulmicort] 1 mg INHALATION RT-DAILY 07/30/19 07/30/19 History Allergies Allergy/AdvReac Type Severity Reaction Status Date / Time No Known Allergies Allergy Verified 07/30/19 12:44 Physical Exam Vitals: Vital Signs Temp Pulse Resp BP Pulse Ox 07/30/19 12:30 131/73 96 07/30/19 12:00 120/67 96 07/30/19 11:54 94 L 07/30/19 11:14 98.1 F 80 18 124/74 97 Intake and Output 07/29/19 07/30/19 07/30/19 22:59 06:59 14:59 Other: Weight 42.638 kg Results CBC & Chem 7: 07/30/19 11:52 07/30/19 11:52 Labs: Abnormal Lab Results - Last 24 Hours (Table) 07/30/19 07/30/19 Range/Units 11:52 11:52 Hgb 11.0 L (11.4-16.0) gm/dL Hct 33.9 L (34.0-46.0) % Lymphocytes # 0.4 L (1.0-4.8) k/uL Sodium 134 L (137-145) mmol/L BUN 26 H (7-17) mg/dL
[2019-07-30] MEDS: ENOXAPARIN 40 MG/0.4 ML SYRINGE SQ SCH (19:34)
[2019-07-30] MEDS: QUEtiapine 25 MG TAB PO SCH (20:45)
[2019-07-30] MEDS: SENNOSIDES-DOCUSATE SODIUM 1 EACH TAB PO SCH (20:45)
[2019-07-30] MEDS: FOLIC ACID 1 MG TAB PO SCH (20:45)
[2019-07-30] MEDS: CALCIUM CARB-VIT D 500MG-200UN 1 EACH TAB PO SCH (20:45)
[2019-07-31] MEDS: IPRATROPIUM-ALBUTEROL 3 ML NEB INHALATION SCH ×6 (00:26→19:54)
[2019-07-31] MEDS: BUDESONIDE 1 MG/2 ML NEBU INHALATION SCH (07:55)
[2019-07-31] MEDS: LISINOPRIL 20 MG TAB PO SCH (09:11)
[2019-07-31] MEDS: ASPIRIN 81 MG PO SCH (09:11)
[2019-07-31] MEDS: ENOXAPARIN 40 MG/0.4 ML SYRINGE SQ SCH (09:11)
[2019-07-31] MEDS: POLYETHYLENE GLYCOL 3350 17 GM POWD.PACK PO SCH (09:11)
[2019-07-31 12:20] VITALS: BMI 17.2
[2019-07-31] MEDS: FOLIC ACID 1 MG TAB PO SCH (20:37)
[2019-07-31] MEDS: CALCIUM CARB-VIT D 500MG-200UN 1 EACH TAB PO SCH (20:37)
[2019-07-31] MEDS: QUEtiapine 25 MG TAB PO SCH (20:37)
[2019-07-31] MEDS: SENNOSIDES-DOCUSATE SODIUM 1 EACH TAB PO SCH (20:37)
--- NOTE | 2019-07-31 21:33 | P.PN ---
Progress Note - Text Progress Note Date: 07/31/19 Chief Complaint: Falls History of presenting complaint: This is a pleasant 79-year-old patient who follows with Dr. Rojo. Seen by me in the ER today. Patient's casserole preparer Dr. 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 Patient was diagnosed with lung cancer and was treated with chemotherapy and radiation treatment by Dr. Petersen. Patient recently had herpes zoster. Recently the hospital from July 20 through July 22.Admitted with-possibly progression of cognitive impairment. MRI of the brain showed chronic changes. Patient underwent a Montral cognitive impairment test. Scored poorly. Patient has significant dementia. Was seen by neurology. Patient now presents to the ER accompanied by her son. Has been feeling weak. Forgetful. No fever no chills. Breathing is okay. Patient took a fall one day ago. Occasionally feels dizzy. No chest pain no palpitation. Patient's son would like to have placement done as has but does sister.. Admitted with falls and medical debility. Today-sitting up. Tolerating a diet. No new issues. Physical therapy is working. Review of systems: Was done for constitutional, cardiovascular, GI, pulmonary. relevant finding as above Active Medications Acetaminophen (Tylenol Tab) 650 mg PO Q6HR PRN PRN Reason: Mild Pain or Fever > 100.5 Al Hydroxide/Mg Hydroxide (Maalox) 15 ml PO Q6HR PRN PRN Reason: Indigestion Albuterol/Ipratropium (Duoneb 0.5 Mg-3 Mg/3 Ml Soln) 3 ml INHALATION RT-Q4H [facility] Last Admin: 07/31/19 19:54 Dose: 3 ml Documented by: Aspirin (Aspirin) 81 mg PO DAILY [facility] Last Admin: 07/31/19 09:11 Dose: 81 mg Documented by: Budesonide (Pulmicort) 1 mg INHALATION RT-DAILY [facility] Last Admin: 07/31/19 07:55 Dose: 1 mg Documented by: Calcium Carbonate (Oscal 500+D) 1 each PO HS [facility] Last Admin: 07/31/19 20:37 Dose: 1 each Documented by: Calcium Carbonate/Glycine (Tums) 1,000 mg PO Q4HR PRN PRN Reason: Dyspepsia Enoxaparin Sodium (Lovenox) 40 mg SQ DAILY [facility] Last Admin: 07/31/19 09:11 Dose: 40 mg Documented by: Folic Acid (Folic Acid) 1 mg PO HS [facility] Last Admin: 07/31/19 20:37 Dose: 1 mg Documented by: Lactulose (Cephulac) 20 gm PO DAILY PRN PRN Reason: Constipation Lisinopril (Zestril) 20 mg PO DAILY [facility] Last Admin: 07/31/19 09:11 Dose: 20 mg Documented by: Magnesium Hydroxide (Milk Of Magnesia) 2,400 mg PO DAILY PRN PRN Reason: Constipation Melatonin (Melatonin) 3 mg PO HS PRN PRN Reason: Insomnia Last Admin: 07/30/19 20:45 Dose: 3 mg Documented by: Naloxone HCl (Narcan) 0.2 mg IV Q2M PRN PRN Reason: Opioid Reversal Ondansetron HCl (Zofran) 4 mg IVP Q8HR PRN PRN Reason: Nausea And Vomiting Polyethylene Glycol (Miralax) 17 gm PO DAILY [facility] Last Admin: 07/31/19 09:11 Dose: 17 gm Documented by: Quetiapine Fumarate (Seroquel) 25 mg PO HS [facility] Last Admin: 07/31/19 20:37 Dose: 25 mg Documented by: Senna/Docusate Sodium (Senokot-S) 1 each PO HS [facility] Last Admin: 07/31/19 20:37 Dose: 1 each Documented by: Physical examination: VITAL SIGNS: 97.8, 75, 16, 109/67, 100% on 3 L GENERAL: Propped up in bed, awake EYES: Pupils equal. Conjunctiva pale. HEENT: External appearance of nose and ears normal, oral cavity grossly normal. NECK: JVD not raised; masses not palpable. HEART: First and second heart sounds are normal; mild edema. LUNGS: Respiratory rate increased, decreased breath sounds ABDOMEN: Soft, nontender, liver spleen not palpable, no masses palpable. LYMPHATICS: No lymph nodes palpable in the axilla and neck. PSYCH: Able to answer simple questions though slow. Investigations reviewed in the clinical context: White count 4.1 hemoglobin 11 platelets 225 potassium 4 bun 26 creatinine 0.61 EKG tracing personally reviewed by me-sinus rhythm with left bundle branch block Chest x-ray film personally reviewed by me-severe kyphosis, demineralization, some chronic changes Recent Montral testing for cognitive impairment-patient's scored poorly Recent TSH and B12 normal COVID 19 PCR-not detected Assessment: -Recurrent falls from medical debility -Clinical myopathy -Moderate protein calorie malnutrition from decreased oral intake. Patient has bony prominences loss of fatty tissue and loss of muscle mass -Lung cancer status post chemo and radiation treatment. In remission -Essential hypertension -GERD -Primary osteoarthritis -COPD in an ex-smoker -Major cognitive impairment likely from late onset Alzheimer's dementia. Plan: -Continue current medication treatment plan. PTOT of the case. Patient re quires a 3 night stay to go to [facility]. That'll be Saturday.
[2019-08-01] MEDS: IPRATROPIUM-ALBUTEROL 3 ML NEB INHALATION SCH ×5 (02:27→21:03)
[2019-08-01] MEDS: BUDESONIDE 1 MG/2 ML NEBU INHALATION SCH (07:39)
[2019-08-01] MEDS: ENOXAPARIN 40 MG/0.4 ML SYRINGE SQ SCH (09:08)
[2019-08-01] MEDS: ASPIRIN 81 MG PO SCH (09:08)
[2019-08-01] MEDS: POLYETHYLENE GLYCOL 3350 17 GM POWD.PACK PO SCH (09:08)
[2019-08-01] MEDS: LISINOPRIL 20 MG TAB PO SCH (09:08)
--- NOTE | 2019-08-01 18:36 | P.PN ---
Progress Note - Text Progress Note Date: 08/01/19 Chief Complaint: Falls History of presenting complaint: This is a pleasant 79-year-old patient who follows with Dr. Rojo. Seen by me in the ER today. Patient's emergency room registered nurse Dr. 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 Patient was diagnosed with lung cancer and was treated with chemotherapy and radiation treatment by Dr. Petersen. Patient recently had herpes zoster. Recently the hospital from July 20 through July 22.Admitted with-possibly progression of cognitive impairment. MRI of the brain showed chronic changes. Patient underwent a Montral cognitive impairment test. Scored poorly. Patient has significant dementia. Was seen by neurology. Patient now presents to the ER accompanied by her son. Has been feeling weak. Forgetful. No fever no chills. Breathing is okay. Patient took a fall one day ago. Occasionally feels dizzy. No chest pain no palpitation. Patient's son would like to have placement done as has but does sister.. Admitted with falls and medical debility. Today-sitting on bed. Did tolerate her diet. Pending the computed tomography scan ECF. Review of systems: Was done for constitutional, cardiovascular, GI, pulmonary. relevant finding as above Active Medications Acetaminophen (Tylenol Tab) 650 mg PO Q6HR PRN PRN Reason: Mild Pain or Fever > 100.5 Al Hydroxide/Mg Hydroxide (Maalox) 15 ml PO Q6HR PRN PRN Reason: Indigestion Albuterol/Ipratropium (Duoneb 0.5 Mg-3 Mg/3 Ml Soln) 3 ml INHALATION RT-Q4H [facility] Last Admin: 08/01/19 15:26 Dose: 3 ml Documented by: Aspirin (Aspirin) 81 mg PO DAILY [facility] Last Admin: 08/01/19 09:08 Dose: 81 mg Documented by: Budesonide (Pulmicort) 1 mg INHALATION RT-DAILY [facility] Last Admin: 08/01/19 07:39 Dose: 1 mg Documented by: Calcium Carbonate (Oscal 500+D) 1 each PO HS [facility] Last Admin: 07/31/19 20:37 Dose: 1 each Documented by: Calcium Carbonate/Glycine (Tums) 1,000 mg PO Q4HR PRN PRN Reason: Dyspepsia Enoxaparin Sodium (Lovenox) 40 mg SQ DAILY [facility] Last Admin: 08/01/19 09:08 Dose: 40 mg Documented by: Folic Acid (Folic Acid) 1 mg PO HS [facility] Last Admin: 07/31/19 20:37 Dose: 1 mg Documented by: Lactulose (Cephulac) 20 gm PO DAILY PRN PRN Reason: Constipation Lisinopril (Zestril) 20 mg PO DAILY [facility] Last Admin: 08/01/19 09:08 Dose: 20 mg Documented by: Magnesium Hydroxide (Milk Of Magnesia) 2,400 mg PO DAILY PRN PRN Reason: Constipation Melatonin (Melatonin) 3 mg PO HS PRN PRN Reason: Insomnia Last Admin: 07/30/19 20:45 Dose: 3 mg Documented by: Naloxone HCl (Narcan) 0.2 mg IV Q2M PRN PRN Reason: Opioid Reversal Ondansetron HCl (Zofran) 4 mg IVP Q8HR PRN PRN Reason: Nausea And Vomiting Polyethylene Glycol (Miralax) 17 gm PO DAILY [facility] Last Admin: 08/01/19 09:08 Dose: 17 gm Documented by: Quetiapine Fumarate (Seroquel) 25 mg PO HS [facility] Last Admin: 07/31/19 20:37 Dose: 25 mg Documented by: Senna/Docusate Sodium (Senokot-S) 1 each PO HS [facility] Last Admin: 07/31/19 20:37 Dose: 1 each Documented by: Physical examination: VITAL SIGNS: 98.2, 65, 17, 134/73, 99% room air GENERAL: Propped up in bed, awake EYES: Pupils equal. Conjunctiva pale. HEENT: External appearance of nose and ears normal, oral cavity grossly normal. NECK: JVD not raised; masses not palpable. HEART: First and second heart sounds are normal; mild edema. LUNGS: Respiratory rate normal,, decreased breath sounds ABDOMEN: Soft, nontender, liver spleen not palpable, no masses palpable. PSYCH: Able to answer simple questions Investigations reviewed in the clinical context: White count 4.1 hemoglobin 11 platelets 225 potassium 4 bun 26 creatinine 0.61 EKG tracing personally reviewed by me-sinus rhythm with left bundle branch block Chest x-ray film personally reviewed by me-severe kyphosis, demineralization, some chronic changes Recent Montral testing for cognitive impairment-patient's scored poorly Recent TSH and B12 normal COVID 19 PCR-not detected Assessment: -Recurrent falls from medical debility -Clinical myopathy -Moderate protein calorie malnutrition from decreased oral intake. Patient has bony prominences loss of fatty tissue and loss of muscle mass -Lung cancer status post chemo and radiation treatment. In remission -Essential hypertension -GERD -Primary osteoarthritis -COPD in an ex-smoker -Major cognitive impairment likely from late onset Alzheimer's dementia. Plan: -continue current medications. DC the ECF on Saturday.
[2019-08-01] MEDS: FOLIC ACID 1 MG TAB PO SCH (20:31)
[2019-08-01] MEDS: QUEtiapine 25 MG TAB PO SCH (20:31)
[2019-08-01] MEDS: CALCIUM CARB-VIT D 500MG-200UN 1 EACH TAB PO SCH (20:31)
[2019-08-01] MEDS: SENNOSIDES-DOCUSATE SODIUM 1 EACH TAB PO SCH (20:31)
[2019-08-02] MEDS: IPRATROPIUM-ALBUTEROL 3 ML NEB INHALATION SCH ×6 (04:12→23:20)
[2019-08-02] MEDS: BUDESONIDE 1 MG/2 ML NEBU INHALATION SCH (07:37)
[2019-08-02] MEDS: ASPIRIN 81 MG PO SCH (07:57)
[2019-08-02] MEDS: ENOXAPARIN 40 MG/0.4 ML SYRINGE SQ SCH (07:57)
[2019-08-02] MEDS: LISINOPRIL 20 MG TAB PO SCH (07:57)
[2019-08-02] MEDS: POLYETHYLENE GLYCOL 3350 17 GM POWD.PACK PO SCH (07:58)
--- NOTE | 2019-08-02 18:06 | P.PN ---
Progress Note - Text Progress Note Date: 08/02/19 Chief Complaint: Falls History of presenting complaint: This is a pleasant 79-year-old patient who follows with Dr. Rojo. Seen by me in the ER today. 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 Patient was diagnosed with lung cancer and was treated with chemotherapy and radiation treatment by Dr. Petersen. Patient recently had herpes zoster. Recently the hospital from July 20 through July 22.Admitted with-possibly progression of cognitive impairment. MRI of the brain showed chronic changes. Patient underwent a Montral cognitive impairment test. Scored poorly. Patient has significant dementia. Was seen by neurology. Patient now presents to the ER accompanied by her son. Has been feeling weak. Forgetful. No fever no chills. Breathing is okay. Patient took a fall one day ago. Occasionally feels dizzy. No chest pain no palpitation. Patient's son would like to have placement done as has but does sister.. Admitted with falls and medical debility. Today-comfortable. Tolerating a diet. No new issues. Review of systems: Was done for constitutional, cardiovascular, GI, pulmonary. relevant finding as above Active Medications Acetaminophen (Tylenol Tab) 650 mg PO Q6HR PRN PRN Reason: Mild Pain or Fever > 100.5 Al Hydroxide/Mg Hydroxide (Maalox) 15 ml PO Q6HR PRN PRN Reason: Indigestion Albuterol/Ipratropium (Duoneb 0.5 Mg-3 Mg/3 Ml Soln) 3 ml INHALATION RT-Q4H [facility] Last Admin: 08/02/19 15:20 Dose: 3 ml Documented by: Aspirin (Aspirin) 81 mg PO DAILY [facility] Last Admin: 08/02/19 07:57 Dose: 81 mg Documented by: Budesonide (Pulmicort) 1 mg INHALATION RT-DAILY [facility] Last Admin: 08/02/19 07:37 Dose: 1 mg Documented by: Calcium Carbonate (Oscal 500+D) 1 each PO HS [facility] Last Admin: 08/01/19 20:31 Dose: 1 each Documented by: Calcium Carbonate/Glycine (Tums) 1,000 mg PO Q4HR PRN PRN Reason: Dyspepsia Enoxaparin Sodium (Lovenox) 40 mg SQ DAILY [facility] Last Admin: 08/02/19 07:57 Dose: 40 mg Documented by: Folic Acid (Folic Acid) 1 mg PO HS [facility] Last Admin: 08/01/19 20:31 Dose: 1 mg Documented by: Lactulose (Cephulac) 20 gm PO DAILY PRN PRN Reason: Constipation Lisinopril (Zestril) 20 mg PO DAILY [facility] Last Admin: 08/02/19 07:57 Dose: 20 mg Documented by: Magnesium Hydroxide (Milk Of Magnesia) 2,400 mg PO DAILY PRN PRN Reason: Constipation Melatonin (Melatonin) 3 mg PO HS PRN PRN Reason: Insomnia Last Admin: 07/30/19 20:45 Dose: 3 mg Documented by: Naloxone HCl (Narcan) 0.2 mg IV Q2M PRN PRN Reason: Opioid Reversal Ondansetron HCl (Zofran) 4 mg IVP Q8HR PRN PRN Reason: Nausea And Vomiting Polyethylene Glycol (Miralax) 17 gm PO DAILY [facility] Last Admin: 08/02/19 07:58 Dose: 17 gm Documented by: Quetiapine Fumarate (Seroquel) 25 mg PO HS [facility] Last Admin: 08/01/19 20:31 Dose: 25 mg Documented by: Senna/Docusate Sodium (Senokot-S) 1 each PO HS [facility] Last Admin: 08/01/19 20:31 Dose: 1 each Documented by: Physical examination: VITAL SIGNS: 88.1, 73, 17, 1 35/74, 98% on 2 L GENERAL: Propped up in bed, awake EYES: Pupils equal. Conjunctiva pale. HEENT: External appearance of nose and ears normal, oral cavity grossly normal. NECK: JVD not raised; masses not palpable. HEART: First and second heart sounds are normal; mild edema. LUNGS: Respiratory rate normal,, decreased breath sounds ABDOMEN: Soft, nontender, liver spleen not palpable, no masses palpable. PSYCH: Able to answer simple questions Investigations reviewed in the clinical context: White count 4.1 hemoglobin 11 platelets 225 potassium 4 bun 26 creatinine 0.61 EKG tracing personally reviewed by me-sinus rhythm with left bundle branch block Chest x-ray film personally reviewed by me-severe kyphosis, demineralization, some chronic changes Recent Montral testing for cognitive impairment-patient's scored poorly Recent TSH and B12 normal COVID 19 PCR-not detected Assessment: -Recurrent falls from medical debility -Clinical myopathy -Moderate protein calorie malnutrition from decreased oral intake. Patient has bony prominences loss of fatty tissue and loss of muscle mass -Lung cancer status post chemo and radiation treatment. In remission -Essential hypertension -GERD -Primary osteoarthritis -COPD in an ex-smoker -Major cognitive impairment likely from late onset Alzheimer's dementia. Plan: -continue current medications. DC to ECF tomorrow. Discussed with the patient.
[2019-08-02] MEDS: CALCIUM CARB-VIT D 500MG-200UN 1 EACH TAB PO SCH (21:51)
[2019-08-02] MEDS: SENNOSIDES-DOCUSATE SODIUM 1 EACH TAB PO SCH (21:52)
[2019-08-02] MEDS: QUEtiapine 25 MG TAB PO SCH (21:52)
[2019-08-02] MEDS: FOLIC ACID 1 MG TAB PO SCH (21:52)
[2019-08-03] MEDS: IPRATROPIUM-ALBUTEROL 3 ML NEB INHALATION SCH ×3 (03:44→11:10)
[2019-08-03] MEDS: BUDESONIDE 1 MG/2 ML NEBU INHALATION SCH (07:09)
[2019-08-03] MEDS: POLYETHYLENE GLYCOL 3350 17 GM POWD.PACK PO SCH (08:46)
[2019-08-03] MEDS: ASPIRIN 81 MG PO SCH (08:48)
[2019-08-03] MEDS: ENOXAPARIN 40 MG/0.4 ML SYRINGE SQ SCH (08:48)
[2019-08-03] MEDS: LISINOPRIL 20 MG TAB PO SCH (08:56)
--- NOTE | 2019-08-03 09:54 | P.DS ---
Providers Date of admission: 07/30/19 13:23 Attending physician: [facility] Peck Primary care physician: Tiago Rojo [facility] Hospital Course: Diagnoses: -Recurrent falls from medical debility -Moderate protein calorie malnutrition from decreased oral intake. Patient has bony prominences loss of fatty tissue and loss of muscle mass. Could be related to her other medical problems including lung cancer -Lung cancer status post chemo and radiation treatment. In remission. Follow- up with Dr. more -Essential hypertension -GERD -Primary osteoarthritis -COPD in an ex-smoker -cognitive impairment likely from late onset Alzheimer's dementia. Hospital course: This is a pleasant 79-year-old patient who follows with Dr. Rojo. 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 Patient was diagnosed with lung cancer and was treated with chemotherapy and radiation treatment by Dr. Petersen. Patient recently had herpes zoster. Recently the hospital from July 20 through July 22.Admitted with- possibly progression of cognitive impairment. MRI of the brain showed chronic changes. Patient underwent a Montral cognitive impairment test. Scored poorly. Patient has significant dementia. Was seen by neurology. Patient now presents to the ER accompanied by her son. Has been feeling weak. Forgetful. No fever no chills. Breathing is okay. Patient took a fall one day earlier. Occasionally feels dizzy. No chest pain no palpitation. Patient's son would like to have placement done On the day of discharge patient is fully awake and oriented to time place and person, she knew she is in [facility] hospital, she noticed July, although she wasn't sure about the date. And she knew the name of the president Marcel. She was a short while she was in the hospital but she is aware about her history of lung cancer and she states she supposed to follow up with Dr. Petersen in one month. Follow-up recommendation is placed for the patient. Also patient denies specific symptoms, no chest pain or dyspnea, no abdominal pain, no fever, no nausea vomiting. Tolerating diet well. No change in her urine or bowel habits. Patient agrees to go to [facility] today Problems and management plan were discussed with the patient and he verbalized understanding and acceptance Patient was found stable and can be discharged home however he needs follow-up as an outpatient. Patient was instructed to follow up with PCP within one week and patient agrees Gen: patient is a AAOx3, no distress. CVS: S1-S2, RRR, no murmur Lungs: B/L CTA, no wheezing Abdomen: soft, no distention, no tenderness, positive bowel sounds Extremity: no leg edema or induration Time spent more than 35 minutes Patient Condition at Discharge: Stable Plan - Discharge Summary Discharge Rx Participant: No New Discharge Prescriptions: No Action Lisinopril [Zestril] 20 mg PO DAILY Folic Acid 1 mg PO HS Polyethylene Glycol 3350 [Miralax] 17 gm PO DAILY Alendronate Sodium [Fosamax] 70 mg PO GARG Calcium Carbonate/Vitamin D3 [Caltrate 600 Plus D3 Tablet] 1 tab PO HS Ipratropium-Albuterol Nebulize [Duoneb 0.5 mg-3 mg/3 ml Soln] 3 ml INHALATION RT-Q4H Aspirin 81 mg PO DAILY chew Sennosides-Docusate Sodium [Senokot-S] 1 tab PO HS #30 tablet QUEtiapine [SEROquel] 25 mg PO HS #30 tab Budesonide [Pulmicort] 1 mg INHALATION RT-DAILY Discharge Medication List Lisinopril [Zestril] 20 mg PO DAILY 06/03/17 [History] Folic Acid 1 mg PO HS 07/06/18 [History] Polyethylene Glycol 3350 [Miralax] 17 gm PO DAILY 10/05/18 [History] Alendronate Sodium [Fosamax] 70 mg PO GARG 07/01/19 [History] Calcium Carbonate/Vitamin D3 [Caltrate 600 Plus D3 Tablet] 1 tab PO HS 07/01/19 [History] Ipratropium-Albuterol Nebulize [Duoneb 0.5 mg-3 mg/3 ml Soln] 3 ml INHALATION RT-Q4H 07/21/19 [History] Aspirin 81 mg PO DAILY chew 07/22/19 [Rx] QUEtiapine [SEROquel] 25 mg PO HS #30 tab 07/22/19 [Rx] Sennosides-Docusate Sodium [Senokot-S] 1 tab PO HS #30 tablet 07/22/19 [Rx] Budesonide [Pulmicort] 1 mg INHALATION RT-DAILY 07/30/19 [History] Follow up Appointment(s)/Referral(s): Tiago Rojo DO [Primary Care Provider] - 1-2 days
[2019-08-03 13:04] VITALS: BP 125/69; PULSE 81; RESP 17; TEMP 97.5
--- NOTE | 2019-08-05 08:14 | CDI ---
Documentation Clarification Form Date: 08/05/19 From: Latosha Carvajal Phone: If you have a question about this query, please contact Luiza Elliott, Phytopathologist at [phone] between 8am and 5pm. Admit Date: 07/30/19 Discharge Date: 08/03/19 Patient Name: Mary Jo West Visit Number: [id number] ATTENTION: The Clinical Documentation Specialists (CDI) and [facility] Coding Staff appreciate your assistance in clarifying documentation. Please respond to the clarification below the line at the bottom and electronically sign. The CDI & [facility] Coding staff will review the response and follow-up if needed. Please note: Queries are made part of the Legal Health Record. If you have any questions, please contact the author of this message via ITS. Dear Dr. Peck Altered Mental Status was documented in the ED note. History/Risk Factors: Alzheimer's dementia, medical debility, anemia, history of lung cancer Clinical Indicators: Increased confusion Labs: Hgb/Hct - 11.0/33.9, Sodium 134, BUN 26 X Ray: COPD with stable right apical spiculated mass unchanged from prior exam. Treatment: 1/2 liter NS bolus In your professional opinion, please clarify the etiology of the Altered Mental Status, if known. Delirium (specify cause): Dementia (if know, specify Type and if with/without Behavioral Disturbance) Encephalopathy (specify Type and Underlying Medical Illness) Other condition (please specify) Unable to determine This query is already addressed in the progress note-no further changes in documentation MTDD
== END 2019-08-03 15:08 | DRG 57 ==
LOC: EC 11:12 → 5NMEDONC 13:23
PROVIDERS: ADMIT Hospitalist; ATTEND Hospitalist
DX: G30.1 Alzheimer's disease with late onset (principal); E44.0 Moderate protein-calorie malnutrition; R53.81 Other malaise; G72.9 Myopathy, unspecified; F02.80 Dementia in other diseases classified elsewhere, unspecified severity, without behavioral disturbance, psychotic disturbance, mood disturbance, and anxiety; I10 Essential (primary) hypertension; D64.9 Anemia, unspecified; J43.9 Emphysema, unspecified; K21.9 Gastro-esophageal reflux disease without esophagitis; M19.91 Primary osteoarthritis, unspecified site; R29.6 Repeated falls; E04.2 Nontoxic multinodular goiter; I45.10 Unspecified right bundle-branch block; Z11.59 Encounter for screening for other viral diseases; Z79.51 Long term (current) use of inhaled steroids; Z79.82 Long term (current) use of aspirin; Z79.83 Long term (current) use of bisphosphonates; Z79.899 Other long term (current) drug therapy; Z92.3 Personal history of irradiation; Z92.21 Personal history of antineoplastic chemotherapy; Z87.891 Personal history of nicotine dependence; Z85.118 Personal history of other malignant neoplasm of bronchus and lung; Z86.010 Personal history of colon polyps; Z98.51 Tubal ligation status; Z82.3 Family history of stroke; Z83.49 Family history of other endocrine, nutritional and metabolic diseases; Z82.0 Family history of epilepsy and other diseases of the nervous system; W19.XXXA Unspecified fall, initial encounter
CPT/HCPCS: 36415; 71046; 80053; 81001; 83605; 83735; 84484; 85025; 85610; 85730; 93005; 94640; 94760; 96360; 99285

== ENCOUNTER 2020-02-28 10:05 | Emergency (ER) | payer MEDICARE, BC ==
[2020-02-28] MEDS ORDERED: methylPREDNISolone SOD SUCCI 125 MG/2 ML VIAL IV STA (10:15)
[2020-02-28] MEDS ORDERED: IPRATROPIUM-ALBUTEROL 3 ML NEB INHALATION STA (10:15)
--- NOTE | 2020-02-28 10:21 | ED ---
SOB HPI - General Stated Complaint: Diff Breathing Time Seen by Provider: 02/28/20 10:08 Source: patient, EMS, RN notes reviewed Mode of arrival: EMS Limitations: no limitations - History of Present Illness Initial Comments: This is a 80-year-old female presents emergency department via EMS for [place] chief complaint of shortness of breath. Patient reportedly was short of breath earlier at facility area patient does have underlying COPD on 3 L oxygen chronically. Patient has no specific complaint this time other than mild chest tightness is not chest pain. She states her lungs it is tight. Patient does have underlying severe dementia. Patient also recently had covid. She denies any history of CHF no leg swelling no leg pain. Patient denies any other complaints. No reports of fevers or chills - Related Data Home Medications Medication Instructions Recorded Confirmed lisinopriL [Zestril] 20 mg PO DAILY 06/03/17 02/28/20 Folic Acid 1 mg PO HS 07/06/18 02/28/20 polyethylene glycoL 3350 [Miralax] 17 gm PO DAILY 10/05/18 02/28/20 Alendronate Sodium [Fosamax] 70 mg PO TU 07/01/19 02/28/20 Calcium Carbonate/Vitamin D3 1 tab PO HS 07/01/19 02/28/20 [Caltrate 600 Plus D3 Tablet] Ipratropium-Albuterol Nebulize 3 ml INHALATION RT-Q4H 07/21/19 02/28/20 [Duoneb 0.5 mg-3 mg/3 ml Soln] Budesonide [Pulmicort] 1 mg INHALATION RT-DAILY 07/30/19 02/28/20 ARIPiprazole [Abilify] 2 mg PO HS 02/28/20 02/28/20 Acetaminophen [Tylenol] 650 mg PO Q4H PRN 02/28/20 02/28/20 Magnesium Hydroxide [Milk of 7,200 mg PO DAILY PRN 02/28/20 02/28/20 Magnesia Concentrate] Na Phos,M-B/Na Phos,Di-Ba [Fleet 133 ml RECTAL DAILY PRN 02/28/20 02/28/20 Adult] bisacodyL [Dulcolax] 10 mg RECTAL DAILY PRN 02/28/20 02/28/20 Previous Rx's Medication Instructions Recorded Aspirin 81 mg PO DAILY chew 07/22/19 Sennosides-Docusate Sodium 1 tab PO HS #30 tablet 07/22/19 [Senokot-S] Calcium Carbonate [Tums] 1,000 mg PO Q4HR PRN chew 08/03/19 Lactulose [Cephulac] 20 gm PO DAILY PRN ml 08/03/19 Mag Hydrox/Al Hydrox/Simeth 15 ml PO Q6HR PRN ml 08/03/19 [Maalox] Azithromycin [Zithromax Z-pack (6 0 mg PO DIRECTED #1 pack 02/28/20 tabs)] predniSONE 50 mg PO DAILY #5 tab 02/28/20 Allergies Allergy/AdvReac Type Severity Reaction Status Date / Time No Known Allergies Allergy Verified 02/28/20 10:26 Review of Systems ROS Statement: Those systems with pertinent positive or pertinent negative responses have been documented in the HPI. ROS Other: All systems not noted in ROS Statement are negative. Past Medical History Past Medical History: Cancer, COPD, GERD/Reflux, Hypertension, Pneumonia, Thyroid Disorder Additional Past Medical History / Comment(s): Thyroid nodules being monitored. Emphysema, lung cancer History of Any Multi-Drug Resistant Organisms: None Reported Past Surgical History: Hernia Repair, Orthopedic Surgery, Tubal Ligation Additional Past Surgical History / Comment(s): Bilateral inguinal hernia repairs, colonoscopies with benign polypectomies, right hip sx after fallJuly 2018 Past Anesthesia/Blood Transfusion Reactions: No Reported Reaction Past Psychological History: No Psychological Hx Reported Past Alcohol Use History: None Reported Past Drug Use History: None Reported - Past Family History Mother Family Medical History: Dementia Additional Family Medical History / Comment(s): Mother at age 83 yrs. Father Family Medical History: CVA/TIA Additional Family Medical History / Comment(s): Father had a CVA. He at the age of 83 yrs. Sister(s) Family Medical History: Thyroid Disorder Additional Family Medical History / Comment(s): hypothyroidism General Exam General appearance: alert, in no apparent distress Head exam: Present: atraumatic, normocephalic, normal inspection Eye exam: Present: normal appearance, PERRL, EOMI. Absent: scleral icterus, conjunctival injection, periorbital swelling ENT exam: Present: normal exam, normal oropharynx, mucous membranes moist Neck exam: Present: normal inspection, full ROM. Absent: tenderness, meningismus, lymphadenopathy Respiratory exam: Present: normal lung sounds bilaterally. Absent: respiratory distress, wheezes, rales, rhonchi, stridor Cardiovascular Exam: Present: regular rate, normal rhythm, normal heart sounds. Absent: systolic murmur, diastolic murmur, rubs, gallop, clicks Extremities exam: Absent: pedal edema, calf tenderness Neurological exam: Present: alert, oriented X3 Skin exam: Present: warm, dry, intact, normal color. Absent: rash Course Vital Signs 02/28/20 02/28/20 02/28/20 10:21 10:40 10:56 Temperature 98.0 F Pulse Rate 82 84 74 Respiratory 20 Rate Blood Pressure 127/71 O2 Sat by Pulse 100 Oximetry 02/28/20 12:29 Temperature 97.8 F Pulse Rate 76 Respiratory 20 Rate Blood Pressure 96/68 O2 Sat by Pulse 98 Oximetry Medical Decision Making - Medical Decision Making 80-year-old female presented for [place]. Patient's arrived in no signs of stress was actually obtained and 100% on 3 L which is normal for her. Patient is awake alert. Patient's x-ray shows possible infiltrate. Patient's labwork reviewed no significant abnormality. Patient was given Rocephin, Solu-Medrol, DuoNeb treatment and is stable. Patient be discharged back to long term for antibiotics, close monitoring. - Lab Data Result diagrams: 02/28/20 11:23 02/28/20 10:48 Lab Results 02/28/20 02/28/20 02/28/20 Range/Units 10:48 10:48 10:48 WBC (3.8-10.6) k/uL RBC (3.80-5.40) m/uL Hgb (11.4-16.0) gm/dL Hct (34.0-46.0) % MCV (80.0-100.0) fL MCH (25.0-35.0) pg MCHC (31.0-37.0) g/dL RDW (11.5-15.5) % Plt Count (150-450) k/uL MPV Neutrophils % % Lymphocytes % % Monocytes % % Eosinophils % % Basophils % % Neutrophils # (1.3-7.7) k/uL Lymphocytes # (1.0-4.8) k/uL Monocytes # (0-1.0) k/uL Eosinophils # (0-0.7) k/uL Basophils # (0-0.2) k/uL Hypochromasia PT (9.0-12.0) sec INR (<1.2) APTT (22.0-30.0) sec Sodium 140 (137-145) mmol/L Potassium 4.2 (3.5-5.1) mmol/L Chloride 105 (98-107) mmol/L Carbon Dioxide 31 H (22-30) mmol/L Anion Gap 4 mmol/L BUN 17 (7-17) mg/dL Creatinine 0.41 L (0.52-1.04) mg/dL Est GFR (CKD-EPI)AfAm >90 (>60 ml/min/1.73 sqM) Est GFR (CKD-EPI)NonAf >90 (>60 ml/min/1.73 sqM) Glucose 92 (74-99) mg/dL Plasma Lactic Acid Daniel 1.1 (0.7-2.0) mmol/L Calcium 9.1 (8.4-10.2) mg/dL Magnesium 1.9 (1.6-2.3) mg/dL Total Bilirubin 0.5 (0.2-1.3) mg/dL AST 20 (14-36) U/L ALT 17 (4-34) U/L Alkaline Phosphatase 87 (38-126) U/L Troponin I <0.012 (0.000-0.034) ng/mL NT-Pro-B Natriuret Pep pg/mL Total Protein 6.2 L (6.3-8.2) g/dL Albumin 3.1 L (3.5-5.0) g/dL 02/28/20 02/28/20 02/28/20 Range/Units 10:48 11:23 11:23 WBC 9.7 (3.8-10.6) k/uL RBC 3.77 L (3.80-5.40) m/uL Hgb 10.3 L (11.4-16.0) gm/dL Hct 32.8 L (34.0-46.0) % MCV 87.1 (80.0-100.0) fL MCH 27.4 (25.0-35.0) pg MCHC 31.4 (31.0-37.0) g/dL RDW 15.6 H (11.5-15.5) % Plt Count 328 (150-450) k/uL MPV 7.0 Neutrophils % 78 % Lymphocytes % 13 % Monocytes % 7 % Eosinophils % 1 % Basophils % 0 % Neutrophils # 7.6 (1.3-7.7) k/uL Lymphocytes # 1.2 (1.0-4.8) k/uL Monocytes # 0.7 (0-1.0) k/uL Eosinophils # 0.1 (0-0.7) k/uL Basophils # 0.0 (0-0.2) k/uL Hypochromasia Slight PT 10.1 (9.0-12.0) sec INR 0.9 (<1.2) APTT 22.2 (22.0-30.0) sec Sodium (137-145) mmol/L Potassium (3.5-5.1) mmol/L Chloride (98-107) mmol/L Carbon Dioxide (22-30) mmol/L Anion Gap mmol/L BUN (7-17) mg/dL Creatinine (0.52-1.04) mg/dL Est GFR (CKD-EPI)AfAm (>60 ml/min/1.73 sqM) Est GFR (CKD-EPI)NonAf (>60 ml/min/1.73 sqM) Glucose (74-99) mg/dL Plasma Lactic Acid Daniel (0.7-2.0) mmol/L Calcium (8.4-10.2) mg/dL Magnesium (1.6-2.3) mg/dL Total Bilirubin (0.2-1.3) mg/dL AST (14-36) U/L ALT (4-34) U/L Alkaline Phosphatase (38-126) U/L Troponin I (0.000-0.034) ng/mL NT-Pro-B Natriuret Pep 655 pg/mL Total Protein (6.3-8.2) g/dL Albumin (3.5-5.0) g/dL - EKG Data -: EKG Interpreted by [facility] EKG Comments: EKG performed at 10:27 normal sinus rhythm with left bundle, rate of 81 54 QRS 144 QTC/46/471 no acute changes from prior EKG. Disposition Clinical Impression: COPD exacerbation, Pneumonia Disposition: HOME SELF-CARE Condition: Stable Instructions (If sedation given, give patient instructions): Pneumonia (ED) Additional Instructions: Please return to the Emergency Department if symptoms worsen or any other concerns. Prescriptions: predniSONE 50 mg PO DAILY #5 tab Azithromycin [Zithromax Z-pack (6 tabs)] 0 mg PO DIRECTED #1 pack Is patient prescribed a controlled substance at d/c from ED?: No Referrals: Tiago Rojo DO [Primary Care Provider] - 1-2 days Time of Disposition: 12:49
[2020-02-28 11:07] LABS: ALT 17 U/L (4-34); AST 20 U/L (14-36); African American GFR (CKD) >90 (>60 ml/min/1.73 sqM); Albumin 3.1 g/dL (3.5-5.0); Alkaline Phosphatase 87 U/L (38-126); Anion Gap 4 mmol/L; Blood Urea Nitrogen 17 mg/dL (7-17); Calcium 9.1 mg/dL (8.4-10.2); Carbon Dioxide 31 mmol/L (22-30); Chloride 105 mmol/L (98-107); Glucose 92 mg/dL (74-99); Magnesium 1.9 mg/dL (1.6-2.3); Non-African American GFR(CKD) >90 (>60 ml/min/1.73 sqM); Potassium 4.2 mmol/L (3.5-5.1); Sodium 140 mmol/L (137-145); Total Bilirubin 0.5 mg/dL (0.2-1.3); Total Protein 6.2 g/dL (6.3-8.2)
--- NOTE | 2020-02-28 11:10 | XR ---
EXAMINATION TYPE: XR chest 2V DATE OF EXAM: 02/28/2020 COMPARISON: 07/30/2019 TECHNIQUE: PA and lateral views submitted. HISTORY: Shortness of breath FINDINGS: Severe kyphosis with multilevel degenerative disc disease and numerous compression deformities. There is bilateral pleural effusion and consolidation at the lung bases with diffuse interstitial pattern. No pneumothorax. Atherosclerotic change aorta. Heart size normal. Diffuse osteopenia. IMPRESSION: 1. Increasing interstitial pattern with bilateral lower lobe infiltrate and small effusion. Correlate for mild CHF. Otherwise consider interstitial pneumonia.
[2020-02-28 11:32] LABS: Basophils % (A) 0 %; Eosinophils # (A) 0.1 k/uL (0-0.7); Eosinophils % (A) 1 %; HCT 32.8 % (34.0-46.0); HGB 10.3 gm/dL (11.4-16.0); Hypochromasia Slight; Lymphocytes # (A) 1.2 k/uL (1.0-4.8); Lymphocytes % (A) 13 %; MCH 27.4 pg (25.0-35.0); MCHC 31.4 g/dL (31.0-37.0); MCV 87.1 fL (80.0-100.0); Monocytes # (A) 0.7 k/uL (0-1.0); Monocytes % (A) 7 %; Neutrophils # (A) 7.6 k/uL (1.3-7.7); Neutrophils % (A) 78 %; Platelet Count 328 k/uL (150-450); RBC 3.77 m/uL (3.80-5.40); RDW 15.6 % (11.5-15.5); WBC 9.7 k/uL (3.8-10.6)
[2020-02-28 11:40] LABS: INR 0.9 (<1.2); Partial Thromboplastin Time 22.2 sec (22.0-30.0); Prothrombin Time 10.1 sec (9.0-12.0)
[2020-02-28] MEDS ORDERED: cefTRIAXone IN SWFI 1,000 MG/10 ML SYRINGE IVP STA (12:45)
[2020-02-28 14:38] VITALS: BP 110/60; PULSE 74; RESP 16; TEMP 98
== END 2020-02-28 14:37 | disposition home or self-care (01) ==
LOC: EC 10:05
DX: J44.0 Chronic obstructive pulmonary disease with (acute) lower respiratory infection (principal); J44.1 Chronic obstructive pulmonary disease with (acute) exacerbation; J18.9 Pneumonia, unspecified organism; K21.9 Gastro-esophageal reflux disease without esophagitis; I10 Essential (primary) hypertension; Z79.51 Long term (current) use of inhaled steroids; Z79.899 Other long term (current) drug therapy; Z85.118 Personal history of other malignant neoplasm of bronchus and lung
CPT/HCPCS: 36415; 94640; 93005; 83880; 80053; 83605; 83735; 84484; 85025; 85610; 85730; 71046; 99285; 96374; 96375; J2930; J0696

== ENCOUNTER 2020-12-18 22:32 | Inpatient (IN) | payer MEDICARE, BC ==
[2020-12-18 23:46] LABS: Basophils % (A) 0 %; Eosinophils # (A) 0.1 k/uL (0-0.7); Eosinophils % (A) 2 %; HCT 35.4 % (34.0-46.0); HGB 11.2 gm/dL (11.4-16.0); Lymphocytes # (A) 0.6 k/uL (1.0-4.8); Lymphocytes % (A) 10 %; MCH 29.1 pg (25.0-35.0); MCHC 31.8 g/dL (31.0-37.0); MCV 91.8 fL (80.0-100.0); Monocytes # (A) 0.4 k/uL (0-1.0); Monocytes % (A) 7 %; Neutrophils # (A) 4.2 k/uL (1.3-7.7); Neutrophils % (A) 79 %; Platelet Count 305 k/uL (150-450); RBC 3.86 m/uL (3.80-5.40); RDW 12.9 % (11.5-15.5); WBC 5.3 k/uL (3.8-10.6)
[2020-12-18 23:56] LABS: Prothrombin Time 10.3 sec (9.0-12.0)
[2020-12-19 00:01] LABS: ALT 14 U/L (4-34); AST 19 U/L (14-36); African American GFR (CKD) >90 (>60 ml/min/1.73 sqM); Albumin 3.5 g/dL (3.5-5.0); Alkaline Phosphatase 75 U/L (38-126); Anion Gap 6 mmol/L; Blood Urea Nitrogen 16 mg/dL (7-17); Calcium 9.7 mg/dL (8.4-10.2); Carbon Dioxide 31 mmol/L (22-30); Chloride 101 mmol/L (98-107); Glucose 105 mg/dL (74-99); Magnesium 1.8 mg/dL (1.6-2.3); Non-African American GFR(CKD) >90 (>60 ml/min/1.73 sqM); Potassium 4.2 mmol/L (3.5-5.1); Sodium 138 mmol/L (137-145); Total Bilirubin 0.3 mg/dL (0.2-1.3); Total Protein 6.6 g/dL (6.3-8.2)
[2020-12-19 00:03] LABS: Appearance,Urine Cloudy (Clear); Bacteria,Urine Few /hpf; Bilirubin,Urine Negative (Negative); Blood,Urine Moderate (Negative); Color,Urine Yellow; Glucose,Urine (UA) Negative (Negative); Ketones,Urine Trace (Negative); Leukocyte Esterase,Urine Large (Negative); Nitrite,Urine Positive (Negative); Protein,Urine Trace (Negative); RBC,Urine 47 /hpf (0-5); Specific Gravity,Urine 1.023 (1.001-1.035); Squamous Epithelial Cell,Urine 1 /hpf (0-4); Urobilinogen,Urine <2.0 mg/dL (<2.0); WBC,Urine 73 /hpf (0-5)
--- NOTE | 2020-12-19 00:33 | XR ---
EXAMINATION TYPE: XR chest 2V DATE OF EXAM: 12/18/2020 COMPARISON: NONE HISTORY: Weakness TECHNIQUE: 2 views FINDINGS: There is increased density medial and superior right upper lobe consistent with consolidati on and atelectasis. Left lung is clear. There is no heart failure. Facet aorta is atheromatous. There is pulmonary hyperinflation and flattening of the diaphragm. There is no pleural effusion. There is mild thoracic kyphotic deformity with anterior wedging of a few vertebra. IMPRESSION: COPD. Right upper lobe infiltrate and atelectasis that is increased compared to last exam . There is clearing of left lower lobe infiltrate compared to last exam.
[2020-12-19] MEDS ORDERED: ALBUTEROL NEBULIZED 2.5 MG/3 ML INHALATION PRN (01:09)
[2020-12-19] MEDS ORDERED: PNEUMONIA PROTOCOL UTILIZED 1 EACH MISC PO PRN (01:09)
[2020-12-19] MEDS ORDERED: bisacodyL 10 MG SUPP RECTAL PRN (01:13)
[2020-12-19] MEDS ORDERED: MAG HYDROX/AL HYDROX/SIMETH 30 ML CUP PO PRN (01:13)
[2020-12-19] MEDS ORDERED: PIPERACILLIN-TAZOBACTAM 3.375 GM in SODIUM CHLORIDE 0.9% 100 ML IVPB ONE (01:15)
[2020-12-19] MEDS ORDERED: AZITHROMYCIN 500 MG in SODIUM CHLORIDE 0.9% 250 ML IVPB ONE (01:15)
[2020-12-19] MEDS: SODIUM CHLORIDE 0.9% 1,000 ML IV SCH (01:46)
--- NOTE | 2020-12-19 02:07 | ED ---
Altered Mental Status HPI - General Chief Complaint: Recheck/Abnormal Lab/Rx Stated Complaint: low O2 Time Seen by Provider: 12/18/20 22:38 Source: EMS Mode of arrival: EMS Limitations: altered mental status - History of Present Illness Initial Comments: This patient is a 80-year-old woman with history of COPD transferred here from [facility]. The patient reportedly seeming more short of breath than usual. Patient also less cooperative with care at the [facility]. Per the patient's family this is usually a signal that she is getting sick. Patient not able to provide much history due to underlying dementia. It was noted at [facility] that the patient's pulse ox readings were lower than usual. They were obtaining readings down to the low 80s despite using her normal 2 L nasal cannula. In addition the patient was refusing to have nebulized treatments which she usually takes. Usually when she refuses treatments she has an infection going on. When I interview the patient, she denies any complaints, but she is not able to provide any additional history. MD Complaint: altered mental status -: hour(s) Severity: moderate Consistency of Symptoms: getting worse Context: history of similar presentation, COPD Associated Symptoms: denies other symptoms Treatments Prior to Arrival: oxygen - Related Data Home Medications Medication Instructions Recorded Confirmed lisinopriL [Zestril] 20 mg PO DAILY 06/03/17 02/28/20 Folic Acid 1 mg PO 07/06/18 02/28/20 polyethylene glycoL 3350 [Miralax] 17 gm PO DAILY 10/05/18 02/28/20 Alendronate Sodium [Fosamax] 70 mg PO TU 07/01/19 02/28/20 Calcium Carbonate/Vitamin D3 1 tab PO 07/01/19 02/28/20 [Caltrate 600 Plus D3 20 Mcg (800 Iu)] Ipratropium-Albuterol Nebulize 3 ml INHALATION RT-Q4H 07/21/19 02/28/20 [Duoneb 0.5 mg-3 mg/3 ml Soln] Budesonide [Pulmicort] 1 mg INHALATION RT-DAILY 07/30/19 02/28/20 ARIPiprazole [Abilify] 2 mg PO 02/28/20 02/28/20 Acetaminophen [Tylenol] 650 mg PO Q4H PRN 02/28/20 02/28/20 Magnesium Hydroxide [Milk of 7,200 mg PO DAILY PRN 02/28/20 02/28/20 Magnesia Concentrate] Na Phos,M-B/Na Phos,Di-Ba [Fleet 133 ml RECTAL DAILY PRN 02/28/20 02/28/20 Adult] bisacodyL [Dulcolax] 10 mg RECTAL DAILY PRN 02/28/20 02/28/20 Previous Rx's Medication Instructions Recorded Aspirin 81 mg PO DAILY chew 07/22/19 Sennosides-Docusate Sodium 1 tab PO HS #30 tablet 07/22/19 [Senokot-S] Calcium Carbonate [Tums] 1,000 mg PO Q4HR PRN chew 08/03/19 Lactulose [Cephulac] 20 gm PO DAILY PRN ml 08/03/19 Mag Hydrox/Al Hydrox/Simeth 15 ml PO Q6HR PRN ml 08/03/19 [Maalox] Azithromycin [Zithromax Z-pack (6 0 mg PO DIRECTED #1 pack 02/28/20 tabs)] predniSONE 50 mg PO DAILY #5 tab 02/28/20 Allergies Allergy/AdvReac Type Severity Reaction Status Date / Time No Known Allergies Allergy Verified 12/18/20 22:36 Review of Systems ROS Statement: Those systems with pertinent positive or pertinent negative responses have been documented in the HPI. ROS Other: All systems not noted in ROS Statement are negative. Limitations: ROS unobtainable due to patients medical condition (Underlying dementia) Constitutional: Denies: fever Respiratory: Reports: as per HPI, dyspnea Cardiovascular: Denies: chest pain Gastrointestinal: Denies: abdominal pain, vomiting Neurological: Denies: headache Past Medical History Past Medical History: Cancer, COPD, Dementia, GERD/Reflux, Hypertension, Pneumonia, Thyroid Disorder Additional Past Medical History / Comment(s): Thyroid nodules being monitored. Emphysema, lung cancer History of Any Multi-Drug Resistant Organisms: None Reported Past Surgical History: Hernia Repair, Orthopedic Surgery, Tubal Ligation Additional Past Surgical History / Comment(s): Bilateral inguinal hernia repairs, colonoscopies with benign polypectomies, right hip sx after fallJuly 2018 Past Anesthesia/Blood Transfusion Reactions: No Reported Reaction Past Psychological History: No Psychological Hx Reported Smoking Status: Former smoker Past Alcohol Use History: None Reported Past Drug Use History: None Reported - Past Family History Mother Family Medical History: Dementia Additional Family Medical History / Comment(s): Mother at age 83 yrs. Father Family Medical History: CVA/TIA Additional Family Medical History / Comment(s): Father had a CVA. He at the age of 83 yrs. Sister(s) Family Medical History: Thyroid Disorder Additional Family Medical History / Comment(s): hypothyroidism General Exam Limitations: no limitations General appearance: alert, in no apparent distress Head exam: Present: atraumatic, normocephalic Eye exam: Present: normal appearance. Absent: scleral icterus, conjunctival injection ENT exam: Present: mucous membranes dry Neck exam: Present: normal inspection Respiratory exam: Absent: respiratory distress, wheezes, rales (Bilateral bases), rhonchi, stridor, accessory muscle use, decreased breath sounds Cardiovascular Exam: Present: regular rate, normal rhythm, normal heart sounds, systolic murmur. Absent: diastolic murmur, rubs, gallop GI/Abdominal exam: Present: soft. Absent: distended, tenderness, guarding, rebound, rigid Extremities exam: Present: normal inspection, normal capillary refill. Absent: pedal edema, calf tenderness Back exam: Present: other (Kyphosis) Neurological exam: Present: alert. Absent: oriented X3 (Oriented to only to person), motor sensory deficit Skin exam: Present: warm, dry, intact, normal color. Absent: rash Course Vital Signs 12/18/20 12/19/20 22:37 00:09 Temperature 97.6 F Pulse Rate 89 83 Respiratory 20 20 Rate Blood Pressure 143/66 132/75 O2 Sat by Pulse 94 L 97 Oximetry Medical Decision Making - Medical Decision Making Patient is 80-year-old woman [facility]. There may be some right upper lobe infiltrate that appears worse. Patient also has possible urinary tract infection. Will admit for IV antibiotics. Verified the [facility] paperwork that relates patient CODE STATUS is DO NOT RESUSCITATE - Lab Data Result diagrams: 12/18/20 23:33 12/18/20 23:33 Lab Results 12/18/20 12/18/20 12/18/20 Range/Units 23:33 23:33 23:33 WBC 5.3 (3.8-10.6) k/uL RBC 3.86 (3.80-5.40) m/uL Hgb 11.2 L (11.4-16.0) gm/dL Hct 35.4 (34.0-46.0) % MCV 91.8 (80.0-100.0) fL MCH 29.1 (25.0-35.0) pg MCHC 31.8 (31.0-37.0) g/dL RDW 12.9 (11.5-15.5) % Plt Count 305 (150-450) k/uL MPV 7.0 Neutrophils % 79 % Lymphocytes % 10 % Monocytes % 7 % Eosinophils % 2 % Basophils % 0 % Neutrophils # 4.2 (1.3-7.7) k/uL Lymphocytes # 0.6 L (1.0-4.8) k/uL Monocytes # 0.4 (0-1.0) k/uL Eosinophils # 0.1 (0-0.7) k/uL Basophils # 0.0 (0-0.2) k/uL PT 10.3 (9.0-12.0) sec INR 1.0 (<1.2) APTT 24.0 (22.0-30.0) sec Sodium (137-145) mmol/L Potassium (3.5-5.1) mmol/L Chloride (98-107) mmol/L Carbon Dioxide (22-30) mmol/L Anion Gap mmol/L BUN (7-17) mg/dL Creatinine (0.52-1.04) mg/dL Est GFR (CKD-EPI)AfAm (>60 ml/min/1.73 sqM) Est GFR (CKD-EPI)NonAf (>60 ml/min/1.73 sqM) Glucose (74-99) mg/dL Plasma Lactic Acid Daniel (0.7-2.0) mmol/L Calcium (8.4-10.2) mg/dL Magnesium (1.6-2.3) mg/dL Total Bilirubin (0.2-1.3) mg/dL AST (14-36) U/L ALT (4-34) U/L Alkaline Phosphatase (38-126) U/L Troponin I (0.000-0.034) ng/mL NT-Pro-B Natriuret Pep pg/mL Total Protein (6.3-8.2) g/dL Albumin (3.5-5.0) g/dL Urine Color Yellow Urine Appearance Cloudy H (Clear) Urine pH 6.0 (5.0-8.0) Ur Specific [place] 1.023 (1.001-1.035) Urine Protein Trace H (Negative) Urine Glucose (UA) Negative (Negative) Urine Ketones Trace H (Negative) Urine Blood Moderate H (Negative) Urine Nitrite Positive H (Negative) Urine Bilirubin Negative (Negative) Urine Urobilinogen <2.0 (<2.0) mg/dL Ur Leukocyte Esterase Large H (Negative) Urine RBC 47 H (0-5) /hpf Urine WBC 73 H (0-5) /hpf Ur Squamous Epith Cells 1 (0-4) /hpf Urine Bacteria Few H (None) /hpf 12/18/20 12/18/20 12/18/20 Range/Units 23:33 23:33 23:33 WBC (3.8-10.6) k/uL RBC (3.80-5.40) m/uL Hgb (11.4-16.0) gm/dL Hct (34.0-46.0) % MCV (80.0-100.0) fL MCH (25.0-35.0) pg MCHC (31.0-37.0) g/dL RDW (11.5-15.5) % Plt Count (150-450) k/uL MPV Neutrophils % % Lymphocytes % % Monocytes % % Eosinophils % % Basophils % % Neutrophils # (1.3-7.7) k/uL Lymphocytes # (1.0-4.8) k/uL Monocytes # (0-1.0) k/uL Eosinophils # (0-0.7) k/uL Basophils # (0-0.2) k/uL PT (9.0-12.0) sec INR (<1.2) APTT (22.0-30.0) sec Sodium 138 (137-145) mmol/L Potassium 4.2 (3.5-5.1) mmol/L Chloride 101 (98-107) mmol/L Carbon Dioxide 31 H (22-30) mmol/L Anion Gap 6 mmol/L BUN 16 (7-17) mg/dL Creatinine 0.51 L (0.52-1.04) mg/dL Est GFR (CKD-EPI)AfAm >90 (>60 ml/min/1.73 sqM) Est GFR (CKD-EPI)NonAf >90 (>60 ml/min/1.73 sqM) Glucose 105 H (74-99) mg/dL Plasma Lactic Acid Daniel 0.7 (0.7-2.0) mmol/L Calcium 9.7 (8.4-10.2) mg/dL Magnesium 1.8 (1.6-2.3) mg/dL Total Bilirubin 0.3 (0.2-1.3) mg/dL AST 19 (14-36) U/L ALT 14 (4-34) U/L Alkaline Phosphatase 75 (38-126) U/L Troponin I <0.012 (0.000-0.034) ng/mL NT-Pro-B Natriuret Pep pg/mL Total Protein 6.6 (6.3-8.2) g/dL Albumin 3.5 (3.5-5.0) g/dL Urine Color Urine Appearance (Clear) Urine pH (5.0-8.0) Ur Specific [place] (1.001-1.035) Urine Protein (Negative) Urine Glucose (UA) (Negative) Urine Ketones (Negative) Urine Blood (Negative) Urine Nitrite (Negative) Urine Bilirubin (Negative) Urine Urobilinogen (<2.0) mg/dL Ur Leukocyte Esterase (Negative) Urine RBC (0-5) /hpf Urine WBC (0-5) /hpf Ur Squamous Epith Cells (0-4) /hpf Urine Bacteria (None) /hpf 12/18/20 Range/Units 23:33 WBC (3.8-10.6) k/uL RBC (3.80-5.40) m/uL Hgb (11.4-16.0) gm/dL Hct (34.0-46.0) % MCV (80.0-100.0) fL MCH (25.0-35.0) pg MCHC (31.0-37.0) g/dL RDW (11.5-15.5) % Plt Count (150-450) k/uL MPV Neutrophils % % Lymphocytes % % Monocytes % % Eosinophils % % Basophils % % Neutrophils # (1.3-7.7) k/uL Lymphocytes # (1.0-4.8) k/uL Monocytes # (0-1.0) k/uL Eosinophils # (0-0.7) k/uL Basophils # (0-0.2) k/uL PT (9.0-12.0) sec INR (<1.2) APTT (22.0-30.0) sec Sodium (137-145) mmol/L Potassium (3.5-5.1) mmol/L Chloride (98-107) mmol/L Carbon Dioxide (22-30) mmol/L Anion Gap mmol/L BUN (7-17) mg/dL Creatinine (0.52-1.04) mg/dL Est GFR (CKD-EPI)AfAm (>60 ml/min/1.73 sqM) Est GFR (CKD-EPI)NonAf (>60 ml/min/1.73 sqM) Glucose (74-99) mg/dL Plasma Lactic Acid Daniel (0.7-2.0) mmol/L Calcium (8.4-10.2) mg/dL Magnesium (1.6-2.3) mg/dL Total Bilirubin (0.2-1.3) mg/dL AST (14-36) U/L ALT (4-34) U/L Alkaline Phosphatase (38-126) U/L Troponin I (0.000-0.034) ng/mL NT-Pro-B Natriuret Pep 602 pg/mL Total Protein (6.3-8.2) g/dL Albumin (3.5-5.0) g/dL Urine Color Urine Appearance (Clear) Urine pH (5.0-8.0) Ur Specific [place] (1.001-1.035) Urine Protein (Negative) Urine Glucose (UA) (Negative) Urine Ketones (Negative) Urine Blood (Negative) Urine Nitrite (Negative) Urine Bilirubin (Negative) Urine Urobilinogen (<2.0) mg/dL Ur Leukocyte Esterase (Negative) Urine RBC (0-5) /hpf Urine WBC (0-5) /hpf Ur Squamous Epith Cells (0-4) /hpf Urine Bacteria (None) /hpf Disposition Clinical Impression: COPD exacerbation, Altered mental status, Urinary tract infection Narrative: Possible right upper lobe pneumonia Disposition: ADMITTED IP TO THIS HOSP Condition: Fair
[2020-12-19] MEDS ORDERED: CALCIUM CARBONATE 500 MG CHEWABLE PO PRN (04:00)
[2020-12-19] MEDS ORDERED: ACETAMINOPHEN TAB 325 MG TAB PO PRN (05:00)
[2020-12-19] MEDS: BUDESONIDE 1 MG/2 ML NEBU INHALATION SCH (07:34)
[2020-12-19] MEDS ORDERED: IPRATROPIUM-ALBUTEROL 3 ML NEB INHALATION SCH (08:00)
[2020-12-19] MEDS: polyethylene glycoL 3350 17 GM POWD.PACK PO SCH (08:25)
[2020-12-19] MEDS: lisinopriL 20 MG TAB PO SCH (08:25)
[2020-12-19] MEDS: ASPIRIN 81 MG PO SCH (08:25)
[2020-12-19] MEDS ORDERED: NA PHOS,M-B/NA PHOS,DI-BA 133 ML ENEMA RECTAL PRN (09:00)
[2020-12-19] MEDS ORDERED: MAGNESIUM HYDROXIDE 2,400 MG/10 ML CUP PO PRN (09:00)
[2020-12-19] MEDS ORDERED: LACTULOSE 20 GM/30 ML CUP PO PRN (09:00)
[2020-12-19] MEDS: PIPERACILLIN-TAZOBACTAM 3.375 GM in SODIUM CHLORIDE 0.9% 100 ML IVPB SCH ×2 (09:14→17:35)
[2020-12-19] MEDS: predniSONE 50 MG TAB PO SCH (09:15)
[2020-12-19] MEDS: ZINC OXIDE 20% OINT 28.4 GM TUBE TOPICAL SCH ×2 (11:35→20:48)
[2020-12-19] MEDS: IPRATROPIUM-ALBUTEROL 3 ML NEB INHALATION SCH ×3 (11:43→19:15)
[2020-12-19 11:59] VITALS: BMI 16.8
[2020-12-19] MEDS ORDERED: NON FORMULARY DRUG (Magic Cup 1 EACH Ml) PO SCH (12:00)
[2020-12-19] MEDS ORDERED: NON FORMULARY DRUG (Lactose-Reduced Food [Ensure Plus] 237 ML Ml) PO SCH (12:00)
--- NOTE | 2020-12-19 18:20 | P.HPIM ---
History of Present Illness H&P Date: 12/19/20 Chief Complaint: Decreased pulse ox History of presenting complaint: This is a 80-year-old patient who follows with Dr. Rojo at the [facility].. Seen by me in the ER today. 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 diagnosed with lung cancer and was treated with chemotherapy and radiation treatment by Dr. Petersen. Has significant underlying dementia. Patient was sent in from the [facility] because the staff told the EMS that patient has been refusing her medications for last 2 days and had a FiO2 of 81%. Normally she is on 2 L of nasal cannula. Patient is a poor historian. Sound congested. Tired. Review of systems: Unable to obtain as patient is rather lethargic tired. Past medical history: COPD, lung cancer, hypertension, GERD, thyroid nodule being followed, cognitive impairment with dementia Social history: Head [facility]. Smoked for 26 years stopped in 1987. No alcohol. Family history: Hypothyroidism Physical examination: VITAL SIGNS: 97.6, 89, 20, 1 43 x 66, 94% on room air GENERAL: BMI 16.8, propped up in bed, tired and lethargic but arousable. Congested cough EYES: Pupils equal. Conjunctiva pale. HEENT: External appearance of nose and ears normal, oral cavity grossly normal. NECK: JVD unable to assess; masses not palpable. HEART: First and second heart sounds are normal; mild edema. LUNGS: Respiratory rate increased, decreased breath sounds. Coarse crackles on the right side ABDOMEN: Soft, nontender, liver spleen not palpable, no masses palpable. LYMPHATICS: No lymph nodes palpable in the axilla and neck. PSYCH: Unable to assess patient rather lethargic NEUROLOGICAL: Cranial nerves grossly intact; facial asymmetry, moving all limbs MUSCULAR skeletal: Evidence of OA especially in the hands, loss of muscle mass, bony prominences Investigations reviewed in the clinical context: White count 5.3 hemoglobin 11.2 platelets 305 potassium 4.2 BUN 16 creatinine 0.5 UA positive for nitrite, new questions, WBC Coronavirus [PCR]: Not detected EKG tracing personally reviewed by me-left bundle-branch block. Rates 88 Chest x-ray film personally reviewed by me-comp 8 to x-ray from February of this year. Shows some worsening of infiltrate. Assessment and plan: -Suspect underlying aspiration pneumonia. This could be chemical pneumonitis. No fever no white count. IV Zosyn. Aspiration precautions. -Acute metabolic encephalopathy from underlying pneumonia. Follow clinically -Clinical myopathy, for malnutrition -Severe protein calorie malnutrition from decreased oral intake. Ensure 1 can 3 times a day -Lung cancer status post chemo and radiation treatment. In remission -Essential hypertension Zestril 20 mg daily -GERD -Primary osteoarthritis Pain medications as needed -COPD in an ex-smoker DuoNeb 4 times a day. Inhaled Pulmicort -Major cognitive impairment from late onset Alzheimer's dementia. -DO NOT RESUSCITATE Aspiration precautions. All feeding with assistance. IV Zosyn. Ensure. Resume home medications. Prognosis guarded. Given the complexity and severity of patient's condition expect the patient to be in the hospital at least for 2 overnights Past Medical History Past Medical History: Cancer, COPD, Dementia, GERD/Reflux, Hypertension, Pneumonia, Thyroid Disorder Additional Past Medical History / Comment(s): Thyroid nodules being monitored. Emphysema, lung cancer History of Any Multi-Drug Resistant Organisms: None Reported Past Surgical History: Hernia Repair, Orthopedic Surgery, Tubal Ligation Additional Past Surgical History / Comment(s): Bilateral inguinal hernia repairs, colonoscopies with benign polypectomies, right hip sx after fallJuly 2018 Past Anesthesia/Blood Transfusion Reactions: No Reported Reaction Smoking Status: Former smoker - Past Family History Mother Family Medical History: Dementia Additional Family Medical History / Comment(s): Mother at age 83 yrs. Father Family Medical History: CVA/TIA Additional Family Medical History / Comment(s): Father had a CVA. He at the age of 83 yrs. Sister(s) Family Medical History: Thyroid Disorder Additional Family Medical History / Comment(s): hypothyroidism Medications and Allergies Home Medications Medication Instructions Recorded Confirmed Type lisinopriL [Zestril] 20 mg PO DAILY@79906/03/17 12/19/20 History Folic Acid 1 mg PO DAILY@79907/06/18 12/19/20 History polyethylene glycoL 3350 [Miralax] 17 gm PO DAILY@79910/05/18 12/19/20 History Alendronate Sodium [Fosamax] 70 mg PO TH@79907/01/19 12/19/20 History Calcium Carbonate/Vitamin D3 1 tab PO DAILY@79907/01/19 12/19/20 History [Caltrate 600 Plus D3 20 Mcg (800 Iu)] Ipratropium-Albuterol Nebulize 3 ml INHALATION RT-Q4H 07/21/19 12/19/20 History [Duoneb 0.5 mg-3 mg/3 ml Soln] Budesonide [Pulmicort] 1 mg INHALATION RT-DAILY@0800 07/30/19 12/19/20 History Calcium Carbonate [Tums] 1,000 mg PO Q4HR PRN chew 08/03/19 12/19/20 Rx Lactulose [Cephulac] 20 gm PO DAILY PRN ml 08/03/19 12/19/20 Rx Mag Hydrox/Al Hydrox/Simeth 15 ml PO Q6HR PRN ml 08/03/19 12/19/20 Rx [Maalox] ARIPiprazole [Abilify] 2 mg PO HS 02/28/20 12/19/20 History Acetaminophen [Tylenol] 650 mg PO Q4H PRN 02/28/20 12/19/20 History Magnesium Hydroxide [Milk of 7,200 mg PO DAILY PRN 02/28/20 12/19/20 History Magnesia Concentrate] Na Phos,M-B/Na Phos,Di-Ba [Fleet 133 ml RECTAL DAILY PRN 02/28/20 12/19/20 History Adult] bisacodyL [Dulcolax] 10 mg RECTAL DAILY PRN 02/28/20 12/19/20 History Aspirin 81 mg PO DAILY@0800 12/19/20 12/19/20 History Dimethic/Zinc Ox/Vits A,D/Aloe [A 1 applic TOPICAL BID 12/19/20 12/19/20 History and D Diaper Rash Cream] Ferrous Sulfate [Feosol] 325 mg PO DAILY@0800 12/19/20 12/19/20 History Lactose-Reduced Food [Ensure Plus] 120 ml PO TID@0800,1200,1700 12/19/20 12/19/20 History Magic Cup 1 dose PO DAILY@1200 12/19/20 12/19/20 History Sennosides/Docusate Sodium [Senna 1 tab PO BID@0800,2100 12/19/20 12/19/20 History Plus 8.6-50 mg Tablet] Allergies Allergy/AdvReac Type Severity Reaction Status Date / Time No Known Allergies Allergy Verified 12/19/20 07:13 Physical Exam Vitals: Vital Signs Temp Pulse Pulse Resp BP BP Pulse Ox 12/19/20 08:45 19 12/19/20 07:44 78 12/19/20 07:35 78 96 12/19/20 07:00 97.1 F L 85 19 122/66 96 12/19/20 00:09 83 20 132/75 97 12/18/20 22:37 97.6 F 89 20 143/66 94 L Intake and Output 12/18/20 12/19/20 12/19/20 22:59 06:59 14:59 Intake Total 40 Balance 40 Intake: IV 40 Sodium Chloride 0.9% 1, 40 000 ml @ 20 mls/hr IV . Q24H [facility] Rx#:[id number] Other: Weight 45.813 kg Results CBC & Chem 7: 12/18/20 23:33 12/18/20 23:33 Labs: Abnormal Lab Results - Last 24 Hours (Table) 12/18/20 12/18/20 12/18/20 Range/Units 23:33 23:33 23:33 Hgb 11.2 L (11.4-16.0) gm/dL Lymphocytes # 0.6 L (1.0-4.8) k/uL Carbon Dioxide 31 H (22-30) mmol/L Creatinine 0.51 L (0.52-1.04) mg/dL Glucose 105 H (74-99) mg/dL Urine Appearance Cloudy H (Clear) Urine Protein Trace H (Negative) Urine Ketones Trace H (Negative) Urine Blood Moderate H (Negative) Urine Nitrite Positive H (Negative) Ur Leukocyte Esterase Large H (Negative) Urine RBC 47 H (0-5) /hpf Urine WBC 73 H (0-5) /hpf Urine Bacteria Few H (None) /hpf Thrombosis Risk Factor Assmnt - Choose All That Apply Any of the Below Risk Factors Present?: Yes Each Factor Represents 1 point: Abnormal pulmonary function (COPD), Medical pt on bed rest Other Risk Factors: Yes Each Risk Factor Represents 3 Points: Age 75 years or older Thrombosis Risk Factor Assessment Total Risk Factor Score: 5 Thrombosis Risk Factor Assessment Level: High Risk
[2020-12-19] MEDS: CALCIUM CARB-VIT D 500 MG-5 MCG TAB PO SCH (20:47)
[2020-12-19] MEDS: SENNOSIDES-DOCUSATE SODIUM 1 EACH TAB PO SCH ×2 (20:47)
[2020-12-19] MEDS: ARIPiprazole 2 MG TAB PO SCH (20:47)
[2020-12-19] MEDS: FOLIC ACID 1 MG TAB PO SCH (20:48)
[2020-12-20] MEDS: IPRATROPIUM-ALBUTEROL 3 ML NEB INHALATION SCH ×6 (00:15→20:22)
[2020-12-20] MEDS: SODIUM CHLORIDE 0.9% 1,000 ML IV SCH (02:46)
[2020-12-20] MEDS: PIPERACILLIN-TAZOBACTAM 3.375 GM in SODIUM CHLORIDE 0.9% 100 ML IVPB SCH ×3 (02:57→17:35)
[2020-12-20] MEDS: BUDESONIDE 1 MG/2 ML NEBU INHALATION SCH (07:31)
[2020-12-20] MEDS: FERROUS SULFATE 325 MG TAB PO SCH (08:19)
[2020-12-20] MEDS: lisinopriL 20 MG TAB PO SCH (08:20)
[2020-12-20] MEDS: SENNOSIDES-DOCUSATE SODIUM 1 EACH TAB PO SCH ×3 (08:20→21:02)
[2020-12-20] MEDS: polyethylene glycoL 3350 17 GM POWD.PACK PO SCH (08:20)
[2020-12-20] MEDS: ZINC OXIDE 20% OINT 28.4 GM TUBE TOPICAL SCH ×2 (08:20→21:03)
[2020-12-20] MEDS: predniSONE 50 MG TAB PO SCH (08:20)
[2020-12-20] MEDS: ASPIRIN 81 MG PO SCH (08:20)
--- NOTE | 2020-12-20 09:39 | XR ---
EXAMINATION TYPE: XR chest 2V DATE OF EXAM: 12/20/2020 COMPARISON: 12/18/2020 INDICATION: Pneumonia TECHNIQUE: Frontal and lateral views of the chest are obtained. FINDINGS: The heart size is normal. The pulmonary vasculature is prominent. Right upper lobe infiltrate is present. This appears improved over the interval.. Small right pleura l effusion is likely present. There is some fullness in the hilar regions. Continued follow-up is rec ommended. IMPRESSION: 1. Small right pleural effusion. 2. Right upper lobe infiltrate appears to be improving. 3. Prominence of the hilum. Continued follow-up is recommended
--- NOTE | 2020-12-20 13:43 | P.PN ---
Progress Note - Text Progress Note Date: 12/20/20 Chief Complaint: Decreased pulse ox History of presenting complaint: This is a 80-year-old patient who follows with Dr. Rojo at the [facility].. Seen by me in the ER today. 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 diagnosed with lung cancer and was treated with chemotherapy and radiation treatment by Dr. Petersen. Has significant underlying dementia. Patient was sent in from the [facility] because the staff told the EMS that patient has been refusing her medications for last 2 days and had a FiO2 of 81%. Normally she is on 2 L of nasal cannula. Patient is a poor historian. Sound congested. Tired. Admitted with aspiration pneumonia. Acute hypoxic respiratory failure. Acute encephalopathy. Started IV Zosyn. December 20: A bit more awake today. Refusing food. IV Zosyn. Review of systems: Unable to obtain as patient is rather demented. Active Medications Acetaminophen (Acetaminophen Tab 325 Mg Tab) 650 mg PO Q4H PRN PRN Reason: Fever and/ or Pain Al Hydroxide/Mg Hydroxide (Mag Hydrox/Al Hydrox/Simeth 30 Ml Cup) 15 ml PO Q6HR PRN PRN Reason: Indigestion Albuterol Sulfate (Albuterol Nebulized 2.5 Mg/3 Ml) 2.5 mg INHALATION RT-Q4H PRN PRN Reason: Shortness Of Breath Or Wheezing Albuterol/Ipratropium (Ipratropium-Albuterol 3 Ml Neb) 3 ml INHALATION RT-Q4H [facility] Last Admin: 12/20/20 11:16 Dose: 3 ml Documented by: Aripiprazole (Aripiprazole 2 Mg Tab) 2 mg PO HS [facility] Last Admin: 12/19/20 20:47 Dose: 2 mg Documented by: Aspirin (Aspirin 81 Mg) 81 mg PO DAILY [facility] Last Admin: 12/20/20 08:20 Dose: 81 mg Documented by: Bisacodyl (Bisacodyl 10 Mg Supp) 10 mg RECTAL DAILY PRN PRN Reason: Constipation Budesonide (Budesonide 1 Mg/2 Ml Nebu) 1 mg INHALATION RT-DAILY [facility] Last Admin: 12/20/20 07:31 Dose: Not Given Documented by: Calcium Carbonate (Calcium Carb-Vit D 500 Mg-5 Mcg Tab) 1 each PO [facility] Last Admin: 12/19/20 20:47 Dose: 1 each Documented by: Calcium Carbonate/Glycine (Calcium Carbonate 500 Mg Chewable) 1,000 mg PO Q4HR PRN PRN Reason: Dyspepsia Ferrous Sulfate (Ferrous Sulfate 325 Mg Tab) 325 mg PO DAILY@0800 [facility] Last Admin: 12/20/20 08:19 Dose: 325 mg Documented by: Folic Acid (Folic Acid 1 Mg Tab) 1 mg PO HS [facility] Last Admin: 12/19/20 20:48 Dose: 1 mg Documented by: Sodium Chloride (Saline 0.9%) 1,000 mls @ 20 mls/hr IV .Q24H [facility] Last Admin: 12/20/20 02:46 Dose: Not Given Documented by: Piperacillin Sod/Tazobactam (Sod 3.375 gm/ Sodium Chloride) 100 mls @ 25 mls/hr IVPB Q8H [facility] Last Admin: 12/20/20 10:38 Dose: 25 mls/hr Documented by: Lactulose (Lactulose 20 Gm/30 Ml Cup) 20 gm PO DAILY PRN PRN Reason: Constipation Lisinopril (Lisinopril 20 Mg Tab) 20 mg PO DAILY [facility] Last Admin: 12/20/20 08:20 Dose: 20 mg Documented by: Magnesium Hydroxide (Magnesium Hydroxide 2,400 Mg/10 Ml Cup) 2,400 mg PO DAILY PRN PRN Reason: Constipation Miscellaneous Information (Pneumonia Protocol Utilized 1 Each Misc) 1 each PO ONCE PRN PRN Reason: Per Protocol Multi-Ingredient Ointment (Zinc Oxide 20% Oint 28.4 Gm Tube) 1 applic TOPICAL BID [facility] Last Admin: 12/20/20 08:20 Dose: 1 applic Documented by: Polyethylene Glycol (Polyethylene Glycol 3350 17 Gm Powd.Pack) 17 gm PO DAILY [facility] Last Admin: 12/20/20 08:20 Dose: 17 gm Documented by: Prednisone (Prednisone 50 Mg Tab) 50 mg PO DAILY [facility] Last Admin: 12/20/20 08:20 Dose: 50 mg Documented by: Senna/Docusate Sodium (Sennosides-Docusate Sodium 1 Each Tab) 1 each PO HS [facility] Last Admin: 12/19/20 20:47 Dose: 1 each Documented by: Senna/Docusate Sodium (Sennosides-Docusate Sodium 1 Each Tab) 1 each PO BID@0800,2100 [facility] Last Admin: 12/20/20 08:20 Dose: 1 each Documented by: Sodium Biphosphate/Sodium Phosphate (Na Phos,M-B/Na Phos,Di-Ba 133 Ml Enema) 133 ml RECTAL DAILY PRN PRN Reason: Constipation . Past medical history: COPD, lung cancer, hypertension, GERD, thyroid nodule being followed, cognitive impairment with dementia Social history: Head [facility]. Smoked for 26 years stopped in 1987. No alcohol. Family history: Hypothyroidism Physical examination: VITAL SIGNS: 97.9, 88, 16, 1 46 x 71, 92% on room air GENERAL:, propped up in bed, less lethargic EYES: Pupils equal. Conjunctiva pale. HEENT: External appearance of nose and ears normal, oral cavity grossly normal. NECK: JVD unable to assess; masses not palpable. HEART: First and second heart sounds are normal; mild edema. LUNGS: Respiratory rate increased, decreased breath sounds. Coarse crackles on the right side ABDOMEN: Soft, nontender, liver spleen not palpable, no masses palpable. LYMPHATICS: No lymph nodes palpable in the axilla and neck. PSYCH: Unable to assess patient rather lethargic MUSCULAR skeletal: Evidence of OA especially in the hands, loss of muscle mass, bony prominences Investigations reviewed in the clinical context: December 19: Pro-calcitonin 0.06 White count 5.3 hemoglobin 11.2 platelets 305 potassium 4.2 BUN 16 creatinine 0.5 UA positive for nitrite, new questions, WBC Coronavirus [PCR]: Not detected EKG tracing personally reviewed by me-left bundle-branch block. Rates 88 Chest x-ray film personally reviewed by me-comp 8 to x-ray from February of this year. Shows some worsening of infiltrate. Assessment and plan: -Suspect aspiration pneumonia. Likely chemical pneumonitis. No fever no white count. Pro-calcitonin 0.06. IV Zosyn. -Acute metabolic encephalopathy from underlying pneumonia.: Slow to respond Follow clinically -Clinical myopathy, for malnutrition -Severe protein calorie malnutrition from decreased oral intake. Ensure 1 can 3 times a day -Lung cancer status post chemo and radiation treatment. In remission -Essential hypertension Zestril 20 mg daily -GERD -Primary osteoarthritis Pain medications as needed -COPD in an ex-smoker DuoNeb 4 times a day. Inhaled Pulmicort -Major cognitive impairment from late onset Alzheimer's dementia. -DO NOT RESUSCITATE -Power of contracts attorney, Anton Garber Aspiration precautions. All feeding with assistance. IV Zosyn. Ensure. Prognosis guarded. Did try to call patient's power of contracts attorney.-went into voicemail
[2020-12-20] MEDS: CALCIUM CARB-VIT D 500 MG-5 MCG TAB PO SCH (21:02)
[2020-12-20] MEDS: FOLIC ACID 1 MG TAB PO SCH (21:02)
[2020-12-20] MEDS: ARIPiprazole 2 MG TAB PO SCH (21:03)
[2020-12-20] MEDS ORDERED: AZITHROMYCIN 500 MG in SODIUM CHLORIDE 0.9% 250 ML IVPB SCH (23:00)
[2020-12-21] MEDS: IPRATROPIUM-ALBUTEROL 3 ML NEB INHALATION SCH ×4 (00:29→10:57)
[2020-12-21] MEDS: PIPERACILLIN-TAZOBACTAM 3.375 GM in SODIUM CHLORIDE 0.9% 100 ML IVPB SCH ×2 (02:06→09:00)
[2020-12-21] MEDS: SODIUM CHLORIDE 0.9% 1,000 ML IV SCH (02:07)
[2020-12-21] MEDS: BUDESONIDE 1 MG/2 ML NEBU INHALATION SCH (07:16)
[2020-12-21 07:51] VITALS: BP 136/76; RESP 18; TEMP 98
[2020-12-21] MEDS: FERROUS SULFATE 325 MG TAB PO SCH (08:53)
[2020-12-21] MEDS: lisinopriL 20 MG TAB PO SCH (08:53)
[2020-12-21] MEDS: polyethylene glycoL 3350 17 GM POWD.PACK PO SCH (08:53)
[2020-12-21] MEDS: predniSONE 50 MG TAB PO SCH (08:54)
[2020-12-21] MEDS: ASPIRIN 81 MG PO SCH (08:54)
[2020-12-21] MEDS: SENNOSIDES-DOCUSATE SODIUM 1 EACH TAB PO SCH (08:54)
[2020-12-21] MEDS: ZINC OXIDE 20% OINT 28.4 GM TUBE TOPICAL SCH (08:55)
[2020-12-21 11:24] VITALS: PULSE 77
--- NOTE | 2020-12-21 15:03 | P.DS ---
Providers Date of admission: 12/19/20 11:38 Expected date of discharge: 12/21/20 Attending physician: [facility] Primary care physician: Tiago Rojo [facility] Course: Chief Complaint: Decreased pulse ox History of presenting complaint: This is a 80-year-old patient who follows with Dr. Rojo at the [facility].. Seen by me in the ER today. 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 diagnosed with lung cancer and was treated with chemotherapy and radiation treatment by Dr. Petersen. Has significant underlying dementia. Patient was sent in from the [facility] because the staff told the EMS that patient has been refusing her medications for last 2 days and had a FiO2 of 81%. Normally she is on 2 L of nasal cannula. Patient is a poor historian. Sound congested. Tired. Admitted with aspiration pneumonia. Acute hypoxic respiratory failure. Acute encephalopathy. Started IV Zosyn. Also acute UTI with klebsiella pneumoniae. December 20: A bit more awake today. Refusing food. IV Zosyn. December 21: 11 more awake today. Answering simple questions. Daughter the bedside. Had a lengthy discussion with her. She understands prognosis is guarded. Patient is tolerating some diet. Will complete 3 more days of Augment in. Discussion and discharge planning more than 35 minutes Past medical history: COPD, lung cancer, hypertension, GERD, thyroid nodule being followed, cognitive impairment with dementia Social history: Head [facility]. Smoked for 26 years stopped in 1987. No alcohol. Family history: Hypothyroidism Physical examination: VITAL SIGNS: 98, 87, 18, 136/76, 96% on 2 L GENERAL:, propped up in bed, more awake. EYES: Pupils equal. Conjunctiva pale. HEENT: External appearance of nose and ears normal, oral cavity grossly normal. NECK: JVD unable to assess; masses not palpable. HEART: First and second heart sounds are normal; mild edema. LUNGS: Respiratory rate increased, decreased breath sounds. Coarse crackles on the right side ABDOMEN: Soft, nontender, liver spleen not palpable, no masses palpable. LYMPHATICS: No lymph nodes palpable in the axilla and neck. PSYCH: Answering simple questions MUSCULAR skeletal: Evidence of OA especially in the hands, loss of muscle mass, bony prominences Investigations reviewed in the clinical context: Urine culture: Pneumoniae December 19: Pro-calcitonin 0.06 White count 5.3 hemoglobin 11.2 platelets 305 potassium 4.2 BUN 16 creatinine 0.5 UA positive for nitrite, new questions, WBC Coronavirus [PCR]: Not detected EKG tracing personally reviewed by me-left bundle-branch block. Rates 88 Chest x-ray film personally reviewed by me-comp 8 to x-ray from February of this year. Shows some worsening of infiltrate. Assessment and plan: - aspiration pneumonia. Likely chemical pneumonitis. No fever no white count. Pro-calcitonin 0.06. IV Zosyn. Augmentin for 3 more days -Acute metabolic encephalopathy from underlying pneumonia.: Improved Follow clinically -Clinical myopathy, for malnutrition -Severe protein calorie malnutrition from decreased oral intake. Ensure 1 can 3 times a day -Lung cancer status post chemo and radiation treatment. In remission -Essential hypertension Zestril 20 mg daily -GERD -Primary osteoarthritis Pain medications as needed -COPD in an ex-smoker DuoNeb 4 times a day. Inhaled Pulmicort -Major cognitive impairment from late onset Alzheimer's dementia. -DO NOT RESUSCITATE -Power of disability attorney, Anton Garber Disposition: [facility]CF/[place] Plan - Discharge Summary New Discharge Prescriptions: New guaiFENesin [Mucinex] 600 mg PO TID #60 tab Amoxic-Pot Clav 875-125Mg [Augmentin 875-125] 1 tab PO Q12HR #6 tab Continue lisinopriL [Zestril] 20 mg PO DAILY@0800 Folic Acid 1 mg PO DAILY@0800 polyethylene glycoL 3350 [Miralax] 17 gm PO DAILY@0800 Alendronate Sodium [Fosamax] 70 mg PO TH@0800 Calcium Carbonate/Vitamin D3 [Caltrate 600 Plus D3 20 Mcg (800 Iu)] 1 tab PO DAILY@0800 Ipratropium-Albuterol Nebulize [Duoneb 0.5 mg-3 mg/3 ml Soln] 3 ml INHALATION RT-Q4H Budesonide [Pulmicort] 1 mg INHALATION RT-DAILY@0800 Lactulose [Cephulac] 20 gm PO DAILY PRN ml PRN Reason: Constipation Mag Hydrox/Al Hydrox/Simeth [Maalox] 15 ml PO Q6HR PRN ml PRN Reason: Indigestion Calcium Carbonate [Tums] 1,000 mg PO Q4HR PRN chew PRN Reason: Dyspepsia bisacodyL [Dulcolax] 10 mg RECTAL DAILY PRN PRN Reason: Constipation Na Phos,M-B/Na Phos,Di-Ba [Fleet Adult] 133 ml RECTAL DAILY PRN PRN Reason: Constipation Acetaminophen [Tylenol] 650 mg PO Q4H PRN PRN Reason: Fever And/ Or Pain ARIPiprazole [Abilify] 2 mg PO HS Magnesium Hydroxide [Milk of Magnesia Concentrate] 7,200 mg PO DAILY PRN PRN Reason: Constipation Sennosides/Docusate Sodium [Senna Plus 8.6-50 mg Tablet] 1 tab PO BID@0800,2100 Magic Cup 1 dose PO DAILY@1200 Aspirin 81 mg PO DAILY@0800 Lactose-Reduced Food [Ensure Plus] 120 ml PO TID@0800,1200,1700 Ferrous Sulfate [Iron (65 MG Elemental)] 325 mg PO DAILY@0800 Dimethic/Zinc Ox/Vits A,D/Aloe [A and D Diaper Rash Cream] 1 applic TOPICAL BID Discharge Medication List lisinopriL [Zestril] 20 mg PO DAILY@0800 06/03/17 [History] Folic Acid 1 mg PO DAILY@0800 07/06/18 [History] polyethylene glycoL 3350 [Miralax] 17 gm PO DAILY@0800 10/05/18 [History] Alendronate Sodium [Fosamax] 70 mg PO TH@0800 07/01/19 [History] Calcium Carbonate/Vitamin D3 [Caltrate 600 Plus D3 20 Mcg (800 Iu)] 1 tab PO DAILY@0800 07/01/19 [History] Ipratropium-Albuterol Nebulize [Duoneb 0.5 mg-3 mg/3 ml Soln] 3 ml INHALATION RT-Q4H 07/21/19 [History] Budesonide [Pulmicort] 1 mg INHALATION RT-DAILY@0800 07/30/19 [History] Calcium Carbonate [Tums] 1,000 mg PO Q4HR PRN chew 08/03/19 [Rx] Lactulose [Cephulac] 20 gm PO DAILY PRN ml 08/03/19 [Rx] Mag Hydrox/Al Hydrox/Simeth [Maalox] 15 ml PO Q6HR PRN ml 08/03/19 [Rx] ARIPiprazole [Abilify] 2 mg PO HS 02/28/20 [History] Acetaminophen [Tylenol] 650 mg PO Q4H PRN 02/28/20 [History] Magnesium Hydroxide [Milk of Magnesia Concentrate] 7,200 mg PO DAILY PRN 02/28/20 [History] Na Phos,M-B/Na Phos,Di-Ba [Fleet Adult] 133 ml RECTAL DAILY PRN 02/28/20 [Histo ry] bisacodyL [Dulcolax] 10 mg RECTAL DAILY PRN 02/28/20 [History] Aspirin 81 mg PO DAILY@0800 12/19/20 [History] Dimethic/Zinc Ox/Vits A,D/Aloe [A and D Diaper Rash Cream] 1 applic TOPICAL BID 12/19/20 [History] Ferrous Sulfate [Iron (65 MG Elemental)] 325 mg PO DAILY@0800 12/19/20 [History] Lactose-Reduced Food [Ensure Plus] 120 ml PO TID@0800,1200,1700 12/19/20 [History] Magic Cup 1 dose PO DAILY@1200 12/19/20 [History] Sennosides/Docusate Sodium [Senna Plus 8.6-50 mg Tablet] 1 tab PO BID@0800,2100 12/19/20 [History] Amoxic-Pot Clav 875-125Mg [Augmentin 875-125] 1 tab PO Q12HR #6 tab 12/21/20 [Rx] guaiFENesin [Mucinex] 600 mg PO TID #60 tab 12/21/20 [Rx] Follow up Appointment(s)/Referral(s): Tiago Rojo DO [Primary Care Provider] - 1 Week Activity/Diet/Wound Care/Special Instructions: ground diet Discharge Disposition: TRANSFER TO SNF/ECF
== END 2020-12-21 14:57 | DRG 177 ==
LOC: EC 22:32 → 6NMEDSUR 12-19 01:09 → OBSVTOIN 12-19 11:38
PROVIDERS: ADMIT Hospitalist; ATTEND Hospitalist
DX: J69.0 Pneumonitis due to inhalation of food and vomit (principal); J96.01 Acute respiratory failure with hypoxia; G93.41 Metabolic encephalopathy; E43 Unspecified severe protein-calorie malnutrition; J44.1 Chronic obstructive pulmonary disease with (acute) exacerbation; N39.0 Urinary tract infection, site not specified; C34.90 Malignant neoplasm of unspecified part of unspecified bronchus or lung; J44.0 Chronic obstructive pulmonary disease with (acute) lower respiratory infection; J68.0 Bronchitis and pneumonitis due to chemicals, gases, fumes and vapors; K21.9 Gastro-esophageal reflux disease without esophagitis; M19.91 Primary osteoarthritis, unspecified site; Z66 Do not resuscitate; Z79.51 Long term (current) use of inhaled steroids; Z79.82 Long term (current) use of aspirin; Z79.83 Long term (current) use of bisphosphonates; Z92.3 Personal history of irradiation; Z92.21 Personal history of antineoplastic chemotherapy; Z87.891 Personal history of nicotine dependence; Z85.118 Personal history of other malignant neoplasm of bronchus and lung; Z82.3 Family history of stroke; Z79.899 Other long term (current) drug therapy; E03.9 Hypothyroidism, unspecified; F02.80 Dementia in other diseases classified elsewhere, unspecified severity, without behavioral disturbance, psychotic disturbance, mood disturbance, and anxiety; G30.1 Alzheimer's disease with late onset; I10 Essential (primary) hypertension
CPT/HCPCS: 36415; 71046; 80053; 81001; 83605; 83735; 83880; 84145; 84484; 85025; 85610; 85730; 87040; 87077; 87086; 87186; 87635; 93005; 94640; 94760; 99285